=== PATIENT | female | born 1955 | race Two or more races ===

== ENCOUNTER 2019-05-19 18:21 | Emergency (ER) | payer MEDICAID, SELFPAY ==
[2019-05-19 18:22] VITALS: BP 134/92; PULSE 88; RESP 15; TEMP 36.8; O2SAT 97; BMI 39.6
--- NOTE | 2019-05-19 18:37 | ED.VIS.GEN ---
History of Present Illness Chief Complaint: Back Detail of Chief Complaint: Back pain Informant: Patient Onset: Weeks Current Severity: Mild Maximum Severity: Moderate Narrative: Left-sided back pain is been ongoing for the last week or more. She points to the left lumbar paraspinal region at the level of her waistband. She did fall, landing on her hands and knees, but states she believes this fall was after her back and already started hurting. She initially thought she had a UTI so she was trying to drink a lot of water. She does state that occasionally the pain will shoot down her leg. Pain does seem to be worse with movement. She denies difficulty with her back previously. Past Medical History - Allergies and Home Meds Allergies/Adverse Reactions: Allergies No Known Allergies Allergy (Verified 05/19/19 18:25) Primary Care Physician: Royce Islas DO [Primary Care Provider] - Prior records reviewed: Yes Past Medical History: - - Reviewed Surgical History: - - Surgery to her right arm for a compound wrist fracture and elbow fractures Lives: Spouse/ Significant Other Smoking Status: Never smoker - Family History Paternal Family History: Reports: Cancer Review of Systems General: Denies: Chills, Fever Eyes: Denies: Visual changes - bilaterally ENT: Denies: Bilateral ear pain Cardiovascular: Denies: Chest pain Respiratory: Denies: Dyspnea, Cough Gastrointestinal: Denies: Abdominal pain, Nausea, Vomiting, Diarrhea Genitourinary: Denies: Dysuria Musculoskeletal: Reports: Back pain, Extremity Pain Skin: Denies: Rash Neurological: Denies: Headache, Weakness, Parasthesia Hematologic: Denies: Easy bruising Allergy: Denies: Uticaria Physical Exam Vital Signs/Narrative: Vital Signs Temp Pulse Resp BP Pulse Ox 05/19/19 18:22 98.2 F 88 15 134/92 H 97 Inital Vital Signs reviewed: Yes General: Well nourished, Well developed Head: Normocephalic ENT: Moist mucous membranes Neck: Supple Cardiovascular: Regular rate, Regular rhythm Respiratory: No distress, CTA bilaterally Abdomen: Soft, Nontender Back: - - Mild tenderness in the low left lumbar paraspinal muscles. No midline tenderness. Extremities: Nontender, No edema, - - Strong distal pulses. Skin: Normal color Neurological: Alert, Oriented x3, Normal Strength, Normal Sensation Psychological: Normal affect Diagnostic/Tx/Re-eval Laboratory Results 05/19/19 19:00 Urine Color Yellow Urine Clarity Clear Urine pH 5.0 Ur Specific [place] 1.025 Urine Protein Negative Urine Glucose (UA) Normal Urine Ketones Negative Urine Occult Blood Negative Urine Nitrite Negative Urine Bilirubin Negative Urine Urobilinogen Normal Ur Leukocyte Esterase 25 H Urine RBC 0 SEEN Urine WBC 0 SEEN Ur Squamous Epith Cells 0 SEEN Urine Bacteria 0 SEEN Urine Mucus 1+ - Medical Decision Making Urinalysis is obtained and unremarkable. Test results are discussed with the patient. She was given naproxen here and will be given a dose of Flexeril. Pain does seem to be worsened with movement and does seem consistent with deep musculoskeletal pain. She be given naproxen and Flexeril at home. She plans to follow with her primary care physician early next week. ED Disposition - Plan for ED Patient: Disposition: Home or Assisted Living Diagnosis: Back pain Instructions: BACK AND NECK PAIN, General Prescriptions: cycloBENZAPRine HCl [Flexeril] 10 mg PO TID PRN #10 tablet PRN Reason: Muscle Spasm Naproxen [Naprosyn] 500 mg PO BID PRN PRN #20 tablet PRN Reason: Pain Score 1-10/10 Referrals: Royce Islas DO [Primary Care Provider] - 5-7 Days
[2019-05-19] MEDS: Naproxen 500 MG Tablet PO (18:49)
[2019-05-19 19:13] LABS: Bacteria 0 SEEN /hpf (None Seen); Red Blood Cells-Urine 0 SEEN /hpf (0-5); Squamous Epithelial Cells - UA 0 SEEN /hpf (5-10); White Blood Cells 0 SEEN /hpf (0-5)
[2019-05-19 19:17] LABS: Color, Urine Yellow (Yellow); Glucose, Dipstick Normal (Normal); Ketone-Dipstick Negative (Negative); Leukocyte Esterase-Dipstick 25 /ul (Negative); Nitrite-Dipstick Negative (Negative); Occult Blood-Urine Negative /ul (Negative); Protein-Dipstick Negative (Negative); Specific Gravity, Urine 1.025 (1.002-1.030); Urine Bilirubin Dipstick Negative (Negative); Urine Clarity Clear (Clear); Urine Urobilinogen Normal (Normal)
[2019-05-19 19:23] LABS: Mucous, Urine 1+ /hpf (<or=2+)
[2019-05-19] MEDS: cycloBENZAPRine HCl 10 MG Tablet PO (19:38)
== END 2019-05-19 19:39 | disposition home or self-care (01) ==
PROVIDERS: Emergency Provider Emergency Medicine; Family Provider Student in an Organized Health Care Education/Training Program; PCP Student in an Organized Health Care Education/Training Program
DX: M54.5 Low back pain (principal); Z79.899 Other long term (current) drug therapy
CPT/HCPCS: 81001; 99283

== ENCOUNTER → 2020-03-20 17:31 | Outpatient (CLI) | payer MEDICAID, SELFPAY | PROVIDERS: PCP Student in an Organized Health Care Education/Training Program; Referring Provider Nurse Practitioner Family; Visit Provider Nurse Practitioner Family | DX: Z11.59 Encounter for screening for other viral diseases (principal) | CPT/HCPCS: 87635; 94799; U0003 ==

== ENCOUNTER → 2020-08-20 17:39 | Outpatient (CLI) | payer MEDICAID, SELFPAY | PROVIDERS: PCP Student in an Organized Health Care Education/Training Program; Referring Provider Student in an Organized Health Care Education/Training Program; Visit Provider Student in an Organized Health Care Education/Training Program | DX: Z20.822 Contact with and (suspected) exposure to COVID-19 (principal); R53.83 Other fatigue | CPT/HCPCS: 87635; C9803; U0005; U0003 ==

== ENCOUNTER 2021-03-31 11:28 | Emergency (ER) | payer MEDICAID, SELFPAY ==
[2021-03-31 11:29] VITALS: BP 118/99; PULSE 87; RESP 16; TEMP 36.2; O2SAT 97; BMI 29.0
--- NOTE | 2021-03-31 11:57 | EX.ED.DYSGE1 ---
HPI History of Present Illness Chief Complaint: General Illness Detail of Chief Complaint: Vomiting and diarrhea Informant: patient Narrative Narrative: Presents to the emergency department complaint of diarrhea that started about 4 days ago. Patient states she is having about 10 watery stools a day. Patient started having episodes of vomiting today. Patient thinks she threw up 6 times today. She denies any abdominal pain. She denies fevers. Patient states that she was out of town at the [facility] in [place] 2 weeks ago and tested positive for COVID-19 although she was asymptomatic at that time. Patient states that her partner who is with her did get Covid. Before having the episodes of diarrhea 4 days ago she was feeling well. Prior similar symptoms: No PFSH PFSH Medical History (Updated 03/31/21 @ 13:[address] Brittny Us DO) Hypothyroid Home Medications cyclobenzaprine 10 mg PO TID PRN #10 tab 05/19/19 [Rx Last Taken Unknown] levothyroxine 75 mcg PO DAILY 05/19/19 [History Last Taken Unknown] naproxen 500 mg PO BID PRN PRN #20 tab 05/19/19 [Rx Last Taken Unknown] Allergy/AdvReac Type Severity Reaction Status Date / Time No Known Allergies Allergy Verified 03/31/21 11:32 Surgical History (Updated 03/31/21 @ 12:15 by Annita Simmons) Hx of elbow surgery Social History Smoking Status: Never smoker ROS ROS ED Constitutional Constitutional ED: Reports systems reviewed and no addt'l complaints, except as documented; Denies body ache(s), change in weight or chills Eyes Eyes: Denies acute decrease in peripheral vision, change in vision, double vision or loss of vision ENT ENT ED: Reports none; Denies ear pain, lip swelling, loss taste/smell, neck pain, otalgia or sore throat Cardiovascular Cardiovascular: Reports none; Denies abdominal pain, chest pain with activity, leg edema, lightheadedness, palpitations, rapid heart rate or syncope Respiratory/Chest Respiratory/Chest: Reports none; Denies change in mental status, dry cough, dyspnea, hemoptysis, shortness of breath at rest or shortness of breath with exertion Gastrointestinal Gastrointestinal: Reports none, diarrhea, nausea and vomiting; Denies abdominal pain, change in stool character, hematemesis, hematochezia, melena or rectal bleeding Genitourinary Genitourinary ED: Reports none; Denies abdominal discomfort, anuria, dysuria, genital pain or polyuria Musculoskeletal Musculoskeletal: Reports none; Denies arthralgias, back pain, difficulty walking, extremity pain, muscle weakness or myalgias Integumentary Reports none; Denies abscess or rash Neurologic Neurologic: Reports none; Denies abnormal gait, confusion, focal weakness, frequent falls, headache(s), loss of vision, numbness, paresthesias, radicular pain, vertigo or weakness Psychiatric Psychiatric: Reports systems reviewed and no addt'l complaints, except as documented and none; Denies behavioral changes, confusion, difficulty concentrating, hallucinations, suicidal ideation, tactile hallucinations or visual hallucinations Endocrine Endocrinology: Denies none, cold intolerance, excessive sweating, fatigue or heat intolerance Hematologic/Lymphatic Hematologic/Lymphatic: Reports none; Denies anemia, easy bleeding or easy bruising Allergic/Immunologic Allergic/Immunologic ED: Denies as per HPI, none, lip swelling, mouth swelling, throat swelling, tongue swelling or hives EXAM Physical Exam Const Vital Signs: 03/31/21 11:29 03/31/21 12:15 03/31/21 13:28 Temperature 97.2 F L Temperature Source Temporal Pulse Rate 87 Respiratory Rate 16 16 Respiratory Effort Normal Non-Labored Blood Pressure 118/99 H Blood Pressure Mean 105 Pulse Ox 97 Oxygen Delivery Method Room Air Positive well nourished and well developed General Appearance ED: well developed and NAD HEENT Reports TM's clear and moist mucous membranes normocephalic and atraumatic; Negative for trauma or tenderness Tympanic Membrane ED: Yes TM's clear Eyes PERRL and EOMs intact bilaterally General Eye ED: Negative for pale conjunctiva or scleral icterus Neck no lymphadenopathy, supple and no JVD General: Negative for tenderness Chest Wall inspection of chest normal and palpation of chest normal Chest: Negative for tenderness Resp normal respiratory effort and clear to auscultation bilaterally Effort and Inspection: Negative for respiratory distress or pain with movement Auscultation: Negative for rhonchi, wheezes or diminished lung sounds Cardio regular rate, regular rhythm, S1 normal heart sound, S2 normal heart sound and no murmurs Peripheral Pulses: pulses 2+ throughout GI normal to inspection, nondistended, normoactive bowel sounds, soft to palpation, non-tender, non-distended and no masses Back/Spine no CVA tenderness and no thoracic nor lumbar tenderness Extremity normal to inspection General Extremety ED: Negative for edema General Extremity: Negative for edema Neuro oriented x3, CN's II-XII intact bilaterally, no sensory deficits noted and gait normal Sensorium / Orientation: awake, alert, oriented to person, oriented to place and oriented to time Motor Exam: strength 5/5 throughout and strength abnormal Psych mental status grossly normal Skin no rashes or lesions noted and no wounds MDM MDM MDM Narrative Medical decision making narrative: Patient unable to give stool sample for enteric pathogens while in the department. Lab work-up otherwise unremarkable and clinically patient appears well. Patient will be discharged to home as a special likely has diarrhea related to her Covid diagnosis versus other viral etiology. Patient advised use Imodium as needed for the diarrhea. She will be given an order to bring in a stool sample for enteric pathogens. Lab Data Attestation: I reviewed the patient's lab results. Labs: Laboratory Results - last 24 hr 03/31/21 03/31/21 03/31/21 12:08 12:08 12:08 WBC 3.9 L RBC 5.32 Hgb 14.9 Hct 45.9 MCV 86.3 MCH 28.0 MCHC 32.5 RDW Std Deviation 39.5 RDW Coeff of Taye 12.6 Plt Count 168 MPV 9.7 Immature Gran % (Auto) 0.500 Neut % (Auto) 65.2 Lymph % (Auto) 20.7 [place] % (Auto) 13.0 H Eos % (Auto) 0.3 Baso % (Auto) 0.3 Absolute Neuts (auto) 2.6 Absolute Lymphs (auto) 0.81 L Nucleated RBC % 0 Sodium 140 Potassium 3.9 Chloride 105 Carbon Dioxide 32.0 Anion Gap 3 L BUN 11 Creatinine 0.56 Estim Creat Clear Calc 86.49 Est GFR (MDRD) Af Amer 139 Est GFR (MDRD) Non-Af 115 BUN/Creatinine Ratio 19.6 Glucose 108 H Lactic Acid 1.0 Calcium 8.4 L Total Bilirubin 0.80 AST 18 ALT 22 Alkaline Phosphatase 74 Total Protein 7.4 Albumin 3.6 Globulin 3.8 Albumin/Globulin Ratio 0.9 Discharge Plan Triage Chief Complaint: General Illness ED Provider: Brittny Us Dx/Rx/DC Orders Clinical Impression: Viral syndrome, Diarrhea, COVID-19 Instructions: ED Diarrhea, Unknown Cause, ED Viral Syndrome (Adult), Caring for Someone Who Has COVID-19 Prescriptions: No Action levothyroxine 75 MCG tablet 75 mcg PO DAILY RF: 0 naproxen 500 MG tablet 500 mg PO BID PRN PRN (Reason: Pain Score 1-10/10) Qty: 20 RF: 0 cyclobenzaprine 10 MG tablet 10 mg PO TID PRN (Reason: Muscle Spasm) Qty: 10 RF: 0 Primary Care Provider: Royce Islas Referrals: Royce Islas DO [Primary Care Provider] - 3-5 Days Disposition Disposition: Home, Self Care
[2021-03-31] MEDS: 0.9% Normal Saline 1,000 ML 1000 ML IV (12:09)
[2021-03-31] MEDS: Ondansetron 4 MG/2 ML Vial IV (12:09)
[2021-03-31 12:25] LABS: Absolute Lymphocyte Count 0.81 X10^3/uL (0.83-4.51); Absolute Neutrophil Count 2.6 X10^3/uL (2.0-7.7); Basophil# 0.01 X10^3/uL; Basophil% 0.3 % (0-1); Eosinophil# 0.01 X10^3/uL; Eosinophils% 0.3 % (0-5); Hematocrit 45.9 % (37-47); Hemoglobin 14.9 g/dL (12.0-15.0); Lymphocyte # 0.81 X10^3/ul (0.83-4.51); Lymphocyte % 20.7 % (19-41); Mean Corp Hgb Conc 32.5 g/dL (32-36); Mean Corpuscular Volume 86.3 fL (81-99); Mean Platelet Vol. 9.7 fl (6.2-12.0); Monocyte# 0.51 X10^3/uL; NRBC Flagged by Analyzer 0 % (0-5); Neutrophil # 2.56 X10^3/uL (2.7-7.7); Neutrophil % 65.2 % (47-70); Platelet Count 168 K/mm3 (150-450); RBC Distribution Width CV 12.6 % (11.6-14.6); RBC Distribution Width SD 39.5 fl (35.1-43.9); Red Blood Count 5.32 M/mm3 (4.2-5.4); White Blood Count 3.9 K/mm3 (4.4-11.0)
[2021-03-31 12:53] LABS: ALB/GLOB Ratio 0.9 RATIO (0.9-2.4); AST(SGOT) 18 U/L (15-37); Alanine Aminotransfer ALT/SGPT 22 U/L (13-56); Albumin, Serum 3.6 g/dL (3.2-5.0); Alkaline Phosphatase 74 U/L (45-117); Anion Gap 3 (5-15); BUN 11 mg/dL (7-18); BUN/Creat Ratio 19.6 RATIO (10-20); Calcium,Total 8.4 mg/dL (8.5-10.1); Chloride 105 mmol/L (98-107); Creatinine, Serum 0.56 mg/dL (0.55-1.02); EST Glomerular Filtration Rate 115 mL/min (>60); Est Glom Filt Rate - Afr Amer 139 mL/min (>60); Estimated Creatinine Clearance 86.49 ml/min; Globulin 3.8 g/dL (2.2-4.2); Glucose 108 mg/dL (74-106); Potassium 3.9 mmol/L (3.5-5.1); Protein, Total 7.4 g/dL (6.4-8.2); Sodium Level 140 mmol/L (136-145)
[2021-03-31 13:28] VITALS: RESP 16
== END 2021-03-31 14:03 | disposition home or self-care (01) ==
PROVIDERS: Emergency Provider Emergency Medicine; PCP Student in an Organized Health Care Education/Training Program
DX: U07.1 COVID-19 (principal); B34.9 Viral infection, unspecified; R19.7 Diarrhea, unspecified
CPT/HCPCS: 80053; 83605; 85025; 96374; 99282; J7030; A4216; J2405

== ENCOUNTER 2021-04-01 02:05 | Emergency (ER) | payer MEDICAID, SELFPAY ==
[2021-04-01 02:06] VITALS: BP 145/90; PULSE 72; RESP 14; TEMP 36.8; O2SAT 98; BMI 29.0
--- NOTE | 2021-04-01 02:17 | CT_ITS ---
STUDY: CT ABDOMEN AND PELVIS WITH CONTRAST REASON FOR EXAM: Female, 65 years old. LLQ pain RADIATION DOSAGE (If Supplied By Facility): CTDIvol = ( 13.73 ) mGy, DLP = ( 919.94 ) mGycm TECHNIQUE: Transaxial images were obtained from the dome of the diaphragm to the symphysis pubis without oral contrast. IV 100mL Isovue-370 was administered. Sagittal and coronal images were reconstructed. Individualized dose optimization techniques were used for this CT. COMPARISON: None. FINDINGS: Lung bases clear. Mild intra and extrahepatic biliary dilatation. Common bile duct measures 0.8 cm in diameter. Tiny layering stones in the gallbladder. Calcified granulomas in the spleen. Unremarkable pancreas, adrenals, and bilateral kidneys. Normal appendix. Circumferential wall thickening of the cecum and ascending colon, suggestive of acute colitis or typhlitis. Distal colonic diverticulosis. No acute diverticulitis. Bowel loops nonobstructed. No free air or free fluid. No adenopathy. Vascular calcification with no abdominal aortic aneurysm. Fat-containing periumbilical hernia. Sections through the pelvis demonstrate no adnexal mass. Urinary bladder incompletely distended. Multilevel thoracolumbar spondylosis. Mild osteoarthritis of the bilateral hip joints. CT/Abdomen/Pelvis W IV Cont ONLY IMPRESSION: Circumferential wall thickening of the cecum and ascending colon, suggestive of acute infectious/inflammatory colitis or typhlitis. Distal colonic diverticulosis. No acute diverticulitis. Cholelithiasis. Mild intra and extrahepatic biliary dilatation, amenable to further evaluation by MRI/MRCP. Electronically Signed: Kong Stratton MD at 3:34 EDT Tel , Service support ,
[2021-04-01] MEDS: 0.9% Normal Saline 1,000 ML 1000 ML IV (02:29)
[2021-04-01] MEDS: Ketorolac 15 MG/ML Vial IV (02:29)
[2021-04-01 02:35] LABS: Absolute Lymphocyte Count 1.22 X10^3/uL (0.83-4.51); Absolute Neutrophil Count 3.5 X10^3/uL (2.0-7.7); Basophil# 0.02 X10^3/uL; Basophil% 0.3 % (0-1); Eosinophil# 0.02 X10^3/uL; Eosinophils% 0.3 % (0-5); Hematocrit 43.3 % (37-47); Lymphocyte # 1.22 X10^3/ul (0.83-4.51); Lymphocyte % 21.2 % (19-41); Mean Corp Hgb Conc 34.6 g/dL (32-36); Mean Corpuscular Hgb 29.1 pg (27.0-32.0); Mean Corpuscular Volume 84.1 fL (81-99); Mean Platelet Vol. 9.8 fl (6.2-12.0); Monocyte# 0.94 X10^3/uL; Monocyte% 16.3 % (0-10); NRBC Flagged by Analyzer 0 % (0-5); Neutrophil # 3.52 X10^3/uL (2.7-7.7); Neutrophil % 61.4 % (47-70); Platelet Count 185 K/mm3 (150-450); RBC Distribution Width CV 12.4 % (11.6-14.6); RBC Distribution Width SD 37.6 fl (35.1-43.9); Red Blood Count 5.15 M/mm3 (4.2-5.4); White Blood Count 5.8 K/mm3 (4.4-11.0)
[2021-04-01 02:49] LABS: ALB/GLOB Ratio 0.9 RATIO (0.9-2.4); AST(SGOT) 17 U/L (15-37); Alanine Aminotransfer ALT/SGPT 21 U/L (13-56); Albumin, Serum 3.6 g/dL (3.2-5.0); Alkaline Phosphatase 72 U/L (45-117); Anion Gap 5 (5-15); BUN 12 mg/dL (7-18); BUN/Creat Ratio 19.7 RATIO (10-20); Calcium,Total 8.5 mg/dL (8.5-10.1); Chloride 107 mmol/L (98-107); Creatinine, Serum 0.61 mg/dL (0.55-1.02); EST Glomerular Filtration Rate 105 mL/min (>60); Est Glom Filt Rate - Afr Amer 127 mL/min (>60); Glucose 116 mg/dL (74-106); Potassium 3.6 mmol/L (3.5-5.1); Protein, Total 7.6 g/dL (6.4-8.2); Sodium Level 139 mmol/L (136-145)
--- NOTE | 2021-04-01 03:12 | ED.VIS.GI ---
HPI HPI - GI History of Present Illness Chief Complaint: Abd Pain Narrative Narrative: Patient presenting for evaluation due to abdominal pain diarrhea and generalized illness. Patient has a past history of testing positive for coronavirus 2 weeks ago. She reports that she was basically asymptomatic with her coronavirus infection. Patient states however that 4 days ago she developed a diarrheal illness. This been associated with multiple episodes of loose watery diarrhea per day. Patient states that not really been associated with fevers. She was seen about 24 hours ago had a laboratory work-up and was discharged. She reports that since then she has had resolution of her diarrhea, but has developed some generalized abdominal pain. This is an aching type pain that is not really localized. Its been associated with generalized myalgias and a feeling of generalized uneasiness. Patient's states that she has basically been rolling around moaning in bed all day. Review of systems otherwise negative. Patient has not been on antibiotics recently. Her only travel was out to [place] to go to [place]. No recent hospital admissions or shelter exposures. [facility] Medical History Hypothyroid Home Medications cyclobenzaprine 10 mg PO TID PRN #10 tab 05/19/19 [Rx Last Taken Unknown] levothyroxine 75 mcg PO DAILY 05/19/19 [History Last Taken Unknown] naproxen 500 mg PO BID PRN PRN #20 tab 05/19/19 [Rx Last Taken Unknown] dicyclomine 20 mg PO TIDAC #20 capsule 04/01/21 [Rx Last Taken Unknown] naproxen 500 mg PO BID PRN #20 tab 04/01/21 [Rx Last Taken Unknown] Allergy/AdvReac Type Severity Reaction Status Date / Time No Known Allergies Allergy Verified 04/01/21 02:09 Surgical History Hx of elbow surgery Social History Smoking Status: Former smoker ROS ROS ED Constitutional Constitutional ED: Reports chills and other Details: malaise ENT ENT ED: Denies sore throat Cardiovascular Cardiovascular: Denies chest pain Respiratory/Chest Respiratory/Chest: Denies cough or dyspnea Gastrointestinal Gastrointestinal: Reports abdominal pain and diarrhea Genitourinary Genitourinary ED: Denies dysuria, hematuria or urinary frequency Musculoskeletal Musculoskeletal: Reports myalgias Integumentary Denies rash Neurologic Neurologic: Denies paresthesias or weakness Psychiatric Psychiatric: Denies depression Endocrine Endocrinology: Denies polyuria Hematologic/Lymphatic Hematologic/Lymphatic: Denies easy bleeding or easy bruising Allergic/Immunologic Allergic/Immunologic ED: Denies urticaria EXAM Physical Exam Const Vital Signs: 04/01/21 02:06 Temperature 98.2 F Temperature Source Temporal Pulse Rate 72 Respiratory Rate 14 Blood Pressure 145/90 H Blood Pressure Mean 108 Pulse Ox 98 Oxygen Delivery Method Room Air Positive well nourished and well developed Constitutional Narrative: Well-appearing age-appropriate female no acute distress General Appearance ED: well developed and NAD HEENT normocephalic and atraumatic Eyes EOMs intact bilaterally General Eye ED: Negative for pale conjunctiva or scleral icterus Neck no lymphadenopathy and supple Resp normal respiratory effort and clear to auscultation bilaterally Cardio regular rate, regular rhythm, no murmurs and peripheral pulses 2+ throughout GI non-distended and no masses GI Narrative: Tenderness to palpation that is nonlocalizing Palpation: soft; Negative for guarding, rigid or rebound tenderness present Back/Spine no CVA tenderness Extremity full ROM General Extremety ED: Negative for edema General Extremity: Negative for edema Neuro moves all extremities and no sensory deficits noted Sensorium / Orientation: alert, oriented to person, oriented to place and oriented to time Motor Exam: strength 5/5 throughout Psych mental status grossly normal Skin Rashes: no rashes MDM MDM MDM Narrative Medical decision making narrative: Patient is presenting secondary to persistent symptoms from her GI illness and now a emergence of abdominal pain. IV was tablets patient was given fluids. Patient was dosed with 1 L normal saline and Toradol. Laboratory studies were repeated, patient CBC shows improvement of her white blood cell count out to 5.8 no evidence of neutrophilic shift, there continues to be somewhat elevation of the patient's monocytes. CMP was repeated and continues to show good renal function no electrolyte derangements and a normal hepatic panel. Due to the fact that the patient is a bounce back, the fact that she now is complaining of diffuse abdominal pain I did perform CT imaging with IV contrast. This demonstrates some circumferential wall thickening of the patient's cecum and ascending colon that is likely suggestive of the patient having infectious colitis. This would seem consistent with patient's history given the sudden onset over the last 4 days of her diarrhea and her generalized illness. I did consider the possibility of the patient having a bacterial colitis but she does not have a leukocytosis, does not have a neutrophilic shift, and is otherwise well-appearing. I also considered the possibility of C. difficile but the patient does not have leukocytosis and does not have any risk factors of such. Repeat evaluation of the patient at 0345 she states that she has significant improvement and she is actually resting comfortably for the first time all day. I do not feel that the patient requires admission or further observation. Patient will be discharged home with a course of Naprosyn as well as Bentyl for symptom control. She was recommended aggressive hydration. Patient was educated on signs and symptoms which to return. Patient was discharged in stable/improved condition Lab Data Labs: Laboratory Results - last 24 hr 04/01/21 04/01/21 02:13 02:13 WBC 5.8 RBC 5.15 Hgb 15.0 Hct 43.3 MCV 84.1 MCH 29.1 MCHC 34.6 D RDW Std Deviation 37.6 RDW Coeff of [place]aye 12.4 Plt Count 185 MPV 9.8 Immature Gran % (Auto) 0.500 Neut % (Auto) 61.4 Lymph % (Auto) 21.2 [place] % (Auto) 16.3 H Eos % (Auto) 0.3 Baso % (Auto) 0.3 Absolute Neuts (auto) 3.5 Absolute Lymphs (auto) 1.22 Nucleated RBC % 0 Sodium 139 Potassium 3.6 Chloride 107 Carbon Dioxide 27.0 Anion Gap 5 BUN 12 Creatinine 0.61 Estim Creat Clear Calc 79.40 Est GFR (MDRD) Af Amer 127 Est GFR (MDRD) Non-Af 105 BUN/Creatinine Ratio 19.7 Glucose 116 H Calcium 8.5 Total Bilirubin 0.70 AST 17 ALT 21 Alkaline Phosphatase 72 Total Protein 7.6 Albumin 3.6 Globulin 4.0 Albumin/Globulin Ratio 0.9 Radiography Diagnostic Testing: Radiology Impression Abdomen/Pelvis CT 04/01/21 02:17 IMPRESSION: Circumferential wall thickening of the cecum and ascending colon, suggestive of acute infectious/inflammatory colitis or typhlitis. Distal colonic diverticulosis. No acute diverticulitis. Cholelithiasis. Mild intra and extrahepatic biliary dilatation, amenable to further evaluation by MRI/MRCP. Electronically Signed: Kong Stratton MD at 3:34 EDT Tel , Service support , Discharge Plan Triage Chief Complaint: Abd Pain ED Provider: Abdullahi Mulligan Dx/Rx/DC Orders Clinical Impression: Colitis Instructions: ED Understanding Colitis Prescriptions: New dicyclomine 10 mg capsule 20 mg PO TIDAC Qty: 20 RF: 0 naproxen 500 mg tablet 500 mg PO BID PRN Qty: 20 RF: 0 No Action levothyroxine 75 MCG tablet 75 mcg PO DAILY RF: 0 naproxen 500 MG tablet 500 mg PO BID PRN PRN (Reason: Pain Score 1-10/10) Qty: 20 RF: 0 cyclobenzaprine 10 MG tablet 10 mg PO TID PRN (Reason: Muscle Spasm) Qty: 10 RF: 0 Primary Care Provider: Royce Islas Referrals: Royce Islas DO [Primary Care Provider] - 3-5 Days Disposition Disposition: Home, Self Care
[2021-04-01 04:41] VITALS: PULSE 62; O2SAT 95
== END 2021-04-01 04:45 | disposition home or self-care (01) ==
PROVIDERS: Emergency Provider Emergency Medicine; PCP Student in an Organized Health Care Education/Training Program
DX: K52.9 Noninfective gastroenteritis and colitis, unspecified (principal); Z87.891 Personal history of nicotine dependence
CPT/HCPCS: 74177; 80053; 85025; 96374; 99283; J7030; Q9967; A4216

== ENCOUNTER → 2021-04-02 | Outpatient (CLI) | payer MEDICAID, SELFPAY | END | disposition home or self-care (01) | PROVIDERS: PCP Student in an Organized Health Care Education/Training Program; Referring Provider Student in an Organized Health Care Education/Training Program; Visit Provider Emergency Medicine | DX: R10.9 Unspecified abdominal pain (principal) | CPT/HCPCS: 87506 ==

== ENCOUNTER 2025-04-11 21:58 | Observation (INO) | payer MEDICARE, SELFPAY ==
[2025-04-11 22:01] VITALS: BP 179/104; PULSE 102; RESP 28; TEMP 36.4; O2SAT 93; BMI 38.0
--- NOTE | 2025-04-11 22:20 | CT_ITS ---
PROCEDURE: ABDOMEN/PELVIS W IV CONT ONLY 04/11/2025 REASON FOR EXAM: EPIGASTRIC ABDOMINAL PAIN TECHNIQUE: Procedure Code: [id number] Modality: CT Procedure: ABDOMEN/PELVIS W IV CONT ONLY Coronal and Sagittal reconstruction series were provided. CONTRAST: Isovue-350 VOLUME: 100 mL One or more dose reduction techniques were used (e.g., Automated exposure control, adjustment of the mA and/or kV according to patient size, use of iterative reconstruction technique. RADIATION DOSE SUMMARY: CTDlvol: 22.89 mGy DLP: 1239 mGycm COMPARISON: 04/01/2021. FINDINGS: Unchanged mildly prominent biliary tree. Multiple gallstones are noted. Minimal diffuse thickening of the wall of the gallbladder. Unchanged scattered calcified splenic granulomas. Mild diffuse spondylosis. Diffuse thickening of the stomach suggestive of gastritis. Uncomplicated colonic diverticulosis. Fat containing umbilical hernia without incarceration. The visualized lung bases are unremarkable. Normal liver. Normal pancreas. Normal bilateral adrenal glands. Normal size of the right kidney. There is no right renal mass. There are no right renal calculi. There is no right hydronephrosis. Normal visualized right ureter. Normal size of the left kidney. There is no left renal mass. There are no left renal calculi. There is no left hydronephrosis. Normal visualized left ureter. Normal small intestine. The appendix is visualized and appears normal. There is no demonstrated peritoneal fluid. Mild calcified atheromatous plaques of the abdominal aorta. Normal inferior vena cava. Normal retroperitoneum. Normal urinary bladder. There is no pelvic mass lesion or lymphadenopathy. There is no pelvic fluid. CT/Abdomen/Pelvis W IV Cont ONLY IMPRESSION: Unchanged mildly prominent biliary tree. Multiple gallstones are noted. Minimal diffuse thickening of the wall of the gallbladder. Unchanged scattered calcified splenic granulomas. Mild diffuse spondylosis. Diffuse thickening of the stomach suggestive of gastritis. Uncomplicated colonic diverticulosis. Fat containing umbilical hernia without incarceration. Reading [facility] [id number]
--- NOTE | 2025-04-11 22:20 | EKG12_ITS ---
Test Reason : DYSRHYTHMIA Blood Pressure : */* mmHG Vent. Rate : 72 BPM Atrial Rate : 72 BPM P-R Int : 168 ms QRS Dur : 100 ms QT Int : 428 ms P-R-T Axes : 54 -47 5 degrees QTcB Int : 468 ms Normal sinus rhythm Left anterior fascicular block Abnormal ECG Confirmed by Abdullahi Mae ([id number]), communications editor ADONAY BORRERO ([id number]) on 04/15/2025 1:09:32 PM Referred By: Confirmed By: Abdullahi Mae
--- NOTE | 2025-04-11 22:26 | EX.ED.DYSGE1 ---
HPI History of Present Illness Chief Complaint: Abd Pain Narrative Narrative: Chief complaint and HPI: 69-year-old female with past medical history of hypothyroidism presents for evaluation of epigastric abdominal pain. Onset of symptoms today. Associated symptom is nausea and vomiting. She endorses periodic alcohol use. Had a beer yesterday. She denies any history of biliary disease or pancreatitis. Describes the pain as crampy. Denies any fever, chills, shortness of breath, chest pain, diarrhea, constipation, dysuria. No history of CAD or heart disease. No history abdominal surgeries. Review of systems: See HPI Medications: As listed on the chart Allergies: As listed on the chart PFSH: Per chart Vital signs: As listed on the chart. Reviewed. Physical exam: Gen: A&O x3, NAD but uncomfortable secondary to pain Head: Normocephalic, atraumatic Eyes: No sclera icterus, conjunctiva clear ENT: Moist mucous membranes Neck: Trachea midline, No JVD CV: Tachycardic, regular rhythm, no murmurs, no peripheral edema Resp: Lungs CTA BL, no w/r/c GI: Abd soft, non-distended, tender to palpation in the epigastrium, no rebound or rigidity : No CVA tenderness Musc: Full ROM, no deformity Skin: Warm, dry Neuro: Alert, oriented, grossly intact, sensation intact Psych: Cooperative, appropriate mood and affect [facility] Medical History Hypothyroid Home Medications ?Medication ?Instructions ?Recorded ?Last Taken ?Type levothyroxine 75 mcg tablet 75 mcg PO DAILY 05/19/19 Unknown History aspirin 81 mg tablet 81 mg PO DAILY 04/11/25 Unknown History cholecalciferol (vitamin D3) 25 25 mcg PO DAILY 04/11/25 Unknown History mcg (1,000 unit) capsule (Vitamin D3) Allergy/AdvReac Type Severity Reaction Status Date / Time No Known Allergies Allergy Verified 04/01/21 02:09 Surgical History Hx of elbow surgery Social History Smoking Status: Former smoker EXAM Physical Exam Const Vital Signs: 04/11/25 22:01 Temperature 97.5 F L Temperature Source Oral Pulse Rate 102 H Respiratory Rate 28 H Blood Pressure 179/104 H Blood Pressure Mean 129 Pulse Ox 93 Oxygen Delivery Method Room Air MDM MDM MDM Narrative Medical decision making narrative: 69-year-old female with past medical history of hypothyroidism presents for evaluation of epigastric abdominal pain. Onset of symptoms today. Associated symptom is nausea and vomiting. Differential diagnosis includes but is not limited to gastritis, GERD, pancreatitis, cholecystitis, choledocholithiasis, electrolyte abnormality, gastroenteritis, dehydration, UTI, suspect less likely ACS. NS bolus, morphine, Zofran, Pepcid ordered for symptoms. Laboratory workup ordered including CT abdomen pelvis and chest x-ray. EKG reviewed. CBC without leukocytosis or anemia. CMP unremarkable. Lipase unremarkable. Troponin unremarkable. Lactic acid, UA, CT abdomen pelvis, chest x-ray pending at this time. Patient signed out to night physician, Dr. Conn. He will await further results for final disposition. EKG: Interpreted by me/EM physician: EKG shows normal sinus rhythm without any acute ischemic changes. Heart rate 72. Lab Data Labs: Laboratory Results - last 24 hr 04/11/25 22:22 WBC 8.6 RBC 5.15 Hgb 14.8 Hct 43.4 MCV 84.3 MCH 28.7 MCHC 34.1 RDW Std Deviation 39.7 RDW Coeff of Taye 12.9 Plt Count 302 MPV 9.0 Immature Gran % (Auto) 0.200 Neut % (Auto) 80.8 H Lymph % (Auto) 13.0 L [place] % (Auto) 4.9 Eos % (Auto) 0.6 Baso % (Auto) 0.5 Absolute Neuts (auto) 7.0 Absolute Lymphs (auto) 1.12 Nucleated RBC % 0 Sodium 141 Potassium 3.6 Chloride 104 Carbon Dioxide 23.8 Anion Gap 14 BUN 16 Creatinine 0.79 Estim Creat Clear Calc 76.49 Est GFR (MDRD) Non-Af 81 BUN/Creatinine Ratio 19.7 Glucose 137 H Calcium 9.6 Total Bilirubin 0.47 Direct Bilirubin 0.16 AST 20 ALT 12 Alkaline Phosphatase 76 Troponin T High Sens 9 Total Protein 7.6 Albumin 4.4 Globulin 3.2 Lipase 40 Discharge Plan Triage Chief Complaint: Abd Pain ED Provider: Shlomo Brewer Dx/Rx/DC Orders Prescriptions: No Action levothyroxine 75 MCG tablet 75 mcg PO DAILY aspirin 81 mg tablet 81 mg PO DAILY cholecalciferol (vitamin D3) [Vitamin D3] 25 mcg (1,000 unit) capsule 25 mcg PO DAILY Primary Care Provider: Royce Islas Referrals: Royce Islas, DO [Primary Care Provider] - Print Language: Tajik
[2025-04-11 22:35] LABS: Hematocrit 43.4 % (37-47); Hemoglobin 14.8 g/dL (12.0-15.0); Immature Granulocytes Count 0.020 X10^3/uL (0.0-0.0); Mean Corp Hgb Conc 34.1 g/dL (32-36); Mean Corpuscular Volume 84.3 fL (81-99); Mean Platelet Vol. 9.0 fl (6.2-12.0); NRBC Flagged by Analyzer 0 % (0-5); Platelet Count 302 K/mm3 (150-450); RBC Distribution Width CV 12.9 % (11.6-14.6); RBC Distribution Width SD 39.7 fl (35.1-43.9); Red Blood Count 5.15 M/mm3 (4.2-5.4); White Blood Count 8.6 K/mm3 (4.4-11.0)
[2025-04-11] MEDS: 0.9% Normal Saline (1000mL) 1,000 ML 999 ML IV (22:35)
--- OUTSIDE RECORDS SUMMARY | 2025-04-11 22:43 | XMS RPT_ITS | CCD ---
Author Organization [facility] Care Team Providers Care Residence Leasing Agent Name Role Phone Royce Islas DO Primary Care Provider KAYLA PEREA Admitting Unavailab KAYLA Beyer Attending Unavailab ROYCE Hung Primary Care Unavailable Royce Islas DO Primary Care Provider GABE MCCARTHY Attending Unava ilable ROYCE ISLAS Primary Care Unavailable Royce Islas DO Primary Care Provider Yane TEMPLE MEAT CUTTER.Lurdes OCAMPO Unavailable Antonio TEMPLE MEAT CUTTER.Aileen OCAMPO Unavailable ROYCE ISLAS Primary Care Unavailable DEAN KIMBLE Referring Unavailable DEAN KIMBLE Attending Unavailable ROYCE ISLAS Primary Care Unavailable JAY JAY VYAS Referring Unavailable ROYCE ISLAS Primary Care Unavailable JAY JAY VYAS Referring Unavailable ROYCE ISLAS Primary Care Unavailable JAY JAY VYAS Attending Unavailable ROYCE ISLAS Primary Care Unavailable AILEEN AYALA Attending Unavailable ROYCE ISLAS Primary Care Unavailable DEAN KIMBLE Referring Unavailable ROYCE ISLAS Primary Care Unavailable DEAN KIMBLE Attending Unavailable ROYCE ISLAS Primary Care Unavailable DEAN KIMBLE Attending Unavailable Medications Current Medications Medication Drug Class(es) Dates Sig (Normalized) Sig (Original) aspirin 81 mg delayed release oral tablet (20 sources) Platelet Aggregation Inhibitor, Nonsteroidal Anti-inflammatory Drug take 1 tablet by mouth once daily aspirin, enteric coated (ASPIRIN, ENTERIC COATED) 81 mg EC tablet Take 81 mg by mouth once daily. Active Comment on above: Take 81 mg by mouth once daily. Calcium Chloride powd (20 sources) Calcium Chloride powd Daily in smoothie Active Calcium Chloride powd Daily in smoothie 0 Active Comment on above: Daily in smoothie cholecalciferol 0.125 mg oral tablet (20 sources) Vitamin D take 1 tablet by mouth once daily cholecalciferol (VITAMIN D3) 5,000 unit tab Take 5,000 Units by mouth once daily. Active Comment on above: Take 5,000 Units by mouth once daily. Cinnamon Bark (20 sources) cinnamon bark (C INNAMON ORAL) Take by mouth. Active cinnamon bark (C INNAMON ORAL) Take by mouth. 0 Active Comment on above: Take by mouth. ibuprofen 200 mg oral tablet (20 sources) Nonsteroidal Anti-inflammatory Drug take 1 tablet by mouth every six hours as needed ibuprofen (MOTRIN) 200 mg tablet Take 200 mg by mouth every 6 hours as needed. Active Comment on above: Take 200 mg by mouth every 6 hours as needed. iv contrast (will be provided with radiology test) (1 source) Start: End: iv contrast (will be provided with radiology test) Indications: Neck pain of over 3 months duration , Acute pain of right shoulder , Paresthesias in right hand , Disorder of right rotator cuff , Supraspinatus syndrome of right shoulder MRI shoulder RT Inject, intravenously, once for 1 dose. No IV access, insert saline lock prior to the beginning of sedation, infusion, injection of imaging exam. Discontinue saline lock post exam. If Pt. has a central line or IVAD, may access for administration according to line specific nursing protocol. Once exam is complete flush line and de-access according to line specific nursing protocol in the MR contrast administration guidelines link. 1 Each 0 04/30/2022 05/01/2022 Active Comment on above: MRI shoulder RT Inje ct, intravenously, once for 1 dose. No IV access, insert saline lock prior to the beginning of sedation, infusion, injection of imaging exam. Discontinue saline lock post exam. If Pt. has a central line or IVAD, may access for administration according to line specific nursing protocol. Once exam is complete flush line and de-access according to line specific nursing protocol in the MR contrast administration guidelines link. levothyroxine sodium 0.075 mg oral tablet (20 sources) l-Thyroxine Start: End: take 1 tablet by mouth every week before breakfast, then take 2 tablets by mouth once daily levothyroxine (SYNTHROID) 75 mcg tablet TAKE 1 TABLET BY MOUTH 6 DAYS PER WEEK BEFORE BREAKFAST. TAKE 2 TABS ONE DAY OF THE WEEK 102 tablet 2 02/27/2025 Active Start: 11-22-2023 End: 05-08-2024 take 1 tablet by mouth every week before breakfast, then take 2 tablets by mouth once daily levothyroxine (SYNTHROID) 75 mcg tablet TAKE 1 TABLET BY MOUTH 6 DAYS PER WEEK BEFORE BREAKFAST. TAKE 2 TABS ONE DAY OF THE WEEK 102 tablet 2 11/22/2023 05/08/2024 Discontinued Start: 09-20-2022 End: 11-22-2023 take 1 tablet by mouth once daily before breakfast, then take 2 tablets by mouth every week levothyroxine (SYNTHROID) 75 mcg tablet Take 1 tablet by mouth daily before breakfast, 6 days per week. Take 2 tablets one day per week. 102 tablet 2 12/13/2022 11/22/2023 Discontinued Start: 11-17-2020 End: 09-18-2022 take 1 tablet by mouth once daily before breakfast levothyroxine (SYNTHROID) 75 mcg tablet Take 1 tablet by mouth daily before breakfast. 90 tablet 3 10/29/2021 09/18/2022 Discontinued Comment on above: Take 1 tablet by ar th daily before breakfast. Take 1 tablet by ar th daily before breakfast, 6 days per week. Take 2 tablets one day per week. Cxgnz-0-ULC-EPA-F javan Oil 1,000 mg (120 mg-180 mg) cap (10 sources) End: 12-25-2024 take 1 capsule by mouth twice daily Vgkuk-3-AHT-EPA-Fish Oil 1,000 mg (120 mg-180 mg) cap Take 2 g by mouth twice daily. 12/25/2024 Discontinued (Course of therapy completed) take 1 capsule by mouth twice da johnny Gnerb-7-NWB-EPA-Fish Oil 1,000 mg (120 mg- 180 mg) cap Take 2 g by mouth twice daily. Active take 1 capsule by mouth twice da johnny Ykklt-4-KOO-EPA-Fish Oil 1,000 mg (120 mg- 180 mg) cap Take 2 g by mouth twice daily. 0 Active Comment on above: Take 2 g by mouth tw ice daily. polyethylene glycol 3350 174393 mg / potassium chloride 2970 mg / sodium bicarbonate 6740 mg / sodium chloride 5860 mg / sodium sulfate 29469 mg powder for oral solution (1 source) Osmotic Laxative Start: 03-14-2025 peg 3350-Electrolytes (GOLYTELY) 236-22.74-6.74 -5.86 gram suspension Refer to printed prep instructions from your provider. 4000 mL 03/14/2025 Active Turmeric extract (20 sources) TURMERIC ORAL Ta ke by mouth. Active TURMERIC ORAL Ta ke by mouth. 0 Active Comment on above: Take by mouth. Completed/Discontinued Medications Medication Drug Class(es) Dates Sig (Normalized) Sig (Original) acetaminophen 325 mg / oxyCODONE hydrochloride 5 mg oral tablet (11 sources) Opioid Agonist Start: 07-13-2022 End: 11-16-2023 take 1 tablet by mouth every six hours as needed for pain oxyCODONE-acetaminop hen (PERCOCET) 5-325 mg tablet Indications: Postoperative pain Take 1 tablet by mouth every 6 hours as needed for pain. 25 tablet 0 07/13/2022 11/16/2023 Discontinued Comment on above: Take 1 tablet by ar th every 6 hours as needed for pain. cyclobenzaprine hydrochloride 10 mg oral tablet (20 sources) Muscle Relaxant Start: 03-19-2020 End: 11-16-2023 take 1 tablet by mouth at bedtime as needed for muscle spasms cyclobenzaprine (FLEXERIL) 10 mg tablet Indications: Neck pain of over 3 months duration , Paresthesias in right hand , Muscle spasm Take 1 tablet by mouth at bedtime as needed for muscle spasm. 30 tablet 3 10/29/2021 11/16/2023 Discontinued Comment on above: Take 1 tablet by ar th at bedtime as needed for Muscle Spasm. Xvuym-9-OSC-EPA-Fish Oil (FISH OIL) 1,000 mg (120 mg-180 mg) cap (1 source) take 1 capsule by mouth twice daily Teesq-7-JWH-EPA-Fish Oil (FISH OIL) 1,000 mg (120 mg-180 mg) cap Take 2 g by mouth twice daily. 0 Active Comment on above: Take 2 g by mouth tw ice daily. predniSONE 10 mg oral tablet (2 sources) Start: 02-03-2022 End: 02-12-2022 predniSONE (DELTASONE) 10 mg tablet Indications: Acute pain of right shoulder Take 4 tabs daily for 3 days, then 2 tabs daily for 3 days, then 1 tab daily for 3 days with food. 21 tablet 02/03/2022 02/12/2022 Comment on above: Take 4 tabs daily fo r 3 days, then 2 tabs daily for 3 days, then 1 tab daily for 3 days with food. Problems Active Problems Problem Classification Problem Date Documented Date Episodic/Chronic Disorders of lipid metabolism (20 sources) Hypercholesterolemia; Translations: [Pure hypercholesterolemia, unspecified] Onset: 08-21-2012 08-21-2012 Chronic E Codes: Fall (1 source) Unspecified fall, initial encounter; Translations: [Fall, initial encounter] Onset: 11-30-2022 Episodic Fracture of lower limb (9 sources) Closed fracture of distal right fibula; Translations: [Other fracture of upper and lower end of right fibula, initial encounter for closed fracture] Onset: 01-08-2025 12-25-2024 Episodic Immunizations and screening for infectious disease (1 source) Encounter for immunization; Translations: [Encounter for immunization] Onset: 03-14-2025 Episodic Other connective tissue disease (3 sources) Spasm; Translations: [Other muscle spasm] Episodic Other connective tissue disease (7 sources) Disorder of rotator cuff; Translations: [Unspecified disorder of synovium and tendon, right shoulder] Episodic Other connective tissue disease (1 source) Biceps tendinitis; Translations: [Bicipital tendinitis, right shoulder] Episodic Other connective tissue disease (1 source) Falls; Translations: [Repeated falls] 03-14-2025 Episodic Other connective tissue disease (1 source) Repeated falls; Translations: [Falling episodes] Onset: 03-14-2025 Episodic Other injuries and conditions due to external causes (1 source) Unspecified injury of head, initial encounter; Translations: [Closed head injury, initial encounter] Onset: 11-30-2022 Episodic Other injuries and conditions due to external causes (1 source) Unspecified injury of right foot, initial encounter; Translations: [Injury of right foot, initial encounter] Onset: 12-18-2024 Episodic Other nervous system disorders (5 sources) Paresthesia of hand ; Translations: [Paresthesia of skin] Episodic Other nervous system disorders (1 source) Other acute postprocedural pain; Translations: [Postoperative pain] Onset: 07-13-2022 Episodic Other nervous system disorders (1 source) Abnormal gait; Translations: [Unspecified abnormalities of gait and mobility] 03-14-2025 Episodic Other nervous system disorders (1 source) Unspecified abnormalities of gait and mobility; Translations: [Abnormality of gait] Onset: 03-14-2025 Episodic Other non-traumatic joint disorders (4 sources) Shoulder pain; Translations: [Pain in right shoulder] Episodic Other non-traumatic joint disorders (1 source) Pain in right shoulder; Translations: [Pain in joint, shoulder region] 02-03-2022 Episodic Other non-traumatic joint disorders (1 source) Pain in right ankle and joints of right foot; Translations: [Acute right ankle pain] Onset: 12-18-2024 Episodic Other nutritional; endocrine; and metabolic disorders (20 sources) Body mass index 30+ - obesity; Translations: [Obesity, unspecified] Onset: 06-18-2022 06-18-2022 Chronic Other nutritional; endocrine; and metabolic disorders (2 sources) Body mass index 40+ - severely obese; Translations: [Morbid (severe) obesity due to excess calories] Onset: 03-14-2025 03-14-2025 Chronic Other nutritional; endocrine; and metabolic disorders (1 source) Morbid (severe) obesity due to excess calories; Translations: [Morbid obesity with BMI of 40.0-44.9, adult (HCC)] Onset: 03-14-2025 Chronic Other nutritional; endocrine; and metabolic disorders (1 source) Body mass index (BMI) 40.0-44.9, adult; Translations: [Morbid obesity with BMI of 40.0-44.9, adult (HCC)] Onset: 03-14-2025 Chronic Other screening for suspected conditions (not mental disorders or infectious disease) (9 sources) Patient encounter status; Translations: [Encounter for screening mammogram for malignant neoplasm of breast] Onset: 03-14-2025 Episodic Residual codes; unclassified (2 sources) History of operative procedure on shoulder; Translations: [Other specified postprocedural states] Episodic Residual codes; unclassified (2 sources) Family history of cancer of colon; Translations: [Family history of malignant neoplasm of digestive organs] 03-14-2025 Episodic Residual codes; unclassified (1 source) Family history of malignant neoplasm of digestive organs; Translations: [Family history of colon cancer] Onset: 03-14-2025 Episodic Screening and history of mental health and substance abuse codes (2 sources) Encounter for screening for depression; Translations: [Encounter for screening examination for other mental health and behavioral disorders] Onset: 03-14-2025 Episodic Spondylosis; intervertebral disc disorders; other back problems (4 sources) Chronic neck pain for greater than 3 months; Translations: [Cervicalgia] Episodic Substance-related disorders (20 sources) Smoker; Translations: [Nicotine dependence, unspecified, uncomplicated] Onset: 06-18-2022 06-18-2022 Chronic Superficial injury; contusion (1 source) Contusion of scalp, initial encounter; Translations: [Hematoma of scalp, initial encounter] Onset: 11-30-2022 Episodic Thyroid disorders (20 sources) Hypothyroidism; Translations: [Hypothyroidism, unspecified] Onset: 04-05-2012 04-05-2012 Chronic Past or Other Problems Problem Classification Problem Date Documented Date Episodic/Chronic Biliary tract disease (20 sources) Cholelithiasis without obstruction; Translations: [Calculus of gallbladder without cholecystitis without obstruction] Onset: 1 01-05-2021 Episodic Cancer of cervix (20 sources) Atypical squamous cells of undetermined significance on cervical Papanicolaou smear; Translations: [Atypical squamous cells of undetermined significance on cytologic smear of cervix (ASC-US)] Onset: 8 05-16-2018 Episodic Diabetes mellitus without complication (20 sources) Impaired fasting glycemia; Translations: [Impaired fasting glucose] Onset: 8 06-13-2019 Episodic Disorders of teeth and jaw (20 sources) Temporomandibular joint disorder; Translations: [Unspecified temporomandibular joint disorder, unspecified side] Onset: 2 04-05-2012 Episodic Neoplasms of unspecified nature or uncertain behavior (20 sources) Benign neoplasm of pancreas; Translations: [Neoplasm of unspecified behavior of digestive system] Onset: 1 01-05-2021 Episodic Other bone disease and musculoskeletal deformities (20 sources) Osteopenia; Translations: [Other specified disorders of bone density and structure, multiple sites] Onset: 1 12-01-2020 Episodic Other connective tissue disease (19 sources) Supraspinatus syndrome; Translations: [Unspecified rotator cuff tear or rupture of right shoulder, not specified as traumatic] Onset: 2 Resolved: 2 Episodic Other connective tissue disease (17 sources) Bursitis of right shoulder; Translations: [Bursitis of right shoulder] Onset: 2 Resolved: 2 Episodic Other connective tissue disease (16 sources) Tendonitis of right shoulder; Translations: [Other enthesopathies, not elsewhere classified] Onset: 2 Resolved: 2 Episodic Other ear and sense organ disorders (5 sources) Otalgia; Translations: [Otalgia, unspecified ear] Onset: 2 04-05-2012 Episodic Other ear and sense organ disorders (20 sources) Pain of ear structure; Translations: [Otalgia, unspecified ear] Onset: 2 04-05-2012 Episodic Unclassified (2 sources) Patient encounter status 11-29-2024 Unclassified (3 sources) Closed fracture of distal right fibula 01-02-2025 Results Test Name Value Interpretation Reference Range Facility [facility] 03-14-2025 CNOV Office Visit (FAMWS ) WILLIAMS ANDERSON ([id number]) 1955 F Date Time Provider Department 03/14/25 2:20 PM [facility] During your visit today, we recorded the following information about you: Pulse Respiration Blood pressure Weight 74/minute 16/minute 130/82 101.4 kg Height 1.58 m Aileen Ayala 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[employer] 03/14/2025 2:58 PM Signed Williams Guerrero [place] is a 69 year old female here for a Medicare wellness visit. Medicare Health Risk Assessment General Health Very good Exercise: Minutes/Day 60 min Exercise: Days/Week 3 days Alcohol: Daily Use 2-3 times a week Alcohol: Drinks/Day 1 or 2 Alcohol: 6 or more drinks Never Feel off balance No Concerns: Teeth/Dentures No Concerns: Sexual function No Troubled by feelings None of the above Frequency: Eating healthy diet Nearly every day ADLs requiring help None of the above Safety precautions in home/vehicle Yes Smoke, vape, chews tobacco No Difficulty hearing Yes Difficulty seeing No Current Providers Specialists: I have reviewed specialist-related care of the patient in the medical record. Current care team: Patient Care Team: Royce Islas DO as PCP - General (Family Medicine) Lurdes Che APRN.TERRENCE as Mold Cleaner (Family Medicine) Aileen Ayala APRN.CNP as Mold Cleaner (Family Medicine) Outside specialists seen: Dr. Marti-Eye Medical/Family history review Reviewed and updated problem list, medical/surgical/family /social history, medications, and allergies. Opioid use review Opioid Medications (last 90 days) No data to display Anxiety/Depression screening PHQ-2 Score: 0 (Lower risk for depression) Recommendation: no further intervention at this time Cognitive screening Cognitive screening reviewed and No further action needed (score 3-5). Functional Observation Was the patient's Timed Up AND Go test unsteady or >= 12 seconds? No Advance Care Planning Patient did not wish or was not able to name a surrogate decision maker or provide an advance care plan She believes she has this in place when they did her will but she is unsure and will let us know Measurements [facility] 05/15/2010 Vision Screening: Follows with optometry/ophthalmology Right: 20/40 Left: 20/ 40 Both: 20/40 Denies concerns of difficulty hearing or intervention at this time. Assessment/Plan Welcome to Medicare preventive visit (Z00.00) - Counseled on healthy diet and regular exercise - Fall avoidance information provided Routine yearly labs ordered including thyroid for management of levothyroxine. Fasting due to lipid panel Health maintenance reviewed, does want a tetanus update which is encouraged to obtain at pharmacy. Denies shingles, pneumonia, and RSV at this time. Family history of colon cancer, encouraged colonoscopy every 5 years which was due in 2022. Order placed and she will schedule at her convenience. Mammogram already ordered, encouraged scheduling, states its only been 4 years, encouraged yearly mammogram or at least every 2 years if no family history or abnormals previously Exited from cervical cancer screening, states she doesn't believe she's ever had abnormals and is older than 65. Aileen Ayala APRN.Aileen Conte APRN.TERRENCE 03/14/2025 2:47 PM Addendum Get your labs drawn fasting 10-12 hours Schedule your colonoscopy when you have time Schedule your mammogram as well You would benefit from general conditioning exercise programs such as those offered by recreation Join The Wellness Team or the [facility]. WHAT YOU CAN DO TO PREVENT FALLS Many falls can be prevented. By making some changes, you can lower your chances of falling. Four things YOU can do to prevent falls for you* and your caregiver 1. Begin a regular exercise program Exercise is one of the most important ways to lower your chances of falling. It makes you stronger and helps you feel better. Exercises that improve balance and coordination (like Sylvain Chi) are the most helpful. Lack of exercise leads to weakness and increases your chances of falling. Ask your doctor or health care provider about the best type of exercise program for you. 2. Have your health care provider review your medicines Have your doctor or pharmacist review all the medicines you take, even [id number] medicines. As you get older, the way medicines work in your body can change. Some medicines, or combinations of medicines, can make you sleepy or dizzy and can cause you to fall. 3. Have your vision checked Have your eyes checked by an eye doctor at least once a year. You may be wearing the wrong glasses or have a condition like glaucoma or cataracts that limits your vision. Poor vision can increase your chances of falling. 4. Make your home safer About half of all falls happen at home. To make your home safer: Remove things you can trip over (lik (more content not included)... Normal [facility] CNOVon 01-29-2025 CNOV Office Visit (FRFHWS ) WILLIAMS ANDERSON ([id number]) 1955 F Date Time Provider Department 01/29/25 8:00 AM DEAN KIMBLEWS During your visit today, we recorded the following information about you: PaulPerla flores MA 01/29/2025 8:21 AM Signed AMB ROOMING INTAKE FLOWSHEET DATA Patient here today 6 weeks post fracture right distal fibula fracture. She denies any pain. Arrives in boot today. New x-ray today. Dean Kimble V, DO 01/29/2025 8:21 AM Signed Subjective The patient is a 69-year-old female presenting for follow-up of a foot fracture. Foot Fracture: - Experiencing mild discomfort on the opposite side of the injury. - Uses a pad to prevent irritation. - Able to ambulate well with the boot. - Occasionally bears weight without the boot when showering, without pain. - Denies significant pain or discomfort with foot and ankle movements. - Adheres to prescribed exercises, including gas pedals and windshield wipers. - Patient's daughter is present and providing support. Musculoskeletal: (+) localized foot pain, (-) gait difficulty Objective Last menstrual period 05/15/2010. General: No acute distress. MSK/Ext: No pain on palpation, minimal sensation on palpation, full range of motion in foot without pain. Imaging: - X-ray of the ankle: Bridging callus formation at the fracture site indicating stable healing; fracture line remains visible with bridging callus support. Assessment AND Plan 1. Closed fracture of distal end of right fibula, unspecified fracture morphology, initial encounter (S82.393W) - Fracture healing well with visible bridging callus on x-ray, indicating stability. - No significant tenderness on examination; patient able to perform ankle dorsiflexion, plantarflexion, and inversion/eversion without pain. - Transition from CAM boot to regular shoe initiated. - Advised caution on uneven surfaces due to anticipated ankle weakness and tightness. - Educated on expected swelling with prolonged weight-bearing; recommended elevation and ice application to manage edema. - Demonstrated application of MIKI wrap to assist with swelling control. - Provided instructions for ankle strengthening exercises, including bilateral and unilateral heel raises. - Continue ankle mobility exercises (windshield wipers and gas pedals). - Scheduled follow-up in 4 weeks to monitor progress; patient may cancel if asymptomatic and fully functional. Recording using [employer] software for draft documentation of the visit was discussed with the patient/authorized fulfillment representative; all questions welcomed and answered. Patient/authorized fulfillment representative agreed to proceed Allergies As of Date: 01/29/2025 (No Known Allergies) Date Reviewed: 01/29/2025 Reviewed by: Perla Miller MA - Fully Assessed Reason for Visit: Right ankle fracture [Other] Primary Visit Diagnosis:Closed fracture of distal end of right fibula, unspecified fracture morphology [S82.831A] Prescriptions as of 01/29/2025 - levothyroxine (SYNTHROID) 75 mcg tablet TAKE 1 TABLET BY MOUTH 6 DAYS PER WEEK BEFORE BREAKFAST. TAKE 2 TABS ONE DAY OF THE WEEK - Calcium Chloride powd Daily in smoothie - ibuprofen (MOTRIN) 200 mg tablet Take 200 mg by mouth every 6 hours as needed. - aspirin, enteric coated (ASPIRIN, ENTERIC COATED) 81 mg EC tablet Take 81 mg by mouth once daily. - cinnamon bark (CINNAMON ORAL) Take by mouth. - TURMERIC ORAL Take by mouth. - cholecalciferol (VITAMIN D3) 5,000 unit tab Take 5,000 Units by mouth once daily. 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] 04/05/2012 Otalgia [H92.09] 04/05/2012 Hypothyroidism [E03.9] 04/05/2012 Subclinical hypothyroidism [E03.8] 08/21/2012 Hypercholesterolemia [E78.00] 08/21/2012 Well adult exam [Z00.00] 08/25/2016 ASCUS of cervix with negative high risk HPV [R8*05/16/2018 IFG (impaired fasting glucose) [R73.01] 2018 Hypercholesteremia [E78.00] Hypertriglyceridemia [E78.1] Osteopenia of multiple sites [M85.89] 11/2020 IPMN (intraductal papillary mucinous neoplasm) *01/05/2021 Calculus of gallbladder without cholecystitis w*01/05/2021 Smoker [F17.200] 06/18/2022 Obesity (BMI 30-39.9) [E66.9] 06/18/2022 Supraspinatus syndrome of right shoulder [M75.1*07/13/2022 07/13/2022 Bursitis of right shoulder [M75.51] 07/13/2022 07/13/2022 Tendinitis of right shoulder [M77.8] 07/13/2022 07/13/2022 Encounter Status:Closed by DEAN KIMBLE V on 01/29/25 Normal [facility] XR ANKLE 3V AP/LAT/OBL RTon 01-29-2025 XR ANKLE 3V AP/LAT/OBL RT * * *Final Report* * * DATE OF EXAM: Jan 29 2025 8:07AM WRX [id number] - XR ANKLE 3V AP/LAT/OBL RT / PROCEDURE REASON: Closed fracture of distal end of right fibula, unspecified fracture morphology, * * * * Physician Interpretation * * * * EXAMINATION / TECHNIQUE: XR ANKLE 3V AP/LAT/OBL RT HISTORY: PT STATES RIGHT ANKLE FX FOLLOW UP Closed fracture of distal end of right fibula, unspecified fracture morphology, initial encounter COMPARISON: 01/08/2025. FINDINGS: There is a healing distal fibula fracture with unchanged alignment. No new acute bony abnormality is identified. IMPRESSION: Healing distal fibula fracture with unchanged alignment. Call Center Support Consultant: PSCB Transcribe Date/Time: Feb 06 2025 7:35P Dictated by : ALISSA CORONEL MD This examination was interpreted and the report reviewed and electronically signed by: ALISSA CORONEL MD on Feb 06 2025 7:35PM EST [id number] Normal [facility] CNOVon 01-08-2025 CNOV Office Visit (FRFHWS ) WILLIAMS ANDERSON ([id number]) 1955 F Date Time Provider Department 01/08/25 8:30 AM DEAN KIMBLE V FRWS During your visit today, we recorded the following information about you: Perla Miller MA 01/08/2025 8:41 AM Signed AMB ROOMING INTAKE FLOWSHEET DATA Patient here 3 weeks 6 days post fracture right ankle distal fibula. Patient denies any pain. New x-ray today. Dean Kimble V, DO 01/08/2025 8:41 AM Signed Subjective Williams Anderson is a 69-year-old female presenting for follow-up of a right ankle fracture sustained on 12/18. Williams reports minimal pain and is tolerating her boot well. She recently used a scooter for mobility during a trip that required extensive walking. She denies numbness or tingling in her toes but notes a brief episode of tingling around her ankle a few days ago. She has not been sleeping without the boot. Ears/Nose/Mouth/Throat: (+) anosmia Musculoskeletal: (+) ankle pain Neurological: (-) toe numbness, (-) toe paresthesia Objective Last menstrual period 05/15/2010. General: No acute distress. No significant swelling around ankle. Stable range of motion. No pain with palpation at fracture site. No sensorineural deficits. Labs: Tests: Imaging: (December) X-ray of the ankle: Evidence of bridging callus formation around the fracture site, alignment maintained, and decreased visibility of the fracture line, indicating ongoing healing. (12/18) X-ray of the ankle: Spiral-type fracture through the distal fibula. Assessment AND Plan 1. Closed fracture of distal end of right fibula, unspecified fracture morphology, initial encounter (S82.943B) Fracture occurred on December 18. Current X-rays demonstrate good alignment and the presence of callus, indicating progressive healing. No significant pain reported, and no numbness or tingling in the toes, suggesting intact nerve function. - Continue using the boot for ambulation; however, patient may remove the boot at home to perform range of motion exercises. - Initiate gas pedal and windshield wiper exercises to improve ankle mobility and reduce stiffness. - Patient may begin weight-bearing as tolerated in the boot. - Advised that swimming is permissible; caution advised when entering and exiting the pool. - Discussed the risks of driving with the boot; patient may drive if the boot is removed and confident in emergency braking. - Follow-up appointment scheduled in 2-3 weeks to reassess healing progress and potentially transition to an ankle brace or wrap. Recording using [employer] software for draft documentation of the visit was discussed with the patient/authorized fulfillment representative; all questions welcomed and answered. Patient/authorized fulfillment representative agreed to proceed Allergies As of Date: 01/08/2025 (No Known Allergies) Date Reviewed: 01/08/2025 Reviewed by: Perla Miller MA - Fully Assessed Reason for Visit: right ankle [Other] Primary Visit Diagnosis:Closed fracture of distal end of right fibula, unspecified fracture morphology [S82.831A] Prescriptions as of 01/08/2025 - levothyroxine (SYNTHROID) 75 mcg tablet TAKE 1 TABLET BY MOUTH 6 DAYS PER WEEK BEFORE BREAKFAST. TAKE 2 TABS ONE DAY OF THE WEEK - Calcium Chloride powd Daily in smoothie - ibuprofen (MOTRIN) 200 mg tablet Take 200 mg by mouth every 6 hours as needed. - aspirin, enteric coated (ASPIRIN, ENTERIC COATED) 81 mg EC tablet Take 81 mg by mouth once daily. - cinnamon bark (CINNAMON ORAL) Take by mouth. - TURMERIC ORAL Take by mouth. - cholecalciferol (VITAMIN D3) 5,000 unit tab Take 5,000 Units by mouth once daily. 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] 04/05/2012 Otalgia [H92.09] 04/05/2012 Hypothyroidism [E03.9] 04/05/2012 Subclinical hypothyroidism [E03.8] 08/21/2012 Hypercholesterolemia [E78.00] 08/21/2012 Well adult exam [Z00.00] 08/25/2016 ASCUS of cervix with negative high risk HPV [R8*05/16/2018 IFG (impaired fasting glucose) [R73.01] 2018 Hypercholesteremia [E78.00] Hypertriglyceridemia [E78.1] Osteopenia of multiple sites [M85.89] 11/2020 IPMN (intraductal papillary mucinous neoplasm) *01/05/2021 Calculus of gallbladder without cholecystitis w*01/05/2021 Smoker [F17.200] 06/18/2022 Obesity (BMI 30-39.9) [E66.9] 06/18/2022 Supraspinatus syndrome of right shoulder [M75.1*07/13/2022 07/13/2022 Bursitis of right shoulder [M75.51] 07/13/2022 07/13/2022 Tendinitis of right shoulder [M77.8] 07/13/2022 07/13/2022 Encounter Status:Closed by DEAN KIMBLE V on 01/08/25 Normal [facility] XR ANKLE 3V AP/LAT/OBL RTon 01-08-2025 XR ANKLE 3V AP/LAT/OBL RT * * *Final Report* * * DATE OF EXAM: Jan 08 2025 8:20AM WRX [id number] - XR ANKLE 3V AP/LAT/OBL RT / PROCEDURE REASON: Closed fracture of distal end of right fibula, unspecified fracture morphology, * * * * Physician Interpretation * * * * EXAMINATION / TECHNIQUE: XR ANKLE 3V AP/LAT/OBL RT HISTORY: 3 week follow up right ankle fx Closed fracture of distal end of right fibula, unspecified fracture morphology, initial encounter COMPARISON: 12/18/2024. FINDINGS: There is a healing distal fibula fracture with unchanged alignment. No new acute bony abnormality is identified. IMPRESSION: Healing distal fibula fracture with unchanged alignment. Call Center Support Consultant: PSCB Transcribe Date/Time: Jan 13 2025 6:52P Dictated by : ALISSA CORONEL MD This examination was interpreted and the report reviewed and electronically signed by: ALISSA CORONEL MD on Jan 13 2025 6:52PM EST [id number] Normal [facility] CNOVon 12-25-2024 CNOV Office Visit (FRFHWS ) WILLIAMS ANDERSON ([id number]) 1955 F Date Time Provider Department 12/25/24 8:00 AM DEAN KIMBLE During your visit today, we recorded the following information about you: Renate Burnett ALBINO 12/25/2024 8:24 AM Signed Patient presents with: Right ankle fracture: Referred by Jay Jay Vyas AMB ROOMING INTAKE FLOWSHEET DATA Pain Pain Level: 4 Pain Location: Ankle-Right Description: Dull, Aching Duration Units: Days Frequency: Intermittent Intervention/Comfort measure: (fracture boot) Dean Kimble V, DO 12/25/2024 8:24 AM Signed Subjective Williams is a 69-year-old female presenting for follow-up of a right fibular fracture. Williams sustained a right fibular fracture on the while stepping out of a van. She did not fall but slipped while weight-bearing on her left foot, resulting in a twisting motion that led to the injury. She continued to ambulate on the injured foot, engaging in activities such as sewing and walking at a festival, believing it to be a sprain. She sought medical evaluation last Tuesday, at which point she was placed in a walking boot and has been ambulating with it since. She reports ecchymosis around the ankle and heel, with increased pain at the end of the day after ambulation. She has been applying ice at night to alleviate discomfort. She denies pain in the proximal fibula or the contralateral side of the ankle. She is able to wiggle her toes and move her foot up and down. She has not been driving since the injury. Musculoskeletal: (+) right ankle pain, (+) ankle bruising, (+) ankle swelling, (-) proximal fibular pain Objective Last menstrual period 05/15/2010. General: No acute distress. MSK/Ext: Bruising around ankle, heels, and toes; no pain with palpation of proximal fibula; pain localized to distal fibula; able to wiggle toes; able to move foot up and down. No focal sensorineural deficits. Labs: Tests: Imaging: - Ankle X-ray (date not provided): Spiral fracture of the distal fibula with no displacement and stable alignment. Assessment AND Plan 1. Closed fracture of distal end of right fibula, unspecified fracture morphology, initial encounter (S82.183O) Spiral fracture of the distal fibula with good alignment. No tenderness over the proximal fibula. Patient has been weight-bearing in a boot for one week without displacement, indicating stability. - Continue immobilization in the boot for 6 weeks. - Educated on the importance of maintaining immobilization to ensure proper healing. - Advised on using ice and elevating the foot above the knee to reduce swelling. - Instructed on adjusting the air pressure in the boot for comfort. - Scheduled a follow-up appointment in 2 weeks for a weight-bearing X-ray to assess stability. Recording using [employer] software for draft documentation of the visit was discussed with the patient/authorized fulfillment representative; all questions welcomed and answered. Patient/authorized fulfillment representative agreed to proceed Referring Provider: JAY JAY VYAS [[id number]] Allergies As of Date: 12/25/2024 (No Known Allergies) Date Reviewed: 12/25/2024 Reviewed by: Renate Burnett MA - Fully Assessed Reason for Visit: Right ankle fracture [Other] Cmt: Referred by Jay Jay Vyas Visit Diagnosis:Closed fracture of distal end of right fibula, unspecified fracture morphology, initial encounter [S82.831A] Order(s):CONSULT PANEL TO ORTHOPAEDICS [151585] Order #: [id number]: 1 Prescriptions as of 12/25/2024 - levothyroxine (SYNTHROID) 75 mcg tablet TAKE 1 TABLET BY MOUTH 6 DAYS PER WEEK BEFORE BREAKFAST. TAKE 2 TABS ONE DAY OF THE WEEK - Calcium Chloride powd Daily in smoothie - ibuprofen (MOTRIN) 200 mg tablet Take 200 mg by mouth every 6 hours as needed. - aspirin, enteric coated (ASPIRIN, ENTERIC COATED) 81 mg EC tablet Take 81 mg by mouth once daily. - cinnamon bark (CINNAMON ORAL) Take by mouth. - TURMERIC ORAL Take by mouth. - cholecalciferol (VITAMIN D3) 5,000 unit tab Take 5,000 Units by mouth once daily. 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] 04/05/2012 Otalgia [H92.09] 04/05/2012 Hypothyroidism [E03.9] 04/05/2012 Subclinical hypothyroidism [E03.8] 08/21/2012 Hypercholesterolemia [E78.00] 08/21/2012 Well adult exam [Z00.00] 08/25/2016 ASCUS of cervix with negative high risk HPV [R8*05/16/2018 IFG (impaired fasting glucose) [R73.01] 2018 Hypercholesteremia [E78.00] Hypertriglyceridemia [E78.1] Osteopenia of multiple sites [M85.89] 11/2020 IPMN (intraductal papillary mucinous neoplasm) *01/05/2021 Calculus of gallbladder without cholecystitis w*01/05/2021 Smoker [F17.200] 06/18/2022 Obesity (BMI 30-39.9) [E66.9] 06/18/2022 Supraspinatus syndrome of right shoulder [M75.1*07/13/2022 07/13/2022 Bursitis of right shoul (more content not included)... Normal [facility] CNOVon 12-18-2024 CNOV Office Visit (UCWSTR ) NAVEENOSCARWILLIAMS Yolanda ([id number]) 1955 F Date Time Provider Department 12/18/24 10:30 AM JAY JAY VYAS [facility] During your visit today, we recorded the following information about you: Temperature Pulse Respiration Blood pressure 98.1 degrees 90/minute 18/minute 144/80 Weight 104.3 kg Jay Jay Vyas PA 12/18/2024 11:42 AM Signed [facility] Subjective Williams Guerrero Haven is a 69 year old female. Patient presents with: Ankle Injury: right x 1 week, twisted HPI Right Ankle Pain and Swelling: - Twisted right ankle approximately one week ago while stepping out of the back of a van. - Reports significant swelling and pain around the ankle. - Able to ambulate despite discomfort. - Noted bruising on toes and around the lateral and medial foot and ankle. - Taking ibuprofen for pain management; uncertain of its effectiveness. PAST MEDICAL HISTORY Diagnosis Date ASCUS of cervix with negative high risk HPV 05/2018 repeat pap in 2-3 years Hypercholesteremia Hypertriglyceridemia IFG (impaired fasting glucose) 2017 IPMN (intraductal papillary mucinous neoplasm) repeat MRI 11/2021 needed Osteopenia of multiple sites 11/2020 Snoring Subclinical hypothyroidism PAST SURGICAL HISTORY Procedure Laterality Date ANESTH OPEN/SURG ARTHRS TOTAL ELBOW REPLACEMENT 03/08/2015 bilateral elbows replaced COLONOSCOPY FLX DX W/COLLJ SPEC WHEN PFRMD 10/12/12 Colonoscopy repeat 5 years COLONOSCOPY FLX DX W/COLLJ SPEC WHEN PFRMD 07/10/2018 repeat 5 years REPAIR WRIST FRACTURE 03/08/2015 S TUBAL LIGATION ALLERGIES Patient has no known allergies. MEDICATIONS levothyroxine (SYNTHROID) 75 mcg tablet TAKE 1 TABLET BY MOUTH 6 DAYS PER WEEK BEFORE BREAKFAST. TAKE 2 TABS ONE DAY OF THE WEEK Kgiwd-3-AYD-EPA-Fish Oil 1,000 mg (120 mg-180 mg) cap Take 2 g by mouth twice daily. Calcium Chloride powd Daily in smoothie ibuprofen (MOTRIN) 200 mg tablet Take 200 mg by mouth every 6 hours as needed. aspirin, enteric coated (ASPIRIN, ENTERIC COATED) 81 mg EC tablet Take 81 mg by mouth once daily. cinnamon bark (CINNAMON ORAL) Take by mouth. TURMERIC ORAL Take by mouth. cholecalciferol (VITAMIN D3) 5,000 unit tab Take 5,000 Units by mouth once daily. FAMILY HISTORY Problem Relation Age of Onset Osteoporosis Mother Seizures Mother Arthritis Father Colon Cancer Father Hypertension Father None Other Breast Cancer Maternal Aunt Social History Tobacco Use Smoking status: Some Days Current packs/day: 0.00 Average packs/day: 1 pack/day for 20.0 years (20.0 ttl pk-yrs) Types: Cigarettes Start date: 04/05/1982 Last attempt to quit: 04/05/2002 Years since quittin.7 Smokeless tobacco: Never Tobacco comments: 05/22 - 2-3 cigarettes per day Vaping Use Vaping status: Some Days Substances: THC Substance Use Topics Alcohol use: Yes Alcohol/week: 3.0 standard drinks of alcohol Types: 2 Standard drinks or equivalent, 1 Cans of Beer (12oz) per week Comment: 2-4/month Drug use: No Review of Systems Musculoskeletal: (+) ankle pain, (+) foot/ankle swelling, (+) foot/ankle bruising Neurological: (-) numbness Objective BP 144/80 Pulse 90 Temp 36.7 ?C (98.1 ?F) Resp 18 Wt 104.3 kg (229 lb 15 oz) LMP 05/15/2010 SpO2 96% BMI 41.52 kg/m? Nursing note reviewed. Vitals reviewed Physical Exam General: No acute distress. MSK/Ext: Bruising noted on toes, lateral foot, medial foot, and ankle; swelling noted on medial and lateral ankle and dorsal foot; tenderness over proximal fifth metatarsal and lateral malleolus; non-tender toes; able to plantar and dorsiflex with normal strength. intact sensation in toes; 2+ {1. Acute right ankle pain (M25.571) 2. Injury of right foot, initial encounter (S99.731A) 3. Closed fracture of distal end of right fibula, unspecified fracture morphology, initial encounter (S82.679P) - Patient sustained an injury to the right ankle and foot approximately one week ago while stepping out of a van, resulting in significant swelling and bruising. - X-ray confirmed a closed fracture of the distal end of the right fibula. - Applied a walking boot (lizandro Denise stock- ipad form completed) to be worn at all times except when driving or showering - Recommended rest, ice, elevation, and use of Tylenol or Motrin for pain management. - Scheduled follow-up appointment with orthopedics for further evaluation and management. and Recording using [employer] software for draft documentation of the visit was discussed with the patient/authorized fulfillment representative; all questions welcomed and answered. Patient/authorized fulfillment representative agreed to proceed History and Record Review External record(s) reviewed: prior outpatient record. Differential Diagnoses - Distal fibular fracture is more likely for the following reason(s): s (more content not included)... Normal [facility] XR ANKLE 3V AP/LAT/OBL RTon 12-18-2024 XR ANKLE 3V AP/LAT/OBL RT * * *Final Report* * * DATE OF EXAM: Dec 18 2024 11:13AM WOX 5297 - XR ANKLE 3V AP/LAT/OBL RT / PROCEDURE REASON: multiple diagnoses * * * * Physician Interpretation * * * * History: Pain following injury FINDINGS: AP, lateral, and oblique views of the right ankle and foot have been obtained. There is an oblique/spiral of the distal fibula without significant displacement. Soft tissue swelling over the fracture site noted. Osseous structures of the foot demonstrate no acute process. There is mild hallux valgus with narrowing of the first MTP joint with associated mild spurring consistent with degenerative change. Bunion noted. Small plantar and posterior calcaneal spurs. IMPRESSION: Distal right fibular fracture with overlying soft tissue swelling. Degenerative changes of the first MTP joint with small calcaneal spurs. Call Center Support Consultant: KAYA Transcribe Date/Time: Dec 18 2024 11:24A Dictated by : LUCILLE BRAVO MD This examination was interpreted and the report reviewed and electronically signed by: LUCILLE BRAVO MD on Dec 18 2024 11:27AM EST [id number] Normal [facility] XR FOOT 3V AP/LAT/OBL RTon 0 12-18-2024 XR FOOT 3V AP/LAT/OBL RT * * *Final Report* * * DATE OF EXAM: Dec 18 2024 11:13AM WOX 5337 - XR FOOT 3V AP/LAT/OBL RT / PROCEDURE REASON: multiple diagnoses * * * * Physician Interpretation * * * * History: Pain following injury FINDINGS: AP, lateral, and oblique views of the right ankle and foot have been obtained. There is an oblique/spiral of the distal fibula without significant displacement. Soft tissue swelling over the fracture site noted. Osseous structures of the foot demonstrate no acute process. There is mild hallux valgus with narrowing of the first MTP joint with associated mild spurring consistent with degenerative change. Bunion noted. Small plantar and posterior calcaneal spurs. IMPRESSION: Distal right fibular fracture with overlying soft tissue swelling. Degenerative changes of the first MTP joint with small calcaneal spurs. Call Center Support Consultant: KAYA Transcribe Date/Time: Dec 18 2024 11:24A Dictated by : LUCILLE BRAVO MD This examination was interpreted and the report reviewed and electronically signed by: LUCILLE BRAVO MD on Dec 18 2024 11:27AM EST [id number] Normal [facility] ALLIED HEALTHon 11-30-2022 ALLIED HEALTH HNO ID: [id number] Author: RT Melinda(R) Service: ? Author Type: Decorator Inspector Type: Allied Health Filed: 11/30/2022 12:11 PM Note Text: Radiology Service Progress Note PATIENT NAME: Williams Anderson DATE OF SERVICE: November 30, 2022 TIME: 12:11 PM PATIENT IDENTITY VERIFICATION COMPLETED USING TWO (2) IDENTIFIERS: Name and Date of confirmed by patient verbally. FALL SCREENING: Has the patient had 2 falls in the last year or 1 fall with injury or currently using an Ambulatory Assistive Device (Walker, Cane, Wheelchair, Crutches, etc.)? Emergency Room Patient: Screened in ED PATIENT GENDER DATA: Female. status: : No status: NO. PATIENT RELEVANT IMPLANT DATA REVIEWED: Not Applicable RADIOLOGY DEPARTMENT: CT; Exam(s) Completed: Brain PERIPHERAL IV DATA: Not applicable SIGNED BY: RT Melinda(R) November 30, 2022 12:11 PM Normal [facility] CT BRAIN WO IVCONon 12-01-[address] BRAIN WO IVCON * * *Final Report* * * DATE OF EXAM: Nov 30 2022 12:10PM [facility] [id number] - CT BRAIN WO IVCON / PROCEDURE REASON: Head trauma, moderate-severe * * * * Physician Interpretation * * * * EXAMINATION: CT BRAIN WO IVCON CLINICAL HISTORY: Head trauma moderate severe large frontal hematoma TECHNIQUE: Serial axial images without IV contrast were obtained from the vertex to the foramen magnum. MQ: [id number] CT Radiation dose: Integrated Dose-Length Product (DLP) for this visit = 882.80 mGy*cm CT Dose Reduction Employed: No dose reduction techniques were required COMPARISON: None. RESULT: Hand Packer/Packager (topogram) images: No additional findings. Post-operative change: None. Acute change: None. Hemorrhage: No evidence of acute intracranial hemorrhage. ECASS hemorrhagic transformation score: Not Applicable Mass Lesion / Mass Effect: No significant mass effect. Chronic change: None apparent. Parenchyma: There is no significant volume loss. The brain parenchyma is otherwise within normal limits for age. Ventricles: The ventricles are within normal limits of size and configuration for age. Paranasal sinuses and skull base: Right maxillary sinus disease. The skull base is unremarkable. Small left frontal forehead/scalp hematoma. IMPRESSION: No acute intracranial findings. Small left forehead/scalp hematoma. Call Center Support Consultant: KAYA Transcribe Date/Time: Nov 30 2022 12:33P Dictated by : JEO CACERES MD This examination was interpreted and the report reviewed and electronically signed by: JOE CACERES MD on Nov 30 2022 12:37PM EST [id number] [facility] ED NOTEon 11-30-2022 ED NOTE HNO ID: [id number] Author: Tootie Luna RN Service: Nursing Author Type: Registered Nurse Type: ED Notes Filed: 11/30/2022 1:08 PM Note Text: Pt verbalizes understanding of discharge instructions. Pt able to ambulate out of ED. Normal [facility] ED NOTE HNO ID: [id number] Author: Joe Ya RN Service: Emergency Medicine Author Type: Registered Nurse Type: ED Notes Filed: 11/30/2022 10:58 AM Note Text: Pt fell on a slippery floor and hit her head and l upper arm. Pt denies loc. Normal [facility] ED PROV NOTEon 11-30-2022 ED PROV NOTE HNO ID: [id number] Author: Gabe Mccarthy MD Service: Emergency Medicine Author Type: Physician Type: ED Provider Notes Filed: 12/01/2022 6:23 AM Note Text: ED Provider Note Patient Name: Williams Anderson : 1955 SERVICE DATE: 11/30/22 History Patient presents with: Head Injury Fall Patient presents the emergency department concerns over fall with a closed head injury. Patient does not take blood thinners. Patient tripped and slipped on the tile floor, landing left frontal portion of her forehead without loss of consciousness. Patient does take an aspirin a day however. Patient is also complaining of left shoulder pain, and she is right-hand dominant. Patient declines pain medications in the emergency room, she took none prior to presentation. Patient notes no light sensitivity, no nausea no vomiting, no mental status changes, no difficulty with her gait or balance Head Injury Location: Frontal Mechanism of injury: fall Fall: Fall occurred: Tripped and walking Height of fall: Standing position Impact surface: hard tile floor. Point of impact: Head Entrapped after fall: no Pain details: Progression: Partially resolved Chronicity: New Worsened by: Nothing Associated symptoms: headache Associated symptoms: no blurred vision, no disorientation, no double vision, no loss of consciousness, no memory loss, no nausea, no neck pain, no numbness, no seizures and no vomiting Risk factors: aspirin PAST MEDICAL HISTORY Diagnosis Date ASCUS of cervix with negative high risk HPV 05/2018 repeat pap in 2-3 years Hypercholesteremia Hypertriglyceridemia IFG (impaired fasting glucose) 2017 IPMN (intraductal papillary mucinous neoplasm) repeat MRI 11/2021 needed Osteopenia of multiple sites 11/2020 Snoring Subclinical hypothyroidism PAST SURGICAL HISTORY Procedure Laterality Date ANESTH OPEN/SURG ARTHRS TOTAL ELBOW REPLACEMENT 03/08/2015 bilateral elbows replaced COLONOSCOPY FLX DX W/COLLJ SPEC WHEN PFRMD 10/12/12 Colonoscopy repeat 5 years COLONOSCOPY FLX DX W/COLLJ SPEC WHEN PFRMD 07/10/2018 repeat 5 years REPAIR WRIST FRACTURE 03/08/2015 S TUBAL LIGATION FAMILY HISTORY Problem Relation Age of Onset Osteoporosis Mother Seizures Mother Arthritis Father Colon Cancer Father Hypertension Father None Other Breast Cancer Maternal Aunt Social History Tobacco Use Smoking status: Some Days Packs/day: 1.00 Years: 20.00 Pack years: 20.00 Types: Cigarettes Last attempt to quit: 04/05/2002 Years since quittin.6 Smokeless tobacco: Never Tobacco comments: 05/22 - 2-3 cigarettes per day Vaping Use Vaping Use: Some days Substances: THC Substance and Sexual Activity Alcohol use: Yes Alcohol/week: 2.5 standard drinks Types: 2 Standard drinks or equivalent, 1 Cans of Beer (12oz) per week Comment: 2-4/month Drug use: No Sexual activity: Not on file ALLERGIES No Known Allergies Review of Systems Constitutional: Negative for fever. Eyes: Negative for blurred vision and double vision. Gastrointestinal: Negative for nausea and vomiting. Musculoskeletal: Negative for gait problem and neck pain. Left upper arm pain Neurological: Positive for headaches. Negative for dizziness, seizures, loss of consciousness, syncope, weakness and numbness. Psychiatric/Behavioral: Negative for memory loss. Physical Exam Vitals [11/30/22 1055] BP Pulse Temp Temp src Resp SpO2 Weight Height 139/97 85 36.1 ?C (97 ?F) Temporal Art 18 96 % 83 kg (183 lb) 1.626 m (5' 4) Physical Exam Vitals and nursing note reviewed. Constitutional: General: She is not in acute distress. Appearance: Normal appearance. She is not ill-appearing or toxic-appearing. HENT: Head: Normocephalic and atraumatic. Comments: Patient has a 4 to 5 cm, soft tissue swelling, with ecchymosis, left forehead, frontal region, just inferior to her hairline, there is no breaks in the skin, there is no depressed skull fracture, there is no tenderness around the bony orbit, or the left-sided zygomatic bone Eyes: General: Right eye: No discharge. Left eye: No discharge. Extraocular Movements: Extraocular movements intact. Pupils: Pupils are equal, round, and reactive to light. Pulmonary: Effort: No respiratory distress. Musculoskeletal: General: Tenderness present. No swelling. Normal range of motion. Cervical back: Normal range of motion and neck supple. No rigidity or tenderness. Comments: Patient has mild bony tenderness, proximal third of the humerus, and lateral aspect of the shoulder, however despite the above, there is no obvious bony abnormalities, no outward signs of trauma, no ecchymosis or rash. Patient has good range of motion, she has no drift, no focal weakness, distally good handgrip strength, intact median, ulnar, radial nerve distribution left upper extremity Lymphadenopathy: Cervical: N (more content not included)... Normal [facility] ANES POSTPROC EVALon 022 ANES POSTPROC EVAL HNO ID: [id number] Author: Kori Marie MD Service: Anesthesiology Author Type: Anesthesiologist Type: Anesthesia Postprocedure Evaluation Filed: 07/13/2022 2:35 PM Note Text: POST ANESTHESIA EVALUATION NOTE : 1955 Procedure Summary Date: 07/13/22 Room / Location: [place] OR01 [place] Anesthesia Start: 1007 Anesthesia Stop: 1204 Procedures: ARTHROSCOPY SHOULDER ROTATOR CUFF (Right: Shoulder) ARTHROSCOPY SHOULDER WITH SUBACROMIAL DECOMPRESSION (Right: Shoulder) TENOTOMY OF SHOULDER AREA SINGLE TENDON (Right: Shoulder) Diagnosis: Disorder of right 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 Bursitis of right shoulder Tendinitis of right shoulder (Disorder of right rotator cuff [M67.911]) (Supraspinatus syndrome of right shoulder [M75.101]) (Bursitis of right shoulder [M75.51]) (Tendinitis of right shoulder [M77.8]) Surgeons: Kayla Perea DO Responsible Provider: Kori Marie MD Anesthesia Type: general, regional ASA Status: 3 Anesthesia Type: general, regional Airway Type: ETT Last Vitals Vitals Value Taken Time BP 118/66 07/13/22 1245 Temp 36.3 ?C (97.3 ?F) 07/13/22 1230 HR SpO2 79 07/13/22 1202 Resp 25 07/13/22 1256 SpO2 94 % 07/13/22 1256 Vitals shown include unvalidated device data. Post Anesthesia Patient Status Patient Evaluation: PACU. PACU/ICU Patient Condition: stable. Anticipated Disposition: phase 2 then home. Neurological Status: aware and responsive. Pulmonary Status: breathing comfortably on room air Airway Control: returned to baseline unsupported. Cardiovascular Status: stable. Pain Management: clinically adequate - multimodal analgesia pain management approach Postoperative Hydration: acceptable. Intraoperative Events: no significant anesthesia events Post Operative Nausea/Vomiting Status: no significant post operative nausea or vomiting Recommendation: continue current plan of care. Anesthesia Observations No Documentation SIGNATURE: Kori Marie MD PATIENT NAME: Williams Anderson DATE: July 13, 2022 TIME: 2:35 PM CSN: [id number] [facility] ANES PRE-OPon 07-13-2022 ANES PRE-OP HNO ID: [id number] Author: Kori Marie MD Service: Anesthesiology Author Type: Anesthesiologist Type: Anesthesia Preprocedure Evaluation Filed: 07/13/2022 9:25 AM Note Text: ANESTHESIOLOGY DAY OF SURGERY NOTE : 1955 Procedure Information Date/Time: 07/13/22 1041 Procedures: ARTHROSCOPY SHOULDER ROTATOR CUFF (Right: Shoulder) ARTHROSCOPY SHOULDER WITH SUBACROMIAL DECOMPRESSION (Right: Shoulder) TENOTOMY OF SHOULDER AREA SINGLE TENDON (Right: Shoulder) Location[place] OR01 [place] Surgeons: Kayla Perea DO Estimated body mass index is 33.47 kg/m? as calculated from the following: Height as of 06/18/22: 162.6 cm (5' 4). Weight as of 06/18/22: 88.5 kg (195 lb). Most recent hematocrit and potassium results: Hematocrit 45.5 11/17/2020 Potassium 4.7 09/28/2021 Relevant Problems ENDO (+) Hypothyroidism (+) Subclinical hypothyroidism I - PHYSICAL EVALUATION AIRWAY Patient intubated: No. Tracheostomy tube not present Mallampati: II. TM distance: >3 FB. Neck ROM: full ROM without neurological symptoms. Mouth opening: adequate. Short neck: no. Thick neck: no Flynn present: no DENTAL Dental findings: teeth intact. Additional exam findings: yes. CARDIOVASCULAR Rhythm: regular PULMONARY Breath sounds clear to auscultation. II - ANESTHESIA PLAN ASA Score: 3 Anesthetic Plan: general and regional Airway type: ETT NPO Status: adequate Beta Ion Monitoring Plan Monitoring plan: Standard ASA. Post Procedure Analgesic Plan Postoperative analgesic plan: parenteral or oral opioids, peripheral nerve block and multimodal analgesia. Patient / Surrogate agrees to blood products: yes DNR status not reviewed with patient and/or family prior to surgery. Significant changes in the patient condition since the History and Physical, not otherwise documented in primary service progress note: no. Potential Anesthesia issues that may suggest increased risk of complications or contraindication to planned procedure: none. No vitals data found for the desired time range. Facility-Administered Medications as of 07/13/2022 Medication Dose Route Frequency - promethazine 12.5 mg tab(s) (PHENERGAN) 12.5 mg ORAL Pre-Op Once - lactated ringers iv infusion 30 mL/hr INTRAVENOUS CONTINUOUS - acetaminophen 1,000 mg tab(s) (TYLENOL) 1,000 mg ORAL Pre-Op Once - midazolam (PF) 2 mg injection (VERSED) 2 mg INTRAVENOUS ONCE - lidocaine 10 mg/mL (1 %) 1-2 mg injection (XYLOCAINE) 0.1-0.2 mL INTRADERMAL PRN - lactated ringers iv infusion 5-30 mL/hr INTRAVENOUS CONTINUOUS - NaCl 0.9% iv flush bag 20 mL INTRAVENOUS PRN - ceFAZolin iv piggyback 2 g in D5W (iso-osmotic) 100 mL (ANCEF) 2 g INTRAVENOUS Pre-Op Once Outpatient Medications as of 07/13/2022 Medication Sig - levothyroxine (SYNTHROID) 75 mcg tablet Take 1 tablet by mouth daily before breakfast. - cyclobenzaprine (FLEXERIL) 10 mg tablet Take 1 tablet by mouth at bedtime as needed for muscle spasm. - cholecalciferol (VITAMIN D3) 5,000 unit tab Take 5,000 Units by mouth once daily. I have interviewed and examined the patient. I have reviewed the medical record and/or the pre-anesthesia evaluation, pertinent labs, and test results. This contains updated information obtained within 48 hours of Surgery/Procedure. SIGNATURE: Kori Marie MD PATIENT NAME: Williams Anderson DATE: July 13, 2022 TIME: 9:24 AM CSN: [id number] [facility] NURSING PROGon 07-13-2022 NURSING PROG HNO ID: [id number] Author: Susy Walsh RN Service: ? Author Type: Registered Nurse Type: Nursing Progress Note Filed: 07/13/2022 10:08 AM Note Text: Dr. marieat bedside for Right supraclavicular nerve block. RN at bedside, pt monitored throughout, BP 100/63 Pulse 74 Temp 36.2 ?C (97.2 ?F) (Temporal Artery) Resp 17 Ht 162.6 cm (5' 4) Wt 88.5 kg (195 lb) LMP 05/15/2010 SpO2 95% BMI 33.47 kg/m? .Pt tolerated procedure without difficulty. [facility] OPERATIVE NOon 07-13-2022 OPERATIVE NO HNO ID: [id number] Author: Kayla Perea DO Service: Orthopaedic Surgery Author Type: Physician Type: Operative Report Filed: 07/13/2022 11:57 AM Note Text: OPERATIVE/PROCEDURE REPORT LOG ID: [id number] SURGERY/PROCEDURE DATE: 07/13/2022 INCISION/PROCEDURE START TIME: 10:34 AM INCISION CLOSE/PROCEDURE END TIME: 11:43 AM SURGEON(S)/PROCEDURALIS T(S) AND MATTRESS FINISHER(S): Surgeon(s) and Role: * Kayla Perea DO - Primary Physician Viscera Washer: Sridevi Fernandes PA-C SURGERY/PROCEDURE(S): Right shoulder arthroscopy, rc repair , sad/acormioplasty, biceps tenotomy ANESTHESIA: General SURGERY/PROCEDURE DETAILS: Preop note Patient is 66-year-old female with continued right shoulder pain weakness and overhead failed conservative treatment MRI confirms full thickness rotator cuff tear patient elected proceed with right shoulder arthroscopy repair as indicated. Risk benefits and alternatives were discussed with patient. Risk including but not limited to blood loss, blood clot, infection, neurovascular G, failure procedure, loss of life and loss of limb. Patient is aware proceed as above. Operative note Patient seen and examined preoperative player. Right shoulder was marked. Patient received a preop regional block. Patient brought to the operating placed supine on the operating table. Signing, anesthesia, antibiotics were mister. Patient was placed in beachchair positioning all bony prominences well-padded SCDs placed on bilateral lower extremity. We then placed patient in beachchair position half-way through we did recheck her blood pressure which was stable throughout. We then marked the right arm was then prepped and draped we marked out our portal placements and our bony landmarks. We insufflated the glenohumeral joint for the posterior aspect had good return. Timeout was performed. We then created a posterior portal with an 11 blade able to begin a diagnostic arthroscopy. The lateral humeral joint was unremarkable there were no loose bodies in the inferior recess to an obvious subscap tear. We created anterior portal under direct visualization. We then pulled the biceps into the joint was unstable at the biceps labral junction as well as significant significant tearing distally. We then truncated the biceps of the biceps labral junction with a burner and then used a shaver to debride back any loose pieces. We then paid tension to the subscap. We used 2 fiber link and placed into a swivel lock after the lesser was prepared for standard technique for subscapularis repair. We then moved to this over we able to visualize a full-thickness rotator cuff tear from the articular side. The moved to the subacromial space. Created a lateral portal under direct visualization. There is hyperemic bursa which was resected with combination of a shaver and ablator. We debrided back to the rotator cuff footprint with a combination of an ablator wand a shaver and a bur to a good bed. Then placed two 5.5 bio composite suture anchors and placed a medial row. Little bit of step-off on the lateral emit a good tension was repaired but in order to facilitate full coverage we then placed 1 lateral row swivel lock using the more anterior anchors. At that point we had good footprint coverage. We irrigated the subacromial space with copious amounts of sterile saline we ensured that we had complained in the distal lateral anterolateral aspect of the distal acromion as well as protected all bursa with combination again of a shaver and ablator wand. The subacromial space was irrigated with copious nonsterile saline. The portals were closed interrupted nylon's and 4-0 Monocryl deep for the bigger incision sterile dressings and a sling were applied patient taught procedure well no complication transferred recovery in stable condition Postoperative note Nonweightbearing right upper extremity Follow-up in 2 weeks Call with increased pain Percocet prescription in chart Comment: Please note this report has been produced using speech recognition software and may contain errors related to that system including errors in grammar, punctuation, and spelling, as well as words and phrases that may be inappropriate. If there are any questions or concerns please feel free to contact the dictating provider for clarification. PRE-OP/PRE-PROCEDURE DIAGNOSIS: right rc tear, biceps tendinosis, impingment syndrome POST-OP/POST-PROCEDURE DIAGNOSIS: Same as Preop ESTIMATED BLOOD LOSS: 0 ml SPECIMENS: None IMPLANTABLE DEVICES: * No implants in log * DRAINS: None COMPLICATIONS: None PARTICIPATION IN SURGERY/PROCEDURE: I/primary surgeon/proceduralist performed the procedure with assistance. No qualified resident/fellow was available. SIGNATURE: Kayla Perea DO PATIENT NAME: Williams Anderson DATE: July 13, 2022 TIME: 11:46 AM [facility] MRI SHOULDER WO IVCON RTon 1 [facility] No Panel Informationon 02-03 Radiology Study observation (narrative) [facility] XR Cervical spine AP and Lat eral and obliqueon 02-03-2022 IMPRESSION: Cervical spine degenerative changes with multilevel disc space narrowing and bilateral neural foramina narrowing. Call Center Support Consultant: [facility] Transcribe Date/Time: Feb 03 2022 2:49P Dictated by : NURIA FLEMING MD This examination was interpreted and the report reviewed and electronically signed by: NURIA FLEMING MD on Feb 03 2022 2:52PM EST RachelZZ_DO_NOT_USE _DIVISION OF RADIOLOGY * * *Final Report* * * DATE OF EXAM: Feb 03 2022 8:28AM WOX 5311 - XR CERVICAL 4V AP/LAT/OBL / PROCEDURE REASON: Acute pain of right shoulder * * * * Physician Interpretation * * * * EXAM TITLE: XR CERVICAL 4V AP/LAT/OBL EXAM DATE/TIME: 02/03/2022 8:28 AM COMPARISON: None. CLINICAL INDICATION/HISTORY: Right shoulder pain. TECHNIQUE: AP, lateral, and oblique views of the cervical spine are presented. FINDINGS: No acute fractures or subluxations are noted. There is mild reversal of the cervical spine curvature. C4-5, C5-6 and C6-7 disc space narrowing is demonstrated. There is significant osteophyte formation in the lower cervical spine. Facet arthrosis is present. There is bilateral C5-6 and C6-7 neural foraminal narrowing. The prevertebral soft tissues are normal. RachelZZ_DO_NOT_USE _DIVISION OF RADIOLOGY Provider, [facility] - 02/03/2022 * * *Final Report* * * DATE OF EXAM: Feb 03 2022 8:28AM WOX 5311 - XR CERVICAL 4V AP/LAT/OBL / PROCEDURE REASON: Acute pain of right shoulder * * * * Physician Interpretation * * * * EXAM TITLE: XR CERVICAL 4V AP/LAT/OBL EXAM DATE/TIME: 02/03/2022 8:28 AM COMPARISON: None. CLINICAL INDICATION/HISTORY: Right shoulder pain. TECHNIQUE: AP, lateral, and oblique views of the cervical spine are presented. FINDINGS: No acute fractures or subluxations are noted. There is mild reversal of the cervical spine curvature. C4-5, C5-6 and C6-7 disc space narrowing is demonstrated. There is significant osteophyte formation in the lower cervical spine. Facet arthrosis is present. There is bilateral C5-6 and C6-7 neural foraminal narrowing. The prevertebral soft tissues are normal. IMPRESSION IMPRESSION: Cervical spine degenerative changes with multilevel disc space narrowing and bilateral neural foramina narrowing. Call Center Support Consultant: [facility] Transcribe Date/Time: Feb 03 2022 2:49P Dictated by : NURIA FLEMING MD This examination was interpreted and the report reviewed and electronically signed by: NURIA FLEMING MD on Feb 03 2022 2:52PM [facility] XR Shoulder - right 2 Viewso n 02-03-2022 IMPRESSION: Findings are suggestive of degenerative changes in the acromioclavicular joint. Call Center Support Consultant: KAYA Transcribe Date/Time: Feb 03 2022 2:48P Dictated by : NURIA FLEMING MD This examination was interpreted and the report reviewed and electronically signed by: NURIA FLEMING MD on Feb 03 2022 2:49PM EST ZZZ_DO_NOT_USE _DIVISION OF RADIOLOGY * * *Final Report* * * DATE OF EXAM: Feb 03 2022 8:28AM WOX 5255 - XR SHOULDER 2V AP/TRUE AP RT / PROCEDURE REASON: Acute pain of right shoulder * * * * Physician Interpretation * * * * EXAM TITLE: XR SHOULDER 2V AP/TRUE AP RT EXAM DATE/TIME: 02/03/2022 8:28 AM COMPARISON: None. CLINICAL INDICATION/HISTORY: Acute shoulder pain. TECHNIQUE: AP and true AP views of the right shoulder are presented FINDINGS: No acute fractures or subluxations are noted. There is acromioclavicular joint space narrowing, with associated osteophyte formation. The glenohumeral joint appears unremarkable. The acromiohumeral interval is normal. The mineralization of the bones is normal. There is no significant soft tissue swelling. ZZZ_DO_NOT_USE _DIVISION OF RADIOLOGY Provider, [facility] - 02/03/2022 * * *Final Report* * * DATE OF EXAM: Feb 03 2022 8:28AM WOX 5255 - XR SHOULDER 2V AP/TRUE AP RT / PROCEDURE REASON: Acute pain of right shoulder * * * * Physician Interpretation * * * * EXAM TITLE: XR SHOULDER 2V AP/TRUE AP RT EXAM DATE/TIME: 02/03/2022 8:28 AM COMPARISON: None. CLINICAL INDICATION/HISTORY: Acute shoulder pain. TECHNIQUE: AP and true AP views of the right shoulder are presented FINDINGS: No acute fractures or subluxations are noted. There is acromioclavicular joint space narrowing, with associated osteophyte formation. The glenohumeral joint appears unremarkable. The acromiohumeral interval is normal. The mineralization of the bones is normal. There is no significant soft tissue swelling. IMPRESSION IMPRESSION: Findings are suggestive of degenerative changes in the acromioclavicular joint. Call Center Support Consultant: [facility] Transcribe Date/Time: Feb 03 2022 2:48P Dictated by : NURIA FLEMING MD This examination was interpreted and the report reviewed and electronically signed by: NURIA FLEMING MD on Feb 03 2022 2:49PM EST [facility] XR Shoulder - right 2 ViewsO rdered By: [facility] Provider on 02-03-2022 [facility] ENTERIC PATHOGEN PANEL STOOL on 04-02-2021 EP PANEL Normal Reference Ran ge = Not Detected Not detected for Campylobacter group, Salmonella species, Shigella species, Vibrio Group, Yersinia enterocolitica, EHEC (Shiga Toxin 1, Shiga Toxin 2), Norovirus Gl/Gll, and Rotavirus A. Other common stool pathogens are not detected on this panel include: Aeromonas/Plesiomonas or parasites. Order testing for these organisms separately if suspected. This is an amplified DNA test which makes it both specific and sensitive. CAMPYLOBACTER Not Detected Norovirus Not Detected Rotavirus Not Detected Salmonella Not Detected Shiga Toxin Not Detected Shigella sp. Not Detected VIBRIO Not Detected Yersinia Not Detected Normal [facility] Comment on above: Performed By: #### M 100.637 #### [facility] [address] [place], [address] Abdomen/Pelvis W IV Cont ONL Yon 04-01-2021 Abdomen/Pelvis W IV Cont ONLY [facility] Imaging Services [address] [place] [address] Abdomen/Pelvis W IV Cont ONLY MR#: [id number] Acct: [id number] Name: WILLIAMS ANDERSON Rep #: [id number] : 1955 F 65 From: Kong Stratton MD PCP: Dr. Royce Islas, DO Status: REG ER Study: Abdomen/Pelvis W IV Cont ONLY Date of Exam: Exam# [id number] Ordering Dr: Abdullahi Mulligan MD STUDY: CT ABDOMEN AND PELVIS WITH CONTRAST REASON FOR EXAM: Female, 65 years old. LLQ pain RADIATION DOSAGE (If Supplied By Facility): CTDIvol = ( 13.73 ) mGy, DLP = ( 919.94 ) mGycm TECHNIQUE: Transaxial images were obtained from the dome of the diaphragm to the symphysis pubis without oral contrast. IV 100mL Isovue-370 was administered. Sagittal and coronal images were reconstructed. Individualized dose optimization techniques were used for this CT. COMPARISON: None. FINDINGS: Lung bases clear. Mild intra and extrahepatic biliary dilatation. Common bile duct measures 0.8 cm in diameter. Tiny layering stones in the gallbladder. Calcified granulomas in the spleen. Unremarkable pancreas, adrenals, and bilateral kidneys. Normal appendix. Circumferential wall thickening of the cecum and ascending colon, suggestive of acute colitis or typhlitis. Distal colonic diverticulosis. No acute diverticulitis. Bowel loops nonobstructed. No free air or free fluid. No adenopathy. Vascular calcification with no abdominal aortic aneurysm. Fat-containing periumbilical hernia. Sections through the pelvis demonstrate no adnexal mass. Urinary bladder incompletely distended. Multilevel thoracolumbar spondylosis. Mild osteoarthritis of the bilateral hip joints. CT/Abdomen/Pelvis W IV Cont ONLY IMPRESSION: Circumferential wall thickening of the cecum and ascending colon, suggestive of acute infectious/inflammatory colitis or typhlitis. Distal colonic diverticulosis. No acute diverticulitis. Cholelithiasis. Mild intra and extrahepatic biliary dilatation, amenable to further evaluation by MRI/MRCP. Electronically Signed: Kong Stratton MD at 3:34 EDT Tel , Service support , CC: Dr. Royce Islas DO; Dr. Abdullahi Mulligan MD Call Center Support Consultant: Signed Normal [facility] CBC W/Diff, Automatedon 09-0 Absolute Lymph 1.22 X10 3/uL Normal 0.83-4.51 [facility] Comment on above: Performed By: #### L 100.0100, L500.4050 #### [facility] [address] [place], [place], [id number] Absolute Neut 3.5 X10 3/uL Normal 2.0-7.7 [facility] Comment on above: Performed By: #### L 100.0100, L500.4050 #### [facility] [address] [place], [address] Basophils/100 WBC (Bld) 0.3 % Normal 0-1 [facility] Comment on above: Performed By: #### L 100.0100, L500.4050 #### [facility] [address] [place], [address] Eosinophils/100 WBC (Bld) 0.3 % Normal 0-5 [facility] Comment on above: Performed By: #### L 100.0100, L500.4050 #### [facility] [address] [place], [address] Erythrocyte distribution width (RBC) [Ratio] 12.4 % Normal 11.6-14.6 [facility] Comment on above: Performed By: #### L 100.0100, L500.4050 #### [facility] [address] [place], [address] Hematocrit (Bld) [Volume fraction] 43.3 % Normal 37-47 [facility] Comment on above: Performed By: #### L 100.0100, L500.4050 #### [facility] [address] [place], [address] Hemoglobin (Bld) [Mass/Vol] 15.0 g/dL Normal 12.0-15.0 [facility] Comment on above: Performed By: #### L 100.0100, L500.4050 #### [facility] [address] [place], [address] IG% 0.500 Normal 0.0-0.9 [facility] Comment on above: Result Comment: IG% - Immature Granulocytes (promyelocytes, myelocytes and metamyelocytes) > 1% indicates that a LEFT SHIFT is Present. Performed By: #### L 100.0100, L500.4050 #### [facility] [address] [place], [address] Lymphocytes/100 WBC (Bld) 21.2 % Normal 19-41 [facility] Comment on above: Performed By: #### L 100.0100, L500.4050 #### [facility] [address] [place], [address] MCH (RBC) [Entitic mass] 29.1 pg Normal 27.0-32.0 [facility] Comment on above: Performed By: #### L 100.0100, L500.4050 #### The [facility] [address] [place], [address] MCHC (RBC) [Mass/Vol] 34.6 g/dL Normal 32-36 [facility] Comment on above: Performed By: #### L 100.0100, L500.4050 #### [facility] [address] [place], [address] MCV (RBC) [Entitic vol] 84.1 fL Normal 81-99 [facility] Comment on above: Performed By: #### L 100.0100, L500.4050 #### [facility] [address] [place], [address] Monocytes/100 WBC (Bld) 16.3 % High 0-10 [facility] Comment on above: Performed By: #### L 100.0100, L500.4050 #### [facility] [address] [place], [address] Neutrophils/100 WBC (Bld) 61.4 % Normal 47-70 [facility] Comment on above: Performed By: #### L 100.0100, L500.4050 #### [facility] [address] [place], [address] Nucleated RBC (Bld) [#/Vol] 0 10*3/uL Normal 0-5 [facility] Comment on above: Performed By: #### L 100.0100, L500.4050 #### [facility] [address] [place], [address] Platelet mean volume (Bld) [Entitic vol] 9.8 fL Normal 6.2-12.0 [facility] Comment on above: Performed By: #### L 100.0100, L500.4050 #### [facility] [address] [place], [address] Platelets (Bld) [#/Vol] 185 10*3/uL Normal 150-450 [facility] Comment on above: Performed By: #### L 100.0100, L500.4050 #### [facility] [address] [place], [address] RBC (Bld) [#/Vol] 5.15 10*6/uL Normal 4.2-5.4 [facility] Comment on above: Performed By: #### L 100.0100, L500.4050 #### [facility] [address] [place], [address] RDW SD 37.6 fl Normal 35.1-43.9 [facility] Comment on above: Performed By: #### L 100.0100, L500.4050 #### [facility] [address] [place], [address] WBC (Bld) [#/Vol] 5.8 10*3/uL Normal 4.4-11.[address] [facility] Comment on above: Performed By: #### L 100.0100, L500.4050 #### [facility] [address] [place], [address] Comprehensive Metabolic Prof [facility] 04-01-2021 Albumin [Mass/Vol] 3.6 g/dL Normal 3.2-5.[address] [facility] Comment on above: Performed By: #### L 100.0100, L500.4050 #### [facility] [address] [place], [address] Albumin/Globulin [Mass ratio] 0.9 {ratio} Normal 0.9-2.4 [facility] Comment on above: Performed By: #### L 100.0100, L500.4050 #### [facility] [address] [place], [address] ALK P 72 U/L Normal 45-117 [facility] Comment on above: Performed By: #### L 100.0100, L500.4050 #### [facility] [address] [place], [address] ALT [Catalytic activity/Vol] 21 U/L Normal 13-56 [facility] Comment on above: Performed By: #### L 100.0100, L500.4050 #### [facility] [address] [place], [address] AST [Catalytic activity/Vol] 17 U/L Normal 15-37 [facility] Comment on above: Performed By: #### L 100.0100, L500.4050 #### [facility] [address] [place], [address] Bilirubin [Mass/Vol] 0.70 mg/dL Normal 0.20-1.00 [facility] Comment on above: Result Comment: For patients on eltrombopag therapy, use of Dimension [place] TBIL is not recommended. Performed By: #### L 100.0100, L500.4050 #### [facility] [address] [place], [address] BUN/CRE 19.7 RATIO Normal 10-20 [facility] Comment on above: Performed By: #### L 100.0100, L500.4050 #### [facility] [address] [place], [address] CA,Total 8.5 mg/dL Normal 8.5-10.1 [facility] Comment on above: Performed By: #### L 100.0100, L500.4050 #### [facility] [address] [place], [address] Chloride [Moles/Vol] 107 mmol/L Normal 98-107 [facility] Comment on above: Performed By: #### L 100.0100, L500.4050 #### [facility] [address] [place], [address] CO2 [Moles/Vol] 27.0 mmol/L Normal 21.0-32.0 [facility] Comment on above: Performed By: #### L 100.0100, L500.4050 #### [facility] [address] [place], [address] Creatinine [Mass/Vol] 0.61 mg/dL Normal 0.55-1.02 [facility] Comment on above: Result Comment: The validity of the calculated GFR GFRAA in patients over 70 years has not been determined. Clinical correlation is essential. Performed By: #### L 100.0100, L500.4050 #### [facility] [address] [place], [address] ECRCL 79.40 ml/min Normal [facility] Comment on above: Performed By: #### L 100.0100, L500.4050 #### [facility] [address] [place], [address] EST GFR - AA 127 mL/min Normal >60 [facility] Comment on above: Result Comment: Afri can [place]ian GFR Calc Performed By: #### L 100.0100, L500.4050 #### [facility] [address] [place], [address] GAP 5 Normal 5-15 [facility] Comment on above: Performed By: #### L 100.0100, L500.4050 #### [facility] [address] [place], [address] GFR/1.73 sq M.predicted among non-blacks MDRD (S/P/Bld) [Vol rate/Area] 105 mL/min/{1.73_m2} Normal >60 [facility] Comment on above: Result Comment: Non- GFR Calc Performed By: #### L 100.0100, L500.4050 #### [facility] [address] [place], [address] Globulin (S) [Mass/Vol] 4.0 g/dL Normal 2.2-4.2 [facility] Comment on above: Performed By: #### L 100.0100, L500.4050 #### [facility] [address] [place], [address] Glucose [Mass/Vol] 116 mg/dL High 74-[address] [facility] Comment on above: Result Comment: Fast ing Glucose result from 100 to 125 mg/dL suggests IMPAIRED HOMEOSTASIS per A.D.A. criteria. Please note revised GLUCOSE reference range effective 2017. Performed By: #### L 100.0100, L500.4050 #### [facility] [address] [place], [address] Potassium [Moles/Vol] 3.6 mmol/L Normal 3.5-5.1 [facility] Comment on above: Performed By: #### L 100.0100, L500.4050 #### [facility] [address] [place], [address] Sodium [Moles/Vol] 139 mmol/L Normal 136-[address] [facility] Comment on above: Performed By: #### L 100.0100, L500.4050 #### [facility] [address] [place], [address] T PROT 7.6 g/dL Normal 6.4-8.2 [facility] Comment on above: Performed By: #### L 100.0100, L500.4050 #### [facility] [address] [place], [address] Urea nitrogen [Mass/Vol] 12 mg/dL Normal 7-18 [facility] Comment on above: Performed By: #### L 100.0100, L500.4050 #### [facility] [address] [place], [address] Emergency Department Summary on 04-01-2021 Emergency Department Summary [facility] Medical Records Department [address] [place] [address] Emergency Department Summary 04/01/21 MR#: [id number] Acct: [id number] Name: WILLIAMS ANDERSON Rep #: [id number] : 1955 65 From: Abdullahi Mulligan MD PCP: Dr. Royce Islas, Status:REG ER Location: ED HPI HPI - GI History of Present Illness Chief Complaint: Abd Pain Narrative Narrative: Patient presenting for evaluation due to abdominal pain diarrhea and generalized illness. Patient has a past history of testing positive for coronavirus 2 weeks ago. She reports that she was basically asymptomatic with her coronavirus infection. Patient states however that 4 days ago she developed a diarrheal illness. This been associated with multiple episodes of loose watery diarrhea per day. Patient states that not really been associated with fevers. She was seen about 24 hours ago had a laboratory work-up and was discharged. She reports that since then she has had resolution of her diarrhea, but has developed some generalized abdominal pain. This is an aching type pain that is not really localized. Its been associated with generalized myalgias and a feeling of generalized uneasiness. Patient's states that she has basically been rolling around moaning in bed all day. Review of systems otherwise negative. Patient has not been on antibiotics recently. Her only travel was out to [place] to go to [place]. No recent hospital admissions or half-way exposures. [facility] Medical History Hypothyroid Home Medications cyclobenzaprine 10 mg PO TID PRN #10 tab 10/19/19 [Rx Last Taken Unknown] levothyroxine 75 mcg PO DAILY 05/19/19 [History Last Taken Unknown] naproxen 500 mg PO BID PRN PRN #20 tab 05/19/19 [Rx Last Taken Unknown] dicyclomine 20 mg PO TIDAC #20 capsule 04/01/21 [Rx Last Taken Unknown] naproxen 500 mg PO BID PRN #20 tab 04/01/21 [Rx Last Taken Unknown] Allergy/AdvReac Type Severity Reaction Status Date / Time No Known Allergies Allergy Verified 04/01/21 02:09 Surgical History Hx of elbow surgery Social History Smoking Status: Former smoker ROS ROS ED Constitutional Constitutional ED: Reports chills and other Details: malaise ENT ENT ED: Denies sore throat Cardiovascular Cardiovascular: Denies chest pain Respiratory/Chest Respiratory/Chest: Denies cough or dyspnea Gastrointestinal Gastrointestinal: Reports abdominal pain and diarrhea Genitourinary Genitourinary ED: Denies dysuria, hematuria or urinary frequency Musculoskeletal Musculoskeletal: Reports myalgias Integumentary Denies rash Neurologic Neurologic: Denies paresthesias or weakness Psychiatric Psychiatric: Denies depression Endocrine Endocrinology: Denies polyuria Hematologic/Lymphatic Hematologic/Lymphatic: Denies easy bleeding or easy bruising Allergic/Immunologic Allergic/Immunologic ED: Denies urticaria EXAM Physical Exam Const Vital Signs: 04/01/21 02:06 Temperature 98.2 F Temperature Source Temporal Pulse Rate 72 Respiratory Rate 14 Blood Pressure 145/90 H Blood Pressure Mean 108 Pulse Ox 98 Oxygen Delivery Method Room Air Positive well nourished and well developed Constitutional Narrative: Well-appearing age-appropriate female no acute distress General Appearance ED: well developed and NAD HEENT normocephalic and atraumatic Eyes EOMs intact bilaterally General Eye ED: Negative for pale conjunctiva or scleral icterus Neck no lymphadenopathy and supple Resp normal respiratory effort and clear to auscultation bilaterally Cardio regular rate, regular rhythm, no murmurs and peripheral pulses 2+ throughout GI non-distended and no masses GI Narrative: Tenderness to palpation that is nonlocalizing Palpation: soft; Negative for guarding, rigid or rebound tenderness present Back/Spine no CVA tenderness Extremity full ROM General Extremety ED: Negative for edema General Extremity: Negative for edema Neuro moves all extremities and no sensory deficits noted Sensorium / Orientation: alert, oriented to person, oriented to place and oriented to time Motor Exam: strength 5/5 throughout Psych mental status grossly normal Skin Rashes: no rashes MDM MDM MDM Narrative Medical decision making narrative: Patient is presenting secondary to persistent symptoms from her GI illness and now a emergence of abdominal pain. IV was tablets patient was given fluids. Patient was dosed with 1 L normal saline and Toradol. Laboratory studies were repeated, patient CBC shows improvement of her white blood cell count out to 5.8 no evidence of neutrophilic shift, there continues (more content not included)... Normal [facility] CBC W/Diff, Automatedon 03-03-2020 Absolute Lymph 0.81 X10 3/uL Low 0.83-4.51 [facility] Comment on above: Performed By: #### L 100.0100, L503.6005, L500.4050 #### [facility] [address] [place], [address] Absolute Neut 2.6 X10 3/uL Normal 2.0-7.7 [facility] Comment on above: Performed By: #### L 100.0100, L503.6005, L500.4050 #### [facility] [address] [place], [address] Basophils/100 WBC (Bld) 0.3 % Normal 0-1 [facility] Comment on above: Performed By: #### L 100.0100, L503.6005, L500.4050 #### [facility] [address] [place], [address] Eosinophils/100 WBC (Bld) 0.3 % Normal 0-5 [facility] Comment on above: Performed By: #### L 100.0100, L503.6005, L500.4050 #### [facility] [address] [place], [address] Erythrocyte distribution width (RBC) [Ratio] 12.6 % Normal 11.6-14.6 [facility] Comment on above: Performed By: #### L 100.0100, L503.6005, L500.4050 #### [facility] [address] [place] [place], [address] Hematocrit (Bld) [Volume fraction] 45.9 % Normal 37-47 [facility] Comment on above: Performed By: #### L 100.0100, L503.6005, L500.4050 #### [facility] [address] [place], [address] Hemoglobin (Bld) [Mass/Vol] 14.9 g/dL Normal 12.0-15.0 [facility] Comment on above: Performed By: #### L 100.0100, L503.6005, L500.4050 #### [facility] [address] [place] [place], [address] IG% 0.500 Normal 0.0-0.9 [facility] Comment on above: Result Comment: IG% - Immature Granulocytes (promyelocytes, myelocytes and metamyelocytes) > 1% indicates that a LEFT SHIFT is Present. Performed By: #### L 100.0100, L503.6005, L500.4050 #### [facility] [address] [place], [address] Lymphocytes/100 WBC (Bld) 20.7 % Normal 19-41 [facility] Comment on above: Performed By: #### L 100.0100, L503.6005, L500.4050 #### [facility] [address] [place], [address] MCH (RBC) [Entitic mass] 28.0 pg Normal 27.0-32.0 [facility] Comment on above: Performed By: #### L 100.0100, L503.6005, L500.4050 #### [facility] [address] [facility] [place], [address] MCHC (RBC) [Mass/Vol] 32.5 g/dL Normal 32-36 [facility] Comment on above: Performed By: #### L 100.0100, L503.6005, L500.4050 #### [facility] [address] [place], [address] MCV (RBC) [Entitic vol] 86.3 fL Normal 81-99 [facility] Comment on above: Performed By: #### L 100.0100, L503.6005, L500.4050 #### [facility] [address] [place], [address] Monocytes/100 WBC (Bld) 13.0 % High 0-10 [facility] Comment on above: Performed By: #### L 100.0100, L503.6005, L500.4050 #### [facility] [address] [place], [address] Neutrophils/100 WBC (Bld) 65.2 % Normal 47-70 [facility] Comment on above: Performed By: #### L 100.0100, L503.6005, L500.4050 #### [facility] [address] [place], [address] Nucleated RBC (Bld) [#/Vol] 0 10*3/uL Normal 0-5 [facility] Comment on above: Performed By: #### L 100.0100, L503.6005, L500.4050 #### [facility] [address] [place], [address] Platelet mean volume (Bld) [Entitic vol] 9.7 fL Normal 6.2-12.0 [facility] Comment on above: Performed By: #### L 100.0100, L503.6005, L500.4050 #### [facility] [address] [place], [address] Platelets (Bld) [#/Vol] 168 10*3/uL Normal 150-450 [facility] Comment on above: Performed By: #### L 100.0100, L503.6005, L500.4050 #### [facility] [address] [place], [address] RBC (Bld) [#/Vol] 5.32 10*6/uL Normal 4.2-5.4 [facility] Comment on above: Performed By: #### L 100.0100, L503.6005, L500.4050 #### [facility] [address] [place], [address] RDW SD 39.5 fl Normal 35.1-43.9 [facility] Comment on above: Performed By: #### L 100.0100, L503.6005, L500.4050 #### [facility] [address] [place], [address] WBC (Bld) [#/Vol] 3.9 10*3/uL Low 4.4-11.[address] [facility] Comment on above: Performed By: #### L 100.0100, L503.6005, L500.4050 #### [facility] [address] [place], [address] Comprehensive Metabolic Prof [facility] 03-31-2021 Albumin [Mass/Vol] 3.6 g/dL Normal 3.2-5.[address] [facility] Comment on above: Performed By: #### L 100.0100, L503.6005, L500.4050 #### [facility] [address] [place], [address] Albumin/Globulin [Mass ratio] 0.9 {ratio} Normal 0.9-2.4 [facility] Comment on above: Performed By: #### L 100.0100, L503.6005, L500.4050 #### [facility] [address] [place], [address] ALK P 74 U/L Normal 45-117 [facility] Comment on above: Performed By: #### L 100.0100, L503.6005, L500.4050 #### [facility] [address] [place], [address] ALT [Catalytic activity/Vol] 22 U/L Normal 13-56 [facility] Comment on above: Performed By: #### L 100.0100, L503.6005, L500.4050 #### [facility] [address] [place], [address] AST [Catalytic activity/Vol] 18 U/L Normal 15-37 [facility] Comment on above: Performed By: #### L 100.0100, L503.6005, L500.4050 #### [facility] [address] [place], [address] Bilirubin [Mass/Vol] 0.80 mg/dL Normal 0.20-1.00 [facility] Comment on above: Result Comment: For patients on eltrombopag therapy, use of Dimension [place] TBIL is not recommended. Performed By: #### L 100.0100, L503.6005, L500.4050 #### [facility] [address] [place], [address] BUN/CRE 19.6 RATIO Normal 10-20 [facility] Comment on above: Performed By: #### L 100.0100, L503.6005, L500.4050 #### [facility] [address] [place], [address] CA,Total 8.4 mg/dL Low 8.5-10.1 [facility] Comment on above: Performed By: #### L 100.0100, L503.6005, L500.4050 #### [facility] [address] [place], [address] Chloride [Moles/Vol] 105 mmol/L Normal 98-107 [facility] Comment on above: Performed By: #### L 100.0100, L503.6005, L500.4050 #### [facility] [address] [place], [address] CO2 [Moles/Vol] 32.0 mmol/L Normal 21.0-32.0 [facility] Comment on above: Performed By: #### L 100.0100, L503.6005, L500.4050 #### [facility] [address] [place], [address] Creatinine [Mass/Vol] 0.56 mg/dL Normal 0.55-1.02 [facility] Comment on above: Result Comment: The validity of the calculated GFR GFRAA in patients over 70 years has not been determined. Clinical correlation is essential. Performed By: #### L 100.0100, L503.6005, L500.4050 #### [facility] [address] [place], [address] ECRCL 86.49 ml/min Normal [facility] Comment on above: Performed By: #### L 100.0100, L503.6005, L500.4050 #### [facility] [address] [place], [address] EST GFR - AA 139 mL/min Normal >60 [facility] Comment on above: Result Comment: Afri can [place]ian GFR Calc Performed By: #### L 100.0100, L503.6005, L500.4050 #### [facility] [address] [place], [address] GAP 3 Low 5-15 [facility] Comment on above: Performed By: #### L 100.0100, L503.6005, L500.4050 #### [facility] [address] [place], [address] GFR/1.73 sq M.predicted among non-blacks MDRD (S/P/Bld) [Vol rate/Area] 115 mL/min/{1.73_m2} Normal >60 [facility] Comment on above: Result Comment: Non- GFR Calc Performed By: #### L 100.0100, L503.6005, L500.4050 #### [facility] [address] [place], [address] Globulin (S) [Mass/Vol] 3.8 g/dL Normal 2.2-4.2 [facility] Comment on above: Performed By: #### L 100.0100, L503.6005, L500.4050 #### [facility] [address] [place], [address] Glucose [Mass/Vol] 108 mg/dL High 74-[address] [facility] Comment on above: Result Comment: Fast ing Glucose result from 100 to 125 mg/dL suggests IMPAIRED HOMEOSTASIS per A.D.A. criteria. Please note revised GLUCOSE reference range effective 2017. Performed By: #### L 100.0100, L503.6005, L500.4050 #### [facility] [address] [place], [address] Potassium [Moles/Vol] 3.9 mmol/L Normal 3.5-5.1 [facility] Comment on above: Performed By: #### L 100.0100, L503.6005, L500.4050 #### [facility] [address] [place], [address] Sodium [Moles/Vol] 140 mmol/L Normal 136-[address] [facility] Comment on above: Performed By: #### L 100.0100, L503.6005, L500.4050 #### [facility] [address] [place], [address] T PROT 7.4 g/dL Normal 6.4-8.2 [facility] Comment on above: Performed By: #### L 100.0100, L503.6005, L500.4050 #### [facility] [address] [place], [address] Urea nitrogen [Mass/Vol] 11 mg/dL Normal 7-18 [facility] Comment on above: Performed By: #### L 100.0100, L503.6005, L500.4050 #### [facility] [address] [place], [address] Emergency Department Summary on 03-31-2021 Emergency Department Summary [facility] Medical Records Department [address] [place] [address] Emergency Department Summary 03/31/21 MR#: [id number] Acct: [id number] Name: WILLIAMS ANDERSON Rep #: [id number] : 1955 65 From: Brittny Us DO PCP: Dr. Royce Islas DO Status:DEP ER Location: ED HPI History of Present Illness Chief Complaint: General Illness Detail of Chief Complaint: Vomiting and diarrhea Informant: patient Narrative Narrative: Presents to the emergency department complaint of diarrhea that started about 4 days ago. Patient states she is having about 10 watery stools a day. Patient started having episodes of vo miting today. Patient thinks she threw up 6 times today. She denies any abdominal pain. She denies fevers. Patient states that she was out of town at the [facility] 2 weeks ago and tested positive for COVID-19 although she was asymptomatic at that time. Patient states that her partner who is with her did get Covid. Before having the episodes of diarrhea 4 days ago she was feeling well. Prior similar symptoms: No PFSH PFSH Medical History (Updated 03/31/21 @ 13:[address] Brittny Us DO) Hypothyroid Home Medications cyclobenzaprine 10 mg PO TID PRN #10 tab 05/19/19 [Rx Last Taken Unknown] levothyroxine 75 mcg PO DAILY 05/19/19 [History Last Taken Unknown] naproxen 500 mg PO BID PRN PRN #20 tab 05/19/19 [Rx Last Taken Unknown] Allergy/AdvReac Type Severity Reaction Status Date / Time No Known Allergies Allergy Verified 03/31/21 11:32 Surgical History (Updated 03/31/21 @ 12:15 by Annita Simmons) Hx of elbow surgery Social History Smoking Status: Never smoker ROS ROS ED Constitutional Constitutional ED: Reports systems reviewed and no addt'l complaints, except as documented; Denies body ache(s), change in weight or chills Eyes Eyes: Denies acute decrease in peripheral vision, change in vision, double vision or loss of vision ENT ENT ED: Reports none; Denies ear pain, lip swelling, loss taste/smell, neck pain, otalgia or sore throat Cardiovascular Cardiovascular: Reports none; Denies abdominal pain, chest pain with activity, leg edema, lightheadedness, palpitations, rapid heart rate or syncope Respiratory/Chest Respiratory/Chest: Reports none; Denies change in mental status, dry cough, dyspnea, hemoptysis, shortness of breath at rest or shortness of breath with exertion Gastrointestinal Gastrointestinal: Reports none, diarrhea, nausea and vomiting; Denies abdominal pain, change in stool character, hematemesis, hematochezia, melena or rectal bleeding Genitourinary Genitourinary ED: Reports none; Denies abdominal discomfort, anuria, dysuria, genital pain or polyuria Musculoskeletal Musculoskeletal: Reports none; Denies arthralgias, back pain, difficulty walking, extremity pain, muscle weakness or myalgias Integumentary Reports none; Denies abscess or rash Neurologic Neurologic: Reports none; Denies abnormal gait, confusion, focal weakness, frequent falls, headache(s), loss of vision, numbness, paresthesias, radicular pain, vertigo or weakness Psychiatric Psychiatric: Reports systems reviewed and no addt'l complaints, except as documented and none; Denies behavioral changes, confusion, difficulty concentrating, hallucinations, suicidal ideation, tactile hallucinations or visual hallucinations Endocrine Endocrinology: Denies none, cold intolerance, excessive sweating, fatigue or heat intolerance Hematologic/Lymphatic Hematologic/Lymphatic: Reports none; Denies anemia, easy bleeding or easy bruising Allergic/Immunologic Allergic/Immunologic ED: Denies as per HPI, none, lip swelling, mouth swelling, throat swelling, tongue swelling or hives EXAM Physical Exam Const Vital Signs: 03/31/21 11:29 03/31/21 12:15 03/31/21 13:28 Temperature 97.2 F L Temperature Source Temporal Pulse Rate 87 Respiratory Rate 16 16 Respiratory Effort Normal Non-Labored Blood Pressure 118/99 H Blood Pressure Mean 105 Pulse Ox 97 Oxygen Delivery Method Room Air Positive well nourished and well developed General Appearance ED: well developed and NAD HEENT Reports TM's clear and moist mucous membranes normocephalic and atraumatic; Negative for trauma or tenderness Tympanic Membrane ED: Yes TM's clear Eyes PERRL and EOMs intact bilaterally General Eye ED: Negative for pale conjunctiva or scleral icterus Neck no lymphadenopathy, supple and no JVD General: Negative for tenderness Chest Wall inspection of chest normal and palpation of chest normal Chest: Negative for tenderness Resp normal respiratory effort and clear to auscultation bilaterally Effort and Inspection: Negative for respiratory distress or pain with movement Auscultation: Negative for rhonchi, wheezes or diminished tootie (more content not included)... Normal [facility] Lactic Acidon 03-31-2021 Lactate [Moles/Vol] 1.0 mmol/L Normal 0.4-1.9 [facility] Comment on above: Order Comment: Y Performed By: #### L 100.0100, L503.6005, L500.4050 #### [facility] [address] [place], [address] Vital Signs Date Time Vital Sign Value Performing Clinician Jennifer atkins 03-14-2025 14:22-0400 Body height 158 cm Aileen Ayala APRN.CNP Work Phone: [facility] 03-14-2025 14:22-0400 Body mass index (BMI) [Ratio] 40.63 kg/m2 Aileen Ayala APRN.CNP Work Phone: [facility] 03-14-2025 14:22-0400 Body weight 101.42 kg Aileen Ayala APRN.CNP Work Phone: [facility] 03-14-2025 14:22-0400 Diastolic blood pressure 82 mm[Hg] Aileen Ayala APRN.CNP Work Phone: [facility] 03-14-2025 14:22-0400 Heart rate 74 /min Aileen Antonio TEMPLE MEAT CUTTER.WELDING 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 [employer] Work Phone: [facility] 03-14-2025 14:22-0400 Respiratory rate 16 /min Aileen Antonio TEMPLE MEAT CUTTER.WELDING 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 [employer] Work Phone: [facility] 03-14-2025 14:22-0400 Systolic blood pressure 130 mm[Hg] Aileen Antonio TEMPLE MEAT CUTTER.WELDING 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 [employer] Work Phone: [facility] 11-16-2023 09:02-0400 Body height 158.5 cm Lurdes Yane TEMPLE MEAT CUTTER.WELDING 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 [employer] Work Phone: [facility] 11-16-2023 09:02-0400 Body weight 87.09 kg Lurdes Yane TEMPLE MEAT CUTTER.WELDING 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 [employer] Work Phone: [facility] 11-16-2023 09:02-0400 Diastolic blood pressure 86 mm[Hg] Lurdes Yane TEMPLE MEAT CUTTER.WELDING 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 [employer] Work Phone: [facility] 11-16-2023 09:02-0400 Heart rate 86 /min Lurdes Yane TEMPLE MEAT CUTTER.WELDING 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 [employer] Work Phone: [facility] 11-16-2023 09:02-0400 Respiratory rate 16 /min Lurdes Yane TEMPLE MEAT CUTTER.WELDING 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 [employer] Work Phone: [facility] 11-16-2023 09:02-0400 SaO2% (BldA) [Mass fraction] 97 % Lurdes Yane TEMPLE MEAT CUTTER.WELDING 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 [employer] Work Phone: [facility] 11-16-2023 09:02-0400 Systolic blood pressure 118 mm[Hg] Lurdes Yane TEMPLE MEAT CUTTER.WELDING 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 [employer] Work Phone: [facility] 02-03-2022 07:42-0400 Body weight 86.18 kg Lurdes Yane TEMPLE MEAT CUTTER.WELDING 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 [employer] Work Phone: [facility] 02-03-2022 07:42-0400 Diastolic blood pressure 80 mm[Hg] Lurdes Yane TEMPLE MEAT CUTTER.WELDING 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 [employer] Work Phone: [facility] 02-03-2022 07:42-0400 Heart rate 85 /min Lurdes Che 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[employer] Work Phone: [facility] 02-03-2022 07:42-0400 Respiratory rate 16 /min Lurdessheldon Che 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[employer] Work Phone: [facility] 02-03-2022 07:42-0400 SaO2% (BldA) [Mass fraction] 96 % Lurdes Yane MATHEWSN.WELDING 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 [employer] Work Phone: [facility] 02-03-2022 07:42-0400 Systolic blood pressure 118 mm[Hg] Lurdes Yane MATHEWSN.WELDING 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 [employer] Work Phone: [facility] Encounters Encounter Date Encounter Type Care Provider Facility Start: 03-14-2025 End: 03-14-2025 Patient encounter procedure Aileen Ayala 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[employer] Work Phone: [facility] [place] Comment on above: Morbid obesity with BMI of 40.0-44.9, adult (HCC) (Primary Dx); Screening for depression; Encounter for screening examination for other mental health and behavioral disorders; Abnormality of gait; Falling episodes; Hypothyroidism, unspecified type; Well adult exam; Hypercholesterolemia; IFG (impaired fasting glucose); Encounter for immunization; Screening for colon cancer; Family history of colon cancer Start: 03-14-2025 End: 03-14-2025 Patient encounter status Aileen Ayala 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[employer] Work Phone: [facility] Start: 03-14-2025 End: 03-14-2025 ambulatory ROYCE ISLAS Facility:[facility] Start: 02-23-2025 End: 02-27-2025 Refill Camelia Medley 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[employer] Work Phone: [facility] [place] Comment on above: Refill Request Start: 02-20-2025 End: 02-20-2025 Orders Only Dean Kimble DO Work Phone: Orthopaedics Comment on above: Closed fracture of d istal end of right fibula, unspecified fracture morphology, initial encounter (Primary Dx) Start: 01-29-2025 End: 01-29-2025 Patient encounter procedure Dean Kimble DO Work Phone: [facility] [place] Comment on above: Closed fracture of d istal end of right fibula, unspecified fracture morphology (Primary Dx) Start: 01-29-2025 End: 01-29-2025 ambulatory [facility] Facility:[facility] Start: 01-29-2025 End: 01-29-2025 Subsequent hospital visit by physician Xr [facility] [place] [facility] Work Phone: Radiology Comment on above: Closed fracture of d istal end of right fibula, unspecified fracture morphology, initial encounter [S82.831A] Start: 01-28-2025 End: 01-28-2025 Orders Only Dean Kimble DO Work Phone: Orthopaedics Comment on above: Closed fracture of d istal end of right fibula, unspecified fracture morphology, initial encounter (Primary Dx) Start: 01-08-2025 End: 01-08-2025 Patient encounter procedure Dean Kimble DO Work Phone: [facility] [place] Comment on above: Closed fracture of d istal end of right fibula, unspecified fracture morphology (Primary Dx) Start: 01-08-2025 End: 01-08-2025 [facility] Facility:[facility] Start: 01-08-2025 End: 01-08-2025 Subsequent hospital visit by physician Nereyda [facility] [place] [facility] Work Phone: Radiology Comment on above: Closed fracture of d istal end of right fibula, unspecified fracture morphology, initial encounter [S82.831A] Start: 01-02-2025 End: 01-02-2025 Orders Only Dean Kimble DO Work Phone: Orthopaedics Comment on above: Closed fracture of d istal end of right fibula, unspecified fracture morphology, initial encounter (Primary Dx) Start: 12-25-2024 End: 12-25-2024 Patient encounter procedure Dean Kimble DO Work Phone: [facility] [place] Comment on above: Closed fracture of d istal end of right fibula, unspecified fracture morphology, initial encounter Start: 12-25-2024 End: 12-25-2024 ambulatory DEAN KIMBLE Facility:[facility] Start: 12-18-2024 End: 12-18-2024 ambulatory ROYCE ISLAS Facility:[facility] Start: 10-30-2024 End: 11-30-2024 ambulatory Royce Islas DO Work Phone: [facility] [place] Start: 05-08-2024 End: 05-10-2024 ambulatory Lurdes Che [employer] MEAT CUTTER.WELDING 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 [employer] Work Phone: [facility] [place] Comment on above: Levothyroxine Start: 11-30-2023 ambulatory Royce dubon DO Work Phone: Internal Medicine [facility] Start: 11-21-2023 Refill Lurdes De Paz an TEMPLE MEAT CUTTER.WELDING 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 [employer] Work Phone: [facility] [place] Comment on above: Refill Request Start: 11-16-2023 End: 11-16-2023 Patient encounter procedure Lurdes Che TEMPLE MEAT CUTTER.WELDING 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 [employer] Work Phone: [facility] [place] Comment on above: Well adult exam (Shayy kevin Dx); Hypothyroidism, unspecified type; Hypercholesterolemia; IFG (impaired fasting glucose) Start: 11-16-2023 End: 11-16-2023 Patient encounter status Lurdes Che TEMPLE MEAT CUTTER.WELDING 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 [employer] Work Phone: [facility] Work Phone: Start: 11-12-2023 Refill Lurdes De Paz an TEMPLE MEAT CUTTER.WELDING 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 [employer] Work Phone: [facility] [place] Comment on above: Refill Request Start: 11-11-2023 Refill Lurdes Uriosteguim an TEMPLE MEAT CUTTER.WELDING 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 [employer] Work Phone: [facility] [place] Comment on above: Refill Request Start: 12-11-2022 ambulatory Lurdes luke [employer]PLE MEAT CUTTER.WELDING 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 [employer] Work Phone: [facility] [place] Comment on above: Thyroid Pills Start: 12-08-2022 ambulatory Royce dubon DO Work Phone: [facility] [place] Start: 11-30-2022 End: 11-30-2022 Emergency department patient visit GABE MCCARTHY Facility:[facility] Start: 11-04-2022 End: 11-04-2022 Patient encounter procedure Kayla Perea DO Work Phone: Orthopaedics Comment on above: S/P rotator cuff yessica christopher (Primary Dx); S/P shoulder surgery; Disorder of right rotator cuff; Bursitis of right shoulder Start: 09-18-2022 Refill Claribel Guzman 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[employer] Work Phone: [facility] Comment on above: Refill Request Start: 08-17-2022 Admission to [facility] Kayla Perea DO Work Phone: Orthopaedics Comment on above: 6 weeks post Surgery Start: 08-17-2022 ambulatory Kayla cruz DO Work Phone: [facility] Start: 08-03-2022 Telephone encounter Kayla Perea DO Work Phone: [facility] [place] Comment on above: Orders Start: 07-31-2022 ambulatory Kayla cruz DO Work Phone: Orthopaedics Comment on above: Physical Therapy Start: 07-28-2022 End: 07-28-2022 Patient encounter procedure Kayla Perea DO Work Phone: Orthopaedics Comment on above: Disorder of right ro tator cuff (Primary Dx); S/P shoulder surgery Start: 07-13-2022 End: 07-13-2022 ambulatory KAYLA PEREA Facility:[facility] Start: 06-01-2022 Orders Only Kayla cruz DO Work Phone: Orthopaedics Comment on above: Disorder of right ro tator cuff (Primary Dx); Supraspinatus syndrome of right shoulder; Bursitis of right shoulder; Tendinitis of right shoulder Start: 05-27-2022 End: 05-27-2022 Patient encounter procedure Kayla Perea DO Work Phone: Orthopaedics Comment on above: Bursitis of right sh oulder (Primary Dx); Disorder of right rotator cuff; Supraspinatus syndrome of right shoulder; Tendinitis of right shoulder; Biceps tendinitis of right upper extremity; Paresthesias in right hand Start: 05-07-2022 End: 05-07-2022 Subsequent hospital visit by physician Mri Radio [facility] (I-Stat/1.5t) Radiology Comment on above: Neck pain of over 3 months duration [M54.2] Start: 05-06-2022 Telephone encounter Royce walton DO Work Phone: Family [facility] [place] Comment on above: MRI order correction Start: 04-28-2022 Telephone encounter Royce walton DO Work Phone: [facility] [place] Comment on above: Orders Start: 02-03-2022 End: 02-03-2022 Subsequent hospital visit by physician Xr [facility] [place] Work Phone: Radiology Comment on above: Acute pain of right shoulder [M25.511] Start: 02-03-2022 End: 02-03-2022 Patient encounter procedure Lurdes Che 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[employer] Work Phone: [facility] [place] Comment on above: Acute pain of right shoulder (Primary Dx) Start: 01-27-2022 Telephone encounter Royce chaudhariison DO Work Phone: Family [facility] [place] Comment on above: Appointment Start: 01-06-2022 ambulatory Royce Mckinney son DO Work Phone: [facility] [place] Start: 10-29-2021 Refill Royce Mckinney son DO Work Phone: Family [facility] [place] Comment on above: Refill Request Start: 08-25-2016 Patient encounter status Virginia Islas DO Work Phone: [facility] Work Phone: Start: 08-25-2016 Encounter for tiffanie l adult medical examination without abnormal findings [facility] Procedures Date Procedure Procedure Detail Performing Clinician Start: 08-14-2025 Adult depression screening assessment Aileen Antonio [employer]PLE MEAT CUTTER.WELDING 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 [employer] Work Phone: Start: 11-17-2023 Lipid 1996 panel - Serum or Plasma Lurdes Che TEMPLE MEAT CUTTER.WELDING 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 [employer] Work Phone: Start: 05-07-2022 Mri any jt upper extremity w/o contrast matrl Royce Islas DO Work Phone: Start: 02-03-2022 Radex spine cervical 4 or 5 views Lurdes Che TEMPLE MEAT CUTTER.WELDING 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 [employer] Work Phone: Start: 09-28-2021 Lipid 1996 panel - Serum or Plasma Lurdes Che TEMPLE MEAT CUTTER.WELDING 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 [employer] Work Phone: Start: 12-30-2020 Adult depression screening assessment Royce Islas DO Work Phone: Start: 12-01-2020 Mammography Royce Islas DO Work Phone: Start: 07-10-2018 Colonoscopy Royce Islas DO Work Phone: History of repair of musculotendinous cuff of shoulder S/P rotator cuff surgery Kayla Perea DO Work Phone: History of repair of musculotendinous cuff of shoulder S/P rotator cuff surgery Kayla Perea DO Work Phone: Plan of Treatment Date Care Activity Detail Author Start: 2030 RSV Vaccine (1 - 1-dose 75+ series) RSV Vaccine (1 - 1-dose 75+ series) [facility] Start: 11-16-2028 Lipid panel Lipid Screening [facility] Start: 11-16-2026 Diabetes Screening Diabetes Screening [facility] Start: 09-28-2026 Lipid panel Lipid Screening [facility] Start: 09-28-2026 LIPID SCREEN LIPID SCREEN [facility] Start: 03-18-2026 End: 03-18-2026 Patient encounter procedure 03/18/2026 7:40 AM EDT Office Visit [facility] [place] [address] [place] [address] Royce Islas DO [address] [place] [address] medicare wellness [facility] [place] Comment on above: medicare wellness Start: 03-14-2026 Annual PCP Team Chronic Disease Visit Annual PCP Team Chronic Disease Visit [facility] Start: 03-14-2026 Anxiety Screening Anxiety Screening [facility] Start: 03-14-2026 Depression Screening Depression Screening [facility] Start: 03-14-2026 Medicare Annual Wellness Visit Medicare Annual Wellness Visit [facility] Start: 03-14-2026 Pneumococcal Vaccine: 50+ (1 of 1 - PCV) Pneumococcal Vaccine: 50+ (1 of 1 - PCV) [facility] Comment on above: Postponed from 2005 (Declined at t his time) Start: 03-14-2026 RSV Vaccine (1 - Risk 60-74 years 1-dose series) RSV Vaccine (1 - Risk 60-74 years 1-dose series) [facility] Comment on above: Postponed from 2015 (Declined at t his time) Start: 03-14-2026 Shingrix Vaccine (1 of 2) Shingrix Vaccine (1 of 2) [facility] Comment on above: Postponed from 2005 (Declined at t his time) Start: 07-31-2025 Advance Directive Discussion Advance Directive Discussion [facility] Comment on above: Postponed from 08/01/2024 (Postponed To Appropriate Date) Start: 04-01-2025 [facility] Start: 03-14-2025 End: 03-14-2025 Patient encounter procedure 03/14/2025 2:20 PM EDT Office Visit Family [facility] [address] [place] [phone] Aileen Ayala, TEMPLE MEAT CUTTER.WELDING 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 [employer] [address] [place], [place] [id number] MEDICARE WELLNESS [facility] [place] Comment on above: MEDICARE WELLNESS Start: 03-14-2025 End: 06-13-2025 CBC panel - Blood by Automated count COMPLETE BLOOD COUNT Lab Routine Well adult exam IFG (impaired fasting glucose) Expected: 03/14/2025, Expires: 06/13/2025 [facility] Comment on above: Expected: 03/14/2025, Expires: Start: 03-14-2025 End: 06-13-2025 Comprehensive metabolic 2000 panel - Serum or Plasma COMPREHENSIVE METABOLIC PANEL Lab Routine Well adult exam IFG (impaired fasting glucose) Expected: 03/14/2025, Expires: 06/13/2025 [facility] Comment on above: Expected: 03/14/2025, Expires: Start: 03-14-2025 End: 06-13-2025 Hemoglobin A1c in Blood HEMOGLOBIN A1C Lab Routine Well adult exam IFG (impaired fasting glucose) Expected: 03/14/2025, Expires: 06/13/2025 [facility] Comment on above: Expected: 03/14/2025, Expires: Start: 03-14-2025 End: 06-13-2025 Lipid 1996 panel - Serum or Plasma LIPID PANEL, FASTING Lab Routine Well adult exam Hypercholesterolemia Expected: 03/14/2025, Expires: 06/13/2025 [facility] Comment on above: Expected: 03/14/2025, Expires: Start: 03-14-2025 End: 03-14-2026 Screening colonoscopy COLONOSCOPY SCREENING Endoscopy Routine Screening for colon cancer Family history of colon cancer Expected: 03/14/2025, Expires: 03/14/2026 [facility] Comment on above: Expected: 03/14/2025, Expires: Start: 03-14-2025 End: 06-13-2025 Thyrotropin [Units/volume] in Serum or Plasma THYROID STIMULATING HORMONE Lab Routine Hypothyroidism, unspecified type Well adult exam Expected: 03/14/2025, Expires: 06/13/2025 [facility] Work Phone: Comment on above: Expected: 03/14/2025, Expires: Start: 03-14-2025 End: 06-13-2025 Thyroxine (T4) free [Mass/volume] in Serum or Plasma T4 FREE/FREE THYROXINE Lab Routine Hypothyroidism, unspecified type Well adult exam Expected: 03/14/2025, Expires: 06/13/2025 [facility] Comment on above: Expected: 03/14/2025, Expires: Start: 02-26-2025 End: 02-26-2025 Patient encounter procedure 02/26/2025 8:00 AM EDT Office Visit [facility] [address] [place] [address] Dean Kimble V, DO [address] [facility] [address] FOLLOW UP 4 WEEK [facility] Comment on above: FOLLOW UP 4 WEEK Start: 02-12-2025 End: 02-12-2025 Patient encounter procedure 02/12/2025 7:50 AM EDT Appointment Mammogram [address] [place] [address] Mammogram Start: 01-29-2025 End: 01-29-2025 Patient encounter procedure [facility] Comment on above: follow up 2 - 3 weeks R ankle fracture Xray Start: 01-08-2025 End: 01-08-2025 Patient encounter procedure 01/08/2025 8:30 AM EDT Office Visit [facility] [address] [place] [address] Dean Kimble V, DO [address] [facility] [address] 2 week follow up R ankle fracture [facility] Comment on above: 2 week follow up R ankle fracture Start: 11-15-2024 Annual PCP Team Chronic Disease Visit Annual PCP Team Chronic Disease Visit [facility] Start: 11-15-2024 Covid-19 Vaccine ( season) Covid-19 Vaccine ( season) [facility] Comment on above: Postponed from 04/01/2023 (Declined at t his time) Start: 11-15-2024 Pneumococcal Vaccine: 65+ (1 of 2 - PCV) Pneumococcal Vaccine: 65+ (1 of 2 - PCV) [facility] Comment on above: Postponed from 1961 (Declined at t his time) Start: 11-15-2024 RSV Vaccine (1 - 1-dose 60+ series) RSV Vaccine (1 - 1-dose 60+ series) [facility] Comment on above: Postponed from 2015 (Declined at t his time) Start: 11-15-2024 Screening for malignant neoplasm of colon Colorectal Cancer Screening [facility] Comment on above: Postponed from 2000 (Declined at t his time) Start: 11-15-2024 Shingrix Vaccine (1 of 2) Shingrix Vaccine (1 of 2) [facility] Comment on above: Postponed from 2005 (Declined at t his time) Start: 11-15-2024 Urine microalbumin profile DTaP,Tdap,Td Vaccine (2 - Td or Tdap) [facility] Comment on above: Postponed from 08/15/2022 (Declined at t his time) Start: 09-28-2024 DIABETES SCREEN DIABETES SCREEN [facility] Start: 09-28-2024 Diabetes Screening Diabetes Screening [facility] Start: 08-01-2024 Advance Directive Discussion Advance Directive Discussion [facility] Start: 04-01-2024 Covid-19 Vaccine () Covid-19 Vaccine () [facility] Start: 04-01-2024 Influenza vaccination [facility] Start: 03-01-2024 Medicare Annual Wellness Visit Medicare Annual Wellness Visit [facility] Start: 11-16-2023 End: 02-15-2024 CBC panel - Blood by Automated count COMPLETE BLOOD COUNT Lab Routine IFG (impaired fasting glucose) Well adult exam Expected: 11/16/2023, Expires: 02/15/2024 [facility] Work Phone: Comment on above: Expected: 11/16/2023, Expires: 4 Start: 11-16-2023 End: 02-15-2024 Comprehensive metabolic 2000 panel - Serum or Plasma COMPREHENSIVE METABOLIC PANEL Lab Routine IFG (impaired fasting glucose) Well adult exam Expected: 11/16/2023, Expires: 02/15/2024 [facility] Work Phone: Comment on above: Expected: 11/16/2023, Expires: 4 Start: 11-16-2023 End: 02-15-2024 Hemoglobin A1c in Blood HEMOGLOBIN A1C Lab Routine IFG (impaired fasting glucose) Well adult exam Expected: 11/16/2023, Expires: 02/15/2024 [facility] Work Phone: Comment on above: Expected: 11/16/2023, Expires: Start: 11-16-2023 End: 02-15-2024 Lipid 1996 panel - Serum or Plasma LIPID PANEL BASIC Lab Routine Hypercholesterolemia Well adult exam Expected: 11/16/2023, Expires: 02/15/2024 [facility] Work Phone: Comment on above: Expected: 11/16/2023, Expires: Start: 11-16-2023 End: 02-15-2024 Thyrotropin [Units/volume] in Serum or Plasma THYROID STIMULATING HORMONE Lab Routine Hypothyroidism, unspecified type Well adult exam Expected: 11/16/2023, Expires: 02/15/2024 [facility] Work Phone: Comment on above: Expected: 11/16/2023, Expires: Start: 11-16-2023 End: 02-15-2024 Thyroxine (T4) free [Mass/volume] in Serum or Plasma T4 FREE/FREE THYROXINE Lab Routine Hypothyroidism, unspecified type Well adult exam Expected: 11/16/2023, Expires: 02/15/2024 [facility] Work Phone: Comment on above: Expected: 11/16/2023, Expires: Start: 08-01-2023 Advance Directive Discussion Advance Directive Discussion [facility] Start: 08-01-2023 Behavioral Health Screening Behavioral Health Screening [facility] Start: 07-10-2023 Colonoscopy COLONOSCOPY [facility] Start: 07-10-2023 COLORECTAL CANCER SCREENING COLORECTAL CANCER SCREENING [facility] Start: 07-10-2023 Screening for malignant neoplasm of colon [facility] Start: 04-01-2023 Covid-19 Vaccine () Covid-19 Vaccine () [facility] Start: 02-03-2023 ANNUAL PCP TEAM CHRONIC DISEASE VISIT ANNUAL PCP TEAM CHRONIC DISEASE VISIT [facility] Start: 08-15-2022 Urine microalbumin profile [facility] Start: 08-01-2022 ADVANCE DIRECTIVE DISCUSSION ADVANCE DIRECTIVE DISCUSSION [facility] Start: 08-01-2022 DEPRESSION ASSESSMENT DEPRESSION ASSESSMENT [facility] Start: 04-01-2022 Influenza vaccination INFLUENZA (#1) [facility] Start: 01-05-2022 ANNUAL PCP TEAM CHRONIC DISEASE VISIT ANNUAL PCP TEAM CHRONIC DISEASE VISIT [facility] Start: 12-30-2021 Adult depression screening assessment DEPRESSION SCREENING [facility] Start: 12-01-2021 Mammography MAMMOGRAM [facility] Start: 12-01-2021 Screening for malignant neoplasm of breast Mammogram Screening [facility] Start: 08-01-2021 ADVANCE DIRECTIVE DISCUSSION ADVANCE DIRECTIVE DISCUSSION [facility] Start: 08-01-2021 DEPRESSION ASSESSMENT DEPRESSION ASSESSMENT [facility] Start: 2020 PNEUMOCOCCAL: 65+ (1 - PCV) PNEUMOCOCCAL: 65+ (1 - PCV) [facility] Start: 2020 PNEUMOVAX AGE 65 AND OVER WITH 5YR LOOKBACK (#1) PNEUMOVAX AGE 65 AND OVER WITH 5YR LOOKBACK (#1) [facility] Start: 2015 RSV Vaccine (1 - 1-dose 60+ series) RSV Vaccine (1 - 1-dose 60+ series) [facility] Start: 2015 RSV Vaccine (1 - Risk 60-74 years 1-dose series) RSV Vaccine (1 - Risk 60-74 years 1-dose series) [facility] Start: 2005 Influenza vaccination LUNG CANCER SCREENING [facility] Start: 2005 Pneumococcal Vaccine: 50+ (1 of 1 - PCV) Pneumococcal Vaccine: 50+ (1 of 1 - PCV) [facility] Start: 2005 Screening for malignant neoplasm of lung Lung Cancer Screening [facility] Start: 2005 SHINGRIX VACCINE (1 of 2) SHINGRIX VACCINE (1 of 2) [facility] Start: 2000 COLOGUARD (FIT-DNA) COLOGUARD (FIT-DNA) [facility] Start: [address] COLONOGRAPHY [facility] Start: 2000 FECAL OCCULT BLOOD FECAL OCCULT BLOOD [facility] Start: 2000 Screening for malignant neoplasm of colon [facility] Start: 2000 SIGMOIDOSCOPY SIGMOIDOSCOPY [facility] Start: 1974 Pneumococcal Vaccine: 50+ (1 of 2 - PCV) Pneumococcal Vaccine: 50+ (1 of 2 - PCV) [facility] Start: 1973 Anxiety Screening Anxiety Screening [facility] Start: 1973 Depression Screening Depression Screening [facility] Start: 1961 Pneumococcal Vaccine: 65+ (1 of 2 - PCV) Pneumococcal Vaccine: 65+ (1 of 2 - PCV) [facility] Start: 1961 PNEUMOCOCCAL: 65+ (1 - PCV) PNEUMOCOCCAL: 65+ (1 - PCV) [facility] Start: 1960 COVID-19 VACCINE (#1) COVID-19 VACCINE (#1) [facility] Start: 1960 COVID-19 VACCINE (1) COVID-19 VACCINE (1) [facility] Start: 02[birth year]-1956 COVID-19 VACCINE (#1) COVID-19 VACCINE (#1) [facility] End: 11-29-2025 DBT Breast - bilateral screening AMANDA SCREENING W JJ Radiology Routine Encounter for screening mammogram for breast cancer 1 Occurrences starting 10/30/2024 until 11/29/2025 [facility] Work Phone: Comment on above: 1 Occurrences starting 10/30/2024 until 11/29/2025 End: 01-07-2024 AMANDA SCREENING AMANDA SCREENING Radiology Routine Encounter for screening mammogram for breast cancer 1 Occurrences starting 12/08/2022 until 01/07/2024 [facility] Work Phone: Comment on above: 1 Occurrences starting 12/08/2022 until 01/07/2024 End: 12-29-2024 MG Breast Screening AMANDA SCREENING Radiology Routine Encounter for screening mammogram for breast cancer 1 Occurrences starting 11/30/2023 until 12/29/2024 [facility] Work Phone: Comment on above: 1 Occurrences starting 11/30/2023 until 12/29/2024 End: 05-30-2023 Mri any jt upper extremity w/o & w/contr matrl MRI SHOULDER WO/W IVCON RT Radiology Routine Neck pain of over 3 months duration Acute pain of right shoulder Paresthesias in right hand Disorder of right 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 1 Occurrences starting 04/30/2022 until 05/30/2023 [facility] Work Phone: Comment on above: 1 Occurrences starting 04/30/2022 until 05/30/2023 End: 06-05-2023 Mri any jt upper extremity w/o contrast matrl MRI SHOULDER WO IVCON RT Radiology Routine Neck pain of over 3 months duration Acute pain of right shoulder Paresthesias in right hand Disorder of right 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 Muscle spasm 1 Occurrences starting 05/06/2022 until 06/05/2023 [facility] Work Phone: Comment on above: 1 Occurrences starting 05/06/2022 until 06/05/2023 Radex spine cervical 4 or 5 views XR CERV OTHER 4V AP/LAT/OBL Radiology Routine Acute pain of right shoulder 02/03/2022 8:28 AM EDT [facility] Work Phone: End: 02-05-2023 Screening mammography bi 2-view breast inc cad AMANDA SCREENING Radiology Routine Encounter for screening mammogram for breast cancer 1 Occurrences starting 01/06/2022 until 02/05/2023 [facility] Work Phone: Comment on above: 1 Occurrences starting 01/06/2022 until 02/05/2023 End: 02-01-2026 XR Ankle - right AP and Lateral and oblique XR ANKLE GENERAL 3V AP/LAT/OBL RIGHT Radiology Routine Closed fracture of distal end of right fibula, unspecified fracture morphology, initial encounter 1 Occurrences starting 01/02/2025 until 02/01/2026 [facility] Work Phone: Comment on above: 1 Occurrences starting 01/02/2025 until 02/01/2026 XR Ankle - right AP and Lateral and oblique XR ANKLE GENERAL 3V AP/LAT/OBL RIGHT Radiology Routine Closed fracture of distal end of right fibula, unspecified fracture morphology, initial encounter 01/08/2025 8:20 AM EDT [facility] Work Phone: End: 02-27-2026 XR Ankle - right AP and Lateral and oblique XR ANKLE GENERAL 3V AP/LAT/OBL RIGHT Radiology Routine Closed fracture of distal end of right fibula, unspecified fracture morphology, initial encounter 1 Occurrences starting 01/28/2025 until 02/27/2026 [facility] Work Phone: Comment on above: 1 Occurrences starting 01/28/2025 until 02/27/2026 XR Ankle - right AP and Lateral and oblique XR ANKLE GENERAL 3V AP/LAT/OBL RIGHT Radiology Routine Closed fracture of distal end of right fibula, unspecified fracture morphology, initial encounter 01/29/2025 8:07 AM EDT [facility] Work Phone: End: 03-22-2026 XR Ankle - right AP and Lateral and oblique XR ANKLE GENERAL 3V AP/LAT/OBL RIGHT Radiology Routine Closed fracture of distal end of right fibula, unspecified fracture morphology, initial encounter 1 Occurrences starting 02/20/2025 until 03/22/2026 [facility] Work Phone: Comment on above: 1 Occurrences starting 02/20/2025 until 03/22/2026 XR SHOULDER LIMITED2 V AP/TRUE AP RIGHT XR SHOULDER [id number] AP/TRUE AP RIGHT Radiology Routine Acute pain of right shoulder 02/03/2022 8:28 AM EDT [facility] Work Phone: [facility] Immunizations Immunization Date Immunization Notes Care Provider Maria C worthy 05-22-2024 influenza virus vaccine, unspecified formulation Dean Kimble V DO Work Phone: [facility] 05-02-2023 influenza virus vaccine, unspecified formulation Xr Clarkrange Work Phone: [facility] 05-10-2022 influenza virus vaccine, unspecified formulation Lurdes Che 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[employer] Work Phone: [facility] 04-27-2021 influenza, high-dose , quadrivalent vaccine (FLUZONE HIGH DOSE QUADRIVALENT) Royce Islas DO Work Phone: [facility] Work Phone: 05-12-2020 influenza, injectabl e, quadrivalent, contains preservative Royce Islas DO Work Phone: [facility] Work Phone: 04-29-2017 influenza, injectabl e, quadrivalent, contains preservative Royce Islas DO Work Phone: [facility] Work Phone: 05-12-2016 influenza, seasonal, injectable Royce Islas DO Work Phone: [facility] Work Phone: 08-15-2012 tetanus toxoid, redu silvana diphtheria toxoid, and acellular pertussis vaccine, adsorbed Royce Islas DO Work Phone: [facility] Payers Date Payer Category Payer Medicare MEDICARE [id number] 2024 Medicare [id number] 2022 Unknown [id number] 2021 Medicaid [id number] 2021 Medicaid [id number] 2021 Medicaid [id number] Social History Date Type Detail Facility Start: 04-05-2012 End: 01-08-2025 Tobacco smoking status NHIS Ex-smoker [facility] Start: 04-05-1982 End: 04-05-2002 History of tobacco use Current smoker [facility] Start: 04-05-1982 End: 04-05-2002 History of tobacco use Cigarette Smoker [facility] Start: 04-05-2012 End: 07-06-2020 Cigarettes smoked current (pack per day) - Reported 1 [facility] Start: 04-05-2012 End: 01-08-2025 Tobacco use and exposure Smokeless tobacco non-user [facility] Start: 01-05-2021 End: 03-14-2025 Alcohol intake Current drinker of alcohol (finding) [facility] Start: 12-30-2020 History SDOH Alcohol Frequency 2 [facility] Start: 12-30-2020 History SDOH Alcohol Std Drinks 1 [facility] Start: 12-30-2020 History SDOH Social Connections Phone 5 [facility] Start: 12-30-2020 History SDOH Social Connections Hindu 3 [facility] Start: 12-30-2020 History SDOH Social Connections Meetings 98 [facility] Start: 12-30-2020 History SDOH Financial 4 [facility] Start: 12-30-2020 Education 12 [facility] Start: 1955 Sex Assigned At Female [facility] Start: 01-19-2022 End: 06-28-2022 Exposure to SARS-CoV-2 (event) Not sure [facility] Start: 05-27-2022 Tobacco smoking status PAIS Smokes tobacco daily [facility] Start: 05-27-2022 Tobacco Comment 05/22 - 2-3 cigarettes per day [facility] Start: 04-05-1982 End: 12-25-2024 Tobacco smoking status NHIS Occasional tobacco smoker [facility] Work Phone: Start: 06-18-2022 Alcohol Comment 2-4/month [facility] Start: 07-06-2020 End: 12-30-2020 Social connection and isolation panel [facility] Do you belong to any clubs or organizations such as advent groups, unions, fraternal or athletic groups, or school groups? No [facility] Start: 07-02-2012 How often do you attend meetings of the clubs or organizations you belong to? Patient declined [facility] Are you now , , , , never or living with a partner? [facility] How often to you hav e a drink containing alcohol? Monthly or less [facility] How many standard dr inks containing alcohol do you have on a typical day? 1 or 2 [facility] How often do you hav e 6 or more drinks on 1 occasion? Never [facility] How hard is it for y ou to pay for the very basics like food, housing, medical care, and heating Not very hard [facility] Do you feel stress - tense, restless, nervous, or anxious, or unable to sleep at night because your mind is troubled all the time - these days [OSQ] Very much [facility] (I/We) worried elaine er (my/our) food would run out before (I/we) got money to buy more. Never true [facility] Start: 12-30-2020 Gender identity Identifies as female gender (finding) [facility] Start: 12-30-2020 Sexual orientation Heterosexual (finding) [facility] How often to you hav e a drink containing alcohol? 2-3 time sa week [facility] Medical Equipment Procedure Code Equipment Code Equipment Origin al Text Equipment Identifier Dates Goode Corkscrew Suturetape 5.5mm Full Thread 1.3mm Black Blue White - [id number]_[facility] Start: 07-13-2022 Anchr Sut 4.75mm 2 Fibertak - [id number][facility] Start: 07-13-2022 Anchr Sut 4.75mm 2 Fibertak - [id number][facility] Start: 07-13-2022 Goode Corkscrew Suturetape 5.5mm Full Thread 1.3mm Black Blue White - [id number][facility] Start: 07-13-2022 Functional Status Date Assessment Result Facility 03-14-2025 Total score [AUDIT-C] 3 03/14/20 25 2:18 PM Anneliese Coats MA [facility] 07-23-2014 Are you deaf, or do you have serious difficulty hearing No 07/23/2014 7:28 AM Evens Mariscal No [facility] 07-23-2014 Are you blind, or do you have serious difficulty seeing, even when wearing glasses No 07/23/2014 7:28 AM Evens Mariscal No [facility] 07-23-2014 Do you have serious difficulty walking or climbing stairs No 07/23/2014 7:28 AM Evens Mariscal No [facility] 07-23-2014 Do you have difficul ty dressing or bathing No 07/23/2014 7:28 AM Evens Mariscal No [facility] 07-23-2014 Because of a physica l, mental, or emotional condition, do you have difficulty doing errands alone such as visiting a physician's office or shopping No 07/23/2014 7:28 AM Evens Mariscal [facility] Mental Status Date Assessment Result Facility 07-23-2014 Because of a physica l, mental, or emotional condition, do you have serious difficulty concentrating, remembering, or making decisions No 07/23/2014 7:28 AM Evens Mariscal [facility] Clinical Notes 10-29-2021 to 03-14-2025 Aileen Ayala APRN.CNP - 03/14/2025 2:34 PM EDTCastAileen henderson APRN.CNP - 03/14/2025 2:17 PM EDTPatient InstructionsTelephone Encounter - [place] Alina Oquendo - 02/27/2025 4:48 PM EDT Note Date & Type Note Facility 03-14-2025 Note HNO ID: [id number] Author: AILEEN AYALA APRN.CNP Service: ? Author Type: Nurse Practitioner Type: Progress Notes Filed: 03/14/2025 14:58 Note Text: FALLS RISK PLAN: Overall, she is doing very well. Appropriate for community-based exercise programs. List of local resources and falls prevention materials provided. [facility] 03-14-2025 History of Present illness Narrative FALLS RISK PLAN: Overall, she is doing very well. Appropriate for community-based exercise programs. List of local resources and falls prevention materials provided. Images from the original note were not included. Williams Anderson is a 69 year old female here for a Medicare wellness visit. Medicare Health Risk Assessment General Health Very good Exercise: Minutes/Day 60 min Exercise: Days/Week 3 days Alcohol: Daily Use 2-3 times a week Alcohol: Drinks/Day 1 or 2 Alcohol: 6 or more drinks Never Feel off balance No Concerns: Teeth/Dentures No Concerns: Sexual function No Troubled by feelings None of the above Frequency: Eating healthy diet Nearly every day ADLs requiring help None of the above Safety precautions in home/vehicle Yes Smoke, vape, chews tobacco No Difficulty hearing Yes Difficulty seeing No Current Providers Specialists: I have reviewed specialist-related care of the patient in the medical record. Current care team: Patient Care Team: Royce Islas DO as PCP - General (Family Medicine) Lurdes Che APRN.TERRENCE as Mold Cleaner (Family Medicine) Aileen Ayala APRN.TERRENCE as Mold Cleaner (Family Medicine) Outside specialists seen: Dr. Marti-Eye Medical/Family history review Reviewed and updated problem list, medical/surgical/family/social history, medications, and allergies. Opioid use review Opioid Medications (last 90 days) No data to display Anxiety/Depression screening PHQ-2 Score: 0 (Lower risk for depression) Recommendation: no further intervention at this time Cognitive screening Cognitive screening reviewed and No further action needed (score 3-5). Functional Observation Was the patient's Timed Up & Go test unsteady or >= 12 seconds? No Advance Care Planning Patient did not wish or was not able to name a surrogate decision maker or provide an advance care plan She believes she has this in place when they did her will but she is unsure and will let us know Measurements LMP 05/15/2010 Vision Screening: Follows with optometry/ophthalmology Right: 20/40 Left: 20/ 40 Both: 20/40 Denies concerns of difficulty hearing or intervention at this time. Assessment/Plan Welcome to Medicare preventive visit (Z00.00) - Counseled on healthy diet and regular exercise - Fall avoidance information provided Routine yearly labs ordered including thyroid for management of levothyroxine. Fasting due to lipid panel Health maintenance reviewed, does want a tetanus update which is encouraged to obtain at pharmacy. Denies shingles, pneumonia, and RSV at this time. Family history of colon cancer, encouraged colonoscopy every 5 years which was due in 2022. Order placed and she will schedule at her convenience. Mammogram already ordered, encouraged scheduling, states its only been 4 years, encouraged yearly mammogram or at least every 2 years if no family history or abnormals previously Exited from cervical cancer screening, states she doesn't believe she's ever had abnormals and is older than 65. Aileen Ayala 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[employer] documented in this encounter [facility] 03-14-2025 Instructions Aileen Ayala 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[employer] - 03/14/2025 2:34 PM EDT Get your labs drawn fasting 10-12 hours Schedule your colonoscopy when you have time Schedule your mammogram as well You would benefit from general conditioning exercise programs such as those offered by recreation centers or the [facility]. WHAT YOU CAN DO TO PREVENT FALLS Many falls can be prevented. By making some changes, you can lower your chances of falling. Four things YOU can do to prevent falls for you* and your caregiver 1. Begin a regular exercise program Exercise is one of the most important ways to lower your chances of falling. It makes you stronger and helps you feel better. Exercises that improve balance and coordination (like Sylvain Chi) are the most helpful. Lack of exercise leads to weakness and increases your chances of falling. Ask your doctor or health care provider about the best type of exercise program for you. 2. Have your health care provider review your medicines Have your doctor or pharmacist review all the medicines you take, even [id number] medicines. As you get older, the way medicines work in your body can change. Some medicines, or combinations of medicines, can make you sleepy or dizzy and can cause you to fall. 3. Have your vision checked Have your eyes checked by an eye doctor at least once a year. You may be wearing the wrong glasses or have a condition like glaucoma or cataracts that limits your vision. Poor vision can increase your chances of falling. 4. Make your home safer About half of all falls happen at home. To make your home safer: Remove things you can trip over (like papers, books, clothes, and shoes) from stairs and places where you walk. Remove small throw rugs or use double-sided tape to keep the rugs from slipping. Keep items you use often in cabinets you can reach easily without using a step stool. Have grab bars put in next to your toilet and in the tub or shower. Use non-slip mats in the bathtub and on shower floors. Improve the lighting in your home. As you get older, you need brighter lights to see well. Hang light-weight curtains or shades to reduce glare. Have handrails and lights put in on all staircases. Wear shoes both inside and outside the house. Avoid going barefoot or wearing slippers. For more information, contact: Centers for Disease Control and Prevention www.cdc.gov/injury * This information may not apply if you have certain medical conditions. Screening schedule The following prevention plan is recommended: Depression Screening Never done Anxiety Screening Never done Mammogram Screening due on 12/01/2021 DTaP,Tdap,Td Vaccine(2 - Td or Tdap) due on 08/15/2022 Colorectal Cancer Screening due on 07/10/2023 Medicare Annual Wellness Visit Never done WHAT YOU CAN DO TO PREVENT FALLS Many falls can be prevented. By making some changes, you can lower your chances of falling. Four things YOU can do to prevent falls for you* and your caregiver 1. Begin a regular exercise program Exercise is one of the most important ways to lower your chances of falling. It makes you stronger and helps you feel better. Exercises that improve balance and coordination (like Sylvain Chi) are the most helpful. Lack of exercise leads to weakness and increases your chances of falling. Ask your doctor or health care provider about the best type of exercise program for you. 2. Have your health care provider review your medicines Have your doctor or pharmacist review all the medicines you take, even pily-ozm-bbroybl medicines. As you get older, the way medicines work in your body can change. Some medicines, or combinations of medicines, can make you sleepy or dizzy and can cause you to fall. 3. Have your vision checked Have your eyes checked by an eye doctor at least once a year. You may be wearing the wrong glasses or have a condition like glaucoma or cataracts that limits your vision. Poor vision can increase your chances of falling. 4. Make your home safer About half of all falls happen at home. To make your home safer: Remove things you can trip over (like papers, books, clothes, and shoes) from stairs and places where you walk. Remove small throw rugs or use double-sided tape to keep the rugs from slipping. Keep items you use often in cabinets you can reach easily without using a step stool. Have grab bars put in next to your toilet and in the tub or shower. Use non-slip mats in the bathtub and on shower floors. Improve the lighting in your home. As you get older, you need brighter lights to see well. Hang light-weight curtains or shades to reduce glare. Have handrails and lights put in on all staircases. Wear shoes both inside and outside the house. Avoid going barefoot or wearing slippers. For more information, contact: Centers for Disease Control and Prevention www.cdc.gov/injury * This information may not apply if you have certain medical conditions. documented in this encounter [facility] 03-14-2025 Note HNO ID: [id number] Author: AILEEN AYALA APRN.CNP Service: ? Author Type: Nurse Practitioner Type: Progress Notes Filed: 03/14/2025 14:58 Note Text: Williams Anderson is a 69 year old female here for a Medicare wellness visit. Medicare Health Risk Assessment General Health Very good Exercise: Minutes/Day 60 min Exercise: Days/Week 3 days Alcohol: Daily Use 2-3 times a week Alcohol: Drinks/Day 1 or 2 Alcohol: 6 or more drinks Never Feel off balance No Concerns: Teeth/Dentures No Concerns: Sexual function No Troubled by feelings None of the above Frequency: Eating healthy diet Nearly every day ADLs requiring help None of the above Safety precautions in home/vehicle Yes Smoke, vape, chews tobacco No Difficulty hearing Yes Difficulty seeing No Current Providers Specialists: I have reviewed specialist-related care of the patient in the medical record. Current care team: Patient Care Team: Royce Islas DO as PCP - General (Family Medicine) Lurdes Che APRN.CNP as Mold Cleaner (Family Medicine) Aileen Ayala APRN.CNP as Mold Cleaner (Family Medicine) Outside specialists seen: Dr. Marti-Eye Medical/Family history review Reviewed and updated problem list, medical/surgical/family/social history, medications, and allergies. Opioid use review Opioid Medications (last 90 days) No data to display Anxiety/Depression screening PHQ-2 Score: 0 (Lower risk for depression) Recommendation: no further intervention at this time Cognitive screening Cognitive screening reviewed and No further action needed (score 3-5). Functional Observation Was the patient's Timed Up AND Go test unsteady or >= 12 seconds? No Advance Care Planning Patient did not wish or was not able to name a surrogate decision maker or provide an advance care plan She believes she has this in place when they did her will but she is unsure and will let us know Measurements LMP 05/15/2010 Vision Screening: Follows with optometry/ophthalmology Right: 20/40 Left: 20/ 40 Both: 20/40 Denies concerns of difficulty hearing or intervention at this time. Assessment/Plan Welcome to Medicare preventive visit (Z00.00) - Counseled on healthy diet and regular exercise - Fall avoidance information provided Routine yearly labs ordered including thyroid for management of levothyroxine. Fasting due to lipid panel Health maintenance reviewed, does want a tetanus update which is encouraged to obtain at pharmacy. Denies shingles, pneumonia, and RSV at this time. Family history of colon cancer, encouraged colonoscopy every 5 years which was due in 2022. Order placed and she will schedule at her convenience. Mammogram already ordered, encouraged scheduling, states its only been 4 years, encouraged yearly mammogram or at least every 2 years if no family history or abnormals previously Exited from cervical cancer screening, states she doesn't believe she's ever had abnormals and is older than 65. 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 She is using [facility]; attached to request. Scheduled Medicare Wellness 03/14/25. [facility] 02-27-2025 Miscellaneous Notes Patient is out of medication and requesting this is sent today. She is using [facility]; attached to request. Scheduled Medicare Wellness 03/14/25. 1st lvm Patient needs a physical/medication appt Royce Islas DO Patient has been identified by name and date of : YES Patient phones for refill(s): Requested Prescriptions Pending Prescriptions Disp Refills levothyroxine (SYNTHROID) 75 mcg tablet 102 tablet 2 Sig: TAKE 1 TABLET BY MOUTH 6 DAYS PER WEEK BEFORE BREAKFAST. TAKE 2 TABS ONE DAY OF THE WEEK Date of last office visit in primary care: 11/16/2023 Date of next office visit in primary care: Visit date not found Please advise. Thank you. Amina Li LPN. documented in this encounter [facility] 02-27-2025 Telephone encounter Note 1st lvm [facility] 02-26-2025 Telephone encounter Note Patient needs a physical/medication appt Royce Islas DO [facility] 02-26-2025 Telephone encounter Note Patient has been identified by name and date of : YES Patient phones for refill(s): Requested Prescriptions Pending Prescriptions Disp Refills levothyroxine (SYNTHROID) 75 mcg tablet 102 tablet 2 Sig: TAKE 1 TABLET BY MOUTH 6 DAYS PER WEEK BEFORE BREAKFAST. TAKE 2 TABS ONE DAY OF THE WEEK Date of last office visit in primary care: 11/16/2023 Date of next office visit in primary care: Visit date not found Please advise. Thank you. Amina Li LPN. [facility] 01-29-2025 Note HNO ID: [id number] Author: DEAN KIMBLE, DO Service: ? Author Type: Physician Type: Progress Notes Filed: 01/29/2025 08:21 Note Text: Subjective The patient is a 69-year-old female presenting for follow-up of a foot fracture. Foot Fracture: - Experiencing mild discomfort on the opposite side of the injury. - Uses a pad to prevent irritation. - Able to ambulate well with the boot. - Occasionally bears weight without the boot when showering, without pain. - Denies significant pain or discomfort with foot and ankle movements. - Adheres to prescribed exercises, including gas pedals and windshield wipers. - Patient's daughter is present and providing support. Musculoskeletal: (+) localized foot pain, (-) gait difficulty Objective Last menstrual period 05/15/2010. General: No acute distress. MSK/Ext: No pain on palpation, minimal sensation on palpation, full range of motion in foot without pain. Imaging: - X-ray of the ankle: Bridging callus formation at the fracture site indicating stable healing; fracture line remains visible with bridging callus support. Assessment AND Plan 1. Closed fracture of distal end of right fibula, unspecified fracture morphology, initial encounter (S82.909O) - Fracture healing well with visible bridging callus on x-ray, indicating stability. - No significant tenderness on examination; patient able to perform ankle dorsiflexion, plantarflexion, and inversion/eversion without pain. - Transition from CAM boot to regular shoe initiated. - Advised caution on uneven surfaces due to anticipated ankle weakness and tightness. - Educated on expected swelling with prolonged weight-bearing; recommended elevation and ice application to manage edema. - Demonstrated application of MIKI wrap to assist with swelling control. - Provided instructions for ankle strengthening exercises, including bilateral and unilateral heel raises. - Continue ankle mobility exercises (windshield wipers and gas pedals). - Scheduled follow-up in 4 weeks to monitor progress; patient may cancel if asymptomatic and fully functional. Recording using ambient [employer] software for draft documentation of the visit was discussed with the patient/authorized fulfillment representative; all questions welcomed and answered. Patient/authorized fulfillment representative agreed to proceed [facility] 01-29-2025 History of Present illness Narrative Subjective The patient is a 69-year-old female presenting for follow-up of a foot fracture. Foot Fracture: - Experiencing mild discomfort on the opposite side of the injury. - Uses a pad to prevent irritation. - Able to ambulate well with the boot. - Occasionally bears weight without the boot when showering, without pain. - Denies significant pain or discomfort with foot and ankle movements. - Adheres to prescribed exercises, including gas pedals and windshield wipers. - Patient's daughter is present and providing support. Musculoskeletal: (+) localized foot pain, (-) gait difficulty Objective Last menstrual period 05/15/2010. General: No acute distress. MSK/Ext: No pain on palpation, minimal sensation on palpation, full range of motion in foot without pain. Imaging: - X-ray of the ankle: Bridging callus formation at the fracture site indicating stable healing; fracture line remains visible with bridging callus support. Assessment & Plan 1. Closed fracture of distal end of right fibula, unspecified fracture morphology, initial encounter (S82.516Y) - Fracture healing well with visible bridging callus on x-ray, indicating stability. - No significant tenderness on examination; patient able to perform ankle dorsiflexion, plantarflexion, and inversion/eversion without pain. - Transition from CAM boot to regular shoe initiated. - Advised caution on uneven surfaces due to anticipated ankle weakness and tightness. - Educated on expected swelling with prolonged weight-bearing; recommended elevation and ice application to manage edema. - Demonstrated application of MIKI wrap to assist with swelling control. - Provided instructions for ankle strengthening exercises, including bilateral and unilateral heel raises. - Continue ankle mobility exercises (windshield wipers and gas pedals). - Scheduled follow-up in 4 weeks to monitor progress; patient may cancel if asymptomatic and fully functional. Recording using ambient [employer] software for draft documentation of the visit was discussed with the patient/authorized fulfillment representative; all questions welcomed and answered. Patient/authorized fulfillment representative agreed to proceed AMB ROOMING INTAKE FLOWSHEET DATA Patient here today 6 weeks post fracture right distal fibula fracture. She denies any pain. Arrives in boot today. New x-ray today. documented in this encounter [facility] 01-29-2025 Note HNO ID: [id number] Author: PERLA MILLER MA Service: ? Author Type: Tack Maker Type: Progress Notes Filed: 01/29/2025 08:21 Note Text: AMB ROOMING INTAKE FLOWSHEET DATA Patient here today 6 weeks post fracture right distal fibula fracture. She denies any pain. Arrives in boot today. New x-ray today. [facility] 01-29-2025 History of Present illness Narrative Radiology Service Progress Note PATIENT NAME: Williams Anderson DATE OF SERVICE: January 29, 2025 TIME: 8:05 PM PATIENT IDENTITY VERIFICATION COMPLETED USING TWO (2) IDENTIFIERS: Name and Date of confirmed by patient verbally. FALL SCREENING: Has the patient had 2 falls in the last year or 1 fall with injury or currently using an Ambulatory Assistive Device (Walker, Cane, Wheelchair, Crutches, etc.)? Yes, Patient High Risk for Falls What interventions were put in place to prevent falls during this visit? Increased Observations by Caregivers PATIENT GENDER DATA: Assigned female at . status: : No status: NO. PATIENT RELEVANT IMPLANT DATA REVIEWED: Not Applicable PATIENT PRESENTS WITH AN IMPLANTABLE OR ATTACHED DRAW FURNACE TENDER: No RADIOLOGY DEPARTMENT: General X-ray: Exam(s) Completed: Lower Extremity X-Ray(s): Ankle, Right PERIPHERAL IV DATA: Not applicable SIGNED BY: RT Jaylin(R) January 29, 2025 8:05 PM documented in this encounter [facility] 01-29-2025 Note HNO ID: [id number] Author: RADHA GALLAGHER RT(R) Service: ? Author Type: Technologist Type: Progress Notes Filed: 01/29/2025 20:06 Note Text: Radiology Service Progress Note PATIENT NAME: Williams Anderson DATE OF SERVICE: January 29, 2025 TIME: 8:05 PM PATIENT IDENTITY VERIFICATION COMPLETED USING TWO (2) IDENTIFIERS: Name and Date of confirmed by patient verbally. FALL SCREENING: Has the patient had 2 falls in the last year or 1 fall with injury or currently using an Ambulatory Assistive Device (Walker, Cane, Wheelchair, Crutches, etc.)? Yes, Patient High Risk for Falls What interventions were put in place to prevent falls during this visit? Increased Observations by Caregivers PATIENT GENDER DATA: Assigned female at . status: : No status: NO. PATIENT RELEVANT IMPLANT DATA REVIEWED: Not Applicable PATIENT PRESENTS WITH AN IMPLANTABLE OR ATTACHED DRAW FURNACE TENDER: No RADIOLOGY DEPARTMENT: General X-ray: Exam(s) Completed: Lower Extremity X-Ray(s): Ankle, Right PERIPHERAL IV DATA: Not applicable SIGNED BY: RT Jaylin(R) January 29, 2025 8:05 PM [facility] 01-08-2025 Note HNO ID: [id number] Author: DEAN KIMBLE DO Service: ? Author Type: Physician Type: Progress Notes Filed: 01/08/2025 08:41 Note Text: Subjective Williams Anderson is a 69-year-old female presenting for follow-up of a right ankle fracture sustained on 12/18. Williams reports minimal pain and is tolerating her boot well. She recently used a scooter for mobility during a trip that required extensive walking. She denies numbness or tingling in her toes but notes a brief episode of tingling around her ankle a few days ago. She has not been sleeping without the boot. Ears/Nose/Mouth/Throat: (+) anosmia Musculoskeletal: (+) ankle pain Neurological: (-) toe numbness, (-) toe paresthesia Objective Last menstrual period 05/15/2010. General: No acute distress. No significant swelling around ankle. Stable range of motion. No pain with palpation at fracture site. No sensorineural deficits. Labs: Tests: Imaging: (December) X-ray of the ankle: Evidence of bridging callus formation around the fracture site, alignment maintained, and decreased visibility of the fracture line, indicating ongoing healing. (12/18) X-ray of the ankle: Spiral-type fracture through the distal fibula. Assessment AND Plan 1. Closed fracture of distal end of right fibula, unspecified fracture morphology, initial encounter (S82.573X) Fracture occurred on December 18. Current X-rays demonstrate good alignment and the presence of callus, indicating progressive healing. No significant pain reported, and no numbness or tingling in the toes, suggesting intact nerve function. - Continue using the boot for ambulation; however, patient may remove the boot at home to perform range of motion exercises. - Initiate gas pedal and windshield wiper exercises to improve ankle mobility and reduce stiffness. - Patient may begin weight-bearing as tolerated in the boot. - Advised that swimming is permissible; caution advised when entering and exiting the pool. - Discussed the risks of driving with the boot; patient may drive if the boot is removed and confident in emergency braking. - Follow-up appointment scheduled in 2-3 weeks to reassess healing progress and potentially transition to an ankle brace or wrap. Recording using [employer] software for draft documentation of the visit was discussed with the patient/authorized fulfillment representative; all questions welcomed and answered. Patient/authorized fulfillment representative agreed to proceed [facility] 01-08-2025 History of Present illness Narrative Subjective Williams Anderson is a 69-year-old female presenting for follow-up of a right ankle fracture sustained on 12/18. Williams reports minimal pain and is tolerating her boot well. She recently used a scooter for mobility during a trip that required extensive walking. She denies numbness or tingling in her toes but notes a brief episode of tingling around her ankle a few days ago. She has not been sleeping without the boot. Ears/Nose/Mouth/Throat: (+) anosmia Musculoskeletal: (+) ankle pain Neurological: (-) toe numbness, (-) toe paresthesia Objective Last menstrual period 05/15/2010. General: No acute distress. No significant swelling around ankle. Stable range of motion. No pain with palpation at fracture site. No sensorineural deficits. Labs: Tests: Imaging: (December) X-ray of the ankle: Evidence of bridging callus formation around the fracture site, alignment maintained, and decreased visibility of the fracture line, indicating ongoing healing. (12/18) X-ray of the ankle: Spiral-type fracture through the distal fibula. Assessment & Plan 1. Closed fracture of distal end of right fibula, unspecified fracture morphology, initial encounter (S82.222J) Fracture occurred on December 18. Current X-rays demonstrate good alignment and the presence of callus, indicating progressive healing. No significant pain reported, and no numbness or tingling in the toes, suggesting intact nerve function. - Continue using the boot for ambulation; however, patient may remove the boot at home to perform range of motion exercises. - Initiate gas pedal and windshield wiper exercises to improve ankle mobility and reduce stiffness. - Patient may begin weight-bearing as tolerated in the boot. - Advised that swimming is permissible; caution advised when entering and exiting the pool. - Discussed the risks of driving with the boot; patient may drive if the boot is removed and confident in emergency braking. - Follow-up appointment scheduled in 2-3 weeks to reassess healing progress and potentially transition to an ankle brace or wrap. Recording using [employer] software for draft documentation of the visit was discussed with the patient/authorized fulfillment representative; all questions welcomed and answered. Patient/authorized fulfillment representative agreed to proceed AMB ROOMING INTAKE FLOWSHEET DATA Patient here 3 weeks 6 days post fracture right ankle distal fibula. Patient denies any pain. New x-ray today. documented in this encounter [facility] 01-08-2025 Note HNO ID: [id number] Author: PERLA IMLLER MA Service: ? Author Type: Tack Maker Type: Progress Notes Filed: 01/08/2025 08:41 Note Text: AMB ROOMING INTAKE FLOWSHEET DATA Patient here 3 weeks 6 days post fracture right ankle distal fibula. Patient denies any pain. New x-ray today. [facility] 01-08-2025 History of Present illness Narrative Radiology Service Progress Note PATIENT NAME: Williams Anderson DATE OF SERVICE: January 08, 2025 TIME: 8:12 AM PATIENT IDENTITY VERIFICATION COMPLETED USING TWO (2) IDENTIFIERS: Name and Date of confirmed by patient verbally. FALL SCREENING: Has the patient had 2 falls in the last year or 1 fall with injury or currently using an Ambulatory Assistive Device (Walker, Cane, Wheelchair, Crutches, etc.)? No PATIENT GENDER DATA: Assigned female at . status: : No status: NO. PATIENT RELEVANT IMPLANT DATA REVIEWED: Not Applicable PATIENT PRESENTS WITH AN IMPLANTABLE OR ATTACHED DRAW FURNACE TENDER: No RADIOLOGY DEPARTMENT: General X-ray: Exam(s) Completed: Lower Extremity X-Ray(s): Ankle, Right PERIPHERAL IV DATA: Not applicable SIGNED BY: BRIAN Webb) January 08, 2025 8:12 AM documented in this encounter [facility] 01-08-2025 Note HNO ID: [id number] Author: ELEAZAR KATZ RT(R) Service: Radiology Author Type: Technologist Type: Progress Notes Filed: 01/08/2025 08:20 Note Text: Radiology Service Progress Note PATIENT NAME: Williams Anderson DATE OF SERVICE: January 08, 2025 TIME: 8:12 AM PATIENT IDENTITY VERIFICATION COMPLETED USING TWO (2) IDENTIFIERS: Name and Date of confirmed by patient verbally. FALL SCREENING: Has the patient had 2 falls in the last year or 1 fall with injury or currently using an Ambulatory Assistive Device (Walker, Cane, Wheelchair, Crutches, etc.)? No PATIENT GENDER DATA: Assigned female at . status: : No status: NO. PATIENT RELEVANT IMPLANT DATA REVIEWED: Not Applicable PATIENT PRESENTS WITH AN IMPLANTABLE OR ATTACHED DRAW FURNACE TENDER: No RADIOLOGY DEPARTMENT: General X-ray: Exam(s) Completed: Lower Extremity X-Ray(s): Ankle, Right PERIPHERAL IV DATA: Not applicable SIGNED BY: RT Jon(R) January 08, 2025 8:12 AM [facility] 12-25-2024 Note HNO ID: [id number] Author: DEAN KIMBLE, DO Service: ? Author Type: Physician Type: Progress Notes Filed: 12/25/2024 08:24 Note Text: Subjective Williams is a 69-year-old female presenting for follow-up of a right fibular fracture. Williams sustained a right fibular fracture on the while stepping out of a van. She did not fall but slipped while weight-bearing on her left foot, resulting in a twisting motion that led to the injury. She continued to ambulate on the injured foot, engaging in activities such as sewing and walking at a festival, believing it to be a sprain. She sought medical evaluation last Tuesday, at which point she was placed in a walking boot and has been ambulating with it since. She reports ecchymosis around the ankle and heel, with increased pain at the end of the day after ambulation. She has been applying ice at night to alleviate discomfort. She denies pain in the proximal fibula or the contralateral side of the ankle. She is able to wiggle her toes and move her foot up and down. She has not been driving since the injury. Musculoskeletal: (+) right ankle pain, (+) ankle bruising, (+) ankle swelling, (-) proximal fibular pain Objective Last menstrual period 05/15/2010. General: No acute distress. MSK/Ext: Bruising around ankle, heels, and toes; no pain with palpation of proximal fibula; pain localized to distal fibula; able to wiggle toes; able to move foot up and down. No focal sensorineural deficits. Labs: Tests: Imaging: - Ankle X-ray (date not provided): Spiral fracture of the distal fibula with no displacement and stable alignment. Assessment AND Plan 1. Closed fracture of distal end of right fibula, unspecified fracture morphology, initial encounter (P32.569Y) Spiral fracture of the distal fibula with good alignment. No tenderness over the proximal fibula. Patient has been weight-bearing in a boot for one week without displacement, indicating stability. - Continue immobilization in the boot for 6 weeks. - Educated on the importance of maintaining immobilization to ensure proper healing. - Advised on using ice and elevating the foot above the knee to reduce swelling. - Instructed on adjusting the air pressure in the boot for comfort. - Scheduled a follow-up appointment in 2 weeks for a weight-bearing X-ray to assess stability. Recording using [employer] software for draft documentation of the visit was discussed with the patient/authorized fulfillment representative; all questions welcomed and answered. Patient/authorized fulfillment representative agreed to proceed [facility] 12-25-2024 History of Present illness Narrative Mireya Fair is a 69-year-old female presenting for follow-up of a right fibular fracture. Williams sustained a right fibular fracture on the while stepping out of a van. She did not fall but slipped while weight-bearing on her left foot, resulting in a twisting motion that led to the injury. She continued to ambulate on the injured foot, engaging in activities such as sewing and walking at a festival, believing it to be a sprain. She sought medical evaluation last Tuesday, at which point she was placed in a walking boot and has been ambulating with it since. She reports ecchymosis around the ankle and heel, with increased pain at the end of the day after ambulation. She has been applying ice at night to alleviate discomfort. She denies pain in the proximal fibula or the contralateral side of the ankle. She is able to wiggle her toes and move her foot up and down. She has not been driving since the injury. Musculoskeletal: (+) right ankle pain, (+) ankle bruising, (+) ankle swelling, (-) proximal fibular pain Objective Last menstrual period 05/15/2010. General: No acute distress. MSK/Ext: Bruising around ankle, heels, and toes; no pain with palpation of proximal fibula; pain localized to distal fibula; able to wiggle toes; able to move foot up and down. No focal sensorineural deficits. Labs: Tests: Imaging: - Ankle X-ray (date not provided): Spiral fracture of the distal fibula with no displacement and stable alignment. Assessment & Plan 1. Closed fracture of distal end of right fibula, unspecified fracture morphology, initial encounter (S82.269Y) Spiral fracture of the distal fibula with good alignment. No tenderness over the proximal fibula. Patient has been weight-bearing in a boot for one week without displacement, indicating stability. - Continue immobilization in the boot for 6 weeks. - Educated on the importance of maintaining immobilization to ensure proper healing. - Advised on using ice and elevating the foot above the knee to reduce swelling. - Instructed on adjusting the air pressure in the boot for comfort. - Scheduled a follow-up appointment in 2 weeks for a weight-bearing X-ray to assess stability. Recording using [employer] software for draft documentation of the visit was discussed with the patient/authorized fulfillment representative; all questions welcomed and answered. Patient/authorized fulfillment representative agreed to proceed Patient presents with: Right ankle fracture: Referred by Jay Jay [facility] ROOMING INTAKE FLOWSHEET DATA Pain Pain Level: 4 Pain Location: Ankle-Right Description: Dull, Aching Duration Units: Days Frequency: Intermittent Intervention/Comfort measure: (fracture boot) documented in this encounter [facility] 12-25-2024 Note HNO ID: [id number] Author: RENATE BURNETT MA Service: ? Author Type: Tack Maker Type: Progress Notes Filed: 12/25/2024 08:24 Note Text: Patient presents with: Right ankle fracture: Referred by Jay Jay Vyas [facility] ROOMING INTAKE FLOWSHEET DATA Pain Pain Level: 4 Pain Location: Ankle-Right Description: Dull, Aching Duration Units: Days Frequency: Intermittent Intervention/Comfort measure: (fracture boot) [facility] 12-18-2024 Note HNO ID: [id number] Author: JAY JAY VYAS PA Service: ? Author Type: Physician Viscera Washer Type: Progress Notes Filed: 12/18/2024 11:42 Note Text: [facility] Subjective Williams Anderson is a 69 year old female. Patient presents with: Ankle Injury: right x 1 week, twisted HPI Right Ankle Pain and Swelling: - Twisted right ankle approximately one week ago while stepping out of the back of a van. - Reports significant swelling and pain around the ankle. - Able to ambulate despite discomfort. - Noted bruising on toes and around the lateral and medial foot and ankle. - Taking ibuprofen for pain management; uncertain of its effectiveness. PAST MEDICAL HISTORY Diagnosis Date ASCUS of cervix with negative high risk HPV 05/2018 repeat pap in 2-3 years Hypercholesteremia Hypertriglyceridemia IFG (impaired fasting glucose) 2017 IPMN (intraductal papillary mucinous neoplasm) repeat MRI 11/2021 needed Osteopenia of multiple sites 11/2020 Snoring Subclinical hypothyroidism PAST SURGICAL HISTORY Procedure Laterality Date ANESTH OPEN/SURG ARTHRS TOTAL ELBOW REPLACEMENT 03/08/2015 bilateral elbows replaced COLONOSCOPY FLX DX W/COLLJ SPEC WHEN PFRMD 10/12/12 Colonoscopy repeat 5 years COLONOSCOPY FLX DX W/COLLJ SPEC WHEN PFRMD 07/10/2018 repeat 5 years REPAIR WRIST FRACTURE 03/08/2015 S TUBAL LIGATION ALLERGIES Patient has no known allergies. MEDICATIONS levothyroxine (SYNTHROID) 75 mcg tablet TAKE 1 TABLET BY MOUTH 6 DAYS PER WEEK BEFORE BREAKFAST. TAKE 2 TABS ONE DAY OF THE WEEK [id number]-Fish Oil 1,000 mg (120 mg-180 mg) cap Take 2 g by mouth twice daily. Calcium Chloride powd Daily in smoothie ibuprofen (MOTRIN) 200 mg tablet Take 200 mg by mouth every 6 hours as needed. aspirin, enteric coated (ASPIRIN, ENTERIC COATED) 81 mg EC tablet Take 81 mg by mouth once daily. cinnamon bark (CINNAMON ORAL) Take by mouth. TURMERIC ORAL Take by mouth. cholecalciferol (VITAMIN D3) 5,000 unit tab Take 5,000 Units by mouth once daily. FAMILY HISTORY Problem Relation Age of Onset Osteoporosis Mother Seizures Mother Arthritis Father Colon Cancer Father Hypertension Father None Other Breast Cancer Maternal Aunt Social History Tobacco Use Smoking status: Some Days Current packs/day: 0.00 Average packs/day: 1 pack/day for 20.0 years (20.0 ttl pk-yrs) Types: Cigarettes Start date: 04/05/1982 Last attempt to quit: 04/05/2002 Years since quittin.7 Smokeless tobacco: Never Tobacco comments: 05/22 - 2-3 cigarettes per day Vaping Use Vaping status: Some Days Substances: THC Substance Use Topics Alcohol use: Yes Alcohol/week: 3.0 standard drinks of alcohol Types: 2 Standard drinks or equivalent, 1 Cans of Beer (12oz) per week Comment: 2-4/month Drug use: No Review of Systems Musculoskeletal: (+) ankle pain, (+) foot/ankle swelling, (+) foot/ankle bruising Neurological: (-) numbness Objective BP 144/80 Pulse 90 Temp 36.7 ?C (98.1 ?F) Resp 18 Wt 104.3 kg (229 lb 15 oz) LMP 05/15/2010 SpO2 96% BMI 41.52 kg/m? Nursing note reviewed. Vitals reviewed Physical Exam General: No acute distress. MSK/Ext: Bruising noted on toes, lateral foot, medial foot, and ankle; swelling noted on medial and lateral ankle and dorsal foot; tenderness over proximal fifth metatarsal and lateral malleolus; non-tender toes; able to plantar and dorsiflex with normal strength. intact sensation in toes; 2+ {1. Acute right ankle pain (M25.571) 2. Injury of right foot, initial encounter (S99.611A) 3. Closed fracture of distal end of right fibula, unspecified fracture morphology, initial encounter (S82.303U) - Patient sustained an injury to the right ankle and foot approximately one week ago while stepping out of a van, resulting in significant swelling and bruising. - X-ray confirmed a closed fracture of the distal end of the right fibula. - Applied a walking boot (lizandro Denise stock- ipad form completed) to be worn at all times except when driving or showering - Recommended rest, ice, elevation, and use of Tylenol or Motrin for pain management. - Scheduled follow-up appointment with orthopedics for further evaluation and management. and Recording using [employer] software for draft documentation of the visit was discussed with the patient/authorized fulfillment representative; all questions welcomed and answered. Patient/authorized fulfillment representative agreed to proceed History and Record Review External record(s) reviewed: prior outpatient record. Differential Diagnoses - Distal fibular fracture is more likely for the following reason(s): suggested by HANDP - Neurovascular compromise is less likely for the following reason(s): HANDP not suggestive - Dislocation is less likely for the following reason(s): no evidence on imaging Disposition The patient was discharged. OTC Medications were advised: Tylenol/Motrin Procedur (more content not included)... [facility] 12-18-2024 Note HNO ID: [id number] Author: TOOTIE GEORGE RT(R) Service: ? Author Type: Decorator Inspector Type: Progress Notes Filed: 12/18/2024 11:12 Note Text: Radiology Service Progress Note PATIENT NAME: Williams Anderson DATE OF SERVICE: December 18, 2024 TIME: 11:11 AM PATIENT IDENTITY VERIFICATION COMPLETED USING TWO (2) IDENTIFIERS: Name and Date of confirmed by patient verbally. FALL SCREENING: Has the patient had 2 falls in the last year or 1 fall with injury or currently using an Ambulatory Assistive Device (Walker, Cane, Wheelchair, Crutches, etc.)? No PATIENT GENDER DATA: Assigned female at . status: : No status: NO. PATIENT RELEVANT IMPLANT DATA REVIEWED: Yes PATIENT PRESENTS WITH AN IMPLANTABLE OR ATTACHED DRAW FURNACE TENDER: No RADIOLOGY DEPARTMENT: General X-ray: Exam(s) Completed: Lower Extremity X-Ray(s): Ankle, Right and Foot, Right PERIPHERAL IV DATA: Not applicable SIGNED BY: RT Jimmy(R) December 18, 2024 11:11 AM [facility] 10-30-2024 Note Patient Outreach (FA MPWS) MARYWILLIAMS FLYNN ([id number]) 1955 F Date Time Provider Department 10/30/24 ROYCE ISLASPWS During your visit today, we recorded the following information about you: Allergies As of Date: 10/30/2024 (No Known Allergies) Date Reviewed: 11/16/2023 Reviewed by: Pratibha Doyle MA - Fully Assessed Visit Diagnosis:Encounter for screening mammogram for breast cancer [Z12.31] Order(s):AMANDA SCREENING W JJ [[id number]] Order #: [id number] FUTURE Prescriptions as of 11/30/2024 - levothyroxine (SYNTHROID) 75 mcg tablet TAKE 1 TABLET BY MOUTH 6 DAYS PER WEEK BEFORE BREAKFAST. TAKE 2 TABS ONE DAY OF THE WEEK - Ikchs-3-VPU-EPA-Fish Oil 1,000 mg (120 mg-180 mg) cap Take 2 g by mouth twice daily. - Calcium Chloride powd Daily in smoothie - ibuprofen (MOTRIN) 200 mg tablet Take 200 mg by mouth every 6 hours as needed. - aspirin, enteric coated (ASPIRIN, ENTERIC COATED) 81 mg EC tablet Take 81 mg by mouth once daily. - cinnamon bark (CINNAMON ORAL) Take by mouth. - TURMERIC ORAL Take by mouth. - cholecalciferol (VITAMIN D3) 5,000 unit tab Take 5,000 Units by mouth once daily. 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] 04/05/2012 Otalgia [H92.09] 04/05/2012 Hypothyroidism [E03.9] 04/05/2012 Subclinical hypothyroidism [E03.8] 08/21/2012 Hypercholesterolemia [E78.00] 08/21/2012 Well adult exam [Z00.00] 08/25/2016 ASCUS of cervix with negative high risk HPV [R8*05/16/2018 IFG (impaired fasting glucose) [R73.01] 2018 Hypercholesteremia [E78.00] Hypertriglyceridemia [E78.1] Osteopenia of multiple sites [M85.89] 11/2020 IPMN (intraductal papillary mucinous neoplasm) *01/05/2021 Calculus of gallbladder without cholecystitis w*01/05/2021 Smoker [F17.200] 06/18/2022 Obesity (BMI 30-39.9) [E66.9] 06/18/2022 Supraspinatus syndrome of right shoulder [M75.1*07/13/2022 07/13/2022 Bursitis of right shoulder [M75.51] 07/13/2022 07/13/2022 Tendinitis of right shoulder [M77.8] 07/13/2022 07/13/2022 Encounter Status:Closed by MAURA, PRODUSER on 11/30/24 [facility] 05-08-2024 Telephone encounter Note Please see pt message. Script pended. Pratibha Doyle MA [facility] 05-08-2024 Miscellaneous Notes Please see pt message. Script pended. Pratibha Doyle MA documented in this encounter [facility] 11-22-2023 Telephone encounter Note Patient has been identified by name and date of : Yes Patient phones for refill(s): Requested Prescriptions Pending Prescriptions Disp Refills levothyroxine (SYNTHROID) 75 mcg tablet [Pharmacy Med Name: LEVOTHYROXINE 75 MCG TABLET] 102 tablet 2 Sig: TAKE 1 TABLET BY MOUTH 6 DAYS PER WEEK BEFORE BREAKFAST. TAKE 2 TABS ONE DAY OF THE WEEK Date of last office visit in primary care: 11/16/2023 Date of next office visit in primary care: Visit date not found Please advise. Thank you. Ruddy Reyes LPN. [facility] 11-22-2023 Miscellaneous Notes Patient has been identified by name and date of : Yes Patient phones for refill(s): Requested Prescriptions Pending Prescriptions Disp Refills levothyroxine (SYNTHROID) 75 mcg tablet [Pharmacy Med Name: LEVOTHYROXINE 75 MCG TABLET] 102 tablet 2 Sig: TAKE 1 TABLET BY MOUTH 6 DAYS PER WEEK BEFORE BREAKFAST. TAKE 2 TABS ONE DAY OF THE WEEK Date of last office visit in primary care: 11/16/2023 Date of next office visit in primary care: Visit date not found Please advise. Thank you. Ruddy Reyes LPN. documented in this encounter [facility] 11-16-2023 Nurse Note Ambulatory Ear Lavage Pre-treatment: Warm water Treatment: Right ear Equipment and Irrigation solution and Volume used: Single use syringe with single use irrigation tip Water Return flow appearance: Brown Yellow Patient tolerated procedure: yes Tympanic membrane assessment: Tympanic membrane assessed by LIP pre and post procedure documented in this encounter [facility] 11-16-2023 History of Present illness Narrative Chief Complaint Patient presents with: Physical HPI Williams Anderson is a 68 year old female who presents here today for Above Complaints. Here for her yearly physical. Denies complaints or concerns today, needs her thyroid medication filled. Denies CP, SOB, h/a, n/v, increased thirst or urination Past medical history, appointments, medications, allergies reviewed. Previous Medical History PAST MEDICAL HISTORY Diagnosis Date ASCUS of cervix with negative high risk HPV 05/2018 repeat pap in 2-3 years Hypercholesteremia Hypertriglyceridemia IFG (impaired fasting glucose) 2017 IPMN (intraductal papillary mucinous neoplasm) repeat MRI 11/2021 needed Osteopenia of multiple sites 11/2020 Snoring Subclinical hypothyroidism Previous Surgical History PAST SURGICAL HISTORY Procedure Laterality Date ANESTH OPEN/SURG ARTHRS TOTAL ELBOW REPLACEMENT 03/08/2015 bilateral elbows replaced COLONOSCOPY FLX DX W/COLLJ SPEC WHEN PFRMD 10/12/12 Colonoscopy repeat 5 years COLONOSCOPY FLX DX W/COLLJ SPEC WHEN PFRMD 07/10/2018 repeat 5 years REPAIR WRIST FRACTURE 03/08/2015 S TUBAL LIGATION Family History FAMILY HISTORY Problem Relation Age of Onset Osteoporosis Mother Seizures Mother Arthritis Father Colon Cancer Father Hypertension Father None Other Breast Cancer Maternal Aunt Patient Allergies ALLERGIES No Known Allergies Current Medications Current Outpatient Medications on File Prior to Visit Medication Sig levothyroxine (SYNTHROID) 75 mcg tablet Take 1 tablet by mouth daily before breakfast, 6 days per week. Take 2 tablets one day per week. Dknaw-3-FUA-EPA-Fish Oil 1,000 mg (120 mg-180 mg) cap Take 2 g by mouth twice daily. Calcium Chloride powd Daily in smoothie ibuprofen (MOTRIN) 200 mg tablet Take 200 mg by mouth every 6 hours as needed. aspirin, enteric coated (ASPIRIN, ENTERIC COATED) 81 mg EC tablet Take 81 mg by mouth once daily. cinnamon bark (CINNAMON ORAL) Take by mouth. TURMERIC ORAL Take by mouth. cholecalciferol (VITAMIN D3) 5,000 unit tab Take 5,000 Units by mouth once daily. oxyCODONE-acetaminophen (PERCOCET) 5-325 mg tablet Take 1 tablet by mouth every 6 hours as needed for pain. (Patient not taking: Reported on 09/02/2022) cyclobenzaprine (FLEXERIL) 10 mg tablet Take 1 tablet by mouth at bedtime as needed for muscle spasm. (Patient not taking: Reported on 11/16/2023) No current facility-administered medications on file prior to visit. Social History Social History Tobacco Use Smoking status: Some Days Packs/day: 1.00 Years: 20.00 Additional pack years: 0.00 Total pack years: 20.00 Types: Cigarettes Last attempt to quit: 04/05/2002 Years since quittin.6 Smokeless tobacco: Never Tobacco comments: 05/22 - 2-3 cigarettes per day Vaping Use Vaping Use: Some days Substances: THC Substance Use Topics Alcohol use: Yes Alcohol/week: 3.0 standard drinks of alcohol Types: 2 Standard drinks or equivalent, 1 Cans of Beer (12oz) per week Comment: 2-4/month Drug use: No Review of Symptoms REVIEW OF SYSTEMS See HPI, otherwise negative EXAM: BP 118/86 (BP Site: Left Arm, BP Position: Sitting, BP Cuff Size: Regular Adult) Pulse 86 Resp 16 Ht 158.5 cm (5' 2.4) Wt 87.1 kg (192 lb) LMP 05/15/2010 SpO2 97% BMI 34.67 kg/m General Appearance: Well appearing, alert, in no acute distress, well-hydrated, well nourished. and Obese. Skin: Skin color, texture, turgor normal, no suspicious rashes or lesions. Head: Normocephalic, no masses, lesions, tenderness or abnormalities. Eyes: Anicteric sclera. Pupils are equally round and reactive to light. Extraocular movements are intact. . Ears: left external ear canal and TM WNL, right external ear canal occluded with cerumen. Nose/Sinuses: Nares normal, septum midline, mucosa normal, no drainage or sinus tenderness. Oropharynx: Lips, mucosa, and tongue normal, teeth and gums normal, oropharynx normal. Neck: Supple, no adenopathy; thyroid symmetric, normal size, no bruits. Back:no pain to palpation of vertebrae, good flexion and extension, good range of motion, no muscle tenderness, motor and sensory appear to be normal Lungs: Lungs clear to auscultation. No wheezing, rhonchi, rales.. Heart: RRR without murmur, gallop, or rubs. No ectopy. Abdomen: Normal abdominal exam, Abdomen soft, non-tender. Bowel sounds normal. No masses, organomegaly. Extremities: No deformities, edema, skin discoloration, clubbing or cyanosis. Good capillary refill. . Musculoskeletal: No joint swelling, deformity, or tenderness. Peripheral Pulses: Normal. Neurologic: Gait normal. Reflexes normal and symmetric. Sensation grossly intact.. Lymph Nodes: No cervical lymphadenopathy and No supraclavicular lymphadenopathy. Psychiatric: pleasant, cooperative. Health Maintenance List Lung Cancer Screening Never done Mammogram Screening due on 12/01/2021 Annual PCP Team Chronic Disease Visit due on 02/03/2023 Advance Directive Discussion Never done Behavioral Health Screening Never done DTaP,Tdap,Td Vaccine(2 - Td or Tdap) due on 11/15/2024 Colorectal Cancer Screening due on 11/15/2024 RSV Vaccine(1 - 1-dose 60+ series) due on 11/15/2024 Shingrix Vaccine(1 of 2) due on 11/15/2024 Covid-19 Vaccine(1 - 2022-24 season) due on 11/15/2024 Pneumococcal Vaccine: 65+(1 of 2 - PCV) due on 11/15/2024 Diabetes Screening due on 09/28/2024 Lipid Screening due on 09/28/2026 Bone Density Screening Completed Influenza Vaccine Completed Hepatitis C Screening Completed Pap Testing Discontinued Data reviewed Previous records, office notes ASSESSMENT/PLAN: 1. Well adult exam - ICD9: V70.0, ICD10: Z00.00 (primary diagnosis) - Counseled on healthy diet and regular exercise - Calcium intake with supplements or by diet of 1000 mg/day for under 50, 3229-6429 mg/day for 50+ - Lung cancer screening recommended, declines at this time d/t insurance concerns - THYROID STIMULATING HORMONE - T4 FREE/FREE THYROXINE - LIPID PANEL BASIC - COMPREHENSIVE METABOLIC PANEL - HEMOGLOBIN A1C - COMPLETE BLOOD COUNT 2. Hypothyroidism, unspecified type - ICD9: 244.9, ICD10: E03.9 - Instructed patient on importance of taking on an empty stomach either first thing in the morning or at bedtime. - THYROID STIMULATING HORMONE - T4 FREE/FREE THYROXINE 3. Hypercholesterolemia - ICD9: 272.0, ICD10: E78.00 - LIPID PANEL BASIC 4. IFG (impaired fasting glucose) - ICD9: 790.21, ICD10: R73.01 - COMPREHENSIVE METABOLIC PANEL - HEMOGLOBIN A1C - COMPLETE BLOOD COUNT Lurdes Che APRN.CNP documented in this encounter [facility] 11-14-2023 Miscellaneous Notes Pt has not seen since 2021 needs appointment.t/c to pt to let her know of this was ok with booking appt. Booked with Lurdes on Tuesday. documented in this encounter [facility] 12-13-2022 Miscellaneous Notes Pt informed via [employer] message [facility] changed to reflect the extra pill weekly/12 additional tablets per 90-day rx. The following approved medication requests have been transmitted electronically. Requested Prescriptions Signed Prescriptions Disp Refills levothyroxine (SYNTHROID) 75 mcg tablet 102 tablet 2 Sig: Take 1 tablet by mouth daily before breakfast, 6 days per week. Take 2 tablets one day per week. Lurdes Che APRN.CNP documented in this encounter [facility] 11-04-2022 History of Present illness Narrative Follow Up Visit Chief Complaint Williams Anderson is a 67 year old female who presents today for follow up office visit. Patient presents with: Right Shoulder - Established Patient, Post Op History of Present Illness PAIN EVALUATION No data found in the last 1 encounters. HPI: Williams Anderson is a 67 year old female for a follow up visit 16 weeks 2 days post op right shoulder arthroscopy RCR, SAD, acromioplasty and biceps tenotomy. She denies any pain. Is there any overall improvement in your condition? Yes, Any new injury, since being seen last: No REVIEW OF SYMPTOMS: Patient did not have, and does not currently have, any weight loss, malaise, fever, chills, headache, chest pain, chest pressure, palpitations, cough, shortness of breath, orthopnea, paroxsymal nocturnal dyspnea, nausea, vomiting, diarrhea, constipation, melena, hematochezia, urinary difficulties, prolonged bleeding, easily bruising, heat or cold intolerance, new onset joint pain or swelling, new onset extremity weakness or numbness, new onset auditory or visual disturbances, lightheadedness, dizziness, partial loss of consciousness or full loss of consciousness. Current Outpatient Medications Medication Sig Dduno-6-RKL-EPA-Fish Oil (FISH OIL) 1,000 mg (120 mg-180 mg) cap Take 2 g by mouth twice daily. Calcium Chloride powd Daily in smoothie levothyroxine (SYNTHROID) 75 mcg tablet Take 1 tablet by mouth daily before breakfast. aspirin, enteric coated (ASPIRIN, ENTERIC COATED) 81 mg EC tablet Take 81 mg by mouth once daily. cinnamon bark (CINNAMON ORAL) Take by mouth. TURMERIC ORAL Take by mouth. cholecalciferol (VITAMIN D3) 5,000 unit tab Take 5,000 Units by mouth once daily. ibuprofen (MOTRIN) 200 mg tablet Take 200 mg by mouth every 6 hours as needed. oxyCODONE-acetaminophen (PERCOCET) 5-325 mg tablet Take 1 tablet by mouth every 6 hours as needed for pain. (Patient not taking: Reported on 09/02/2022) cyclobenzaprine (FLEXERIL) 10 mg tablet Take 1 tablet by mouth at bedtime as needed for muscle spasm. No current facility-administered medications for this visit. Physical Exam Vitals: [facility] 05/15/2010 Psych: Pleasant, good affect and mood General Appearance: Well appearing, alert, in no acute distress, well-hydrated, well nourished.. Skin: Skin color, texture, turgor normal, no suspicious rashes or lesions. Peripheral Pulses: Normal. Neurologic: Gait normal. Reflexes normal and symmetric. Sensation grossly intact.. Lymph Nodes: No cervical lymphadenopathy, No supraclavicular lymphadenopathy, No axillary lymphadenopathy., and No inguinal lymphadenopathy.. Respiratory: No recent pulmonary infection, hemoptysis, chronic cough, or shortness of breath at rest Rheumatologic: Joint deformities: right shoulder Right Hand Exam Right hand exam is normal. Tenderness The patient is experiencing no tenderness. Range of Motion The patient has normal right wrist ROM. Wrist Extension: normal Flexion: normal Pronation: normal Supination: normal Muscle Strength The patient has normal right wrist strength. Tests Phalen s Sign: negative Tinel's sign (median nerve): negative Ni's test: negative Other Erythema: absent Sensation: normal Pulse: present Comments: B/l med/uln/rad/ax nerves intact Left Hand Exam Left hand exam is normal. Tenderness The patient is experiencing no tenderness. Range of Motion The patient has normal left wrist ROM. Wrist Extension: normal Flexion: normal Pronation: normal Supination: normal Muscle Strength The patient has normal left wrist strength. Tests Phalen s Sign: negative Tinel's sign (median nerve): negative Ni's test: negative Other Erythema: absent Sensation: normal Pulse: present Assessment and Plan Radiographs: No imaging to review. Impression: Encounter Diagnosis ICD-10-CM 1. S/P rotator cuff surgery Z98.890 2. S/P shoulder surgery Z98.890 3. Disorder of right rotator cuff M67.911 4. Bursitis of right shoulder M75.51 Today, in detail, through a thorough evaluation, we discussed possible etiologies of pain and our plans for further diagnostic and therapeutic interventions. We discussed strategies for decreasing pain and improving strength, stability and motion. Patient's questions were answered in detailed. Patient verbalizes understanding and agrees with the treatment plan as discussed. Cont current HEP Follow up prn Cont exercises, gradual return to overhead at 6 months Patient aware and in agreement of plan. All questions answered. documented in this encounter [facility] 09-18-2022 Miscellaneous Notes Patient phones requesting refills as follows: Requested Prescriptions Pending Prescriptions Disp Refills levothyroxine (SYNTHROID) 75 mcg tablet 90 tablet 3 Sig: Take 1 tablet by mouth daily before breakfast. CONTRERAS 02/03/22 NOV no upcoming appt noted Please review and advise. Angelita Willis LPN documented in this encounter [facility] 08-03-2022 Miscellaneous Notes Order was placed and faxed to number provided Addended by: ARIANNE YODER on: 08/03/2022 12:22 PM Modules accepted: Orders Fax to [phone], to: Gael documented in this encounter [facility] 08-03-2022 Miscellaneous Notes Message has been sent in another encounter Location where patient is getting PT done does not have an order. Provider please place order PSS please fax order to # [phone], to: Gael documented in this encounter [facility] 07-28-2022 History of Present illness Narrative Images from the original note were not included. Follow Up Visit Chief Complaint Williams Anderson is a 66 year old female who presents today for follow up office visit. Patient presents with: Right Shoulder - Established Patient, Follow Up, Post Op History of Present Illness PAIN EVALUATION 07/28/2022 1127 Pain Level: -- rest:0, movement: 4-5, ROM:wearing sling Pain Location: Shoulder-Right Description: Burning;Numbness Frequency: Intermittent Intervention/Comfort measure: Medication;Cold percocet, IBU Comments: wearing sling, PT scheduled 07/29/22 HPI: Williams Anderson is a 66 year old female for a post-op follow up visit Right shoulder arthroscopy, rc repair , sad/acormioplasty, biceps tenotomy. Patient states she has been wearing sling as directed since surgery, has appointment for PT 07/29/22. Pain history is noted as above. Is there any overall improvement in your condition? Yes, pain Any new injury, since being seen last: No REVIEW OF SYMPTOMS: Patient did not have, and does not currently have, any weight loss, malaise, fever, chills, headache, chest pain, chest pressure, palpitations, cough, shortness of breath, orthopnea, paroxsymal nocturnal dyspnea, nausea, vomiting, diarrhea, constipation, melena, hematochezia, urinary difficulties, prolonged bleeding, easily bruising, heat or cold intolerance, new onset joint pain or swelling, new onset extremity weakness or numbness, new onset auditory or visual disturbances, lightheadedness, dizziness, partial loss of consciousness or full loss of consciousness. Current Outpatient Medications Medication Sig ibuprofen (MOTRIN IB) 200 mg tablet Take 200 mg by mouth every 6 hours as needed. oxyCODONE-acetaminophen (PERCOCET) 5-325 mg tablet Take 1 tablet by mouth every 6 hours as needed for pain. aspirin, enteric coated (ASPIRIN, ENTERIC COATED) 81 mg EC tablet Take 81 mg by mouth once daily. cinnamon bark (CINNAMON ORAL) Take by mouth. TURMERIC ORAL Take by mouth. levothyroxine (SYNTHROID) 75 mcg tablet Take 1 tablet by mouth daily before breakfast. cyclobenzaprine (FLEXERIL) 10 mg tablet Take 1 tablet by mouth at bedtime as needed for muscle spasm. cholecalciferol (VITAMIN D3) 5,000 unit tab Take 5,000 Units by mouth once daily. No current facility-administered medications for this visit. Physical Exam Vitals: [facility] 05/15/2010 Psych: Pleasant, good affect and mood General Appearance: Well appearing, alert, in no acute distress, well-hydrated, well nourished.. Skin: Skin color, texture, turgor normal, no suspicious rashes or lesions. Peripheral Pulses: Normal. Neurologic: Gait normal. Reflexes normal and symmetric. Sensation grossly intact.. Lymph Nodes: No cervical lymphadenopathy, No supraclavicular lymphadenopathy, No axillary lymphadenopathy., and No inguinal lymphadenopathy.. Respiratory: No recent pulmonary infection, hemoptysis, chronic cough, or shortness of breath at rest Rheumatologic: Joint deformities: Right shoulder pain Right Hand Exam Right hand exam is normal. Tenderness The patient is experiencing no tenderness. Range of Motion The patient has normal right wrist ROM. Wrist Extension: normal Flexion: normal Pronation: normal Supination: normal Muscle Strength The patient has normal right wrist strength. Tests Phalen s Sign: negative Tinel's sign (median nerve): negative Ni's test: negative Other Erythema: absent Sensation: normal Pulse: present Comments: B/l med/uln/rad/ax nerves intact Left Hand Exam Left hand exam is normal. Tenderness The patient is experiencing no tenderness. Range of Motion The patient has normal left wrist ROM. Wrist Extension: normal Flexion: normal Pronation: normal Supination: normal Muscle Strength The patient has normal left wrist strength. Tests Phalen s Sign: negative Tinel's sign (median nerve): negative Ni's test: negative Other Erythema: absent Sensation: normal Pulse: present Right Shoulder Exam Other Erythema: absent Sensation: normal Pulse: present Assessment and Plan Radiographs: I have reviewed the images with the patient and family. Impression: Encounter Diagnosis ICD-10-CM 1. Disorder of right rotator cuff M67.911 2. S/P shoulder surgery Z98.890 Today, in detail, through a thorough evaluation, we discussed possible etiologies of pain and our plans for further diagnostic and therapeutic interventions. We discussed strategies for decreasing pain and improving strength, stability and motion. Patient's questions were answered in detailed. Patient verbalizes understanding and agrees with the treatment plan as discussed. Start PT janet Ok for active rom at elbow, encouraged pendulums Follow up in 4 weeks Sling at all times unless seated in chair crocheting Patient aware and in agreement of plan. All questions answered. documented in this encounter [facility] 07-13-2022 History of Past i llness Narrative Problem Noted Date Resolved Date Supraspinatus syndrome of right shoulder 022 07/13/2022 Bursitis of right shoulder 07/13/202207/13 Tendinitis of right shoulder 07/13/2022 documented as of this encounter (statuses as of 08/05/2022) [facility] History of Past illness Narrative* Problem Noted Date Resolved Date Supraspinatus syndrome of right shoulder 022 07/13/2022 Bursitis of right shoulder 07/13/202207/13 Tendinitis of right shoulder 07/13/2022 documented as of this encounter (statuses as of 08/05/2022) [facility] of Past illness Narrative* Problem Noted Date Resolved Date Supraspinatus syndrome of right shoulder 022 07/13/2022 Bursitis of right shoulder 07/13/202207/13 Tendinitis of right shoulder 07/13/2022 documented as of this encounter (statuses as of 08/18/2022) [facility] of [facility] Narrative* Problem Noted Date Resolved Date Supraspinatus syndrome of right shoulder 022 07/13/2022 Bursitis of right shoulder 07/13/202207/13 Tendinitis of right shoulder 07/13/2022 documented as of this encounter (statuses as of 09/20/2022) [facility] Narrative* Problem Noted Date Resolved Date Supraspinatus syndrome of right shoulder 022 07/13/2022 Bursitis of right shoulder 07/13/202207/13 Tendinitis of right shoulder 07/13/2022 documented as of this encounter (statuses as of 11/04/2022) [facility] Narrative* Problem Noted Date Resolved Date Supraspinatus syndrome of right shoulder 022 07/13/2022 Bursitis of right shoulder 07/13/202207/13 Tendinitis of right shoulder 07/13/2022 documented as of this encounter (statuses as of 12/13/2022) [facility] Narrative* Problem Noted Date Resolved Date Supraspinatus syndrome of right shoulder 022 07/13/2022 Bursitis of right shoulder 07/13/202207/13 Tendinitis of right shoulder 07/13/2022 documented as of this encounter (statuses as of 12/14/2022) [facility] Narrative* Problem Noted Date Diagnosed Date Resolved Date Supraspinatus syndrome of right shoulder 07/13/2022 07/13/2022 Bursitis of right shoulder 07/13/2022 1 09/13/2021 Tendinitis of right shoulder 07/13/2022 07/13/2022 documented as of this encounter (statuses as of 11/11/2023) [facility] Narrative* Problem Noted Date Diagnosed Date Resolved Date Supraspinatus syndrome of right shoulder 07/13/2022 07/13/2022 Bursitis of right shoulder 07/13/2022 1 09/13/2021 Tendinitis of right shoulder 07/13/2022 07/13/2022 documented as of this encounter (statuses as of 11/14/2023) [facility] Narrative* Problem Noted Date Diagnosed Date Resolved Date Supraspinatus syndrome of right shoulder 07/13/2022 07/13/2022 Bursitis of right shoulder 07/13/2022 1 09/13/2021 Tendinitis of right shoulder 07/13/2022 07/13/2022 documented as of this encounter (statuses as of 11/16/2023) [facility] NoteHNO ID: [id number] Author: Sapna Fernandez APRN.ENVIRONMENTAL REMEDIATION ENGINEER Service: Anesthesiology Author Type: Nurse Business Practices Officer Type: Anesthesia Procedure Notes Filed: 07/13/2022 10:35 AM Note Text: ANESTHESIOLOGY PROCEDURE NOTE Airway General Information Procedure Start Time/Medication Administration: 07/13/2022 10:13 AM Patient location during procedure: OR Timeout Performed Pre-procedure: timeout performed Consent Obtained: Yes 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 Staffing ENVIRONMENTAL REMEDIATION ENGINEER: Sapna Fernandez APRN.ENVIRONMENTAL REMEDIATION ENGINEER Performed by: ANA Indications and Patient Condition Indications for airway management: anesthesia Preoxygenated: yes anesthesia circuit Patient position: sniffing Method: asleep Cricoid Pressure: No Final Airway Details Final airway type: endotracheal airway Final Endotracheal Airway: ETT Cuffed: yes Successful intubation technique: direct laryngoscopy Devices used: intubating stylet Endotracheal tube insertion site: oral Blade: Paolo Blade size: #3 ETT size (mm): 7.0 Measured from: lips Measurement (cm): 21 Placement verified by: chest auscultation and capnometry Cormack-Lehane Classification: grade I - full view of glottis Number of attempts at approach: 1 SIGNATURE: Sapna Fernandez APRN.CRNA PATIENT NAME: Williams Anderson DATE: July 13, 2022 TIME: 10:34 AM CSN: [id number] NoteHNO ID: [id number] Author: Kori Marie MD Service: Anesthesiology Author Type: Anesthesiologist Type: Anesthesia Procedure Notes Filed: 07/13/2022 9:59 AM Note Text: ANESTHESIOLOGY PROCEDURE NOTE Peripheral Nerve Block General Information Procedure Start Time/Medication Administration: 07/13/2022 9:51 AM Procedure End time: 07/13/2022 9:59 AM Patient location during procedure: induction room Timeout Performed Pre-procedure: timeout performed Consent Obtained: Yes Patient identity confirmed: arm band and patient Reason for block: post-op pain management/at surgeon's request Staffing Anesthesiologist: Kori Marie MD Preparation Sterility Preparation: hand hygiene performed prior to procedure, surgical cap used, mask used, sterile drape used during line insertion, skin prep agent completely dried prior to procedure Site Prep: Chloraprep Pre-Procedure Neuro Exam Location: RUE Sensory: intact Motor: intact Procedure Details Patient Position: sitting Monitoring: Pulse OX, EKG and NIBP Block Type Approach: supraclavicular Laterality: right Injection Technique: single-shot Ultrasound Guided: Yes Image in Chart: yes Local Infiltration: Yes Needle Needle Type: echogenic Needle Gauge: 22 G Needle Localization: ultrasound Assessment Injection assessment: negative aspiration and local visualized surrounding nerve on ultrasound Post-Procedure Neuro Exam Expected Regional Anesthesia: Yes Medications Administered dexamethasone sodium phosphate injection (DECADRON) - peripheral nerve block 4 mg - 07/13/2022 9:51:00 AM ropivacaine (PF) 5 mg/mL (0.5 %) injection (NAROPIN) - peripheral nerve block 20 mL - 07/13/2022 9:51:00 AM SIGNATURE: Kori Marie MD PATIENT NAME: Williams Anderson DATE: July 13, 2022 TIME: 9:51 AM CSN: [id number] History of Present illness Narrative* Kayla Perea, DO - 05/27/2022 1:55 PM EDT Images from the original note were not included. 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 See chart. Pain history is noted as above. Pain and decreased ability to move arm over head, increased pain in bicpes, Denies calf pain, numbness, tingling, fever, chills or other constitutional symptoms. Previous Treatments: Ice: Yes Heat: No Brace: No NSAIDs: Yes, otc Injections: No Surgeries: No Physical Therapy: Yes Review of Systems: Patient did not have, and does not currently have, any weight loss, malaise, fever, chills, headache, chest pain, chest pressure, palpitations, cough, shortness of breath, orthopnea, paroxsymal nocturnal dyspnea, nausea, vomiting, diarrhea, constipation, melena, hematochezia, urinary difficulties, prolonged bleeding, easily bruising, heat or cold intolerance, new onset joint pain or swelling, newonset extremity weakness or numbness, new onset auditory or visual disturbances, lightheadedness, dizziness, partial loss of consciousness or full loss of consciousness. Current Outpatient Medications on File Prior to Visit Medication Sig levothyroxine (SYNTHROID) 75 mcg tablet Take 1 tablet by mouth daily before breakfast. cholecalciferol (VITAMIN D3) 5,000 unit tab Take 5,000 Units by mouth once daily. cyclobenzaprine (FLEXERIL) 10 mg tablet Take 1 tablet by mouth at bedtime as needed for muscle spasm. No current facility-administered medications on file prior to visit. ALLERGIES No Known Allergies Physical Exam: Vitals: [facility] 05/15/2010 Psych: Pleasant, good affect and mood General Appearance: Well appearing, alert, in no acute distress, well-hydrated, well nourished.. Skin: Skin color, texture, turgor normal, no suspicious rashes or lesions. Peripheral Pulses: Normal. Neurologic: Gait normal. Reflexes normal and symmetric. Sensation grossly intact.. Lymph Nodes: No cervical lymphadenopathy, No supraclavicular lymphadenopathy, No axillary lymphadenopathy., and No inguinal lymphadenopathy.. Respiratory: No recent pulmonary infection, hemoptysis, chronic cough, or shortness of breath at rest Rheumatologic: Joint deformities: right shoulder pain Right Shoulder Exam Range of Motion Active abduction: 80 abnormal Passive abduction: 150 Extension: 40 External rotation: 10 abnormal Forward flexion: 110 abnormal Muscle Strength Abduction: 5/5 Internal rotation: 3/5 External rotation: 3/5 Supraspinatus: 3/5 Subscapularis: 4/5 Biceps: 4/5 Tests Ferguson test: positive Impingement: positive Drop arm: positive Other Erythema: absent Sensation: normal Pulse: present Left Shoulder Exam Left shoulder exam is normal. Range of Motion The patient has normal left shoulder ROM. Active abduction: normal Passive abduction: normal Extension: normal External rotation: normal Forward flexion: normal Internal rotation 0 degrees: normal Internal rotation 90 degrees: normal Muscle Strength Abduction: 5/5 Internal rotation: 5/5 External rotation: 5/5 Supraspinatus: 5/5 Subscapularis: 5/5 Biceps: 5/5 Tests Ferguson test: negative Cross arm: negative Impingement: negative Other Erythema: absent Sensation: normal Pulse: present Imaging: Impression IMPRESSION: 1. High likelihood of minimally retracted full-thickness tear fullwidth supraspinatus with the gap occupied by regulation tissue. At least low-grade partial tear subscapularis. 2. Limited anatomic resolution but likely split partial tear biceps tendon bicipital groove and proximal 3. Moderate to marked acromioclavicular degenerative arthrosis. 4. Subdeltoid/subacromial bursal distention/bursitis. 5. Biceps tenosynovitis extending inferiorly beyond the field of imaging. Call Center Support Consultant: KAYA Transcribe Date/Time: May 07 2022 3:41P Dictated by : HELEN SAN MD Assessment and Plan: Impression: Encounter Diagnosis ICD-10-CM 1. Bursitis of right shoulder M75.51 2. Disorder of right rotator cuff M67.911 3. Supraspinatus syndrome of right shoulder M75.101 4. Tendinitis of right shoulder M77.8 5. Biceps tendinitis of right upper extremity M75.21 Plan: Today, in detail, through a thorough evaluation, we discussed possible etiologies of pain and our plans for further diagnostic and therapeutic interventions. We discussed strategies for decreasing pain and improving strength, stability and motion. Patient's questions were answered in detailed. Patient verbalizes understanding and agrees with the treatment plan as discussed. Discussed smoking cessation Risks and benefits vs alternatives to treatment were discussed with patient. Risks including but not limited to blood loss, blood clot, infection, neurovascular injury, failure of procedure, need forrevision operation, loss of life and loss of limb. Patient aware of risks and benefits and agrees to proceed with written consent for surgical intervention. Biceps tenotomy Rc repair Sad/acromioplasty, no pain at ac joint Kayla Perea DO * Perla Miller Ma - 05/27/2022 1:47 PM EDT AMB ROOMING INTAKE FLOWSHEET DATA Risk Screening Do you have concerns about personal safety or safety in the home?: No Pain Pain Level: 10 Pain Location: Shoulder-Right Description: Sharp Duration Amount of Time: 6 Duration Units: Months Frequency: Intermittent Intervention/Comfort measure: Other: See comment (muscle rub) Patient here today for right shoulder pain that started back in the spring. 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 [facility] History of Present illness Narrative* RT Irais(R) - 05/07/2022 3:00 PM EDT Radiology Service Progress Note PATIENT NAME: Williams Anderson DATE OF SERVICE: May 07, 2022 TIME: 3:00 PM PATIENT IDENTITY VERIFICATION COMPLETED USING TWO (2) IDENTIFIERS: Name and Date of confirmedby patient verbally and Name and Date of confirmed by identification band. FALL SCREENING: Has the patient had 2 falls in the last year or 1 fall with injury or currently using an Ambulatory Assistive Device (Walker, Cane, Wheelchair, Crutches, etc.)? No PATIENT GENDER DATA: Female. status: : No status: NO. PATIENT RELEVANT IMPLANT DATA REVIEWED: Not Applicable RADIOLOGY DEPARTMENT: MR; Exam(s) Completed: Upper MSK: Shoulder, right PERIPHERAL IV DATA: Not applicable SIGNED BY: RT Irais(Justen) May 07, 2022 3:00 PM [facility] Miscellaneous Notes* Telephone Encounter - Lurdes Che APRN.CNP - 05/06/2022 1:10 PM EDT New order placed. Lurdes Che APRN.CNP * Telephone Encounter - Waytt Valiente RN - 05/06/2022 12:31 PM EDT [facility], reports they received the message from pcp stating okay for order to beMRI without contrast (see previous encounter), but they need the actual order to be entered into epic. Asking provider to please enter the order for MRI without contrast. MRI is scheduled for tomorrow. [facility] Miscellaneous Notes* Telephone Encounter - Kyleigh Che - 04/30/2022 11:07 AM EDT Patient is scheduled at [facility] on 05/07/2022. * Telephone Encounter - Lurdes Che APRN.CNP - 04/30/2022 9:53 AM EDT MRI order placed, please assist her to schedule appointment. Lurdes Che APRN.CNP * Telephone Encounter - Aleja Duenas MA - 04/29/2022 2:06 PM EDT Received [facility] therapist recommendations via fax. Will place on provider's desk for review. Aleja Duenas MA * Telephone Encounter - Aljea Duenas MA - 04/28/2022 10:07 AM EDT Per message 04/26 Spoke to patient. OT at [facility] Therapy recommended an MRI to be completed on patient's RIGHT shoulderd/t possible torn rotator cuff. Patient states she completed therapy this AM & therapist would fax recommendation to PCP office. Will wait for fax. Aleja Duenas MA [facility] History of Present illness Narrative* Rosy Bryant, RT(R) - 02/03/2022 8:10 AM EDT Radiology Service Progress Note PATIENT NAME: Williams Anderson DATE OF SERVICE: February 03, 2022 TIME: 8:11 AM PATIENT IDENTITY VERIFICATION COMPLETED USING TWO (2) IDENTIFIERS: Name and Date of confirmedby patient verbally. FALL SCREENING: Has the patient had 2 falls in the last year or 1 fall with injury or currently using an Ambulatory Assistive Device (Walker, Cane, Wheelchair, Crutches, etc.)? No PATIENT GENDER DATA: Female. status: : No status: NO. PATIENT RELEVANT IMPLANT DATA REVIEWED: Yes RADIOLOGY DEPARTMENT: General X-ray: Exam(s) Completed: Spine X-Ray(s): Cervical AP / LAT / OBL Upper Extremity X-Ray(s): Shoulder, AP / TRUE AP right PERIPHERAL IV DATA: Not applicable SIGNED BY: RT Erma(R) February 03, 2022 8:11 AM documented [facility] Instructions* Patient Instructions* Lurdes Che APRN.CNP - 02/03/2022 8:02 AM EDT Schedule with PT. Have your xrays completed today. Start your steroid either today or tomorrow. Make sure you have a little bit of something in your stomach when you take it. Ice. Rest. [facility] History of Present illness Narrative* Lurdes Che APRN.CNP - 02/03/2022 7:48 AM EDT Chief Complaint Patient presents with: Pain (Shoulder Pain): right shoulder x 1 month HPI Williams Anderson is a 66 year old female who presents here today for Above Complaints. Today: Pain to right upper shoulder for a month. 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 Radiates down to wrist, radiates up through neck. Intermittently. Supports with left arm. Uses left arm to lift right. Can lift right but very painful. Accident about 7 years ago onto all 4's-significant injuries to right wrist and right upper arm. Did do physical therapy at that point. Large bruise to right upper inner arm. Unaware of cause. Has been going to [facility]. Recently did lymph node compression, which lasts about a half hour. Has taken a couple ibuprofen-doesn't take too often. Indirect ice therapy. Past medical history, appointments, medications, allergies reviewed. Previous Medical History PAST MEDICAL HISTORY Diagnosis Date ASCUS of cervix with negative high risk HPV 05/2018 repeat pap in 2-3 years Hypercholesteremia Hypertriglyceridemia IFG (impaired fasting glucose) 2017 IPMN (intraductal papillary mucinous neoplasm) repeat MRI 11/2021 needed Osteopenia of multiple sites 11/2020 Snoring Subclinical hypothyroidism Previous Surgical History PAST SURGICAL HISTORY Procedure Laterality Date ANESTH OPEN/SURG ARTHRS TOTAL ELBOW REPLACEMENT 03/08/2015 bilateral elbows replaced COLONOSCOPY FLX DX W/COLLJ SPEC WHEN PFRMD 10/12/12 Colonoscopy repeat 5 years COLONOSCOPY FLX DX W/COLLJ SPEC WHEN PFRMD 07/10/2018 repeat 5 years REPAIR WRIST FRACTURE 03/08/2015 S TUBAL LIGATION Family History FAMILY HISTORY Problem Relation Age of Onset Osteoporosis Mother Seizures Mother Arthritis Father Colon Cancer Father Hypertension Father None Other Breast Cancer Maternal Aunt Patient Allergies ALLERGIES No Known Allergies Current Medications Current Outpatient Medications on File Prior to Visit Medication Sig levothyroxine (SYNTHROID) 75 mcg tablet Take 1 tablet by mouth daily before breakfast. cyclobenzaprine (FLEXERIL) 10 mg tablet Take 1 tablet by mouth at bedtime as needed for muscle spasm. cholecalciferol (VITAMIN D-3) 5,000 unit tab Take 5,000 Units by mouth once daily. No current facility-administered medications on file prior to visit. Social History Social History Tobacco Use Smoking status: Former Smoker Packs/day: 1.00 Years: 20.00 Pack years: 20.00 Types: Cigarettes Quit date: 04/05/2002 Years since quittin.8 Smokeless tobacco: Never Used Substance Use Topics Alcohol use: Yes Alcohol/week: 2.5 standard drinks Types: 1 Cans of Beer (12oz) per week Drug use: No Review of Symptoms REVIEW OF SYSTEMS See HPI EXAM: BP 118/80 (BP Site: Left Arm, BP Position: Sitting, BP Cuff Size: Regular Adult) Pulse 85 Resp 16 Wt 86.2 kg (190 lb) LMP 05/15/2010 SpO2 96% BMI 33.66 kg/m General Appearance: Well appearing, alert, in no acute distress, well-hydrated, well nourished.. Extremities: No deformities, edema, skin discoloration, clubbing or cyanosis. Good capillary refill. . Musculoskeletal: positive for right shoulder pain, requires assistance to lift above head, negativeempty can test, moderately positive lift off test. Health Maintenance List COVID-19 VACCINE(1) Never done SHINGRIX VACCINE(1 of 2) Never done PNEUMOCOCCAL: 65+(1 - PCV) Never done ADVANCE DIRECTIVE DISCUSSION Never done MAMMOGRAM due on 12/01/2021 DEPRESSION SCREENING due on 12/30/2021 ANNUAL PCP TEAM CHRONIC DISEASE VISIT due on 01/05/2022 INFLUENZA(1) due on 04/01/2022 DTAP,TDAP,TD(2 - Td or Tdap) due on 08/15/2022 COLORECTAL CANCER SCREENING due on 07/10/2023 DIABETES SCREEN due on 09/28/2024 LIPID SCREEN due on 09/28/2026 BONE DENSITY Completed HEPATITIS C SCREENING Completed Data reviewed Previous records, office notes ASSESSMENT/PLAN: 1. Acute pain of right shoulder - ICD9: 719.41, ICD10: M25.511 Suspect tendinitis. Shoulder and cervical xrays. Prednisone taper. Consider MRI and/or orthopedic consult in the future if necessary. - XR SHOULDER [id number] AP/TRUE AP RIGHT - XR CERV OTHER 4V AP/LAT/OBL - PREDNISONE 10 MG TABLET - CONSULT TO PHYSICAL THERAPY Lurdes Che APRN.TERRENCE documented [facility] encounter[facility] Miscellaneous Notes* Telephone Encounter - Ruddy Reyes LPN - 02/02/2022 9:21 AM EDT Pt r/s. Ruddy Reyes LPN * Telephone Encounter - Ruddy Reyes LPN - 01/27/2022 9:00 AM EDT Pt scheduled on 02/03 for shoulder pain. TC to pt to offer appt with a member of PCP team (Dr. Islas, Lurdes Che, Claribel Wilcox) to be seen this week for her shoulder pain. Left message for her to return call to office. Ruddy Reyes LPN documented in this encounter[facility]03-[facility]22 Miscellaneous Notes* Telephone Encounter - Kristen Del Rio LPN - 10/29/2021 8:14 AM EDT Patient phones requesting refills as follows: Pending Prescriptions Disp Refills CYCLOBENZAPRINE 10 MG TABLET 30 tablet 3 Sig: Take 1 tablet by mouth at bedtime as needed for muscle spasm. CURLY: No CONTRERAS-01/27/21 Labs-09/28/21 NOV-none med filled 03/19/20 Please review and advise. Kristen Del Rio LPN documented in this encounter[facility]22 Miscellaneous Notes* Telephone Encounter - Kristen Del Rio LPN - 10/29/2021 8:14 AM EDT Patient phones requesting refills as follows: Pending Prescriptions Disp Refills LEVOTHYROXINE 75 MCG TABLET 90 tablet 3 Sig: Take 1 tablet by mouth daily before breakfast. CURLY: No CONTRERAS-01/27/21 Labs-09/28/21 NOV-none med filled 11/17/20 Please review and advise. Kristen Del Rio LPN [facility] Diagnosis Neck pain of over 3 months duration Paresthesias in right hand Disturbance of skin sensation Muscle spasm Spasm of muscle [facility]* Diagnosis Encounter for screening mammogram for breast cancer [facility] Diagnosis Acute pain of right shoulder- Primary [facility]* Diagnosis Neck pain of over 3 months duration- Primary Acute pain of right shoulder Paresthesias in right hand Disturbance of skin sensation Disorder of right rotator cuff Disorders of bursae and tendons in shoulder region, unspecified Supraspinatus syndrome of right shoulder [facility] Neck pain of over 3 months duration- Primary Acute pain of right shoulder Paresthesias in right hand Disturbance of skin sensation Disorder of right rotator cuff Disorders of bursae and tendons in shoulder region, unspecified Supraspinatus syndrome of right shoulder Muscle spasm Spasm of muscle [facility] Neck pain of over 3 months duration Acute pain of right shoulder Paresthesias in right hand Disturbance of skin sensation Disorder of right rotator cuff Disorders of bursae and tendons in shoulder region, unspecified Supraspinatus syndrome of right shoulder Muscle spasm Spasm of muscle [facility] Diagnosis Bursitis of right shoulder- Primary Disorders of bursae and tendons in shoulder region, unspecified Disorder of right rotator cuff Disorders of bursae and tendons in shoulder region, unspecified Supraspinatus syndrome of right shoulder Tendinitis of right shoulder Disorders of bursae and tendons in shoulder region, unspecified Biceps tendinitis of right upper extremity Paresthesias in right hand Disturbance of skin sensation [facility] Diagnosis Disorder of right rotator cuff- Primary Disorders of bursae and tendons in shoulder region, unspecified Supraspinatus syndrome of right shoulder Bursitis of right shoulder Disorders of bursae and tendons in shoulder region, unspecified Tendinitis of right shoulder Disorders of bursae and tendons in shoulder region, unspecified Disorder of right rotator cuff Disorders of bursae and tendons in shoulder region, unspecified Supraspinatus syndrome of right shoulder Bursitis of right shoulder Disorders of bursae and tendons in shoulder region, unspecified Tendinitis of right shoulder Disorders of bursae and tendons in shoulder region, unspecified [facility] Diagnosis S/P rotator cuff surgery- Primary Other postprocedural status [facility] Diagnosis Disorder of right rotator cuff- Primary Disorders of bursae and tendons in shoulder region, unspecified S/P shoulder surgery Other postprocedural status [facility] Diagnosis S/P rotator cuff surgery- Primary Other postprocedural status S/P shoulder surgery Other postprocedural status Disorder of right rotator cuff Disorders of bursae and tendons in shoulder region, unspecified Bursitis of right shoulder Disorders of bursae and tendons in shoulder region, unspecified [facility] Diagnosis Encounter for screening mammogram for breast cancer documented in this encounter [facility] note* Diagnosis Well adult exam- Primary Routine general medical examination at a health care facility Hypothyroidism, unspecified type Hypercholesterolemia Pure hypercholesterolemia IFG (impaired fasting glucose) Impaired fasting glucose documented in this encounter [facility] note* Diagnosis Encounter for screening mammogram for breast cancer documented in this encounter [facility] note* Diagnosis Acute pain of right shoulder Pre-op evaluation- Primary Preoperative examination, unspecified Hypercholesteremia Pure hypercholesterolemia Hypothyroidism, unspecified type Smoker Tobacco use disorder Obesity (BMI 30-39.9) Obesity, unspecified documented in this encounter [facility] note* Diagnosis Pre-op evaluation- Primary Preoperative examination, unspecified Hypercholesteremia Pure hypercholesterolemia Hypothyroidism, unspecified type Smoker Tobacco use disorder Obesity (BMI 30-39.9) Obesity, unspecified Encounter for screening mammogram for breast cancer documented in this encounter [facility] note* Diagnosis Pre-op evaluation- Primary Preoperative examination, unspecified Hypercholesteremia Pure hypercholesterolemia Hypothyroidism, unspecified type Smoker Tobacco use disorder Obesity (BMI 30-39.9) Obesity, unspecified Closed fracture of distal end of right fibula, unspecified fracture morphology, initial encounter documented in this encounter [facility] note* Diagnosis Pre-op evaluation- Primary Preoperative examination, unspecified Hypercholesteremia Pure hypercholesterolemia Hypothyroidism, unspecified type Smoker Tobacco use disorder Obesity (BMI 30-39.9) Obesity, unspecified Closed fracture of distal end of right fibula, unspecified fracture morphology, initial encounter- Primary documented in this encounter [facility] note* Diagnosis Pre-op evaluation- Primary Preoperative examination, unspecified Hypercholesteremia Pure hypercholesterolemia Hypothyroidism, unspecified type Smoker Tobacco use disorder Obesity (BMI 30-39.9) Obesity, unspecified Closed fracture of distal end of right fibula, unspecified fracture morphology- Primary documented in this encounter [facility] note* Diagnosis Pre-op evaluation- Primary Preoperative examination, unspecified Hypercholesteremia Pure hypercholesterolemia Hypothyroidism, unspecified type Smoker Tobacco use disorder Obesity (BMI 30-39.9) Obesity, unspecified Closed fracture of distal end of right fibula, unspecified fracture morphology, initial encounter documented in this encounter [facility] note* Diagnosis Pre-op evaluation- Primary Preoperative examination, unspecified Hypercholesteremia Pure hypercholesterolemia Hypothyroidism, unspecified type Smoker Tobacco use disorder Obesity (BMI 30-39.9) Obesity, unspecified Closed fracture of distal end of right fibula, unspecified fracture morphology- Primary documented in this encounter [facility] note* Diagnosis Pre-op evaluation- Primary Preoperative examination, unspecified Hypercholesteremia Pure hypercholesterolemia Hypothyroidism, unspecified type Smoker Tobacco use disorder Obesity (BMI 30-39.9) Obesity, unspecified Closed fracture of distal end of right fibula, unspecified fracture morphology, initial encounter documented in this encounter [facility] note* Diagnosis Pre-op evaluation- Primary Preoperative examination, unspecified Hypercholesteremia Pure hypercholesterolemia Hypothyroidism, unspecified type Smoker Tobacco use disorder Obesity (BMI 30-39.9) Obesity, unspecified Closed fracture of distal end of right fibula, unspecified fracture morphology, initial encounter- Primary documented in this encounter [facility] note* Diagnosis Pre-op evaluation- Primary Preoperative examination, unspecified Hypercholesteremia Pure hypercholesterolemia Hypothyroidism, unspecified type Smoker Tobacco use disorder Obesity (BMI 30-39.9) Obesity, unspecified Morbid obesity with BMI of 40.0-44.9, adult (HCC)- Primary Morbid obesity Screening for depression Encounter for screening examination for other mental health and behavioral disorders Abnormality of gait Falling episodes Lack of coordination Hypothyroidism, unspecified type Well adult exam Routine general medical examination at a health care facility Hypercholesterolemia Pure hypercholesterolemia IFG (impaired fasting glucose) Impaired fasting glucose Encounter for immunization Need for other specified prophylactic vaccination against single bacterial disease Screening for colon cancer Special screening for malignant neoplasms, colon Family history of colon cancer Family history of malignant neoplasm of gastrointestinal tract documented in this encounter [facility] for referral (narrative)* Diagnostic Procedure Only (Routine) - Pending Review Specialty Diagnoses / Procedures Referred By Ximena t Referred To Contact [facility] Diagnoses Encounter for screening mammogram for breast cancer Procedures AMANDA SCREENING SCREENING MAMMOGRAPHY BI 2-VIEW BREAST INC CAD Royce Islas L, DO [address] [place] [address] [facility] [address] [place] [address] Referral ID Status Reason Start Date Expiration Date Visits Requested Visits Authorized [id number] Pending Review Auto-Generat ed Referral 01/06/2022 02/05/2023 1 1 [facility] for referral (narrative)* Diagnostic Procedure Only (Routine) - Pending Review Specialty Diagnoses / Procedures Referred By Liliac t Referred To Contact [facility] Diagnoses Encounter for screening mammogram for breast cancer Procedures AMANDA SCREENING SCREENING MAMMOGRAPHY BI 2-VIEW BREAST INC CAD Royce Islas, DO [address] [place] [address] [facility] [address] [place] [address] Referral ID Status Reason Start Date Expiration Date Visits Requested Visits Authorized [id number] Pending Review Auto-Generat ed Referral 12/08/2022 01/07/2024 1 1 [facility] for referral (narrative)* Diagnostic Procedure Only (Routine) - Pending Review Specialty Diagnoses / Procedures Referred By Ximena t Referred To Contact [facility] Diagnoses Encounter for screening mammogram for breast cancer Procedures AMANDA SCREENING SCREENING MAMMOGRAPHY BI 2-VIEW BREAST INC CAD Royce Islas, DO [address] [place] [address] [facility] [address] [place] [id number] Referral ID Status Reason Start Date Expiration Date Visits Requested Visits Authorized [id number] Pending Review Auto-Generat ed Referral 11/30/2023 12/29/2024 1 1 [facility] for referral (narrative)* Diagnostic Procedure Only (Routine) - Closed Specialty Diagnoses / Procedures Referred By Liliac t Referred To Contact XR IMAGING Diagnoses Acute pain of right shoulder Procedures XR CERV OTHER 4V AP/LAT/OBL RADEX SPINE CERVICAL 4 OR 5 VIEWS Lurdes Che 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[employer] [address] [place] [address] [place] [id number] Referral ID Status Reason Start Date Expiration Date V isits Requested Visits Authorized [id number] Closed Auto-Generate d Referral 02/03/2022 03/05/2023 1 1 * Diagnostic Procedure Only (Routine) - Closed Specialty Diagnoses / Procedures Referred By Contac t Referred To Contact [facility] IMAG[facility] Diagnoses Acute pain of right shoulder Procedures XR SHOULDER [id number] AP/TRUE AP RIGHT RADEX SHOULDER COMPLETE MINIMUM 2 VIEWS Lurdes Che 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[employer] [address] [place] [address] [place] [address] Referral ID Status Reason Start Date Expiration Date V isits Requested Visits Authorized [id number] Closed Auto-Generate d Referral 02/03/2022 03/05/2023 1 1 [facility] for visit Narrative* Diagnostic Procedure Only (Routine) - Closed Specialty Diagnoses / Procedures Referred By Contac t Referred To Contact XR IMAGING Diagnoses Acute pain of right shoulder Procedures XR SHOULDER [id number] AP/TRUE AP RIGHT RADEX SHOULDER COMPLETE MINIMUM 2 VIEWS Lurdes Che 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[employer] [address] [place] [address] [place] [address] Referral ID Status Reason Start Date Expiration Date V isits Requested Visits Authorized [id number] Closed Auto-Generate d Referral 02/03/2022 03/05/2023 1 1 [facility] for visit Narrative* Diagnostic Procedure Only (Routine) - Closed Specialty Diagnoses / Procedures Referred By Contac t Referred To Contact XR IMAGING Diagnoses Closed fracture of distal end of right fibula, unspecified fracture morphology, initial encounter Procedures XR ANKLE GENERAL 3V AP/LAT/OBL RIGHT RADEX ANKLE COMPLETE MINIMUM 3 VIEWS Dean Kimble V, DO [address] [place] [address] Phone: tel: fax: [place] [address] Referral ID Status Reason Start Date Expiration Date V isits Requested Visits Authorized [id number] Closed Auto-Generate d Referral 01/02/2025 02/01/2026 1 1 [facility] Diagnostic Procedure Only (Routine) - Closed Specialty Diagnoses / Procedures Referred By Ximena t Referred To Contact XR IMAGING Diagnoses Closed fracture of distal end of right fibula, unspecified fracture morphology, initial encounter Procedures XR ANKLE GENERAL 3V AP/LAT/OBL RIGHT RADEX ANKLE COMPLETE MINIMUM 3 VIEWS Dean Kimble V, DO [address] [place] [address] Phone: tel: fax: [place] [id number] Referral ID Status Reason Start Date Expiration Date V isits Requested Visits Authorized [id number] Closed Auto-Generate d Referral 01/28/2025 02/27/2026 1 1 [facility] Summary Purpose Family History No Family History Records FoundNo Family History Records FoundNo Family History Records FoundNo Family History Records Found Advance Directives No Advanced Directives Records FoundDocuments on File Type Date Recorded 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 Advance Directive(s) 07/10/2018 2:43 PM Advance Directive(s) 12/20/2016 6:54 PM Documents on File Type Date Recorded 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 Advance Directive(s) 07/10/2018 2:43 PM Advance Directive(s) 12/20/2016 6:54 PM Reason for Referral Specialty Diagnoses / Procedures Referred By Ximena romero Referred To Contact [facility] Diagnoses Acute pain of right shoulder Procedures CONSULT TO PHYSICAL THERAPY PHYSICAL THERAPY EVALUATION HIGH COMPLEX 45 MINS Lurdes Che, MIRYAM.WELDING 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 [employer] [address] [place] [address] [facility] [place] [address] [place] [address] Referral ID Status Reason Start Date Expiration Date Visits Requested Visits Authorized [id number] Pending Review Auto-Generat ed Referral 02/03/2022 02/03/2023 1 1 Specialty Diagnoses / Procedures Referred By Ximena t Referred To Contact XR IMAGING Diagnoses Acute pain of right shoulder Procedures XR CERV OTHER 4V AP/LAT/OBL RADEX SPINE CERVICAL 4 OR 5 VIEWS Lurdes Che, MIRYAM.WELDING 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 [employer] [address] [place] [address] [facility] Referral ID Status Reason Start Date Expiration Date V isits Requested Visits Authorized [id number] Closed Auto-Generate d Referral 02/03/2022 03/05/2023 1 1 Specialty Diagnoses / Procedures Referred By Contac t Referred To Contact XR IMAGING Diagnoses Acute pain of right shoulder Procedures XR SHOULDER [id number] AP/TRUE AP RIGHT RADEX SHOULDER COMPLETE MINIMUM 2 VIEWS YaneLurdes duarte, MIRYAM.WELDING 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 [employer] [address] [place] [address] [facility] Referral ID Status Reason Start Date Expiration Date V isits Requested Visits Authorized [id number] Closed Auto-Generate d Referral 02/03/2022 03/05/2023 1 1 Specialty Diagnoses / Procedures Referred By Contac t Referred To Contact [facility] Diagnoses Neck pain of over 3 months duration Acute pain of right shoulder Paresthesias in right hand Disorder of right 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 Procedures MRI SHOULDER WO/W IVCON RT MRI ANY JT UPPER EXTREMITY W/O & W/CONTR Royce Mckeon, DO [address] [place] [address] [facility] Referral ID Status Reason Start Date Expiration Date Visits Requested Visits Authorized [id number] Authorized Auto-Generat ed Referral 04/30/2022 05/30/2023 1 1 Specialty Diagnoses / Procedures Referred By Contac t Referred To Contact [facility] Diagnoses Neck pain of over 3 months duration Acute pain of right shoulder Paresthesias in right hand Disorder of right 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 Muscle spasm Procedures MRI SHOULDER WO IVCON RT MRI ANY JT UPPER EXTREMITY W/O CONTRAST Royce Mckeon L, DO [address] [place] [address] [facility] Referral ID Status Reason Start Date Expiration Date Visits Requested Visits Authorized [id number] Pending Review Auto-Generat ed Referral 05/06/2022 06/05/2023 1 1 Referral ID Status Reason Start Date Expiration Date V isits Requested Visits Authorized [id number] Closed Auto-Generate d Referral 05/06/2022 06/05/2023 1 1 Specialty Diagnoses / Procedures Referred By Contac t Referred To Contact [facility] Diagnoses S/P rotator cuff surgery Procedures CONSULT TO PHYSICAL THERAPY PHYSICAL THERAPY EVALUATION HIGH COMPLEX 45 MINS Arianne Yoder PA-C [address] [place] [address] [facility] [place] [address] [place] [address] Referral ID Status Reason Start Date Expiration Date Visits Requested Visits Authorized [id number] Pending Review Auto-Generat ed Referral 08/03/2022 08/03/2023 1 1 Additional Source Comments INFORMATION SOURCE (unrecogn ized section and content) DATE CREATED AUTHOR 09/19/2021 [facility] DATE CREATED AUTHOR AUTHOR'S ORGANIZ ATION 07/14/2022 [facility] DATE CREATED AUTHOR AUTHOR'S ORGANIZ ATION 12/02/2022 [facility] DATE CREATED AUTHOR AUTHOR'S ORGANIZ ATION 03/16/2025 [facility] Source Comments (unrecognize d section and content) In the event this informatio n is protected by the Federal Confidentiality of Alcohol and Drug Abuse Patient Records regulations: The Federal rules restrict any use of the information to criminally investigate or prosecute any alcohol or drug abuse patient.[facility] event this information is protected by the Federal Confidentiality of Alcohol and Drug Abuse Patient Records regulations: The Federal rules restrict any use of the information to criminally investigate or prosecute any alcohol or drug abuse patient.[facility] the event this information is protected by the Federal Confidentiality of Alcohol and Drug Abuse Patient Records regulations: The Federal rules restrict any use of the information to criminally investigate or prosecute any alcohol or drug abuse patient.[facility] the event this information is protected by the Federal Confidentiality of Alcohol and Drug Abuse Patient Records regulations: The Federal rules restrict any use of the information to criminally investigate or prosecute any alcohol or drug abuse patient.[facility] the event this information is protected by the Federal Confidentiality of Alcohol and Drug Abuse Patient Records regulations: The Federal rules restrict any use of the information to criminally investigate or prosecute any alcohol or drug abuse patient.[facility] the event this information is protected by the Federal Confidentiality of Alcohol and Drug Abuse Patient Records regulations: The Federal rules restrict any use of the information to criminally investigate or prosecute any alcohol or drug abuse patient.[facility] the event this information is protected by the Federal Confidentiality of Alcohol and Drug Abuse Patient Records regulations: The Federal rules restrict any use of the information to criminally investigate or prosecute any alcohol or drug abuse patient.[facility] the event this information is protected by the Federal Confidentiality of Alcohol and Drug Abuse Patient Records regulations: The Federal rules restrict any use of the information to criminally investigate or prosecute any alcohol or drug abuse patient.[facility] the event this information is protected by the Federal Confidentiality of Alcohol and Drug Abuse Patient Records regulations: The Federal rules restrict any use of the information to criminally investigate or prosecute any alcohol or drug abuse patient.[facility] the event this information is protected by the Federal Confidentiality of Alcohol and Drug Abuse Patient Records regulations: The Federal rules restrict any use of the information to criminally investigate or prosecute any alcohol or drug abuse patient.[facility] the event this information is protected by the Federal Confidentiality of Alcohol and Drug Abuse Patient Records regulations: The Federal rules restrict any use of the information to criminally investigate or prosecute any alcohol or drug abuse patient.[facility] the event this information is protected by the Federal Confidentiality of Alcohol and Drug Abuse Patient Records regulations: The Federal rules restrict any use of the information to criminally investigate or prosecute any alcohol or drug abuse patient.[facility] the event this information is protected by the Federal Confidentiality of Alcohol and Drug Abuse Patient Records regulations: The Federal rules restrict any use of the information to criminally investigate or prosecute any alcohol or drug abuse patient.[facility] the event this information is protected by the Federal Confidentiality of Alcohol and Drug Abuse Patient Records regulations: The Federal rules restrict any use of the information to criminally investigate or prosecute any alcohol or drug abuse patient.[facility] the event this information is protected by the Federal Confidentiality of Alcohol and Drug Abuse Patient Records regulations: The Federal rules restrict any use of the information to criminally investigate or prosecute any alcohol or drug abuse patient.[facility] the event this information is protected by the Federal Confidentiality of Alcohol and Drug Abuse Patient Records regulations: The Federal rules restrict any use of the information to criminally investigate or prosecute any alcohol or drug abuse patient.[facility] the event this information is protected by the Federal Confidentiality of Alcohol and Drug Abuse Patient Records regulations: The Federal rules restrict any use of the information to criminally investigate or prosecute any alcohol or drug abuse patient.[facility] the event this information is protected by the Federal Confidentiality of Alcohol and Drug Abuse Patient Records regulations: The Federal rules restrict any use of the information to criminally investigate or prosecute any alcohol or drug abuse patient.[facility] the event this information is protected by the Federal Confidentiality of Alcohol and Drug Abuse Patient Records regulations: The Federal rules restrict any use of the information to criminally investigate or prosecute any alcohol or drug abuse patient.[facility] the event this information is protected by the Federal Confidentiality of Alcohol and Drug Abuse Patient Records regulations: The Federal rules restrict any use of the information to criminally investigate or prosecute any alcohol or drug abuse patient.[facility] the event this information is protected by the Federal Confidentiality of Alcohol and Drug Abuse Patient Records regulations: The Federal rules restrict any use of the information to criminally investigate or prosecute any alcohol or drug abuse patient.[facility] Center[facility] the event this information is protected by the Federal Confidentiality of Alcohol and Drug Abuse Patient Records regulations: The Federal rules restrict any use of the information to criminally investigate or prosecute any alcohol or drug abuse patient.[facility] Center[facility] the event this information is protected by the Federal Confidentiality of Alcohol and Drug Abuse Patient Records regulations: The Federal rules restrict any use of the information to criminally investigate or prosecute any alcohol or drug abuse patient.[facility] CenterIn the event this information is protected by the Federal Confidentiality of Alcohol and Drug Abuse Patient Records regulations: The Federal rules restrict any use of the information to criminally investigate or prosecute any alcohol or drug abuse patient.[facility] the event this information is protected by the Federal Confidentiality of Alcohol and Drug Abuse Patient Records regulations: The Federal rules restrict any use of the information to criminally investigate or prosecute any alcohol or drug abuse patient.[facility] CenterIn the event this information is protected by the Federal Confidentiality of Alcohol and Drug Abuse Patient Records regulations: The Federal rules restrict any use of the information to criminally investigate or prosecute any alcohol or drug abuse patient.[facility] the event this information is protected by the Federal Confidentiality of Alcohol and Drug Abuse Patient Records regulations: The Federal rules restrict any use of the information to criminally investigate or prosecute any alcohol or drug abuse patient.[facility] the event this information is protected by the Federal Confidentiality of Alcohol and Drug Abuse Patient Records regulations: The Federal rules restrict any use of the information to criminally investigate or prosecute any alcohol or drug abuse patient.[facility] the event this information is protected by the Federal Confidentiality of Alcohol and Drug Abuse Patient Records regulations: The Federal rules restrict any use of the information to criminally investigate or prosecute any alcohol or drug abuse patient.[facility] CenterIn the event this information is protected by the Federal Confidentiality of Alcohol and Drug Abuse Patient Records regulations: The Federal rules restrict any use of the information to criminally investigate or prosecute any alcohol or drug abuse patient.[facility] CenterIn the event this information is protected by the Federal Confidentiality of Alcohol and Drug Abuse Patient Records regulations: The Federal rules restrict any use of the information to criminally investigate or prosecute any alcohol or drug abuse patient.[facility] CenterIn the event this information is protected by the Federal Confidentiality of Alcohol and Drug Abuse Patient Records regulations: The Federal rules restrict any use of the information to criminally investigate or prosecute any alcohol or drug abuse patient.[facility] CenterIn the event this information is protected by the Federal Confidentiality of Alcohol and Drug Abuse Patient Records regulations: The Federal rules restrict any use of the information to criminally investigate or prosecute any alcohol or drug abuse patient.[facility] CenterIn the event this information is protected by the Federal Confidentiality of Alcohol and Drug Abuse Patient Records regulations: The Federal rules restrict any use of the information to criminally investigate or prosecute any alcohol or drug abuse patient.[facility] CenterIn the event this information is protected by the Federal Confidentiality of Alcohol and Drug Abuse Patient Records regulations: The Federal rules restrict any use of the information to criminally investigate or prosecute any alcohol or drug abuse patient.[facility] CenterIn the event this information is protected by the Federal Confidentiality of Alcohol and Drug Abuse Patient Records regulations: The Federal rules restrict any use of the information to criminally investigate or prosecute any alcohol or drug abuse patient.[facility] Reason for Visit (unrecogniz ed section and content) Reason Onset Date Comments Refill Request 10/29/2021 Reason Comments Appointment Reason Comments Pain (Shoulder Pain) right shoulder x 1 month Reason Comments Orders Reason Comments MRI order correction Specialty Diagnoses / Procedures Referred By Ximena romero Referred To Contact MR IMAGING Diagnoses Neck pain of over 3 months duration Acute pain of right shoulder Paresthesias in right hand Disorder of right 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 Muscle spasm Procedures MRI SHOULDER WO IVCON RT MRI ANY JT UPPER EXTREMITY W/O CONTRAST MATRL Royce Islas, DO [address] [place] [address] Mr Imaging Referral ID Status Reason Start Date Expiration Date V isits Requested Visits Authorized [id number] Closed Auto-Generate d Referral 05/06/2022 06/05/2023 1 1 Reason Comments New Pain Specialty Diagnoses / Procedures Referred By Contac t Referred To Contact Orthopedics Diagnoses Paresthesias in right hand Disorder of right 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 Procedures CONSULT TO ORTHOPAEDICS OFFICE/OUTPATIENT [facility] 60-74 MINUTES Lurdes Che 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[employer] [address] [place] [address] Referral ID Status Reason Start Date Expiration Date V isits Requested Visits Authorized [id number] Closed PCP Requested Referral 05/10/2022 05/10/2023 1 1 Reason Comments Orders Reason Comments Established Patient Follow Up Post Op Reason Onset Date Comments Refill Request 09/18/2022 Reason Comments Established Patient Post Op Reason Comments Refill Request Reason Onset Date Comments Refill Request 11/12/2023 Reason Comments Physical Reason Comments Right ankle fracture Referred by Jay Jay Vyas Specialty Diagnoses / Procedures Referred By Ximena romero Referred To Contact Orthopedics Diagnoses Closed fracture of distal end of right fibula, unspecified fracture morphology, initial encounter Procedures CONSULT PANEL TO ORTHOPAEDICS OFFICE/OUTPATIENT [facility] 60 MINUTES Jay Jay Vyas, PA [address] [place] [address] Phone: tel: fax: Referral ID Status Reason Start Date Expiration Date V isits Requested Visits Authorized [id number] Closed PCP Requested Referral 12/18/2024 12/18/2025 1 1 Reason Comments right ankle Reason Comments Right ankle fracture Reason Onset Date Comments Refill Request 02/23/2025 Reason Comments Medicare Wellness Exam Care Teams (unrecognized sec tion and content) Residence Leasing Agent Relationship Specialty Start Date End Date Royce Islas, DO [address] [place], [place] [id number] PCP - General Family Practice 08/15/12 Residence Leasing Agent Relationship Specialty Start Date End Date Royce Islas, DO [address] [place] [address] PCP - General Family Practice 08/15/12 Residence Leasing Agent Relationship Specialty Start Date End Date Royce Islas, DO [address] [place] [address] PCP - General Family Practice 08/15/12 Residence Leasing Agent Relationship Specialty Start Date End Date Royce Islas, DO [address] [place] [address] PCP - General Family Practice 08/15/12 Residence Leasing Agent Relationship Specialty Start Date End Date Royce Islas, DO [address] [place] [address] PCP - General Family Practice 08/15/12 Residence Leasing Agent Relationship Specialty Start Date End Date Royce Islas, DO [address] [place] [address] PCP - General Family Medicine 08/15/12 Residence Leasing Agent Relationship Specialty Start Date End Date Royce Islas, DO [address] [place] [address] PCP - General Family Medicine 08/15/12 Residence Leasing Agent Relationship Specialty Start Date End Date Royce Islas, DO [address] [place] [address] PCP - General Family Medicine 08/15/12 Residence Leasing Agent Relationship Specialty Start Date End Date Royce Islas, DO [address] [place] [address] PCP - General Family Medicine 08/15/12 Residence Leasing Agent Relationship Specialty Start Date End Date Royce Islas, DO [address] [place] [address] PCP - General Family Medicine 08/15/12 Residence Leasing Agent Relationship Specialty Start Date End Date Royce Islas DO [address] [place] [address] PCP - General Family Medicine 08/15/12 Residence Leasing Agent Relationship Specialty Start Date End Date Royce Islas DO [address] [place] [address] PCP - General Family Medicine 08/15/12 Residence Leasing Agent Relationship Specialty Start Date End Date Royce Islas DO [address] [place] [address] PCP - General Family Medicine 08/15/12 Residence Leasing Agent Relationship Specialty Start Date End Date Royce Islas DO [address] [place] [address] PCP - General Family Medicine 08/15/12 Residence Leasing Agent Relationship Specialty Start Date End Date Royce Islas DO [address] [place] [address] PCP - General Family Medicine 08/15/12 Residence Leasing Agent Relationship Specialty Start Date End Date Royce Islas DO [address] [place] [address] PCP - General Family Medicine 08/15/12 Residence Leasing Agent Relationship Specialty Start Date End Date Royce Islas DO [address] [place] [address] PCP - General Family Medicine 08/15/12 Residence Leasing Agent Relationship Specialty Start Date End Date Royce Islas DO [address] [place] [address] PCP - General Family Medicine 08/15/12 Residence Leasing Agent Relationship Specialty Start Date End Date Royce Islas DO [address] [place] [address] PCP - General Family Medicine 08/15/12 Residence Leasing Agent Relationship Specialty Start Date End Date Royce Islas DO [address] [place] [address] PCP - General Family Medicine 08/15/12 Residence Leasing Agent Relationship Specialty Start Date End Date Royce Islas DO [address] [place] [address] PCP - General Family Medicine 08/15/12 Residence Leasing Agent Relationship Specialty Start Date End Date Royce Islas DO [address] [place] [address] PCP - General Family Medicine 08/15/12 Lurdes Che, TEMPLE MEAT CUTTER.WELDING 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 [employer] [address] [place] [address] Mold Cleaner [facility] 07/08/24 Residence Leasing Agent Relationship Specialty Start Date End Date Royce Islas DO [address] [place] [address] PCP - General Family Medicine 08/15/12 YaneLurdes, TEMPLE MEAT CUTTER.WELDING 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 [employer] [address] [place] [address] Mold Clean[facility] 07/08/24 Residence Leasing Agent Relationship Specialty Start Date End Date Royce Islas DO [address] [place] [address] PCP - General Family Medicine 08/15/12 [facility], TEMPLE MEAT CUTTER.WELDING 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 [employer] [address] [place] [address] [facility] Clean[facility] 07/08/24 Residence Leasing Agent Relationship Specialty Start Date End Date Royce Islas, [address] [place] [address] PCP - General Family Medicine 08/15/12 [facility] Center[facility]ena[facility], TEMPLE MEAT CUTTER.WELDING 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 [employer] [address] [place] [address] Mold Cleaner Family [facility] 07/08/24 Residence Leasing Agent Relationship Specialty Start Date End Date Royce Islas, [address] [place] [address] PCP - General Family Medicine 08/15/12 [facility] CenterKelyLurdes, TEMPLE MEAT CUTTER.WELDING 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 [employer] [address] [place] [address] [facility] 07/08/24 Residence Leasing Agent Relationship Specialty Start Date End Date Royce Islas, [address] [place] [address] PCP - General Family Medicine 08/15/12 [facility] Lurdes, TEMPLE MEAT CUTTER.WELDING 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 [employer] [address] [place] [address] Mold Cleaner Family [facility] 07/08/24 Aileen Ayala, TEMPLE MEAT CUTTER.WELDING 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 [employer] [address] [place] [address] Mold Cleaner Family [facility] 01/14/25 Residence Leasing Agent Relationship Specialty Start Date End Date Royce Islas DO [address] [place] [address] PCP - General Family Medicine 08/15/12 Lurdes Che, TEMPLE MEAT CUTTER.WELDING 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 [employer] [address] [place] [address] Mold Cleaner Family [facility] 07/08/24 Aileen Ayala, TEMPLE MEAT CUTTER.WELDING 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 [employer] [address] [place] [address] Mold Clean[facility] 01/14/25 Residence Leasing Agent Relationship Specialty Start Date End Date Royce Islas DO [address] [place] [address] PCP - General Family Medicine 08/15/12 YaneLurdes, TEMPLE MEAT CUTTER.WELDING 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 [employer] [address] [place] [address] [facility] 07/08/24 Aileen Ayala, TEMPLE MEAT CUTTER.WELDING 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 [employer] [address] [place] [address] Mold Clean[facility] 01/14/25 Residence Leasing Agent Relationship Specialty Start Date End Date Royce Islas DO [address] [place] [address] PCP - General Family Medicine 08/15/12 Lurdes Che, TEMPLE MEAT CUTTER.WELDING 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 [employer] [address] [place] [address] Mold Cleaner Family [facility] 07/08/24 Aileen Ayala, TEMPLE MEAT CUTTER.WELDING 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 [employer] [address] [place] [address] [facility] 01/14/25 Residence Leasing Agent Relationship Specialty Start Date End Date Royce Islas DO [address] [place] [address] PCP - General Family Medicine 08/15/12 YaneLurdes, TEMPLE MEAT CUTTER.WELDING 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 [employer] [address] [place] [address] [facility] 07/08/24 Aileen Ayala 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[employer] [address] [place] [address] [address] [facility] 01/14/25 Residence Leasing Agent Relationship Specialty Start Date End Date Royce Islas DO [address] [place] [address] PCP - General [facility] Medicine 08/15/12 Lurdes Che, TEMPLE MEAT CUTTER.WELDING 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 [employer] [address] [place] [address] [facility] 07/08/24 Aileen Ayala 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[employer] [address] [place] [address] [facility] 01/14/25 FOR RECORDS PERTAINING TO PATIENTS WHO ARE OR HAVE BEEN ENROLLED IN A CHEMICAL DEPENDENCY/SUBSTANCEABUSE PROGRAM, SOME INFORMATION MAY BE OMITTED. This clinical summary was aggregated from multiple sources. Caution should be exercised in using it in the provision of clinical care. This summary normalizes information from multiple sources, and as a consequence, information in this document may materially change the coding, format and clinical context of patient data. In addition, data may be omitted in some cases. CLINICAL DECISIONS SHOULD BE BASED ON THE PRIMARY CLINICAL RECORDS. [facility] [employer] [facility]. provides no warranty or guarantee of the accuracy or completeness of information in this document.
--- NOTE | 2025-04-11 22:46 | RAD_ITS ---
PROCEDURE: CHEST 1 VIEW (PORTABLE) 04/11/2025 REASON FOR EXAM: EPIGASTRIC ABDOMINAL PAIN TECHNIQUE: Frontal view of the chest. COMPARISON: None. FINDINGS: Lungs/Pleura: Elevated right hemidiaphragm, with associated mild right basilar streaky atelectasis. No focal airspace consolidation, pneumothorax, or sizable pleural effusion. Heart/Mediastinum: Within normal limits. Bones/Soft tissues: Mild degenerative changes of the spine and bilateral AC joints. RAD/Chest 1 View (Portable) IMPRESSION: Elevated right hemidiaphragm with mild right basilar atelectasis. No focal airspace consolidation or sizable pleural effusion. Reading Location: [facility]
[2025-04-11 22:55] LABS: AST(SGOT) 20 U/L (<=31); Alanine Aminotransfer ALT/SGPT 12 U/L (<=34); Albumin, Serum 4.4 g/dL (3.4-4.8); Alkaline Phosphatase 76 U/L (35-104); Anion Gap 14 (5-15); BUN 16 mg/dL (4-19); BUN/Creat Ratio 19.7 RATIO (10-20); Bilirubin, Direct 0.16 mg/dL (0.00-0.30); Calcium,Total 9.6 mg/dL (7.6-11.0); Carbon Dioxide 23.8 mmol/L (21.0-32.0); Chloride 104 mmol/L (98-108); Estimated Creatinine Clearance 76.49 ml/min (50-250); Globulin 3.2 g/dL (2.2-4.2); Glucose 137 mg/dL (70-99); Lipase 40 U/L (13-75); Potassium 3.6 mmol/L (3.3-5.1); Troponin T High Sensitivity 9 ng/L (<=14)
[2025-04-11 23:27] LABS: Mucous, Urine 0 SEEN /hpf (<or=2+)
[2025-04-11] MEDS: Famotidine 200 MG/20 ML MDV 20 MG in 0.9% Normal Saline (Pres. free 8 ML 300 MG IV (23:31)
[2025-04-11] MEDS: HYDROmorphone 0.5 MG/0.5 ML SYRINGE IV (23:41)
[2025-04-12] VITALS (19 sets, daily range): BP systolic 123–184; BP diastolic 74–113; PULSE 72–96; RESP 14–18; TEMP 36.1–37.3; O2SAT 92–99; BMI 40.2; BMI 40.3
[2025-04-12 00:21] LABS: Color, Urine Straw (Yellow); Glucose, Dipstick 100 mg/dl (Normal); Ketone-Dipstick 5 mg/dl (Negative); Leukocyte Esterase-Dipstick Negative /ul (Negative); Nitrite-Dipstick Negative (Negative); Occult Blood-Urine Negative /ul (Negative); Protein-Dipstick 15 mg/dl (Negative); Specific Gravity, Urine 1.010 (1.002-1.030); Urine Bilirubin Dipstick Negative (Negative)
--- NOTE | 2025-04-12 00:56 | US_ITS ---
PROCEDURE: ABDOMEN LIMITED 04/12/2025 REASON FOR EXAM: ? ACUTE CHOLECYSTITIS TECHNIQUE: Procedure Code: USABDL Modality: US Procedure: ABDOMEN LIMITED COMPARISON: CT examination 04/11/2025 FINDINGS: Liver: Slightly diffusely echogenic, most likely due to diffuse fatty infiltration of the liver. No evidence of hepatomegaly, with the liver measured at 15.2 cm in length. Gallbladder: A trace of pericholecystic fluid is seen, and a positive sonographic Salguero's sign was elicited. The gallbladder is measured at 7.2 cm in length, with a thickened wall of 5.2 mm. Multiple stones are seen within the gallbladder lumen. Common bile duct: Borderline enlarged, at 8.3 mm diameter. . Pancreas: No acute process seen. Kidneys: The right kidney measures 9.8 x 4.7 x 4.7 cm. Cortical thickness of 11 mm. No evidence of hydronephrosis. US/Abdomen Limited IMPRESSION: 1. Positive sonographic Salguero's sign in the presence of cholelithiasis, thicke kofi gallbladder wall, and trace pericholecystic fluid, concerning for the presence of cholecystitis. 2. Borderline enlarged common duct diameter. Reading Location: [place] [address]
[2025-04-12] MEDS: HYDROmorphone 0.5 MG/0.5 ML SYRINGE IV ×2 (01:10→05:11)
[2025-04-12 01:11] LABS: Red Blood Cells-Urine 0-5 SEEN /hpf (0-5); Squamous Epithelial Cells - UA 0-5 SEEN /hpf (5-10)
[2025-04-12] MEDS: 0.9% Normal Saline (1000mL) 1,000 ML 150 ML IV (01:12)
[2025-04-12] MEDS: Piperacil/Tazobactam 3.375 GM in 0.9% Normal Saline (50mL MB+) 50 ML IV ×2 (08:38→14:14)
--- NOTE | 2025-04-12 08:42 | HP.PCM_ITS ---
HPI - General General Date of Admission: 04/12/25 Date of Service: 04/12/25 Chief Complaint: Acute onset abdominal pain HPI Narrative WILLIAMS ANDERSON, is a 69 F who presents to [facility] ER after developing acute onset abdominal pain approximately 5:00 last evening. Patient states she was driving when the pain initially occurred. She describes generalized epigastric pain migrating to her right upper quadrant. There was some associated nausea and chills but no objective fever. She notes she had not yet had opportunity to have dinner but had earlier eaten a lunch of chicken salad. She denies any previous experience of such symptoms. ED workup notable for laboratories that showed normal CBC without leukocytosis. CMP also did not show any abnormalities. Initial CT imaging of the abdomen pelvis showed mildly thickened gallbladder alongside of evidence of gastritis and a fat-containing umbilical hernia. I was contacted following these results for opinion as to whether patient warranted ultrasound imaging. I favored proceeding with the ultrasound and this was ultimately completed by radiology with a final impression confirming gallbladder wall thickening, mild Myron cholecystic fluid, and a positive sonographic Salguero sign as well as a mildly dilated common bile duct. Patient's past medical history inclusive only hypothyroidism. Past surgical history inclusive of tubal ligation but no other abdominal surgeries. [facility] Medical History Hypothyroid Home Medications ?Medication ?Instructions ?Recorded ?Last Taken ?Type levothyroxine 75 mcg tablet 75 mcg PO DAILY 05/19/19 U nknown History aspirin 81 mg tablet 81 mg PO DAILY 04/11/25 Unkn own History cholecalciferol (vitamin D3) 25 25 mcg PO DAILY Unknown History mcg (1,000 unit) capsule (Vitamin D3) Allergy/AdvReac Type Severity Reaction Status Date / Time No Known Allergies Allergy Verified 04/01/21 02:09 Surgical History Hx of elbow surgery Social History Smoking Status: Former smoker Vital Signs Vital Signs Vital Signs: 04/11/25 22:01 04/12/25 00:00 04/12/25 02:00 Temperature 97.5 F L Temperature Source Oral Pulse Rate 102 H 81 72 Respiratory Rate 28 H 16 16 Blood Pressure 179/104 H 175/91 H 171/98 H Blood Pressure Mean 129 119 122 Pulse Ox 93 92 92 Oxygen Delivery Method Room Air Room Air Room Air 04/12/25 04:00 04/12/25 06:00 04/12/25 08:00 Temperature Temperature Source Pulse Rate 73 81 85 Respiratory Rate 16 18 16 Blood Pressure 168/106 H 165/101 H 160/88 H Blood Pressure Mean 126 122 112 Pulse Ox 97 92 92 Oxygen Delivery Method Room Air Room Air Room Air Weight Weight: 221 lb 8 oz Body Mass Index (BMI) 38.0 Physical Exam Const alert, oriented x3 and no apparent distress General Appearance: cooperative Resp normal respiratory effort GI GI Narrative: Obese, nondistended, soft, no periumbilical tenderness, mild right upper quadrant tenderness. Negative clinical Salguero sign. Results Lab / Micro Data 04/12/25 08:43 04/11/25 22:22 Labs: Laboratory Results - last 24 hr 04/11/25 22:22: WBC 8.6, RBC 5.15, Hgb 14.8, Hct 43.4, MCV 84.3, MCH 28.7, MCHC 34.1, RDW Std Deviation 39.7, RDW Coeff of Taye 12.9, Plt Count 302, MPV 9.0, Immature Gran % (Auto) 0.200, Neut % (Auto) 80.8 H, Lymph % (Auto) 13.0 L, Griggs % (Auto) 4.9, Eos % (Auto) 0.6, Baso % (Auto) 0.5, Absolute Neuts (auto) 7.0, Absolute Lymphs (auto) 1.12, Nucleated RBC % 0, Sodium 141, Potassium 3.6, Chloride 104, Carbon Dioxide 23.8, Anion Gap 14, BUN 16, Creatinine 0.79, Estim Creat Clear Calc 76.49, Est GFR (MDRD) Non-Af 81, BUN/Creatinine Ratio 19.7, G lucose 137 H, Calcium 9.6, Total Bilirubin 0.47, Direct Bilirubin 0.16, AST 20, ALT 12, Alkaline Phosphatase 76, Troponin T High Sens 9, Total Protein 7.6, Albumin 4.4, Globulin 3.2, Lipase 40 04/11/25 22:32: Lactic Acid 1.7 04/11/25 23:17: Urine Color Straw, Urine Clarity Clear, Urine pH 7.0, Ur Specific [place] 1.010, Urine Protein 15 H, Urine Glucose (UA) 100 H, Urine Ketones 5 H, Urine Occult Blood Negative, Urine Nitrite Negative, Urine Bilirubin Negative, Urine Urobilinogen Normal, Ur Leukocyte Esterase Negative, Urine RBC 0-5 SEEN, Urine WBC 0-5 SEEN, Ur Squamous Epith Cells 0-5 SEEN, Urine Bacteria 0 SEEN, Urine Mucus 0 SEEN Imaging Radiology Impression Abdomen/Pelvis CT 04/11/25 22:20 IMPRESSION: Unchanged mildly prominent biliary tree. Multiple gallstones are noted. Minimal diffuse thickening of the wall of the gallbladder. Unchanged scattered calcified splenic granulomas. Mild diffuse spondylosis. Diffuse thickening of the stomach suggestive of gastritis. Uncomplicated colonic diverticulosis. Fat containing umbilical hernia without incarceration. Reading Location: [place] [address] Chest X-Ray 04/11/25 22:46 IMPRESSION: Elevated right hemidiaphragm with mild right basilar atelectasis. No focal airspace consolidation or sizable pleural effusion. Reading Location: [facility] Abdomen Ultrasound 04/12/25 00:56 IMPRESSION: 1. Positive sonographic Salguero's sign in the presence of cholelithiasis, thickened gallbladder wall, and trace pericholecystic fluid, concerning for the presence of cholecystitis. 2. Borderline enlarged common duct diameter. [facility] Assessment & Plan Assessment/Plan (1) Acute calculous cholecystitis: PLAN: Patient is 69-year-old female with acute onset of symptoms of right upper quadrant discomfort and associated nausea/chills yesterday. Original CT somewhat equivocal for cholecystitis, but I recommended follow-up ultrasound given the description of patient's presentation. This imaging, obtain somewhat later in patient's ER course, did confirm suspicion for cholecystitis. Upon evaluation patient does have right upper quadrant tenderness but technically negative Slaguero sign. White blood cell count that was originally normal is now mildly elevated on repeat labs. With this information I recommend proceeding for operative cholecystectomy via laparoscopic approach. Description of the procedure was provided as well as postprocedural expectations. Patient and her daughter receptive and deny further questions. I did also address my reservations about proceeding with an umbilical hernia repair given the likely concurrent infection and risk for recurrence of the hernia. Recommended asynchronous management of this condition. Lastly, patient with significant hypertension on intake vitals despite no complaints of pain. Will on board hospitalist service as I anticipate patient may require antihypertensive both to proceed with surgery and until she is able to make outpatient follow-up with her primary care provider. Until surgery patient to be admitted to the [facility] floor. Maintain n.p.o. status. Empiric antibiotic therapy already ordered by emergency medicine. Abdullahi Sanchez MD General Surgery Endocrine Surgery Pager: [facility] [address] [place] [address], [address] [place] [address] Office: [phone] (2) Hypertension: PLAN: Significantly elevated systolic and diastolic pressures. Patient appears entirely asymptomatic. This does not appear clearly related to patient's pain complaints. Appreciate hospitalist consultation (3) Umbilical hernia without obstruction and without gangrene: PLAN: Patient with approximately 3 cm fascial defect at the umbilicus and umbilical hernia containing fat. Patient does not have a significant tenderness over this area. Further, given the size of the fascial defect do not recommend proceeding with hernia repair at this operative timing but would ultimately recommend repair at a later date. Charges/Coding Visit Charges Inpatient E&M: 88016 Init Hosp L2
[2025-04-12 08:55] LABS: Hematocrit 42.0 % (37-47); Hemoglobin 14.0 g/dL (12.0-15.0); Immature Granulocytes Count 0.040 X10^3/uL (0.0-0.0); Mean Corp Hgb Conc 33.3 g/dL (32-36); Mean Corpuscular Volume 85.4 fL (81-99); Mean Platelet Vol. 8.8 fl (6.2-12.0); NRBC Flagged by Analyzer 0 % (0-5); Platelet Count 288 K/mm3 (150-450); RBC Distribution Width CV 13.0 % (11.6-14.6); RBC Distribution Width SD 40.4 fl (35.1-43.9); Red Blood Count 4.92 M/mm3 (4.2-5.4); White Blood Count 11.5 K/mm3 (4.4-11.0)
--- OUTSIDE RECORDS SUMMARY | 2025-04-12 09:03 | XMS RPT_ITS | CCD ---
Author Organization [facility] Care Team Providers Care Machinist Bench Name Role Phone Royce Islas DO Primary Care Provider KAYLA PEREA Admitting Unavailab KAYLA Beyer Attending Unavailab ROYCE Hung Primary Care Unavailable Royce Islas DO Primary Care Provider GABE MCCARTHY Attending Unava ilable ROYCE ISLAS Primary Care Unavailable Royce Islas DO Primary Care Provider Yane CHIMNEY BUILDER BRICK.Lurdes OCAMPO Unavailable Antonio CHIMNEY BUILDER BRICK.Aileen OCAMPO Unavailable ROYCE ISLAS Primary Care Unavailable [...] Take 2 tablets one day per week. Tulcp-3-QUH-EPA-F javan Oil 1,000 mg (120 mg-180 mg) cap (10 sources) End: 12-25-2024 take 1 capsule by mouth twice daily Qyncp-7-QFA-EPA-Fish Oil 1,000 mg (120 mg-180 mg) cap Take 2 g by mouth twice daily. 12/25/2024 Discontinued (Course of therapy completed) take 1 capsule by mouth twice da johnny Xiuxx-6-RSM-EPA-Fish Oil 1,000 mg (120 mg- 180 mg) cap Take 2 g by mouth twice daily. Active take 1 capsule by mouth twice da johnny Athhi-0-FMT-EPA-Fish Oil 1,000 mg (120 mg- 180 mg) cap Take 2 g by mouth twice daily. 0 Active Comment on above: Take 2 g by mouth tw ice daily. polyethylene glycol [id number] [id number] mg / potassium chloride 2970 mg / sodium bicarbonate 6740 mg / sodium chloride 5860 mg / sodium sulfate 98578 mg powder for oral solution (1 source) [...] at bedtime as needed for Muscle Spasm. Ebvvi-8-PWW-EPA-Fish Oil (FISH OIL) 1,000 mg (120 mg-180 mg) cap (1 source) take 1 capsule by mouth twice daily Epgzh-1-ZPE-EPA-Fish Oil (FISH OIL) 1,000 mg (120 mg-180 [...] Test Name Value Interpretation Reference Range Facility [facility] 03-14-2025 CNOV Office Visit (FAMWS ) WILLIAMS ANDERSON ([id number]) 1955 F Date Time Provider Department 03/14/25 2:20 PM AI[facility] During your visit today, we recorded the following information about you: Pulse Respiration Blood pressure Weight 74/minute 16/minute 130/82 101.4 kg Height 1.58 m Aileen Ayala APRN.DOWEL 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 03/14/2025 2:58 PM Signed Williams [facility] [place] [...] General (Family Medicine) Lurdes Che APRN.TERRENCE as Technical Architect (Family Medicine) Aileen Ayala APRN.CNP as Technical Architect (Family Medicine) Outside specialists seen: Dr. Marti-Eye [...] unsure and will let us know Measurements [facility] 05/15/2010 Vision Screening: Follows with optometry/ophthalmology Right: [...] programs such as those offered by recreation [employer] or the [facility]. WHAT YOU CAN DO TO [...] review all the medicines you take, even ttwy-zpe-ggznqjy medicines. As you get older, the way [...] over (lik (more content not included)... Normal [facility] CNOVon 01-29-2025 CNOV Office Visit (FRFHWS ) WILLIAMS ANDERSON ([id number]) 1955 F Date Time Provider Department 01/29/25 [...] right fibula, unspecified fracture morphology, initial encounter (S82.063O) - Fracture healing well with visible bridging [...] if asymptomatic and fully functional. Recording using [employer] software for draft documentation of the visit was discussed with the patient/authorized warehouse representative; all questions welcomed and answered. Patient/authorized warehouse representative agreed to proceed Allergies As of [...] by DEAN KIMBLE V on 01/29/25 Normal [facility] XR ANKLE 3V AP/LAT/OBL RTon [...] Healing distal fibula fracture with unchanged alignment. Ruling Machine Feeder: PSCB Transcribe Date/Time: Feb 06 2025 7:35P Dictated by : ALISSA CORONEL MD This examination was interpreted and the report reviewed and electronically signed by: ALISSA CORONEL MD on Feb 06 2025 7:35PM EST [id number] Normal [facility] CNOVon 01-08-2025 CNOV Office Visit (FRFHWS ) WILLIAMS ANDERSON ([id number]) 1955 F Date Time Provider Department 01/08/25 [...] right fibula, unspecified fracture morphology, initial encounter (S82.348Q) Fracture occurred on December 18. Current X-rays [...] an ankle brace or wrap. Recording using [employer] software for draft documentation of the visit was discussed with the patient/authorized warehouse representative; all questions welcomed and answered. Patient/authorized warehouse representative agreed to proceed Allergies As of [...] by DEAN KIMBLE V on 01/08/25 Normal [facility] XR ANKLE 3V AP/LAT/OBL RTon [...] Healing distal fibula fracture with unchanged alignment. Ruling Machine Feeder: PSCB Transcribe Date/Time: Jan 13 2025 6:52P Dictated by : ALISSA CORONEL MD This examination was interpreted and the report reviewed and electronically signed by: ALISSA CORONEL MD on Jan 13 2025 6:52PM EST [id number] Normal [facility] CNOVon 12-25-2024 CNOV Office Visit (FRFHWS ) WILLIAMS ANDERSON ([id number]) 1955 F Date Time Provider Department 12/25/24 [...] right fibula, unspecified fracture morphology, initial encounter (S82.234P) Spiral fracture of the distal fibula with [...] weight-bearing X-ray to assess stability. Recording using [employer] software for draft documentation of the visit was discussed with the patient/authorized warehouse representative; all questions welcomed and answered. Patient/authorized warehouse representative agreed to proceed Referring Provider: JAY JAY VYAS [[id number]] Allergies As of Date: 12/25/2024 (No Known Allergies) Date Reviewed: 12/25/2024 Reviewed by: Renate Burnett MA - Fully Assessed Reason for Visit: Right ankle fracture [Other] Cmt: Referred by Jay Jay Vyas Visit Diagnosis:Closed fracture of distal end of right fibula, unspecified fracture morphology, initial encounter [S82.831A] Order(s):CONSULT PANEL TO ORTHOPAEDICS [206360] Order #: [id number]: 1 Prescriptions as of 12/25/2024 - levothyroxine [...] right shoul (more content not included)... Normal [facility] CNOVon 12-18-2024 CNOV Office Visit (UCWSTR ) NAVEENOSCARWILLIAMS Yolanda ([id number]) 1955 F Date Time Provider Department 12/18/24 10:30 AM JAY JAY VYAS [facility] During your visit today, we recorded the [...] 2 TABS ONE DAY OF THE WEEK Iwcqz-1-PGE-EPA-Fish Oil 1,000 mg (120 mg-180 mg) cap [...] 2. Injury of right foot, initial encounter (S99.231A) 3. Closed fracture of distal end of right fibula, unspecified fracture morphology, initial encounter (S82.155W) - Patient sustained an injury to the [...] further evaluation and management. and Recording using [employer] software for draft documentation of the visit was discussed with the patient/authorized warehouse representative; all questions welcomed and answered. Patient/authorized warehouse representative agreed to proceed History and Record Review External record(s) reviewed: prior outpatient record. Differential Diagnoses - Distal fibular fracture is more likely for the following reason(s): s (more content not included)... Normal [facility] XR ANKLE 3V AP/LAT/OBL RTon [...] first MTP joint with small calcaneal spurs. Ruling Machine Feeder: KAYA Transcribe Date/Time: Dec 18 2024 11:24A Dictated by : LUCILLE BRAVO MD This examination was interpreted and the report reviewed and electronically signed by: LUCILLE BRAVO MD on Dec 18 2024 11:27AM EST [id number] Normal [facility] XR FOOT 3V AP/LAT/OBL RTon [...] first MTP joint with small calcaneal spurs. Ruling Machine Feeder: KAYA Transcribe Date/Time: Dec 18 2024 11:24A Dictated by : LUCILLE BRAVO MD This examination was interpreted and the report reviewed and electronically signed by: LUCILLE BRAVO MD on Dec 18 2024 11:27AM EST [id number] Normal [facility] ALLIED HEALTHon 11-30-2022 ALLIED HEALTH HNO ID: [id number] Author: RT Melinda(R) Service: ? Author Type: It Operations Manager Type: Allied Health Filed: 11/30/2022 12:11 PM [...] Melinda(R) November 30, 2022 12:11 PM Normal [facility] CT BRAIN WO IVCONon 12-01-[address] BRAIN WO IVCON * * *Final Report* * * DATE OF EXAM: Nov 30 2022 12:10PM [facility] 0504 - CT BRAIN WO IVCON / [...] reduction techniques were required COMPARISON: None. RESULT: Tool Engine Lathe Set Up Operator (topogram) images: No additional findings. Post-operative change: [...] acute intracranial findings. Small left forehead/scalp hematoma. Ruling Machine Feeder: KAYA Transcribe Date/Time: Nov 30 2022 12:33P Dictated by : JOE CACERES MD This examination was interpreted and the report reviewed and electronically signed by: JOE CACERES MD on Nov 30 2022 12:37PM EST [id number] [facility] ED NOTEon 11-30-2022 ED NOTE HNO ID: [id number] Author: Tootie Luna RN Service: Nursing Author Type: Registered Nurse Type: ED Notes Filed: 11/30/2022 1:08 PM Note Text: Pt verbalizes understanding of discharge instructions. Pt able to ambulate out of ED. Normal [facility] ED NOTE HNO ID: [id number] Author: Joe Ya RN Service: Emergency Medicine Author Type: Registered Nurse Type: ED Notes Filed: 11/30/2022 10:58 AM Note Text: Pt fell on a slippery floor and hit her head and l upper arm. Pt denies loc. Normal [facility] ED PROV NOTEon 11-30-2022 ED PROV NOTE HNO ID: [id number] Author: Gabe Mccarthy MD Service: Emergency Medicine [...] Cervical: N (more content not included)... Normal [facility] ANES POSTPROC EVALon 022 ANES POSTPROC EVAL HNO ID: [id number] Author: Kori Marie MD Service: Anesthesiology Author Type: Anesthesiologist Type: Anesthesia Postprocedure Evaluation Filed: 07/13/2022 2:35 PM Note Text: POST ANESTHESIA EVALUATION NOTE : 1955 Procedure Summary Date: 07/13/22 Room / Location: CT OR01 / CT OR Anesthesia Start: 1007 Anesthesia Stop: 1204 [...] Documentation SIGNATURE: Kori Marie MD PATIENT NAME: Willimas Anderson DATE: July 13, 2022 TIME: 2:35 PM CSN: [id number] [facility] ANES PRE-OPon 07-13-2022 ANES PRE-OP HNO ID: [id number] Author: Kori Marie MD Service: Anesthesiology Author Type: Anesthesiologist Type: Anesthesia Preprocedure Evaluation Filed: 07/13/2022 9:25 AM Note Text: ANESTHESIOLOGY DAY OF SURGERY NOTE : 1955 Procedure Information Date/Time: 07/13/22 1041 Procedures: ARTHROSCOPY SHOULDER ROTATOR CUFF (Right: Shoulder) ARTHROSCOPY SHOULDER WITH SUBACROMIAL DECOMPRESSION (Right: Shoulder) TENOTOMY OF SHOULDER AREA SINGLE TENDON (Right: Shoulder) Location: CT OR01 / CT OR Surgeons: Kayla Perea DO Estimated body [...] July 13, 2022 TIME: 9:24 AM CSN: [id number] [facility] NURSING PROGon 07-13-2022 NURSING PROG HNO ID: [id number] Author: Susy Walsh RN Service: ? Author [...] 33.47 kg/m? .Pt tolerated procedure without difficulty. [facility] OPERATIVE NOon 07-13-2022 OPERATIVE NO HNO ID: [id number] Author: Kayla Perea DO Service: Orthopaedic Surgery Author Type: Physician Type: Operative Report Filed: 07/13/2022 11:57 AM Note Text: OPERATIVE/PROCEDURE REPORT LOG ID: [id number] SURGERY/PROCEDURE DATE: 07/13/2022 INCISION/PROCEDURE START TIME: 10:34 AM INCISION CLOSE/PROCEDURE END TIME: 11:43 AM SURGEON(S)/PROCEDURALIS T(S) AND INTERACTIVE DEVELOPER(S): Surgeon(s) and Role: * Kayla Perea DO - Primary Physician Applied Biology Professor: Sridevi Fernandes PA-C SURGERY/PROCEDURE(S): Right shoulder arthroscopy, [...] We then placed patient in beachchair position senior living through we did recheck her blood pressure [...] DATE: July 13, 2022 TIME: 11:46 AM [facility] MRI SHOULDER WO IVCON RTon 1 [facility] No Panel Informationon 02-03 Radiology Study observation (narrative) [facility] XR Cervical spine AP and Lat eral and obliqueon 02-03-2022 IMPRESSION: Cervical spine degenerative changes with multilevel disc space narrowing and bilateral neural foramina narrowing. Ruling Machine Feeder: PSCB Transcribe Date/Time: Feb 03 2022 2:49P [...] are normal. RachelZZ_DO_NOT_USE _DIVISION OF RADIOLOGY Provider, [facility] - 02/03/2022 * * *Final Report* * [...] space narrowing and bilateral neural foramina narrowing. Ruling Machine Feeder: [facility] Transcribe Date/Time: Feb 03 2022 2:49P Dictated by : NURIA FLEMING MD This examination was interpreted and the report reviewed and electronically signed by: NURIA FLEMING MD on Feb 03 2022 2:52PM [facility] XR Shoulder - right 2 Viewso n 02-03-2022 IMPRESSION: Findings are suggestive of degenerative changes in the acromioclavicular joint. Ruling Machine Feeder: KAYA Transcribe Date/Time: Feb 03 2022 2:48P [...] tissue swelling. ZZZ_DO_NOT_USE _DIVISION OF RADIOLOGY Provider, [facility] - 02/03/2022 * * *Final Report* * [...] of degenerative changes in the acromioclavicular joint. Ruling Machine Feeder: PSCB Transcribe Date/Time: Feb 03 2022 2:48P Dictated by : NURIA FLEMING MD This examination was interpreted and the report reviewed and electronically signed by: NURIA FLEMING MD on Feb 03 2022 2:49PM EST [facility] XR Shoulder - right 2 ViewsO rdered By: [facility] Provider on 02-03-2022 [facility] ENTERIC PATHOGEN PANEL STOOL on 04-02-2021 EP [...] VIBRIO Not Detected Yersinia Not Detected Normal [facility] Comment on above: Performed By: #### M 100.637 #### [facility] Laboratory [address], [address] Abdomen/Pelvis W IV Cont ONL Yon 04-01-2021 Abdomen/Pelvis W IV Cont ONLY [facility] Imaging Services [address] [place] [address] Abdomen/Pelvis W IV Cont ONLY MR#: [id number] Acct: [id number] Name: WILLIAMS ANDERSON Rep #: [id number] : 1955 F 65 From: Kong Stratton MD PCP: Dr. Royce Islas, DO Status: REG ER Study: Abdomen/Pelvis W IV Cont ONLY Date of Exam: Exam# [id number] Ordering Dr: Abdullahi Mulligan MD STUDY: CT [...] Royce Islas DO; Dr. Abdullahi Mulligan MD Ruling Machine Feeder: Signed Normal [facility] CBC W/Diff, Automatedon 09-0 Absolute Lymph 1.22 X10 3/uL Normal 0.83-4.[address] [facility] Comment on above: Performed By: #### L 100.0100, L500.4050 #### [facility] [address] [place], [place], [id number] Absolute Neut 3.5 X10 3/uL Normal 2.0-7.[address] [facility] Comment on above: Performed By: #### L 100.0100, L500.4050 #### [facility] [address] [place], [address] Basophils/100 WBC (Bld) 0.3 % Normal 0-[address] [facility] Comment on above: Performed By: #### L 100.0100, L500.4050 #### [facility] [address] [place], [address] Eosinophils/100 WBC (Bld) 0.3 % Normal 0-[address] [facility] Comment on above: Performed By: #### L 100.0100, L500.4050 #### [facility] [address] [place], [address] Erythrocyte distribution width (RBC) [Ratio] 12.4 % Normal 11.6-14.[address] [facility] Comment on above: Performed By: #### L 100.0100, L500.4050 #### [facility] [address] [place], [address] Hematocrit (Bld) [Volume fraction] 43.3 % Normal 37-[address] [facility] Comment on above: Performed By: #### L 100.0100, L500.4050 #### [facility] [address] [place], [address] Hemoglobin (Bld) [Mass/Vol] 15.0 g/dL Normal 12.0-15.[address] [facility] Comment on above: Performed By: #### L 100.0100, L500.4050 #### [facility] [address] [place], [address] IG% 0.500 Normal 0.0-0.[address] [facility] Comment on above: Result Comment: IG% - Immature Granulocytes (promyelocytes, myelocytes and metamyelocytes) > 1% indicates that a LEFT SHIFT is Present. Performed By: #### L 100.0100, L500.4050 #### [facility] [address] [place], [address] Lymphocytes/100 WBC (Bld) 21.2 % Normal 19-[address] [facility] Comment on above: Performed By: #### L 100.0100, L500.4050 #### [facility] [address] [place], [address] MCH (RBC) [Entitic mass] 29.1 pg Normal 27.0-32.[address] [facility] Comment on above: Performed By: #### L 100.0100, L500.4050 #### [facility] [address] [place], [address] MCHC (RBC) [Mass/Vol] 34.6 g/dL Normal 32-[address] [facility] Comment on above: Performed By: #### L 100.0100, L500.4050 #### [facility] [address] [place], [address] MCV (RBC) [Entitic vol] 84.1 fL Normal 81-[address] [facility] Comment on above: Performed By: #### L 100.0100, L500.4050 #### [facility] [address] [place], [address] Monocytes/100 WBC (Bld) 16.3 % High 0-[address] [facility] Comment on above: Performed By: #### L 100.0100, L500.4050 #### [facility] [address] [place], [address] Neutrophils/100 WBC (Bld) 61.4 % Normal 47-[address] [facility] Comment on above: Performed By: #### L 100.0100, L500.4050 #### [facility] [address] [place], [address] Nucleated RBC (Bld) [#/Vol] 0 10*3/uL Normal 0-[address] [facility] Comment on above: Performed By: #### L 100.0100, L500.4050 #### [facility] [address] [place], [address] Platelet mean volume (Bld) [Entitic vol] 9.8 fL Normal 6.2-12.[address] [facility] Comment on above: Performed By: #### L 100.0100, L500.4050 #### [facility] [address] [place], [address] Platelets (Bld) [#/Vol] 185 10*3/uL Normal 150-[address] [facility] Comment on above: Performed By: #### L 100.0100, L500.4050 #### [facility] [address] [place], [address] RBC (Bld) [#/Vol] 5.15 10*6/uL Normal 4.2-5.4 [facility] Comment on above: Performed By: #### L 100.0100, L500.4050 #### [facility] [address] [place], [address] RDW SD 37.6 fl Normal 35.1-43.[address] [facility] Comment on above: Performed By: #### L 100.0100, L500.4050 #### [facility] [address] [place], [address] WBC (Bld) [#/Vol] 5.8 10*3/uL Normal 4.4-11.0 [facility] Comment on above: Performed By: #### L 100.0100, L500.4050 #### [facility] [address] [place], [address] Comprehensive Met[facility] 04-01-2021 Albumin [Mass/Vol] 3.6 g/dL Normal 3.2-5.0 [facility] Comment on above: Performed By: #### L 100.0100, L500.4050 #### [facility] [address] [place], [address] Albumin/Globulin [Mass ratio] 0.9 {ratio} Normal 0.9-2.[address] [facility] Comment on above: Performed By: #### L 100.0100, L500.4050 #### [facility] [address] [place], [address] ALK P 72 U/L Normal 45-[address] [facility] Comment on above: Performed By: #### L 100.0100, L500.4050 #### [facility] [address] [place], [address] ALT [Catalytic activity/Vol] 21 U/L Normal 13-[address] [facility] Comment on above: Performed By: #### L 100.0100, L500.4050 #### [facility] [address] [place], [address] AST [Catalytic activity/Vol] 17 U/L Normal 15-[address] [facility] Comment on above: Performed By: #### L 100.0100, L500.4050 #### [facility] [address] [place], [address] Bilirubin [Mass/Vol] 0.70 mg/dL Normal 0.20-1.[address] [facility] Comment on above: Result Comment: For patients on eltrombopag therapy, use of Dimension [place] TBIL is not recommended. Performed By: #### L 100.0100, L500.4050 #### [facility] [address] [place], [address] BUN/CRE 19.7 RATIO Normal 10-[address] [facility] Comment on above: Performed By: #### L 100.0100, L500.4050 #### [facility] [address] [place], [address] CA,Total 8.5 mg/dL Normal 8.5-10.[address] [facility] Comment on above: Performed By: #### L 100.0100, L500.4050 #### [facility] [address] [place], [address] Chloride [Moles/Vol] 107 mmol/L Normal 98-[address] [facility] Comment on above: Performed By: #### L 100.0100, L500.4050 #### [facility] [address] [place], [address] CO2 [Moles/Vol] 27.0 mmol/L Normal 21.0-32.[address] [facility] Comment on above: Performed By: #### L 100.0100, L500.4050 #### [facility] [address] [place], [address] Creatinine [Mass/Vol] 0.61 mg/dL Normal 0.55-1.[address] [facility] Comment on above: Result Comment: The validity of the calculated GFR GFRAA in patients over 70 years has not been determined. Clinical correlation is essential. Performed By: #### L 100.0100, L500.4050 #### [facility] [address] [place], [address] ECRCL 79.40 ml/min Normal [facility] Comment on above: Performed By: #### L 100.0100, L500.4050 #### [facility] [address] [place], [address] EST GFR - AA 127 mL/min Normal >[address] [facility] Comment on above: Result Comment: Afri can Russian GFR Calc Performed By: #### L 100.0100, L500.4050 #### [facility] [address] [place], [address] GAP 5 Normal 5-[address] [facility] Comment on above: Performed By: #### L 100.0100, L500.4050 #### [facility] [address] [place], [address] GFR/1.73 sq M.predicted among non-blacks MDRD (S/P/Bld) [Vol rate/Area] 105 mL/min/{1.73_m2} Normal >[address] [facility] Comment on above: Result Comment: Non- GFR Calc Performed By: #### L 100.0100, L500.4050 #### [facility] [address] [place], [address] Globulin (S) [Mass/Vol] 4.0 g/dL Normal 2.2-4.[address] [facility] Comment on above: Performed By: #### L 100.0100, L500.4050 #### [facility] [address] [place], [address] Glucose [Mass/Vol] 116 mg/dL High 74-106 [facility] Comment on above: Result Comment: Fast ing Glucose result from 100 to 125 mg/dL suggests IMPAIRED HOMEOSTASIS per A.D.A. criteria. Please note revised GLUCOSE reference range effective 2017. Performed By: #### L 100.0100, L500.4050 #### [facility] [address] [place], [address] Potassium [Moles/Vol] 3.6 mmol/L Normal 3.5-5.[address] [facility] Comment on above: Performed By: #### L 100.0100, L500.4050 #### [facility] [address] [place], [address] Sodium [Moles/Vol] 139 mmol/L Normal 136-145 [facility] Comment on above: Performed By: #### L 100.0100, L500.4050 #### [facility] [address] [place], [address] T PROT 7.6 g/dL Normal 6.4-8.[address] [facility] Comment on above: Performed By: #### L 100.0100, L500.4050 #### [facility] [address] [place], [address] Urea nitrogen [Mass/Vol] 12 mg/dL Normal 7-[address] [facility] Comment on above: Performed By: #### L 100.0100, L500.4050 #### [facility] [address] [place], [address] Emergency Department Summary on 04-01-2021 Emergency Department Summary [facility] Medical Records Department [address] [place] [address] Emergency Department Summary 04/01/21 MR#: [id number] Acct: [id number] Name: WILLIAMS ANDERSON Rep #: [id number] : 1955 65 From: Abdullahi Mulligan MD [...] recently. Her only travel was out to [place] to go to [place]. No recent hospital admissions or [facility]p exposures. [facility] Medical History Hypothyroid Home Medications cyclobenzaprine 10 [...] there continues (more content not included)... Normal [facility] CBC W/Diff, Automatedon 03-03-2020 Absolute Lymph 0.81 X10 3/uL Low 0.83-4.[address] [facility] Comment on above: Performed By: #### L 100.0100, L503.6005, L500.4050 #### [facility] [address] [place], [address] Absolute Neut 2.6 X10 3/uL Normal 2.0-7.[address] [facility] Comment on above: Performed By: #### L 100.0100, L503.6005, L500.4050 #### [facility] [address] [place], [address] Basophils/100 WBC (Bld) 0.3 % Normal 0-[address] [facility] Comment on above: Performed By: #### L 100.0100, L503.6005, L500.4050 #### [facility] [address] [place], [address] Eosinophils/100 WBC (Bld) 0.3 % Normal 0-[address] [facility] Comment on above: Performed By: #### L 100.0100, L503.6005, L500.4050 #### [facility] [address] [place], [address] Erythrocyte distribution width (RBC) [Ratio] 12.6 % Normal 11.6-14.[address] [facility] Comment on above: Performed By: #### L 100.0100, L503.6005, L500.4050 #### [facility] [address] [place], [address] Hematocrit (Bld) [Volume fraction] 45.9 % Normal 37-[address] [facility] Comment on above: Performed By: #### L 100.0100, L503.6005, L500.4050 #### [facility] [address] [place], [address] Hemoglobin (Bld) [Mass/Vol] 14.9 g/dL Normal 12.0-15.[address] [facility] Comment on above: Performed By: #### L 100.0100, L503.6005, L500.4050 #### [facility] [address] [place], [address] IG% 0.500 Normal 0.0-0.[address] [facility] Comment on above: Result Comment: IG% - Immature Granulocytes (promyelocytes, myelocytes and metamyelocytes) > 1% indicates that a LEFT SHIFT is Present. Performed By: #### L 100.0100, L503.6005, L500.4050 #### [facility] [address] [place], [address] Lymphocytes/100 WBC (Bld) 20.7 % Normal 19-[address] [facility] Comment on above: Performed By: #### L 100.0100, L503.6005, L500.4050 #### [facility] [address] [place], [address] MCH (RBC) [Entitic mass] 28.0 pg Normal 27.0-32.[address] [facility] Comment on above: Performed By: #### L 100.0100, L503.6005, L500.4050 #### [facility] [address] [place] [facility] [place], [address] MCHC (RBC) [Mass/Vol] 32.5 g/dL Normal 32-[address] [facility] Comment on above: Performed By: #### L 100.0100, L503.6005, L500.4050 #### [facility] [address] [place], [address] MCV (RBC) [Entitic vol] 86.3 fL Normal 81-[address] [facility] Comment on above: Performed By: #### L 100.0100, L503.6005, L500.4050 #### [facility] [address] [place], [address] Monocytes/100 WBC (Bld) 13.0 % High 0-[address] [facility] Comment on above: Performed By: #### L 100.0100, L503.6005, L500.4050 #### [facility] [address] [place], [address] Neutrophils/100 WBC (Bld) 65.2 % Normal 47-[address] [facility] Comment on above: Performed By: #### L 100.0100, L503.6005, L500.4050 #### [facility] [address] [place], [address] Nucleated RBC (Bld) [#/Vol] 0 10*3/uL Normal 0-[address] [facility] Comment on above: Performed By: #### L 100.0100, L503.6005, L500.4050 #### [facility] [address] [place], [address] Platelet mean volume (Bld) [Entitic vol] 9.7 fL Normal 6.2-12.[address] [facility] Comment on above: Performed By: #### L 100.0100, L503.6005, L500.4050 #### [facility] [address] [place], [address] Platelets (Bld) [#/Vol] 168 10*3/uL Normal 150-[address] [facility] Comment on above: Performed By: #### L 100.0100, L503.6005, L500.4050 #### [facility] [address] [place], [address] RBC (Bld) [#/Vol] 5.32 10*6/uL Normal 4.2-5.4 [facility] Comment on above: Performed By: #### L 100.0100, L503.6005, L500.4050 #### [facility] [address] [place], [address] RDW SD 39.5 fl Normal 35.1-43.[address] [facility] Comment on above: Performed By: #### L 100.0100, L503.6005, L500.4050 #### [facility] [address] [place], [address] WBC (Bld) [#/Vol] 3.9 10*3/uL Low 4.4-11.0 [facility] Comment on above: Performed By: #### L 100.0100, L503.6005, L500.4050 #### [facility] [address] [place], [address] Comprehensive [facility] 03-31-2021 Albumin [Mass/Vol] 3.6 g/dL Normal 3.2-5.0 [facility] Comment on above: Performed By: #### L 100.0100, L503.6005, L500.4050 #### [facility] [address] [place], [address] Albumin/Globulin [Mass ratio] 0.9 {ratio} Normal 0.9-2.[address] [facility] Comment on above: Performed By: #### L 100.0100, L503.6005, L500.4050 #### [facility] [address] [place], [address] ALK P 74 U/L Normal 45-[address] [facility] Comment on above: Performed By: #### L 100.0100, L503.6005, L500.4050 #### [facility] [address] [place], [address] ALT [Catalytic activity/Vol] 22 U/L Normal 13-[address] [facility] Comment on above: Performed By: #### L 100.0100, L503.6005, L500.4050 #### [facility] [address] [place], [address] AST [Catalytic activity/Vol] 18 U/L Normal 15-[address] [facility] Comment on above: Performed By: #### L 100.0100, L503.6005, L500.4050 #### [facility] [address] [place], [address] Bilirubin [Mass/Vol] 0.80 mg/dL Normal 0.20-1.[address] [facility] Comment on above: Result Comment: For patients on eltrombopag therapy, use of Dimension [place] TBIL is not recommended. Performed By: #### L 100.0100, L503.6005, L500.4050 #### [facility] [address] [place], [address] BUN/CRE 19.6 RATIO Normal 10-[address] [facility] Comment on above: Performed By: #### L 100.0100, L503.6005, L500.4050 #### [facility] [address] [place], [address] CA,Total 8.4 mg/dL Low 8.5-10.[address] [facility] Comment on above: Performed By: #### L 100.0100, L503.6005, L500.4050 #### [facility] [address] [place], [address] Chloride [Moles/Vol] 105 mmol/L Normal 98-[address] [facility] Comment on above: Performed By: #### L 100.0100, L503.6005, L500.4050 #### [facility] [address] [place], [address] CO2 [Moles/Vol] 32.0 mmol/L Normal 21.0-32.[address] [facility] Comment on above: Performed By: #### L 100.0100, L503.6005, L500.4050 #### [facility] [address] [place], [address] Creatinine [Mass/Vol] 0.56 mg/dL Normal 0.55-1.[address] [facility] Comment on above: Result Comment: The validity of the calculated GFR GFRAA in patients over 70 years has not been determined. Clinical correlation is essential. Performed By: #### L 100.0100, L503.6005, L500.4050 #### [facility] [address] [place], [address] ECRCL 86.49 ml/min Normal [facility] Comment on above: Performed By: #### L 100.0100, L503.6005, L500.4050 #### [facility] [address] [place], [address] EST GFR - AA 139 mL/min Normal >[address] [facility] Comment on above: Result Comment: Afri can Russian GFR Calc Performed By: #### L 100.0100, L503.6005, L500.4050 #### [facility] [address] [place], [address] GAP 3 Low 5-[address] [facility] Comment on above: Performed By: #### L 100.0100, L503.6005, L500.4050 #### [facility] [address] [place], [address] GFR/1.73 sq M.predicted among non-blacks MDRD (S/P/Bld) [Vol rate/Area] 115 mL/min/{1.73_m2} Normal >[address] [facility] Comment on above: Result Comment: Non- GFR Calc Performed By: #### L 100.0100, L503.6005, L500.4050 #### [facility] [address] [place], [address] Globulin (S) [Mass/Vol] 3.8 g/dL Normal 2.2-4.[address] [facility] Comment on above: Performed By: #### L 100.0100, L503.6005, L500.4050 #### [facility] [address] [place], [address] Glucose [Mass/Vol] 108 mg/dL High 74-106 [facility] Comment on above: Result Comment: Fast ing Glucose result from 100 to 125 mg/dL suggests IMPAIRED HOMEOSTASIS per A.D.A. criteria. Please note revised GLUCOSE reference range effective 2017. Performed By: #### L 100.0100, L503.6005, L500.4050 #### [facility] [address] [place], [address] Potassium [Moles/Vol] 3.9 mmol/L Normal 3.5-5.[address] [facility] Comment on above: Performed By: #### L 100.0100, L503.6005, L500.4050 #### [facility] [address] [place], [address] Sodium [Moles/Vol] 140 mmol/L Normal 136-145 [facility] Comment on above: Performed By: #### L 100.0100, L503.6005, L500.4050 #### [facility] [address] [place], [address] T PROT 7.4 g/dL Normal 6.4-8.[address] [facility] Comment on above: Performed By: #### L 100.0100, L503.6005, L500.4050 #### [facility] [address] [place], [address] Urea nitrogen [Mass/Vol] 11 mg/dL Normal 7-[address] [facility] Comment on above: Performed By: #### L 100.0100, L503.6005, L500.4050 #### [facility] [address] [place], [address] Emergency Department Summary on 03-31-2021 Emergency Department Summary [facility] Records Department [address] [place] [address] Emergency Department Summary 03/31/21 MR#: [id number] Acct: [id number] Name: WILLIAMS ANDERSON Rep #: [id number] : 1955 65 From: Brittny Us DO [...] she was out of town at the [facility] 2 weeks ago and tested positive [...] diminished tootie (more content not included)... Normal [facility] Lactic Acidon 03-31-2021 Lactate [Moles/Vol] 1.0 mmol/L Normal 0.4-1.9 [facility] Comment on above: Order Comment: Y Performed By: #### L 100.0100, L503.6005, L500.4050 #### [facility] [address] [place], [address] Vital Signs Date Time Vital Sign Value Performing Clinician Jennifer atkins 03-14-2025 14:22-0400 Body height 158 cm Aileen Ayala APRN.CNP Work Phone: [facility] 03-14-2025 14:22-0400 Body mass index (BMI) [Ratio] 40.63 kg/m2 Aileen Ayala APRN.CNP Work Phone: [facility] 03-14-2025 14:22-0400 Body weight 101.42 kg Aileen Ayala APRN.CNP Work Phone: [facility] 03-14-2025 14:22-0400 Diastolic blood pressure 82 mm[Hg] Aileen Ayala APRN.CNP Work Phone: [facility] 03-14-2025 14:22-0400 Heart rate 74 /min Aileen Antonio CHIMNEY [employer]ILDER [employer]ICK.DOWEL 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 Work Phone: [facility] 03-14-2025 14:22-0400 Respiratory rate 16 /min Aileen Antonio CHIMNEY BUILDER BRICK.DOWEL 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 Work Phone: [facility] 03-14-2025 14:22-0400 Systolic blood pressure 130 mm[Hg] Aileen Antonio CHIMNEY BUILDER BRICK.DOWEL 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 Work Phone: [facility] 11-16-2023 09:02-0400 Body height 158.5 cm Lurdes Yane CHIMNEY BUILDER BRICK.DOWEL 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 Work Phone: [facility] 11-16-2023 09:02-0400 Body weight 87.09 kg Lurdes Yane CHIMNEY BUILDER BRICK.DOWEL 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 Work Phone: [facility] 11-16-2023 09:02-0400 Diastolic blood pressure 86 mm[Hg] Lurdes Yane CHIMNEY BUILDER BRICK.DOWEL 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 Work Phone: [facility] 11-16-2023 09:02-0400 Heart rate 86 /min Lurdes Yane CHIMNEY BUILDER BRICK.DOWEL 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 Work Phone: [facility] 11-16-2023 09:02-0400 Respiratory rate 16 /min Lurdes Yane CHIMNEY BUILDER BRICK.DOWEL 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 Work Phone: [facility] 11-16-2023 09:02-0400 SaO2% (BldA) [Mass fraction] 97 % Lurdes Yane CHIMNEY BUILDER BRICK.DOWEL 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 Work Phone: [facility] 11-16-2023 09:02-0400 Systolic blood pressure 118 mm[Hg] Lurdes Yane CHIMNEY BUILDER BRICK.DOWEL 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 Work Phone: [facility] 02-03-2022 07:42-0400 Body weight 86.18 kg Lurdes Yane CHIMNEY BUILDER BRICK.DOWEL 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 Work Phone: [facility] 02-03-2022 07:42-0400 Diastolic blood pressure 80 mm[Hg] Lurdes Yane CHIMNEY BUILDER BRICK.DOWEL 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 Work Phone: [facility] 02-03-2022 07:42-0400 Heart rate 85 /min Lurdes Che APRN.DOWEL 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 Work Phone: [facility] 02-03-2022 07:42-0400 Respiratory rate 16 /min Lurdessheldon Che APRN.DOWEL 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 Work Phone: [facility] 02-03-2022 07:42-0400 SaO2% (BldA) [Mass fraction] 96 % Lurdes Yane MATHEWSN.DOWEL 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 Work Phone: [facility] 02-03-2022 07:42-0400 Systolic blood pressure 118 mm[Hg] Lurdes Yane MATHEWSN.DOWEL 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 Work Phone: [facility] Encounters Encounter Date Encounter Type Care Provider Facility Start: 03-14-2025 End: 03-14-2025 Patient encounter procedure Aileen Ayala APRN.DOWEL 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 Work Phone: [facility] [place] Comment on above: Morbid obesity with [...] End: 03-14-2025 Patient encounter status Aileen Ayala APRN.DOWEL 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 Work Phone: [facility] Start: 03-14-2025 End: 03-14-2025 ambulatory ROYCE ISLAS Facility:[facility] Start: 02-23-2025 End: 02-27-2025 Refill Camelia Medley APRN.DOWEL 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 Work Phone: [facility] [place] Comment on above: Refill Request Start: 02-20-2025 End: 02-20-2025 Orders Only Dean Kimble DO Work Phone: Orthopaedics Comment on above: Closed fracture of d istal end of right fibula, unspecified fracture morphology, initial encounter (Primary Dx) Start: 01-29-2025 End: 01-29-2025 Patient encounter procedure Dean Kimble DO Work Phone: [facility] [place] Comment on above: Closed fracture of d istal end of right fibula, unspecified fracture morphology (Primary Dx) Start: 01-29-2025 End: 01-29-2025 ambulatory [facility] Facility:[facility] Start: 01-29-2025 End: 01-29-2025 Subsequent hospital visit by physician Xr [facility] [place] [facility] Work Phone: Radiology Comment on [...] encounter procedure Dean Kimble DO Work Phone: [facility] [place] Comment on above: Closed fracture of d istal end of right fibula, unspecified fracture morphology (Primary Dx) Start: 01-08-2025 End: 01-08-2025 [facility] Facility:[facility] Start: 01-08-2025 End: 01-08-2025 Subsequent hospital visit by physician Nereyda [facility] [place] [facility] Work Phone: Radiology Comment on [...] encounter procedure Dean Kimble DO Work Phone: [facility] [place] Comment on above: Closed fracture of d istal end of right fibula, unspecified fracture morphology, initial encounter Start: 12-25-2024 End: 12-25-2024 ambulatory DEAN KIMBLE Facility:[facility] Start: 12-18-2024 End: 12-18-2024 ambulatory ROYCE ISLAS Facility:[facility] Start: 10-30-2024 End: 11-30-2024 ambulatory Royce Islas DO Work Phone: [facility] [place] Start: 05-08-2024 End: 05-10-2024 ambulatory Lurdes Che [employer]IMNEY BUILDER [employer].DOWEL 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 Work Phone: [facility] [place] Comment on above: Levothyroxine Start: 11-30-2023 ambulatory Royce dubon DO Work Phone: Internal Medicine [facility] Start: 11-21-2023 Refill Lurdes De Paz an CHIMNEY BUILDER BRICK.DOWEL 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 Work Phone: [facility] [place] Comment on above: Refill Request Start: 11-16-2023 End: 11-16-2023 Patient encounter procedure Lurdes Che CHIMNEY BUILDER BRICK.DOWEL 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 Work Phone: [facility] [place] Comment on above: Well adult exam (Shayy kevin Dx); Hypothyroidism, unspecified type; Hypercholesterolemia; IFG (impaired fasting glucose) Start: 11-16-2023 End: 11-16-2023 Patient encounter status Lurdes Che CHIMNEY BUILDER BRICK.DOWEL 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 Work Phone: [facility] Work Phone: Start: 11-12-2023 Refill Lurdes De Paz an CHIMNEY BUILDER BRICK.DOWEL 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 Work Phone: [facility] [place] Comment on above: Refill Request Start: 11-11-2023 Refill Lurdes Uriosteguim an CHIMNEY BUILDER BRICK.DOWEL 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 Work Phone: [facility] [place] Comment on above: Refill Request Start: 12-11-2022 ambulatory Lurdes luke CHIMNEY BUILDER BRICK.DOWEL 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 Work Phone: [facility] [place] Comment on above: Thyroid Pills Start: 12-08-2022 ambulatory Royce dubon DO Work Phone: [facility] [place] Start: 11-30-2022 End: 11-30-2022 Emergency department patient visit GABE MCCARTHY Facility:[facility] Start: 11-04-2022 End: 11-04-2022 Patient encounter procedure Kayla Perea DO Work Phone: Orthopaedics Comment on above: S/P rotator cuff yessica christopher (Primary Dx); S/P shoulder surgery; Disorder of right rotator cuff; Bursitis of right shoulder Start: 09-18-2022 Refill Claribel Guzman APRN.DOWEL 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 Work Phone: [facility] Comment on above: Refill Request Start: 08-17-2022 Admission to [facility] Kayla Perea DO Work Phone: Orthopaedics Comment on above: 6 weeks post Surgery Start: 08-17-2022 ambulatory Kayla cruz DO [facility] Phone: [facility] Start: 08-03-2022 Telephone encounter Kayla Perea DO Work Phone: [facility] [place] Comment on above: Orders Start: 07-31-2022 ambulatory Kayla cruz DO Work Phone: Orthopaedics Comment on above: Physical Therapy Start: 07-28-2022 End: 07-28-2022 Patient encounter procedure Kayla Perea DO Work Phone: Orthopaedics Comment on above: Disorder of right ro tator cuff (Primary Dx); S/P shoulder surgery Start: 07-13-2022 End: 07-13-2022 ambulatory KAYLA PEREA Facility:[facility] Start: 06-01-2022 Orders Only Kayla cruz DO [...] Subsequent hospital visit by physician [facility] (I-Stat/1.5t) Radiology Comment on above: Neck pain of over 3 months duration [M54.2] Start: 05-06-2022 Telephone encounter Royce walton DO Work Phone: Family [facility] [place] Comment on above: MRI order correction Start: 04-28-2022 Telephone encounter Royce walton DO Work Phone: [facility] [place] Comment on above: Orders Start: 02-03-2022 End: 02-03-2022 Subsequent hospital visit by physician Xr [facility] [place] Work Phone: Radiology Comment on above: Acute pain of right shoulder [M25.511] Start: 02-03-2022 End: 02-03-2022 Patient encounter procedure Lurdes Che APRN.DOWEL 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 Work Phone: [facility] [place] Comment on above: Acute pain of right shoulder (Primary Dx) Start: 01-27-2022 Telephone encounter Royce chaudhariison DO Work Phone: Family [facility] [place] Comment on above: Appointment Start: 01-06-2022 ambulatory Royce Mckinney son DO Work Phone: [facility] [place] Start: 10-29-2021 Refill Royce Mckinney son DO Work Phone: Family [facility] [place] Comment on above: Refill Request Start: 08-25-2016 Patient encounter status Virginia Islas DO Work Phone: [facility] Work Phone: Start: 08-25-2016 Encounter for tiffanie l adult medical examination without abnormal findings [facility] Procedures Date Procedure Procedure Detail Performing Clinician Start: 08-14-2025 Adult depression screening assessment Aileen Antonio CHIMNEY BUILDER BRICK.DOWEL 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 Work Phone: Start: 11-17-2023 Lipid 1996 panel - Serum or Plasma Lurdes Che CHIMNEY BUILDER BRICK.DOWEL 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 Work Phone: Start: 05-07-2022 Mri any jt upper extremity w/o contrast matrl Royce Islas DO Work Phone: Start: 02-03-2022 Radex spine cervical 4 or 5 views Lurdes Che CHIMNEY BUILDER BRICK.DOWEL 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 Work Phone: Start: 09-28-2021 Lipid 1996 panel - Serum or Plasma Lurdes Che CHIMNEY BUILDER BRICK.DOWEL 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 Work Phone: Start: 12-30-2020 Adult depression screening assessment Royce Islas DO Work Phone: Start: 12-01-2020 Mammography Royce Islas DO Work Phone: Start: 07-10-2018 Colonoscopy oRyce Islas DO Work Phone: History of repair of musculotendinous cuff of shoulder S/P rotator cuff surgery Kayla Perea DO Work Phone: History of repair of musculotendinous cuff of shoulder S/P rotator cuff surgery Kayla Perea DO Work Phone: Plan of Treatment Date Care Activity Detail Author Start: 2030 RSV Vaccine (1 - 1-dose 75+ series) RSV Vaccine (1 - 1-dose 75+ series) [facility] Start: 11-16-2028 Lipid panel Lipid Screening [facility] Start: 11-16-2026 Diabetes Screening Diabetes Screening [facility] Start: 09-28-2026 Lipid panel Lipid Screening [facility] Start: 09-28-2026 LIPID SCREEN LIPID SCREEN [facility] Start: 03-18-2026 End: 03-18-2026 Patient encounter procedure 03/18/2026 7:40 AM EDT Office Visit [facility] [place] [address] [place] [address] Royce Islas DO [address] [place] [address] medicare wellness [facility] [place] Comment on above: medicare wellness Start: 03-14-2026 Annual PCP Team Chronic Disease Visit Annual PCP Team Chronic Disease Visit [facility] Start: 03-14-2026 Anxiety Screening Anxiety Screening [facility] Start: 03-14-2026 Depression Screening Depression Screening [facility] Start: 03-14-2026 Medicare Annual Wellness Visit Medicare Annual Wellness Visit [facility] Start: 03-14-2026 Pneumococcal Vaccine: 50+ (1 of 1 - PCV) Pneumococcal Vaccine: 50+ (1 of 1 - PCV) [facility] Comment on above: Postponed from 2005 (Declined at t his time) Start: 03-14-2026 RSV Vaccine (1 - Risk 60-74 years 1-dose series) RSV Vaccine (1 - Risk 60-74 years 1-dose series) [facility] Comment on above: Postponed from 2015 (Declined at t his time) Start: 03-14-2026 Shingrix Vaccine (1 of 2) Shingrix Vaccine (1 of 2) [facility] Comment on above: Postponed from 2005 (Declined at t his time) Start: 07-31-2025 Advance Directive Discussion Advance Directive Discussion [facility] Comment on above: Postponed from 08/01/2024 (Postponed To Appropriate Date) Start: 04-01-2025 Influenza vaccination Influenza Vaccine (#1) [facility] Start: 03-14-2025 End: 03-14-2025 Patient encounter procedure 03/14/2025 2:20 PM EDT Office Visit Family [facility] [address] [place] [address] [phone] Aileen Ayala, CHIMNEY BUILDER BRICK.DOWEL 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 [address] [place], [place] [id number] MEDICARE WELLNESS [facility] [place] Comment on above: MEDICARE WELLNESS Start: 03-14-2025 End: 06-13-2025 CBC panel - Blood by Automated count COMPLETE BLOOD COUNT Lab Routine Well adult exam IFG (impaired fasting glucose) Expected: 03/14/2025, Expires: 06/13/2025 [facility] Comment on above: Expected: 03/14/2025, Expires: Start: 03-14-2025 End: 06-13-2025 Comprehensive metabolic 2000 panel - Serum or Plasma COMPREHENSIVE METABOLIC PANEL Lab Routine Well adult exam IFG (impaired fasting glucose) Expected: 03/14/2025, Expires: 06/13/2025 [facility] Comment on above: Expected: 03/14/2025, Expires: Start: 03-14-2025 End: 06-13-2025 Hemoglobin A1c in Blood HEMOGLOBIN A1C Lab Routine Well adult exam IFG (impaired fasting glucose) Expected: 03/14/2025, Expires: 06/13/2025 [facility] Comment on above: Expected: 03/14/2025, Expires: Start: 03-14-2025 End: 06-13-2025 Lipid 1996 panel - Serum or Plasma LIPID PANEL, FASTING Lab Routine Well adult exam Hypercholesterolemia Expected: 03/14/2025, Expires: 06/13/2025 [facility] Comment on above: Expected: 03/14/2025, Expires: Start: 03-14-2025 End: 03-14-2026 Screening colonoscopy COLONOSCOPY SCREENING Endoscopy Routine Screening for colon cancer Family history of colon cancer Expected: 03/14/2025, Expires: 03/14/2026 [facility] Comment on above: Expected: 03/14/2025, Expires: Start: 03-14-2025 End: 06-13-2025 Thyrotropin [Units/volume] in Serum or Plasma THYROID STIMULATING HORMONE Lab Routine Hypothyroidism, unspecified type Well adult exam Expected: 03/14/2025, Expires: 06/13/2025 [facility] Work Phone: Comment on above: Expected: 03/14/2025, Expires: Start: 03-14-2025 End: 06-13-2025 Thyroxine (T4) free [Mass/volume] in Serum or Plasma T4 FREE/FREE THYROXINE Lab Routine Hypothyroidism, unspecified type Well adult exam Expected: 03/14/2025, Expires: 06/13/2025 [facility] Comment on above: Expected: 03/14/2025, Expires: Start: 02-26-2025 End: 02-26-2025 Patient encounter procedure 02/26/2025 8:00 AM EDT Office Visit [facility] [address] [place] [address] Dean Kimble V, DO [address] [place] [address] FOLLOW UP 4 WEEK [facility] Comment on above: FOLLOW UP 4 WEEK Start: 02-12-2025 End: 02-12-2025 Patient encounter procedure 02/12/2025 7:50 AM EDT Appointment Mammogram [address] [place] [address] Mammogram Start: 01-29-2025 End: 01-29-2025 Patient encounter procedure [facility] Comment on above: follow up 2 - 3 weeks R ankle fracture Xray Start: 01-08-2025 End: 01-08-2025 Patient encounter procedure 01/08/2025 8:30 AM EDT Office Visit [facility] [address] [place] [address] Dean Kimble V, DO [address] [place] [address] 2 week follow up R ankle fracture [facility] Comment on above: 2 week follow up R ankle fracture Start: 11-15-2024 Annual PCP Team Chronic Disease Visit Annual PCP Team Chronic Disease Visit [facility] Start: 11-15-2024 Covid-19 Vaccine ( season) Covid-19 Vaccine ( season) [facility] Comment on above: Postponed from 04/01/2023 (Declined at t his time) Start: 11-15-2024 Pneumococcal Vaccine: 65+ (1 of 2 - PCV) Pneumococcal Vaccine: 65+ (1 of 2 - PCV) [facility] Comment on above: Postponed from 1961 (Declined at t his time) Start: 11-15-2024 RSV Vaccine (1 - 1-dose 60+ series) RSV Vaccine (1 - 1-dose 60+ series) [facility] Comment on above: Postponed from 2015 (Declined at t his time) Start: 11-15-2024 Screening for malignant neoplasm of colon Colorectal Cancer Screening [facility] Comment on above: Postponed from 2000 (Declined at t his time) Start: 11-15-2024 Shingrix Vaccine (1 of 2) Shingrix Vaccine (1 of 2) [facility] Comment on above: Postponed from 2005 (Declined at t his time) Start: 11-15-2024 Urine microalbumin profile DTaP,Tdap,Td Vaccine (2 - Td or Tdap) [facility] Comment on above: Postponed from 08/15/2022 (Declined at t his time) Start: 09-28-2024 DIABETES SCREEN DIABETES SCREEN [facility] Start: 09-28-2024 Diabetes Screening Diabetes Screening [facility] Start: 08-01-2024 Advance Directive Discussion Advance Directive Discussion [facility] Start: 04-01-2024 Covid-19 Vaccine () Covid-19 Vaccine () [facility] Start: 04-01-2024 Influenza vaccination [facility] Start: 03-01-2024 Medicare Annual Wellness Visit Medicare Annual Wellness Visit [facility] Start: 11-16-2023 End: 02-15-2024 CBC panel - Blood by Automated count COMPLETE BLOOD COUNT Lab Routine IFG (impaired fasting glucose) Well adult exam Expected: 11/16/2023, Expires: 02/15/2024 [facility] Work Phone: Comment on above: Expected: 11/16/2023, Expires: 4 Start: 11-16-2023 End: 02-15-2024 Comprehensive metabolic 2000 panel - Serum or Plasma COMPREHENSIVE METABOLIC PANEL Lab Routine IFG (impaired fasting glucose) Well adult exam Expected: 11/16/2023, Expires: 02/15/2024 [facility] Work Phone: Comment on above: Expected: 11/16/2023, Expires: 4 Start: 11-16-2023 End: 02-15-2024 Hemoglobin A1c in Blood HEMOGLOBIN A1C Lab Routine IFG (impaired fasting glucose) Well adult exam Expected: 11/16/2023, Expires: 02/15/2024 [facility] Work Phone: Comment on above: Expected: 11/16/2023, Expires: Start: 11-16-2023 End: 02-15-2024 Lipid 1996 panel - Serum or Plasma LIPID PANEL BASIC Lab Routine Hypercholesterolemia Well adult exam Expected: 11/16/2023, Expires: 02/15/2024 [facility] Work Phone: Comment on above: Expected: 11/16/2023, Expires: Start: 11-16-2023 End: 02-15-2024 Thyrotropin [Units/volume] in Serum or Plasma THYROID STIMULATING HORMONE Lab Routine Hypothyroidism, unspecified type Well adult exam Expected: 11/16/2023, Expires: 02/15/2024 [facility] Work Phone: Comment on above: Expected: 11/16/2023, Expires: Start: 11-16-2023 End: 02-15-2024 Thyroxine (T4) free [Mass/volume] in Serum or Plasma T4 FREE/FREE THYROXINE Lab Routine Hypothyroidism, unspecified type Well adult exam Expected: 11/16/2023, Expires: 02/15/2024 [facility] Work Phone: Comment on above: Expected: 11/16/2023, Expires: Start: 08-01-2023 Advance Directive Discussion Advance Directive Discussion [facility] Start: 08-01-2023 Behavioral Health Screening Behavioral Health Screening [facility] Start: 07-10-2023 Colonoscopy COLONOSCOPY [facility] Start: 07-10-2023 COLORECTAL CANCER SCREENING COLORECTAL CANCER SCREENING [facility] Start: 07-10-2023 Screening for malignant neoplasm of colon [facility] Start: 04-01-2023 Covid-19 Vaccine () Covid-19 Vaccine () [facility] Start: 02-03-2023 ANNUAL PCP TEAM CHRONIC DISEASE VISIT ANNUAL PCP TEAM CHRONIC DISEASE VISIT [facility] Start: 08-15-2022 Urine microalbumin profile [facility] Start: 08-01-2022 ADVANCE DIRECTIVE DISCUSSION ADVANCE DIRECTIVE DISCUSSION [facility] Start: 08-01-2022 DEPRESSION ASSESSMENT DEPRESSION ASSESSMENT [facility] Start: 04-01-2022 Influenza vaccination INFLUENZA (#1) [facility] Start: 01-05-2022 ANNUAL PCP TEAM CHRONIC DISEASE VISIT ANNUAL PCP TEAM CHRONIC DISEASE VISIT [facility] Start: 12-30-2021 Adult depression screening assessment DEPRESSION SCREENING [facility] Start: 12-01-2021 Mammography MAMMOGRAM [facility] Start: 12-01-2021 Screening for malignant neoplasm of breast Mammogram Screening [facility] Start: 08-01-2021 ADVANCE DIRECTIVE DISCUSSION ADVANCE DIRECTIVE DISCUSSION [facility] Start: 08-01-2021 DEPRESSION ASSESSMENT DEPRESSION ASSESSMENT [facility] Start: 2020 PNEUMOCOCCAL: 65+ (1 - PCV) PNEUMOCOCCAL: 65+ (1 - PCV) [facility] Start: 2020 PNEUMOVAX AGE 65 AND OVER WITH 5YR LOOKBACK (#1) PNEUMOVAX AGE 65 AND OVER WITH 5YR LOOKBACK (#1) [facility] Start: 2015 RSV Vaccine (1 - 1-dose 60+ series) RSV Vaccine (1 - 1-dose 60+ series) [facility] Start: 2015 RSV Vaccine (1 - Risk 60-74 years 1-dose series) RSV Vaccine (1 - Risk 60-74 years 1-dose series) [facility] Start: 2005 Influenza vaccination LUNG CANCER SCREENING [facility] Start: 2005 Pneumococcal Vaccine: 50+ (1 of 1 - PCV) Pneumococcal Vaccine: 50+ (1 of 1 - PCV) [facility] Start: 2005 Screening for malignant neoplasm of lung Lung Cancer Screening [facility] Start: 2005 SHINGRIX VACCINE (1 of 2) SHINGRIX VACCINE (1 of 2) [facility] Start: 2000 COLOGUARD (FIT-DNA) COLOGUARD (FIT-DNA) [facility] Start: [address] COLONOGRAPHY [facility] Start: 2000 FECAL OCCULT BLOOD FECAL OCCULT BLOOD [facility] Start: 2000 Screening for malignant neoplasm of colon [facility] Start: 2000 SIGMOIDOSCOPY SIGMOIDOSCOPY [facility] Start: 1974 Pneumococcal Vaccine: 50+ (1 of 2 - PCV) Pneumococcal Vaccine: 50+ (1 of 2 - PCV) [facility] Start: 1973 Anxiety Screening Anxiety Screening [facility] Start: 1973 Depression Screening Depression Screening [facility] Start: 1961 Pneumococcal Vaccine: 65+ (1 of 2 - PCV) Pneumococcal Vaccine: 65+ (1 of 2 - PCV) [facility] Start: 1961 PNEUMOCOCCAL: 65+ (1 - PCV) PNEUMOCOCCAL: 65+ (1 - PCV) [facility] Start: 1960 COVID-19 VACCINE (#1) COVID-19 VACCINE (#1) [facility] Start: 1960 COVID-19 VACCINE (1) COVID-19 VACCINE (1) [facility] Start: [birth year]-1956 COVID-19 VACCINE (#1) COVID-19 VACCINE (#1) [facility] End: 11-29-2025 DBT Breast - bilateral screening AMANDA SCREENING W JJ Radiology Routine Encounter for screening mammogram for breast cancer 1 Occurrences starting 10/30/2024 until 11/29/2025 [facility] Work Phone: Comment on above: 1 Occurrences starting 10/30/2024 until 11/29/2025 End: 01-07-2024 AMANDA SCREENING AMANDA SCREENING Radiology Routine Encounter for screening mammogram for breast cancer 1 Occurrences starting 12/08/2022 until 01/07/2024 [facility] Work Phone: Comment on above: 1 Occurrences starting 12/08/2022 until 01/07/2024 End: 12-29-2024 MG Breast Screening AMANDA SCREENING Radiology Routine Encounter for screening mammogram for breast cancer 1 Occurrences starting 11/30/2023 until 12/29/2024 [facility] Work Phone: Comment on above: 1 Occurrences starting 11/30/2023 until 12/29/2024 End: 05-30-2023 Mri any jt upper extremity w/o & w/contr matrl MRI SHOULDER WO/W IVCON RT Radiology Routine Neck pain of over 3 months duration Acute pain of right shoulder Paresthesias in right hand Disorder of right 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 1 Occurrences starting 04/30/2022 until 05/30/2023 [facility] Work Phone: Comment on above: 1 Occurrences starting 04/30/2022 until 05/30/2023 End: 06-05-2023 Mri any jt upper extremity w/o contrast matrl MRI SHOULDER WO IVCON RT Radiology Routine Neck pain of over 3 months duration Acute pain of right shoulder Paresthesias in right hand Disorder of right 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 Muscle spasm 1 Occurrences starting 05/06/2022 until 06/05/2023 [facility] Work Phone: Comment on above: 1 Occurrences starting 05/06/2022 until 06/05/2023 Radex spine cervical 4 or 5 views XR CERV OTHER 4V AP/LAT/OBL Radiology Routine Acute pain of right shoulder 02/03/2022 8:[address] [facility] Work Phone: End: 02-05-2023 Screening mammography bi 2-view breast inc cad AMANDA SCREENING Radiology Routine Encounter for screening mammogram for breast cancer 1 Occurrences starting 01/06/2022 until 02/05/2023 [facility] Work Phone: Comment on above: 1 Occurrences starting 01/06/2022 until 02/05/2023 End: 02-01-2026 XR Ankle - right AP and Lateral and oblique XR ANKLE GENERAL 3V AP/LAT/OBL RIGHT Radiology Routine Closed fracture of distal end of right fibula, unspecified fracture morphology, initial encounter 1 Occurrences starting 01/02/2025 until 02/01/2026 [facility] Work Phone: Comment on above: 1 Occurrences starting 01/02/2025 until 02/01/2026 XR Ankle - right AP and Lateral and oblique XR ANKLE GENERAL 3V AP/LAT/OBL RIGHT Radiology Routine Closed fracture of distal end of right fibula, unspecified fracture morphology, initial encounter 01/08/2025 8:[address] [facility] Work Phone: End: 02-27-2026 XR Ankle - right AP and Lateral and oblique XR ANKLE GENERAL 3V AP/LAT/OBL RIGHT Radiology Routine Closed fracture of distal end of right fibula, unspecified fracture morphology, initial encounter 1 Occurrences starting 01/28/2025 until 02/27/2026 [facility] Work Phone: Comment on above: 1 Occurrences starting 01/28/2025 until 02/27/2026 XR Ankle - right AP and Lateral and oblique XR ANKLE GENERAL 3V AP/LAT/OBL RIGHT Radiology Routine Closed fracture of distal end of right fibula, unspecified fracture morphology, initial encounter 01/29/2025 8:[address] [facility] Work Phone: End: 03-22-2026 XR Ankle - right AP and Lateral and oblique XR ANKLE GENERAL 3V AP/LAT/OBL RIGHT Radiology Routine Closed fracture of distal end of right fibula, unspecified fracture morphology, initial encounter 1 Occurrences starting 02/20/2025 until 03/22/2026 [facility] Work Phone: Comment on above: 1 Occurrences starting 02/20/2025 until 03/22/2026 XR SHOULDER LIMITED2 V AP/TRUE AP RIGHT XR SHOULDER [id number] AP/TRUE AP RIGHT Radiology Routine Acute pain of right shoulder 02/03/2022 8:[address] [facility] Work Phone: [facility] Immunizations Immunization Date Immunization Notes Care Provider Maria C worthy 05-22-2024 influenza virus vaccine, unspecified formulation Dean Kimble V DO Work Phone: [facility] 05-02-2023 influenza virus vaccine, unspecified formulation Xr [place] Work Phone: [facility] 05-10-2022 influenza virus vaccine, unspecified formulation uLrdes Che APRN.DOWEL 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 Work Phone: [facility] 04-27-2021 influenza, high-dose , quadrivalent vaccine (FLUZONE HIGH DOSE QUADRIVALENT) Royce Islas DO Work Phone: [facility] Work Phone: 05-12-2020 influenza, injectabl e, quadrivalent, contains preservative Royce Islas DO Work Phone: [facility] Work Phone: 04-29-2017 influenza, injectabl e, quadrivalent, contains preservative Royce Islas DO Work Phone: [facility] Work Phone: 05-12-2016 influenza, seasonal, injectable Royce Islas DO Work Phone: [facility] Work Phone: 08-15-2012 tetanus toxoid, redu silvana diphtheria toxoid, and acellular pertussis vaccine, adsorbed Royce Islas DO Work Phone: [facility] Payers Date Payer Category Payer Medicare MEDICARE [id number] 2024 Medicare [id number] 2022 Unknown [id number] 2021 Medicaid [id number] 2021 Medicaid [id number] 2021 Medicaid [id number] Social History Date Type Detail Facility Start: 04-05-2012 End: 01-08-2025 Tobacco smoking status NHIS Ex-smoker [facility] Start: 04-05-1982 End: 04-05-2002 History of tobacco use Current smoker [facility] Start: 04-05-1982 End: 04-05-2002 History of tobacco use Cigarette Smoker [facility] Start: 04-05-2012 End: 07-06-2020 Cigarettes smoked current (pack per day) - Reported 1 [facility] Start: 04-05-2012 End: 01-08-2025 Tobacco use and exposure Smokeless tobacco non-user [facility] Start: 01-05-2021 End: 03-14-2025 Alcohol intake Current drinker of alcohol (finding) [facility] Start: 12-30-2020 History SDOH Alcohol Frequency 2 [facility] Start: 12-30-2020 History SDOH Alcohol Std Drinks 1 [facility] Start: 12-30-2020 History SDOH Social Connections Phone 5 [facility] Start: 12-30-2020 History SDOH Social Connections Roman Catholic 3 [facility] Start: 12-30-2020 History SDOH Social Connections Meetings 98 [facility] Start: 12-30-2020 History SDOH Financial 4 [facility] Start: 12-30-2020 Education 12 [facility] Start: 1955 Sex Assigned At Female [facility] Start: 01-19-2022 End: 06-28-2022 Exposure to SARS-CoV-2 (event) Not sure [facility] Start: 05-27-2022 Tobacco smoking status OHIS Smokes tobacco daily [facility] Start: 05-27-2022 Tobacco Comment 05/22 - 2-3 cigarettes per day [facility] Start: 04-05-1982 End: 12-25-2024 Tobacco smoking status NHIS Occasional tobacco smoker [facility] Work Phone: Start: 06-18-2022 Alcohol Comment 2-4/month [facility] Start: 07-06-2020 End: 12-30-2020 Social connection and isolation panel [facility] Do you belong to any clubs or organizations such as samaritan groups, unions, fraternal or athletic groups, or school groups? No [facility] Start: 07-02-2012 How often do you attend meetings of the clubs or organizations you belong to? Patient declined [facility] Are you now , , , , never or living with a partner? [facility] How often to you hav e a drink containing alcohol? Monthly or less [facility] How many standard dr inks containing alcohol do you have on a typical day? 1 or 2 [facility] How often do you hav e 6 or more drinks on 1 occasion? Never [facility] How hard is it for y ou to pay for the very basics like food, housing, medical care, and heating Not very hard [facility] Do you feel stress - tense, restless, nervous, or anxious, or unable to sleep at night because your mind is troubled all the time - these days [OSQ] Very much [facility] (I/We) worried elaine er (my/our) food would run out before (I/we) got money to buy more. Never true [facility] Start: 12-30-2020 Gender identity Identifies as female gender (finding) [facility] Start: 12-30-2020 Sexual orientation Heterosexual (finding) [facility] How often to you hav e a drink containing alcohol? 2-3 time sa week [facility] Medical Equipment Procedure Code Equipment Code Equipment Origin al Text Equipment Identifier Dates [place] Suturetape 5.5mm Full Thread 1.3mm Black Blue White - [id number] Start: 07-13-2022 Anchr Sut 4.75mm 2 Fibertak - [id number] Start: 07-13-2022 Anchr Sut 4.75mm 2 Fibertak - [id number] Start: 07-13-2022 [place] Suturetape 5.5mm Full Thread 1.3mm Black Blue White - [id number] Start: 07-13-2022 Functional Status Date Assessment Result Facility 03-14-2025 Total score [AUDIT-C] 3 03/14/20 25 2:18 PM Anneliese Coats MA [facility] 07-23-2014 Are you deaf, or do you have serious difficulty hearing No 07/23/2014 7:28 AM Evens Mariscal No [facility] 07-23-2014 Are you blind, or do you have serious difficulty seeing, even when wearing glasses No 07/23/2014 7:28 AM Evens Mariscal No [facility] 07-23-2014 Do you have serious difficulty walking or climbing stairs No 07/23/2014 7:28 AM Evens Mariscal No [facility] 07-23-2014 Do you have difficul ty dressing or bathing No 07/23/2014 7:28 AM Evens Mariscal No [facility] 07-23-2014 Because of a physica l, mental, or emotional condition, do you have difficulty doing errands alone such as visiting a physician's office or shopping No 07/23/2014 7:28 AM Evens Mariscal [facility] Mental Status Date Assessment Result Facility 07-23-2014 Because of a physica l, mental, or emotional condition, do you have serious difficulty concentrating, remembering, or making decisions No 07/23/2014 7:28 AM Evens Mariscal [facility] Clinical Notes 10-29-2021 to 03-14-2025 Aileen Ayala APRN.CNP - 03/14/2025 2:34 PM EDTCastAileen henderson APRN.CNP - 03/14/2025 2:17 PM EDTPatient InstructionsTelephone Encounter - Wacissa Alina Oquendo - 02/27/2025 4:48 PM EDT Note Date & Type Note Facility 03-14-2025 Note HNO ID: [id number] Author: AILEEN AYALA APRN.CNP Service: ? Author Type: Nurse Practitioner Type: Progress Notes Filed: 03/14/2025 14:58 Note Text: FALLS RISK PLAN: Overall, she is doing very well. Appropriate for community-based exercise programs. List of local resources and falls prevention materials provided. [facility] 03-14-2025 History of Present illness [...] General (Family Medicine) Lurdes Che APRN.TERRENCE as Technical Architect (Family Medicine) Aileen Ayala APRN.TERRENCE as Technical Architect (Family Medicine) Outside specialists seen: Dr. Marti-Eye [...] and is older than 65. Aileen Ayala APRN.DOWEL 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 documented in this encounter [facility] 03-14-2025 Instructions Aileen Ayala APRN.DOWEL 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 - 03/14/2025 2:34 PM EDT Get your labs drawn fasting 10-12 hours Schedule your colonoscopy when you have time Schedule your mammogram as well You would benefit from general conditioning exercise programs such as those offered by recreation centers or the [facility]. WHAT YOU CAN DO TO [...] review all the medicines you take, even pnwx-blq-lokwxty medicines. As you get older, the way [...] review all the medicines you take, even xdwp-hnr-gcoitxi medicines. As you get older, the way [...] certain medical conditions. documented in this encounter [facility] 03-14-2025 Note HNO ID: [id number] Author: AILEEN AYALA APRN.CNP Service: ? Author [...] General (Family Medicine) Lurdes Che APRN.CNP as Technical Architect (Family Medicine) Aileen Ayala APRN.CNP as Technical Architect (Family Medicine) Outside specialists seen: Dr. Marti-Eye [...] and is older than 65. Aileen Ayala APRN.DOWEL 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 [facility] 02-27-2025 Telephone encounter Note Patient is out of medication and requesting this is sent today. She is using [facility] [place]; attached to request. Scheduled Medicare Wellness 03/14/25. [facility] 02-27-2025 Miscellaneous Notes Patient is out of medication and requesting this is sent today. She is using [facility] [place]; attached to request. Scheduled Medicare [...] Amina Li LPN. documented in this encounter [facility] 02-27-2025 Telephone encounter Note 1st lvm [facility] 02-26-2025 Telephone encounter Note Patient needs a physical/medication appt Royce Islas DO [facility] 02-26-2025 Telephone encounter Note Patient has been [...] Please advise. Thank you. Amina Li LPN. [facility] 01-29-2025 Note HNO ID: [id number] Author: DEAN KIMBLE, DO Service: ? Author [...] right fibula, unspecified fracture morphology, initial encounter (S82.408R) - Fracture healing well with visible bridging [...] asymptomatic and fully functional. Recording using ambient [employer] software for draft documentation of the visit was discussed with the patient/authorized warehouse representative; all questions welcomed and answered. Patient/authorized warehouse representative agreed to proceed [facility] 01-29-2025 History of Present illness [...] right fibula, unspecified fracture morphology, initial encounter (S82.701H) - Fracture healing well with visible bridging [...] asymptomatic and fully functional. Recording using ambient [employer] software for draft documentation of the visit was discussed with the patient/authorized warehouse representative; all questions welcomed and answered. Patient/authorized warehouse representative agreed to proceed AMB ROOMING INTAKE FLOWSHEET DATA Patient here today 6 weeks post fracture right distal fibula fracture. She denies any pain. Arrives in boot today. New x-ray today. documented in this encounter [facility] 01-29-2025 Note HNO ID: [id number] Author: PERLA MILLER MA Service: ? Author Type: Inspector Clip On Sunglasses Type: Progress Notes Filed: 01/29/2025 08:21 Note Text: AMB ROOMING INTAKE FLOWSHEET DATA Patient here today 6 weeks post fracture right distal fibula fracture. She denies any pain. Arrives in boot today. New x-ray today. [facility] 01-29-2025 History of Present illness [...] PATIENT PRESENTS WITH AN IMPLANTABLE OR ATTACHED DIETARY AIDE: No RADIOLOGY DEPARTMENT: General X-ray: Exam(s) Completed: Lower Extremity X-Ray(s): Ankle, Right PERIPHERAL IV DATA: Not applicable SIGNED BY: RT Jaylin(R) January 29, 2025 8:05 PM documented in this encounter [facility] 01-29-2025 Note HNO ID: [id number] Author: RADHA GALLAGHER RT(R) Service: ? Author [...] PATIENT PRESENTS WITH AN IMPLANTABLE OR ATTACHED DIETARY AIDE: No RADIOLOGY DEPARTMENT: General X-ray: Exam(s) Completed: Lower Extremity X-Ray(s): Ankle, Right PERIPHERAL IV DATA: Not applicable SIGNED BY: RT Jaylin(R) January 29, 2025 8:05 PM [facility] 01-08-2025 Note HNO ID: [id number] Author: DEAN KIMBLE DO Service: ? Author [...] right fibula, unspecified fracture morphology, initial encounter (S82.768U) Fracture occurred on December 18. Current X-rays [...] an ankle brace or wrap. Recording using [employer] software for draft documentation of the visit was discussed with the patient/authorized warehouse representative; all questions welcomed and answered. Patient/authorized warehouse representative agreed to proceed [facility] 01-08-2025 History of Present illness [...] right fibula, unspecified fracture morphology, initial encounter (S82.051O) Fracture occurred on December 18. Current X-rays [...] an ankle brace or wrap. Recording using [employer] software for draft documentation of the visit was discussed with the patient/authorized warehouse representative; all questions welcomed and answered. Patient/authorized warehouse representative agreed to proceed AMB ROOMING INTAKE FLOWSHEET DATA Patient here 3 weeks 6 days post fracture right ankle distal fibula. Patient denies any pain. New x-ray today. documented in this encounter [facility] 01-08-2025 Note HNO ID: [id number] Author: PERLA MILLER MA Service: ? Author Type: Inspector Clip On Sunglasses Type: Progress Notes Filed: 01/08/2025 08:41 Note Text: AMB ROOMING INTAKE FLOWSHEET DATA Patient here 3 weeks 6 days post fracture right ankle distal fibula. Patient denies any pain. New x-ray today. [facility] 01-08-2025 History of Present illness [...] PATIENT PRESENTS WITH AN IMPLANTABLE OR ATTACHED DIETARY AIDE: No RADIOLOGY DEPARTMENT: General X-ray: Exam(s) Completed: Lower Extremity X-Ray(s): Ankle, Right PERIPHERAL IV DATA: Not applicable SIGNED BY: BRIAN Webb) January 08, 2025 8:12 AM documented in this encounter [facility] 01-08-2025 Note HNO ID: [id number] Author: ELEAZAR KATZ RT(R) Service: Radiology Author [...] PATIENT PRESENTS WITH AN IMPLANTABLE OR ATTACHED DIETARY AIDE: No RADIOLOGY DEPARTMENT: General X-ray: Exam(s) Completed: Lower Extremity X-Ray(s): Ankle, Right PERIPHERAL IV DATA: Not applicable SIGNED BY: RT Jon(R) January 08, 2025 8:12 AM [facility] 12-25-2024 Note HNO ID: [id number] Author: DEAN KIMBLE, DO Service: ? Author [...] right fibula, unspecified fracture morphology, initial encounter (X02.738D) Spiral fracture of the distal fibula with [...] weight-bearing X-ray to assess stability. Recording using [employer] software for draft documentation of the visit was discussed with the patient/authorized warehouse representative; all questions welcomed and answered. Patient/authorized warehouse representative agreed to proceed [facility] 12-25-2024 History of Present illness [...] right fibula, unspecified fracture morphology, initial encounter (S82.488J) Spiral fracture of the distal fibula with [...] weight-bearing X-ray to assess stability. Recording using [employer] software for draft documentation of the visit was discussed with the patient/authorized warehouse representative; all questions welcomed and answered. Patient/authorized warehouse representative agreed to proceed Patient presents with: Right ankle fracture: Referred by Jay Jay SPENCER ROOMING INTAKE FLOWSHEET DATA Pain Pain Level: 4 Pain Location: Ankle-Right Description: Dull, Aching Duration Units: Days Frequency: Intermittent Intervention/Comfort measure: (fracture boot) documented in this encounter [facility] 12-25-2024 Note HNO ID: [id number] Author: RENATE BURNETT MA Service: ? Author Type: Inspector Clip On Sunglasses Type: Progress Notes Filed: 12/25/2024 08:24 Note Text: Patient presents with: Right ankle fracture: Referred by Jay Jay Vyas [facility] ROOMING INTAKE FLOWSHEET DATA Pain Pain Level: 4 Pain Location: Ankle-Right Description: Dull, Aching Duration Units: Days Frequency: Intermittent Intervention/Comfort measure: (fracture boot) [facility] 12-18-2024 Note HNO ID: [id number] Author: JAY JAY VYAS PA Service: ? Author Type: Physician Applied Biology Professor Type: Progress Notes Filed: 12/18/2024 11:42 Note [...] 2 TABS ONE DAY OF THE WEEK Ruwqj-7-ROO-EPA-Fish Oil 1,000 mg (120 mg-180 mg) cap [...] 2. Injury of right foot, initial encounter (S99.681A) 3. Closed fracture of distal end of right fibula, unspecified fracture morphology, initial encounter (S82.357K) - Patient sustained an injury to the [...] further evaluation and management. and Recording using [employer] software for draft documentation of the visit was discussed with the patient/authorized warehouse representative; all questions welcomed and answered. Patient/authorized warehouse representative agreed to proceed History and Record [...] advised: Tylenol/Motrin Procedur (more content not included)... [facility] 12-18-2024 Note HNO ID: [id number] Author: TOOTIE GEORGE RT(R) Service: ? Author Type: It Operations Manager Type: Progress Notes Filed: 12/18/2024 11:12 Note [...] PATIENT PRESENTS WITH AN IMPLANTABLE OR ATTACHED DIETARY AIDE: No RADIOLOGY DEPARTMENT: General X-ray: Exam(s) Completed: Lower Extremity X-Ray(s): Ankle, Right and Foot, Right PERIPHERAL IV DATA: Not applicable SIGNED BY: RT Jimmy(R) December 18, 2024 11:11 AM [facility] 10-30-2024 Note Patient Outreach (FA MPWS) MARYWILLIAMS FLYNN ([id number]) 1955 F Date Time Provider Department 10/30/24 ROYCE ISLASPWS During your visit today, we recorded the following information about you: Allergies As of Date: 10/30/2024 (No Known Allergies) Date Reviewed: 11/16/2023 Reviewed by: Pratibha Doyle MA - Fully Assessed Visit Diagnosis:Encounter for screening mammogram for breast cancer [Z12.31] Order(s):AMANDA SCREENING W JJ [[id number]] Order #: [id number] FUTURE Prescriptions as of 11/30/2024 - levothyroxine (SYNTHROID) 75 mcg tablet TAKE 1 TABLET BY MOUTH 6 DAYS PER WEEK BEFORE BREAKFAST. TAKE 2 TABS ONE DAY OF THE WEEK - Rjjld-1-KRX-EPA-Fish Oil 1,000 mg (120 mg-180 mg) cap [...] Encounter Status:Closed by MAURA, PRODUSER on 11/30/24 [facility] 05-08-2024 Telephone encounter Note Please see pt message. Script pended. Pratibha Doyle MA [facility] 05-08-2024 Miscellaneous Notes Please see pt message. Script pended. Pratibha Doyle MA documented in this encounter [facility] 11-22-2023 Telephone encounter Note Patient has been [...] Please advise. Thank you. Ruddy Reyes LPN. [facility] 11-22-2023 Miscellaneous Notes Patient has been identified [...] Ruddy Reyes LPN. documented in this encounter [facility] 11-16-2023 Nurse Note Ambulatory Ear Lavage Pre-treatment: Warm water Treatment: Right ear Equipment and Irrigation solution and Volume used: Single use syringe with single use irrigation tip Water Return flow appearance: Brown Yellow Patient tolerated procedure: yes Tympanic membrane assessment: Tympanic membrane assessed by LIP pre and post procedure documented in this encounter [facility] 11-16-2023 History of Present illness Narrative Chief [...] Take 2 tablets one day per week. Vmtwb-2-AVF-EPA-Fish Oil 1,000 mg (120 mg-180 mg) cap [...] diet of 1000 mg/day for under 50, 5392-9174 mg/day for 50+ - Lung cancer screening [...] Lurdes Che APRN.CNP documented in this encounter [facility] 11-14-2023 Miscellaneous Notes Pt has not seen since 2021 needs appointment.t/c to pt to let her know of this was ok with booking appt. Booked with Lurdes on Tuesday. documented in this encounter [facility] 12-13-2022 Miscellaneous Notes Pt informed via [employer] message [employer] Rx changed to reflect the extra pill weekly/12 additional tablets per 90-day rx. The following approved medication requests have been transmitted electronically. Requested Prescriptions Signed Prescriptions Disp Refills levothyroxine (SYNTHROID) 75 mcg tablet 102 tablet 2 Sig: Take 1 tablet by mouth daily before breakfast, 6 days per week. Take 2 tablets one day per week. Lurdes Che APRN.CNP documented in this encounter [facility] 11-04-2022 History of Present illness Narrative Follow [...] of consciousness. Current Outpatient Medications Medication Sig Cours-3-AIS-EPA-Fish Oil (FISH OIL) 1,000 mg (120 mg-180 [...] medications for this visit. Physical Exam Vitals: [facility] 05/15/2010 Psych: Pleasant, good affect and mood [...] All questions answered. documented in this encounter [facility] 09-18-2022 Miscellaneous Notes Patient phones requesting refills as follows: Requested Prescriptions Pending Prescriptions Disp Refills levothyroxine (SYNTHROID) 75 mcg tablet 90 tablet 3 Sig: Take 1 tablet by mouth daily before breakfast. [facility] 02/03/22 NOV no upcoming appt noted Please review and advise. Angelita Willis LPN documented in this encounter [facility] 08-03-2022 Miscellaneous Notes Order was placed and faxed to number provided Addended by: ARIANNE YODER on: 08/03/2022 12:22 PM Modules accepted: Orders Fax to [phone], to: Gael documented in this encounter [facility] 08-03-2022 Miscellaneous Notes Message has been sent in another encounter Location where patient is getting PT done does not have an order. Provider please place order PSS please fax order to # [phone], to: Gael documented in this encounter [facility] 07-28-2022 History of Present illness Narrative Images [...] medications for this visit. Physical Exam Vitals: [facility] 05/15/2010 Psych: Pleasant, good affect and mood [...] All questions answered. documented in this encounter [facility] 07-13-2022 History of Past i llness Narrative Problem Noted Date Resolved Date Supraspinatus syndrome of right shoulder 022 07/13/2022 Bursitis of right shoulder 07/13/202207/13 Tendinitis of right shoulder 07/13/2022 documented as of this encounter (statuses as of 08/05/2022) [facility] History of Past illness Narrative* Problem Noted Date Resolved Date Supraspinatus syndrome of right shoulder 022 07/13/2022 Bursitis of right shoulder 07/13/202207/13 Tendinitis of right shoulder 07/13/2022 documented as of this encounter (statuses as of 08/05/2022) [facility] History of Past illness Narrative* Problem Noted Date Resolved Date Supraspinatus syndrome of right shoulder 022 07/13/2022 Bursitis of right shoulder 07/13/202207/13 Tendinitis of right shoulder 07/13/2022 documented as of this encounter (statuses as of 08/18/2022) [facility] History of Past illness Narrative* Problem Noted Date Resolved Date Supraspinatus syndrome of right shoulder 022 07/13/2022 Bursitis of right shoulder 07/13/202207/13 Tendinitis of right shoulder 07/13/2022 documented as of this encounter (statuses as of 09/20/2022) [facility] History of Past illness Narrative* Problem Noted Date Resolved Date Supraspinatus syndrome of right shoulder 022 07/13/2022 Bursitis of right shoulder 07/13/202207/13 Tendinitis of right shoulder 07/13/2022 documented as of this encounter (statuses as of 11/04/2022) [facility] History of Past illness Narrative* Problem Noted Date Resolved Date Supraspinatus syndrome of right shoulder 022 07/13/2022 Bursitis of right shoulder 07/13/202207/13 Tendinitis of right shoulder 07/13/2022 documented as of this encounter (statuses as of 12/13/2022) [facility] History of Past illness Narrative* Problem Noted Date Resolved Date Supraspinatus syndrome of right shoulder 022 07/13/2022 Bursitis of right shoulder 07/13/202207/13 Tendinitis of right shoulder 07/13/2022 documented as of this encounter (statuses as of 12/14/2022) [facility] History of Past illness Narrative* Problem Noted Date Diagnosed Date Resolved Date Supraspinatus syndrome of right shoulder 07/13/2022 07/13/2022 Bursitis of right shoulder 07/13/2022 1 09/13/2021 Tendinitis of right shoulder 07/13/2022 07/13/2022 documented as of this encounter (statuses as of 11/11/2023) [facility] History of Past illness Narrative* Problem Noted Date Diagnosed Date Resolved Date Supraspinatus syndrome of right shoulder 07/13/2022 07/13/2022 Bursitis of right shoulder 07/13/2022 1 09/13/2021 Tendinitis of right shoulder 07/13/2022 07/13/2022 documented as of this encounter (statuses as of 11/14/2023) [facility] History of Past illness Narrative* Problem Noted Date Diagnosed Date Resolved Date Supraspinatus syndrome of right shoulder 07/13/2022 07/13/2022 Bursitis of right shoulder 07/13/2022 1 09/13/2021 Tendinitis of right shoulder 07/13/2022 07/13/2022 documented as of this encounter (statuses as of 11/16/2023) [facility] NoteHNO ID: [id number] Author: Sapna Fernandez APRN.FIRST OFFICER Service: Anesthesiology Author Type: Nurse Technical Support Coordinator Type: Anesthesia Procedure Notes Filed: 07/13/2022 10:35 AM Note Text: ANESTHESIOLOGY PROCEDURE NOTE Airway General Information Procedure Start Time/Medication Administration: 07/13/2022 10:13 AM Patient location during procedure: OR Timeout Performed Pre-procedure: timeout performed Consent Obtained: Yes 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 [facility] History of Present illness Narrative* RT Irais(R) [...] 07, 2022 3:00 PM [facility] Miscellaneous Notes* Telephone Encounter - Lurdes Che APRN.CNP - 05/06/2022 1:10 PM EDT New order placed. Lurdes Che APRN.CNP * Telephone Encounter - Wyatt Valiente RN - 05/06/2022 12:31 PM EDT [facility], reports they received the message from pcp stating okay for order to beMRI without contrast (see previous encounter), but they need the actual order to be entered into epic. Asking provider to please enter the order for MRI without contrast. MRI is scheduled for tomorrow. [facility] Miscellaneous Notes* Telephone Encounter - Kyleigh Che - 04/30/2022 11:07 AM EDT Patient is scheduled at [facility] on 05/07/2022. * Telephone Encounter - Lurdes Che APRN.CNP - 04/30/2022 9:53 AM EDT MRI order placed, please assist her to schedule appointment. Lurdes Che APRN.CNP * Telephone Encounter - Aleja Duenas MA - 04/29/2022 2:06 PM EDT Received [facility] therapist recommendations via fax. Will place on provider's desk for review. Aleja Duenas MA * Telephone Encounter - Aleja Duenas MA - 04/28/2022 10:07 AM EDT Per message 04/26 Spoke to patient. OT at [facility] Therapy recommended an MRI to be completed on patient's RIGHT shoulderd/t possible torn rotator cuff. Patient states she completed therapy this AM & therapist would fax recommendation to PCP office. Will wait for fax. Aleja Duenas MA [facility] History of Present illness Narrative* Rosy Brynat, RT(R) - 02/03/2022 8:10 AM EDT Radiology [...] 03, 2022 8:11 AM [facility] Instructions* Patient Instructions* Lurdes Che APRN.CNP - 02/03/2022 8:02 AM EDT Schedule with PT. Have your xrays completed today. Start your steroid either today or tomorrow. Make sure you have a little bit of something in your stomach when you take it. Ice. Rest. [facility] History of Present illness Narrative* Lurdes Che [...] the future if necessary. - XR SHOULDER [id number] AP/TRUE AP RIGHT - XR CERV OTHER 4V AP/LAT/OBL - PREDNISONE 10 MG TABLET - CONSULT TO PHYSICAL THERAPY Lurdes Che APRN.TERRENCE [facility] Miscellaneous Notes* Telephone Encounter - Ruddy Reyes [...] office. Ruddy Reyes LPN [facility] Miscellaneous Notes* Telephone Encounter - Kristen Del Rio LPN - 10/29/2021 8:14 AM EDT Patient phones requesting refills as follows: Pending Prescriptions Disp Refills CYCLOBENZAPRINE 10 MG TABLET 30 tablet 3 Sig: Take 1 tablet by mouth at bedtime as needed for muscle spasm. CURLY: No [facility]-01/27/21 Labs-09/28/21 NOV-none med filled 03/19/20 Please review and advise. Kristen Del Rio LPN [facility] Miscellaneous Notes* Telephone Encounter - Kristen Del Rio LPN - 10/29/2021 8:14 AM EDT Patient phones requesting refills as follows: Pending Prescriptions Disp Refills LEVOTHYROXINE 75 MCG TABLET 90 tablet 3 Sig: Take 1 tablet by mouth daily before breakfast. CURLY: No CONTRERAS-01/27/21 Labs-09/28/21 NOV-none med filled 11/17/20 Please review and advise. Kristen Del Rio LPN [facility] Diagnosis Neck pain of over 3 months duration Paresthesias in right hand Disturbance of skin sensation Muscle spasm Spasm of muscle [facility] Diagnosis Encounter for screening mammogram for breast cancer [facility] Diagnosis Acute pain of right shoulder- Primary [facility]* Diagnosis Neck pain of over 3 [...] Spasm of muscle [facility] Diagnosis Neck pain of over 3 months duration Acute pain of right shoulder Paresthesias in right hand Disturbance of skin sensation Disorder of right rotator cuff Disorders of bursae and tendons in shoulder region, unspecified Supraspinatus syndrome of right shoulder Muscle spasm Spasm of muscle [facility] Diagnosis Bursitis of right shoulder- Primary [...] of skin sensation [facility] Diagnosis Disorder of right rotator cuff- [...] shoulder region, unspecified [facility] Diagnosis S/P rotator cuff surgery- Primary Other postprocedural status [facility] Diagnosis Disorder of right rotator cuff- Primary Disorders of bursae and tendons in shoulder region, unspecified S/P shoulder surgery Other postprocedural status [facility] Diagnosis S/P rotator cuff surgery- Primary Other postprocedural status S/P shoulder surgery Other postprocedural status Disorder of right rotator cuff Disorders of bursae and tendons in shoulder region, unspecified Bursitis of right shoulder Disorders of bursae and tendons in shoulder region, unspecified [facility]* Diagnosis Encounter for screening mammogram for breast cancer documented in this encounter [facility] note* Diagnosis Well adult exam- Primary Routine general medical examination at a health care facility Hypothyroidism, unspecified type Hypercholesterolemia Pure hypercholesterolemia IFG (impaired fasting glucose) Impaired fasting glucose documented in this encounter [facility] note* Diagnosis Encounter for screening mammogram for breast cancer documented in this encounter [facility] note* Diagnosis Acute pain of right shoulder Pre-op evaluation- Primary Preoperative examination, unspecified Hypercholesteremia Pure hypercholesterolemia Hypothyroidism, unspecified type Smoker Tobacco use disorder Obesity (BMI 30-39.9) Obesity, unspecified documented in this encounter [facility] note* Diagnosis Pre-op evaluation- Primary Preoperative examination, unspecified Hypercholesteremia Pure hypercholesterolemia Hypothyroidism, unspecified type Smoker Tobacco use disorder Obesity (BMI 30-39.9) Obesity, unspecified Encounter for screening mammogram for breast cancer documented in this encounter [facility] note* Diagnosis Pre-op evaluation- Primary Preoperative examination, unspecified Hypercholesteremia Pure hypercholesterolemia Hypothyroidism, unspecified type Smoker Tobacco use disorder Obesity (BMI 30-39.9) Obesity, unspecified Closed fracture of distal end of right fibula, unspecified fracture morphology, initial encounter documented in this encounter [facility] note* Diagnosis Pre-op evaluation- Primary Preoperative examination, unspecified Hypercholesteremia Pure hypercholesterolemia Hypothyroidism, unspecified type Smoker Tobacco use disorder Obesity (BMI 30-39.9) Obesity, unspecified Closed fracture of distal end of right fibula, unspecified fracture morphology, initial encounter- Primary documented in this encounter [facility] note* Diagnosis Pre-op evaluation- Primary Preoperative examination, unspecified Hypercholesteremia Pure hypercholesterolemia Hypothyroidism, unspecified type Smoker Tobacco use disorder Obesity (BMI 30-39.9) Obesity, unspecified Closed fracture of distal end of right fibula, unspecified fracture morphology- Primary documented in this encounter [facility] note* Diagnosis Pre-op evaluation- Primary Preoperative examination, unspecified Hypercholesteremia Pure hypercholesterolemia Hypothyroidism, unspecified type Smoker Tobacco use disorder Obesity (BMI 30-39.9) Obesity, unspecified Closed fracture of distal end of right fibula, unspecified fracture morphology, initial encounter documented in this encounter [facility] note* Diagnosis Pre-op evaluation- Primary Preoperative examination, unspecified Hypercholesteremia Pure hypercholesterolemia Hypothyroidism, unspecified type Smoker Tobacco use disorder Obesity (BMI 30-39.9) Obesity, unspecified Closed fracture of distal end of right fibula, unspecified fracture morphology- Primary documented in this encounter [facility] note* Diagnosis Pre-op evaluation- Primary Preoperative examination, unspecified Hypercholesteremia Pure hypercholesterolemia Hypothyroidism, unspecified type Smoker Tobacco use disorder Obesity (BMI 30-39.9) Obesity, unspecified Closed fracture of distal end of right fibula, unspecified fracture morphology, initial encounter documented in this encounter [facility] note* Diagnosis Pre-op evaluation- Primary Preoperative examination, unspecified Hypercholesteremia Pure hypercholesterolemia Hypothyroidism, unspecified type Smoker Tobacco use disorder Obesity (BMI 30-39.9) Obesity, unspecified Closed fracture of distal end of right fibula, unspecified fracture morphology, initial encounter- Primary documented in this encounter [facility] note* Diagnosis Pre-op evaluation- Primary Preoperative [...] of gastrointestinal tract documented in this encounter [facility] for referral (narrative)* Diagnostic Procedure Only (Routine) - Pending Review Specialty Diagnoses / Procedures Referred By Ximena t Referred To Contact [facility] Diagnoses Encounter for screening mammogram for breast cancer Procedures AMANDA SCREENING SCREENING MAMMOGRAPHY BI 2-VIEW BREAST INC CAD Royce Islas L, DO [address] [place] [address] [facility] [address] [place] [address] Referral ID Status Reason Start Date Expiration Date Visits Requested Visits Authorized [id number] Pending Review Auto-Generat ed Referral 01/06/2022 02/05/2023 1 1 [facility] for referral (narrative)* Diagnostic Procedure Only (Routine) - Pending Review Specialty Diagnoses / Procedures Referred By Liliac t Referred To Contact [facility] Diagnoses Encounter for screening mammogram for breast cancer Procedures AMANDA SCREENING SCREENING MAMMOGRAPHY BI 2-VIEW BREAST INC CAD Royce Islas, DO [address] [place] [address] [facility] [address] [place] [address] Referral ID Status Reason Start Date Expiration Date Visits Requested Visits Authorized [id number] Pending Review Auto-Generat ed Referral 12/08/2022 01/07/2024 1 1 [facility] for referral (narrative)* Diagnostic Procedure Only (Routine) - Pending Review Specialty Diagnoses / Procedures Referred By Ximena t Referred To Contact [facility] Diagnoses Encounter for screening mammogram for breast cancer Procedures AMANDA SCREENING SCREENING MAMMOGRAPHY BI 2-VIEW BREAST INC CAD Royce Islas, DO [address] [place] [address] [facility] [address] [place] [phone] Referral ID Status Reason Start Date Expiration Date Visits Requested Visits Authorized [id number] Pending Review Auto-Generat ed Referral 11/30/2023 12/29/2024 1 1 [facility] for referral (narrative)* Diagnostic Procedure Only (Routine) - Closed Specialty Diagnoses / Procedures Referred By Liliac t Referred To Contact [facility] Diagnoses Acute pain of right shoulder Procedures XR CERV OTHER 4V AP/LAT/OBL RADEX SPINE CERVICAL 4 OR 5 VIEWS Lurdes Che APRN.DOWEL 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 [address] [place] [address] [place] [address] Referral ID Status Reason Start Date Expiration Date V isits Requested Visits Authorized [id number] Closed Auto-Generate d Referral 02/03/2022 03/05/2023 1 1 * Diagnostic Procedure Only (Routine) - Closed Specialty Diagnoses / Procedures Referred By Contac t Referred To Contact [facility] Diagnoses Acute pain of right shoulder Procedures XR SHOULDER [id number] AP/TRUE AP RIGHT RADEX SHOULDER COMPLETE MINIMUM 2 VIEWS Lurdes Che APRN.DOWEL 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 [address] [place] [address] [place] [address] Referral ID Status Reason Start Date Expiration Date V isits Requested Visits Authorized [id number] Closed Auto-Generate d Referral 02/03/2022 03/05/2023 1 1 [facility] for visit Narrative* Diagnostic Procedure Only (Routine) - Closed Specialty Diagnoses / Procedures Referred By Contac t Referred To Contact [facility] IMAG[facility] Diagnoses Acute pain of right shoulder Procedures XR SHOULDER [id number] AP/TRUE AP RIGHT RADEX SHOULDER COMPLETE MINIMUM 2 VIEWS Lurdes Che APRN.DOWEL 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 [address] [place] [address] [place] [address] Referral ID Status Reason Start Date Expiration Date V isits Requested Visits Authorized [id number] Closed Auto-Generate d Referral 02/03/2022 03/05/2023 1 1 [facility] for visit Narrative* Diagnostic Procedure Only (Routine) - Closed Specialty Diagnoses / Procedures Referred By Contac t Referred To Contact [facility]AG[facility] Diagnoses Closed fracture of distal end of right fibula, unspecified fracture morphology, initial encounter Procedures XR ANKLE GENERAL 3V AP/LAT/OBL RIGHT RADEX ANKLE COMPLETE MINIMUM 3 VIEWS Dean Kimble V, DO [address] [place] [address] Phone: tel: fax: [place] [address] Referral ID Status Reason Start Date Expiration Date V isits Requested Visits Authorized [id number] Closed Auto-Generate d Referral 01/02/2025 02/01/2026 1 [...] 3 VIEWS Dean Kimble V, DO [address] [place] [address] Phone: tel: fax: [place] [address] Referral ID Status Reason Start Date Expiration Date V isits Requested Visits Authorized [id number] Closed Auto-Generate d Referral 01/28/2025 02/27/2026 1 1 [facility] Summary Purpose Family History No Family History Records FoundNo Family History Records FoundNo Family History Records FoundNo Family History Records Found Advance Directives No Advanced Directives Records FoundDocuments on File Type Date Recorded 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 Advance Directive(s) 07/10/2018 2:43 PM Advance Directive(s) 12/20/2016 6:54 PM Documents on File Type Date Recorded 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 Advance Directive(s) 07/10/2018 2:43 PM Advance Directive(s) 12/20/2016 6:54 PM Reason for Referral Specialty Diagnoses / Procedures Referred By Ximena romero Referred To Contact [facility] Diagnoses Acute pain of right shoulder Procedures CONSULT TO PHYSICAL THERAPY PHYSICAL THERAPY EVALUATION HIGH COMPLEX 45 MINS Lurdes Che, MIRYAM.DOWEL 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 [address] [place] [address] [facility] [address] [place] [address] Referral ID Status Reason Start Date Expiration Date Visits Requested Visits Authorized [id number] Pending Review Auto-Generat ed Referral 02/03/2022 02/03/2023 1 1 Specialty Diagnoses / Procedures Referred By Ximena t Referred To Contact X[facility] IMAG[facility] Diagnoses Acute pain of right shoulder Procedures XR CERV OTHER 4V AP/LAT/OBL RADEX SPINE CERVICAL 4 OR 5 VIEWS Lurdes Ceh, MIRYAM.DOWEL 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 [address] [place] [address] [facility] Referral ID Status Reason Start Date Expiration Date V isits Requested Visits Authorized [id number] Closed Auto-Generate d Referral 02/03/2022 03/05/2023 1 1 Specialty Diagnoses / Procedures Referred By Contac t Referred To Contact [facility] Diagnoses Acute pain of right shoulder Procedures XR SHOULDER [id number] AP/TRUE AP RIGHT RADEX SHOULDER COMPLETE MINIMUM 2 VIEWS YaneLurdes duarte, MIRYAM.DOWEL 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 [address] [place] [address] [facility] Referral ID Status Reason Start Date Expiration Date V isits Requested Visits Authorized [id number] Closed Auto-Generate d Referral 02/03/2022 03/05/2023 1 [...] EXTREMITY W/O & W/CONTR Royce Mckeon, DO [address] [place] [address] [facility] Referral ID Status Reason Start Date Expiration Date Visits Requested Visits Authorized [id number] Authorized Auto-Generat ed Referral 04/30/2022 05/30/2023 1 [...] EXTREMITY W/O CONTRAST Royce Mckeon L, DO [address] [place] [address] Mr Imaging Referral ID Status Reason Start Date Expiration Date Visits Requested Visits Authorized [id number] Pending Review Auto-Generat ed Referral 05/06/2022 06/05/2023 1 1 Referral ID Status Reason Start Date Expiration Date V isits Requested Visits Authorized [id number] Closed Auto-Generate d Referral 05/06/2022 06/05/2023 1 1 Specialty Diagnoses / Procedures Referred By Contac t Referred To Contact [facility] Diagnoses S/P rotator cuff surgery Procedures CONSULT TO PHYSICAL THERAPY PHYSICAL THERAPY EVALUATION HIGH COMPLEX 45 MINS Arianne Yoder PA-C [address] [place] [address] [facility] [address] [place] [address] Referral ID Status Reason Start Date Expiration Date Visits Requested Visits Authorized [id number] Pending Review Auto-Generat ed Referral 08/03/2022 08/03/2023 1 1 Additional Source Comments INFORMATION SOURCE (unrecogn ized section and content) DATE CREATED AUTHOR 09/19/2021 [facility] DATE CREATED AUTHOR AUTHOR'S ORGANIZ ATION 07/14/2022 [facility] DATE CREATED AUTHOR AUTHOR'S ORGANIZ ATION 12/02/2022 [facility] DATE CREATED AUTHOR AUTHOR'S ORGANIZ ATION 03/16/2025 [facility] Source Comments (unrecognize d section and content) In the event this informatio n is protected by the Federal Confidentiality of Alcohol and Drug Abuse Patient Records regulations: The Federal rules restrict any use of the information to criminally investigate or prosecute any alcohol or drug abuse patient.[facility] the event this information is protected by the Federal Confidentiality of Alcohol and Drug Abuse Patient Records regulations: The Federal rules restrict any use of the information to criminally investigate or prosecute any alcohol or drug abuse patient.[facility] the event this information is protected by the Federal Confidentiality of Alcohol and Drug Abuse Patient Records regulations: The Federal rules restrict any use of the information to criminally investigate or prosecute any alcohol or drug abuse patient.[facility] the event this information is protected by the Federal Confidentiality of Alcohol and Drug Abuse Patient Records regulations: The Federal rules restrict any use of the information to criminally investigate or prosecute any alcohol or drug abuse patient.[facility] the event this information is protected by the Federal Confidentiality of Alcohol and Drug Abuse Patient Records regulations: The Federal rules restrict any use of the information to criminally investigate or prosecute any alcohol or drug abuse patient.[facility] the event this information is protected by the Federal Confidentiality of Alcohol and Drug Abuse Patient Records regulations: The Federal rules restrict any use of the information to criminally investigate or prosecute any alcohol or drug abuse patient.[facility] the event this information is protected by the Federal Confidentiality of Alcohol and Drug Abuse Patient Records regulations: The Federal rules restrict any use of the information to criminally investigate or prosecute any alcohol or drug abuse patient.[facility] the event this information is protected by the Federal Confidentiality of Alcohol and Drug Abuse Patient Records regulations: The Federal rules restrict any use of the information to criminally investigate or prosecute any alcohol or drug abuse patient.[facility] the event this information is protected by the Federal Confidentiality of Alcohol and Drug Abuse Patient Records regulations: The Federal rules restrict any use of the information to criminally investigate or prosecute any alcohol or drug abuse patient.[facility] the event this information is protected by the Federal Confidentiality of Alcohol and Drug Abuse Patient Records regulations: The Federal rules restrict any use of the information to criminally investigate or prosecute any alcohol or drug abuse patient.[facility] the event this information is protected by the Federal Confidentiality of Alcohol and Drug Abuse Patient Records regulations: The Federal rules restrict any use of the information to criminally investigate or prosecute any alcohol or drug abuse patient.[facility] the event this information is protected by the Federal Confidentiality of Alcohol and Drug Abuse Patient Records regulations: The Federal rules restrict any use of the information to criminally investigate or prosecute any alcohol or drug abuse patient.[facility] the event this information is protected by the Federal Confidentiality of Alcohol and Drug Abuse Patient Records regulations: The Federal rules restrict any use of the information to criminally investigate or prosecute any alcohol or drug abuse patient.[facility] the event this information is protected by the Federal Confidentiality of Alcohol and Drug Abuse Patient Records regulations: The Federal rules restrict any use of the information to criminally investigate or prosecute any alcohol or drug abuse patient.[facility] the event this information is protected by the Federal Confidentiality of Alcohol and Drug Abuse Patient Records regulations: The Federal rules restrict any use of the information to criminally investigate or prosecute any alcohol or drug abuse patient.[facility] the event this information is protected by the Federal Confidentiality of Alcohol and Drug Abuse Patient Records regulations: The Federal rules restrict any use of the information to criminally investigate or prosecute any alcohol or drug abuse patient.[facility] the event this information is protected by the Federal Confidentiality of Alcohol and Drug Abuse Patient Records regulations: The Federal rules restrict any use of the information to criminally investigate or prosecute any alcohol or drug abuse patient.[facility] the event this information is protected by the Federal Confidentiality of Alcohol and Drug Abuse Patient Records regulations: The Federal rules restrict any use of the information to criminally investigate or prosecute any alcohol or drug abuse patient.[facility] the event this information is protected by the Federal Confidentiality of Alcohol and Drug Abuse Patient Records regulations: The Federal rules restrict any use of the information to criminally investigate or prosecute any alcohol or drug abuse patient.[facility] HospitalIn the event this information is protected by the Federal Confidentiality of Alcohol and Drug Abuse Patient Records regulations: The Federal rules restrict any use of the information to criminally investigate or prosecute any alcohol or drug abuse patient.[facility] HospitalIn the event this information is protected by the Federal Confidentiality of Alcohol and Drug Abuse Patient Records regulations: The Federal rules restrict any use of the information to criminally investigate or prosecute any alcohol or drug abuse patient.[facility] Hospital[facility] the event this information is protected by the Federal Confidentiality of Alcohol and Drug Abuse Patient Records regulations: The Federal rules restrict any use of the information to criminally investigate or prosecute any alcohol or drug abuse patient.[facility] HospitalIn the event this information is protected by the Federal Confidentiality of Alcohol and Drug Abuse Patient Records regulations: The Federal rules restrict any use of the information to criminally investigate or prosecute any alcohol or drug abuse patient.[facility] Hospital[facility] the event this information is protected by the Federal Confidentiality of Alcohol and Drug Abuse Patient Records regulations: The Federal rules restrict any use of the information to criminally investigate or prosecute any alcohol or drug abuse patient.[facility] the event this information is protected by the Federal Confidentiality of Alcohol and Drug Abuse Patient Records regulations: The Federal rules restrict any use of the information to criminally investigate or prosecute any alcohol or drug abuse patient.[facility] Hospital[facility] the event this information is protected by the Federal Confidentiality of Alcohol and Drug Abuse Patient Records regulations: The Federal rules restrict any use of the information to criminally investigate or prosecute any alcohol or drug abuse patient.[facility] the event this information is protected by the Federal Confidentiality of Alcohol and Drug Abuse Patient Records regulations: The Federal rules restrict any use of the information to criminally investigate or prosecute any alcohol or drug abuse patient.[facility]In the event this information is protected by the Federal Confidentiality of Alcohol and Drug Abuse Patient Records regulations: The Federal rules restrict any use of the information to criminally investigate or prosecute any alcohol or drug abuse patient.[facility] HospitalIn the event this information is protected by the Federal Confidentiality of Alcohol and Drug Abuse Patient Records regulations: The Federal rules restrict any use of the information to criminally investigate or prosecute any alcohol or drug abuse patient.[facility]In the event this information is protected by the Federal Confidentiality of Alcohol and Drug Abuse Patient Records regulations: The Federal rules restrict any use of the information to criminally investigate or prosecute any alcohol or drug abuse patient.[facility]In the event this information is protected by the Federal Confidentiality of Alcohol and Drug Abuse Patient Records regulations: The Federal rules restrict any use of the information to criminally investigate or prosecute any alcohol or drug abuse patient.[facility] HospitalIn the event this information is protected by the Federal Confidentiality of Alcohol and Drug Abuse Patient Records regulations: The Federal rules restrict any use of the information to criminally investigate or prosecute any alcohol or drug abuse patient.[facility] HospitalIn the event this information is protected by the Federal Confidentiality of Alcohol and Drug Abuse Patient Records regulations: The Federal rules restrict any use of the information to criminally investigate or prosecute any alcohol or drug abuse patient.[facility]In the event this information is protected by the Federal Confidentiality of Alcohol and Drug Abuse Patient Records regulations: The Federal rules restrict any use of the information to criminally investigate or prosecute any alcohol or drug abuse patient.[facility] HospitalIn the event this information is protected by the Federal Confidentiality of Alcohol and Drug Abuse Patient Records regulations: The Federal rules restrict any use of the information to criminally investigate or prosecute any alcohol or drug abuse patient.[facility] HospitalIn the event this information is protected by the Federal Confidentiality of Alcohol and Drug Abuse Patient Records regulations: The Federal rules restrict any use of the information to criminally investigate or prosecute any alcohol or drug abuse patient.[facility] Reason for Visit (unrecogniz ed section and [...] EXTREMITY W/O CONTRAST MATRL Royce Islas, DO [address] [place] [address] Mr Imaging Referral ID Status Reason Start Date Expiration Date V isits Requested Visits Authorized [id number] Closed Auto-Generate d Referral 05/06/2022 06/05/2023 1 1 Reason Comments New Pain Specialty Diagnoses / Procedures Referred By Contac t Referred To Contact Orthopedics Diagnoses Paresthesias in right hand Disorder of right 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 Procedures CONSULT TO ORTHOPAEDICS OFFICE/OUTPATIENT [facility] 60-74 MINUTES Lurdes Che APRN.DOWEL 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 [address] [place] [address] Referral ID Status Reason Start Date Expiration Date V isits Requested Visits Authorized [id number] Closed PCP Requested Referral 05/10/2022 05/10/2023 1 [...] encounter Procedures CONSULT PANEL TO ORTHOPAEDICS OFFICE/OUTPATIENT [facility]3] 60 MINUTES Jay Jay Vyas, PA [address] [place] [address] Phone: tel: fax: Referral ID Status Reason Start Date Expiration Date V isits Requested Visits Authorized [id number] Closed PCP Requested Referral 12/18/2024 12/18/2025 1 1 Reason Comments right ankle Reason Comments Right ankle fracture Reason Onset Date Comments Refill Request 02/23/2025 Reason Comments Medicare Wellness Exam Care Teams (unrecognized sec tion and content) Machinist Bench Relationship Specialty Start Date End Date Royce Islas, DO [address] [place], [place] [address] PCP - General Family Practice 08/15/12 Machinist Bench Relationship Specialty Start Date End Date Royce Islas, DO [address] [place] [address] PCP - General Family Practice 08/15/12 Machinist Bench Relationship Specialty Start Date End Date Royce Islas, DO [address] [place] [address] PCP - General Family Practice 08/15/12 Machinist Bench Relationship Specialty Start Date End Date Royce Islas, DO [address] [place] [address] PCP - General Family Practice 08/15/12 Machinist Bench Relationship Specialty Start Date End Date Royce Islas, DO [address] [place] [address] PCP - General Family Practice 08/15/12 Machinist Bench Relationship Specialty Start Date End Date Royce Islas, DO [address] [place] [address] PCP - General Family Medicine 08/15/12 Machinist Bench Relationship Specialty Start Date End Date Royce Islas, DO [address] [place] [address] PCP - General Family Medicine 08/15/12 Machinist Bench Relationship Specialty Start Date End Date Royce Islas, DO [address] [place] [address] PCP - General Family Medicine 08/15/12 Machinist Bench Relationship Specialty Start Date End Date Royce Islas, DO [address] [place] [address] PCP - General Family Medicine 08/15/12 Machinist Bench Relationship Specialty Start Date End Date Royce Islas, DO [address] [place] [address] PCP - General Family Medicine 08/15/12 Machinist Bench Relationship Specialty Start Date End Date Royce Islas DO [address] [place] [address] PCP - General Family Medicine 08/15/12 Machinist Bench Relationship Specialty Start Date End Date Royce Islas DO [address] [place] [address] PCP - General Family Medicine 08/15/12 Machinist Bench Relationship Specialty Start Date End Date Royce Islas DO [address] [place] [address] PCP - General Family Medicine 08/15/12 Machinist Bench Relationship Specialty Start Date End Date Royce Islas DO [address] [place] [address] PCP - General Family Medicine 08/15/12 Machinist Bench Relationship Specialty Start Date End Date Royce Islas DO [address] [place] [address] PCP - General Family Medicine 08/15/12 Machinist Bench Relationship Specialty Start Date End Date Royce Islas DO [address] [place] [address] PCP - General Family Medicine 08/15/12 Machinist Bench Relationship Specialty Start Date End Date Royce Islas DO [address] [place] [address] PCP - General Family Medicine 08/15/12 Machinist Bench Relationship Specialty Start Date End Date Royce Islas DO [address] [place] [address] PCP - General Family Medicine 08/15/12 Machinist Bench Relationship Specialty Start Date End Date Royce Islas DO [address] [place] [address] PCP - General Family Medicine 08/15/12 Machinist Bench Relationship Specialty Start Date End Date Royce Islas DO [address] [place] [address] PCP - General Family Medicine 08/15/12 Machinist Bench Relationship Specialty Start Date End Date Royce Islas DO [address] [place] [address] PCP - General Family Medicine 08/15/12 Machinist Bench Relationship Specialty Start Date End Date Royce Islas DO [address] [place] [address] PCP - General Family Medicine 08/15/12 Lurdes Che, CHIMNEY BUILDER BRICK.DOWEL 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 [address] [place] [address] Technical Architect [facility] 07/08/24 Machinist Bench Relationship Specialty Start Date End Date Royce Islas DO [address] [place] [address] PCP - General Family Medicine 08/15/12 YaneLurdes, CHIMNEY BUILDER BRICK.DOWEL 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 [address] [place] [address] Technical Architect Family [facility] 07/08/24 Machinist Bench Relationship Specialty Start Date End Date Royce Islas DO [address] [place] [address] PCP - General Family Medicine 08/15/12 [facility], CHIMNEY BUILDER BRICK.DOWEL 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 [address] [place] [address] Technical Architect Family Medicine 07/08/24 Machinist Bench Relationship Specialty Start Date End Date Royce Islas, [address] [place] [address] PCP - General Family Medicine 08/15/12 [facility] CHIMNEY BUILDER BRICK.DOWEL 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 [address] [place] [address] Technical Architect Family [facility] 07/08/24 Machinist Bench Relationship Specialty Start Date End Date Royce Islas, [address] [place] [address] PCP - General Family Medicine 08/15/12 [facility], CHIMNEY BUILDER BRICK.DOWEL 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 [address] [place] [address] Technical Architect Family Medicine 07/08/24 Machinist Bench Relationship Specialty Start Date End Date Royce Islas, [address] [place] [address] PCP - General Family Medicine 08/15/12 [facility] Lurdes, CHIMNEY BUILDER BRICK.DOWEL 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 [address] [place] [address] Technical Architect Family Medicine 07/08/24 Aileen Ayala, CHIMNEY BUILDER BRICK.DOWEL 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 [address] [place] [address] Technical Architect Family [facility] 01/14/25 Machinist Bench Relationship Specialty Start Date End Date Royce Islas DO [address] [place] [address] PCP - General Family Medicine 08/15/12 Lurdes Che, CHIMNEY BUILDER BRICK.DOWEL 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 [address] [place] [address] Technical Architect Family Medicine 07/08/24 Aileen Ayala, CHIMNEY BUILDER BRICK.DOWEL 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 [address] [place] [address] Technical Architect Family Medicine 01/14/25 Machinist Bench Relationship Specialty Start Date End Date Royce Islas DO [address] [place] [address] PCP - General Family Medicine 08/15/12 YaneLurdes, CHIMNEY BUILDER BRICK.DOWEL 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 [address] [place] [address] Technical Architect Family Medicine 07/08/24 Aileen Ayala, CHIMNEY BUILDER BRICK.DOWEL 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 [address] [place] [address] Technical Architect Family Medicine 01/14/25 Machinist Bench Relationship Specialty Start Date End Date Royce Islas DO [address] [place] [address] PCP - General Family Medicine 08/15/12 Lurdes Che, CHIMNEY BUILDER BRICK.DOWEL 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 [address] [place] [address] Technical Architect Family Medicine 07/08/24 Aileen Ayala, CHIMNEY BUILDER BRICK.DOWEL 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 [address] [place] [address] [facility] 01/14/25 Machinist Bench Relationship Specialty Start Date End Date Royce Islas DO [address] [place] [address] PCP - General Family Medicine 08/15/12 YaneLurdes, CHIMNEY BUILDER BRICK.DOWEL 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 [address] [place] [address] [facility] 07/08/24 Aileen Ayala APRN.DOWEL 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 [address] [place] [address] [facility] 01/14/25 Machinist Bench Relationship Specialty Start Date End Date Royce Islas DO [address] [place] [address] PCP - General [facility] Medicine 08/15/12 Lurdes Che, CHIMNEY BUILDER BRICK.DOWEL 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 [address] [place] [address] [facility] 07/08/24 Aileen Ayala APRN.DOWEL 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 [address] [place] [address] [facility] 01/14/25 FOR RECORDS PERTAINING TO PATIENTS [...] BE BASED ON THE PRIMARY CLINICAL RECORDS. [facility] [employer] [facility]. provides no warranty or guarantee of the accuracy or completeness of information in this document.
[2025-04-12] MEDS: 0.9% Normal Saline (1000mL) 1,000 ML 125 ML IV ×2 (09:24→16:31)
[2025-04-12 09:41] LABS: AST(SGOT) 20 U/L (<=31); Alanine Aminotransfer ALT/SGPT 12 U/L (<=34); Albumin, Serum 4.4 g/dL (3.4-4.8); Alkaline Phosphatase 75 U/L (35-104); Bilirubin, Direct 0.18 mg/dL (0.00-0.30); Globulin 3.3 g/dL (2.2-4.2)
--- NOTE | 2025-04-12 10:10 | CON.PCM.HO_ITS ---
Assessment & Plan Assessment/Plan (1) Uncontrolled hypertension: (2) Morbid obesity: PLAN: Plan Uncontrolled hypertension - Patient's blood pressure was markedly elevated on presentation - Start scheduled labetalol 20 mg every 6 hours scheduled - Start as needed hydralazine for systolic blood pressure greater than 150 and diastolic blood pressure greater 100 - TSH is within normal limits - UA does show some mild proteinuria and glucosuria - Highly suspect patient may have untreated sleep apnea which could contribute to uncontrolled hypertension and would recommend polysomnography after discharge - Once patient is cleared for oral diet and tolerating well will likely need transitioned to oral antihypertensives with scripts at discharge - Close follow-up with outpatient primary care physician and may need to consider echocardiogram as an outpatient no need for acute inpatient echo Hyperglycemia - Blood sugar on presentation was 137 - Check A1c - Patient does not appear to have a history of diabetes - If is diabetic or has insulin resistance will benefit from MIKI inhibitor to treat blood pressure Hypothyroidism - TSH is within normal limits - Continue home levothyroxine Morbid obesity - BMI is 40.3 - Patient desatted with sleep so do suspect she has a component of obstructive sleep apnea - Recommend weight loss - Complicates treatment, prognosis, outcomes Acute cholecystitis - Postop day [address] Sanchez - Management per primary service DVT prophylaxis - Per primary service HPI Consult Data Date of Consult: 04/12/25 HPI Narrative Reason for Consultation: Hypertension HPI Narrative: WILLIAMS ANDERSON, is a 69 F who presented to the emergency department [facility] on 04/12/2025 with acute onset abdominal pain that started about 5:00 in the evening yesterday. Patient reported that she was driving when the pain occurred and then reported epigastric pain that migrated to her right upper quadrant. She had some associated nausea and chills but no fever. She never had anything like this previously. Vital signs on presentation were unremarkable other than blood pressure of 179/104 that was persistently elevated in the emergency department. CBC and CMP were unremarkable. Initial CT images showed mild thickening of the gallbladder wall and evidence of some gastritis with a fat-containing umbilical hernia. Ultrasound was performed and ultimately confirmed gallbladder thickening and acute cholecystitis. General surgery was consulted and admitted the patient for acute cholecystitis with a plan to take her to the OR later today. Given her elevated blood pressure preoperatively were consulted. Patient does not have a history of hypertension of which she is aware. I evaluated her postoperatively as she was taken to surgery shortly after the time of consultation. She was quite somnolent due to postoperative pain management and anesthesia and was not able to appropriately interact at the time of my evaluation. Per discussion with nursing she did become hypoxic at 85 while sleeping with suspected JOAQUIN being the etiology. Patient does appear to be a mouth breather. [facility] Medical History (Updated 04/12/25 @ 16:[address] Anneliese Gonzalez, DO) Hypothyroid Home Medications ?Medication ?Instructions ?Recorded ?Last Taken ?Type levothyroxine 75 mcg tablet 75 mcg PO DAILY 05/19/19 U nknown History aspirin 81 mg tablet 81 mg PO DAILY 04/11/25 Unkn own History cholecalciferol (vitamin D3) 25 25 mcg PO DAILY Unknown History mcg (1,000 unit) capsule (Vitamin D3) Allergy/AdvReac Type Severity Reaction Status Date / Time No Known Allergies Allergy Verified 04/01/21 02:09 Surgical History (Updated 04/12/25 @ 16:[address] Anneliese Gonzalez, DO) S/P cholecystectomy Hx of elbow surgery Social History (Updated 04/12/25 @ 16:[address] Anneliese Gonzalez, DO) Smoking Status: Former smoker substance use type: does not use Physical Exam Const Constitutional Narrative: Somnolent, upper middle-aged, white female, lying in bed sleeping and difficult to arouse due to sedation from anesthesia and pain management, appears comfortable, does not look toxic HEENT normocephalic, head/scalp atraumatic and moist oral mucous membranes Resp normal respiratory effort, no retractions, no use of accessory muscles and clear to auscultation bilaterally Auscultation: Negative for rales, rhonchi or wheezes Cardio regular rate, regular rhythm, S1 normal heart sound, S2 normal heart sound, no murmurs, no rub, no gallops and no clicks GI GI Narrative: Bowel sounds are hypoactive Extremity no clubbing, cyanosis or edema Extremity Narrative: Pedal pulses are 2+ Neuro Neuro Narrative: Unable to assess as patient is quite sleepy Psych Psych Narrative: Unable to assess Lab / Micro Data 04/12/25 08:43 04/11/25 22:22 Labs: Laboratory Results - last 24 hr 04/11/25 22:22: WBC 8.6, RBC 5.15, Hgb 14.8, Hct 43.4, MCV 84.3, MCH 28.7, MCHC 34.1, RDW Std Deviation 39.7, RDW Coeff of Taye 12.9, Plt Count 302, MPV 9.0, Immature Gran % (Auto) 0.200, Neut % (Auto) 80.8 H, Lymph % (Auto) 13.0 L, [place] % (Auto) 4.9, Eos % (Auto) 0.6, Baso % (Auto) 0.5, Absolute Neuts (auto) 7.0, Absolute Lymphs (auto) 1.12, Nucleated RBC % 0, Sodium 141, Potassium 3.6, Chloride 104, Carbon Dioxide 23.8, Anion Gap 14, BUN 16, Creatinine 0.79, Estim Creat Clear Calc 76.49, Est GFR (MDRD) Non-Af 81, BUN/Creatinine Ratio 19.7, G lucose 137 H, Calcium 9.6, Total Bilirubin 0.47, Direct Bilirubin 0.16, AST 20, ALT 12, Alkaline Phosphatase 76, Troponin T High Sens 9, Total Protein 7.6, Albumin 4.4, Globulin 3.2, Lipase 40 04/11/25 22:32: Lactic Acid 1.7 04/11/25 23:17: Urine Color Straw, Urine Clarity Clear, Urine pH 7.0, Ur Specific Morning Sun 1.010, Urine Protein 15 H, Urine Glucose (UA) 100 H, Urine Ketones 5 H, Urine Occult Blood Negative, Urine Nitrite Negative, Urine Bilirubin Negative, Urine Urobilinogen Normal, Ur Leukocyte Esterase Negative, Urine RBC 0-5 SEEN, Urine WBC 0-5 SEEN, Ur Squamous Epith Cells 0-5 SEEN, Urine Bacteria 0 SEEN, Urine Mucus 0 SEEN 04/12/25 08:43: WBC 11.5 H, RBC 4.92, Hgb 14.0, Hct 42.0, MCV 85.4, MCH 28.5, MCHC 33.3, RDW Std Deviation 40.4, RDW Coeff of Taye 13.0, Plt Count 288, MPV 8.8, Immature Gran % (Auto) 0.300, Neut % (Auto) 85.2 H, Lymph % (Auto) 8.2 L, [place] % (Auto) 5.9, Eos % (Auto) 0.1, Baso % (Auto) 0.3, Absolute Neuts (auto) 9.8 H, Absolute Lymphs (auto) 0.94, Nucleated RBC % 0, Total Bilirubin 0.56, Direct Bilirubin 0.18, AST 20, ALT 12, Alkaline Phosphatase 75, Total Protein 7.7, Albumin 4.4, Globulin 3.3 Imaging Radiology Impression Abdomen/Pelvis CT 04/11/25 22:20 IMPRESSION: Unchanged mildly prominent biliary tree. Multiple gallstones are noted. Minimal diffuse thickening of the wall of the gallbladder. Unchanged scattered calcified splenic granulomas. Mild diffuse spondylosis. Diffuse thickening of the stomach suggestive of gastritis. Uncomplicated colonic diverticulosis. Fat containing umbilical hernia without incarceration. Reading Location: [place] [address] Chest X-Ray 04/11/25 22:46 IMPRESSION: Elevated right hemidiaphragm with mild right basilar atelectasis. No focal airspace consolidation or sizable pleural effusion. Reading Location: [facility] Abdomen Ultrasound 04/12/25 00:56 IMPRESSION: 1. Positive sonographic Salguero's sign in the presence of cholelithiasis, thickened gallbladder wall, and trace pericholecystic fluid, concerning for the presence of cholecystitis. 2. Borderline enlarged common duct diameter. [facility] Charges/Coding Visit Charges Inpatient E&M: 13842 Subs Hosp L2
--- NOTE | 2025-04-12 10:16 | NURSING ---
Consent obtained and pt being wheeled down to surgery via bed at this time.
--- NOTE | 2025-04-12 10:19 | NURSING ---
Addendum entered by Ariana Kapadia 04/12/25 10:24: Ramandeep Gutierrez RN in [facility] aware that Labetolol IV ordered and on EMAR and needs to be given. Original Note: Pt left the floor before this RN could give pt her BP med for her HTN. Will Call [facility] and let them know.
--- NOTE | 2025-04-12 10:50 | PCM.PRE.AN2 ---
ASA Classification* ASA Classification ASA Classification: 3 and E Assessment & Plan Anesthesia* Anesthesia Assessment Anesthesia Assessment: Discussed sedation and/or anesthesia options, risks, benefits, and alternatives with patient/parents/legal guardian/POA. Questions invited. The patient/parents/legal guardian/POA seems to understand and agrees to proceed with anesthesia plan. Reviewed the physical assessment, medical history, allergy history and patient home medications list prior to surgery/procedure/anesthetic and documented any changes. Performed airway and anesthesia risk assessments. Anesthesia Type Anesthesia Type: General Anesthesia Focused Assessment* Temperature: 97.6 F Pulse Rate: 78 Blood Pressure: 184/113 Respiratory Rate: 17 Pulse Ox: 98 Oxygen Flow Rate (L/min): 2 Airway Assessment Mouth opens: >3 cm Mallampati Score: II Labs Anesthesia Preop lab: CBC WBC 11.5 K/mm3 (4.4-11.0) H 04/12/25 08:43 04/12/25 RBC 4.92 M/mm3 (4.2-5.4) 04/12/25 08:43 04/12/25 Hgb 14.0 g/dL (12.0-15.0) 04/12/25 08:43 04/12/25 Hct 42.0 % (37-47) 04/12/25 08:43 04/12/25 Plt Count 288 K/mm3 (150-450) 04/12/25 08:43 04/12/25 CHEMISTRY Potassium 3.6 mmol/L (3.3-5.1) 04/11/25 22:22 04/11/25 Sodium 141 mmol/L (133-145) 04/11/25 22:22 04/11/25 BUN 16 mg/dL (4-19) 04/11/25 22:22 04/11/25 Creatinine 0.79 mg/dL (0.70-1.20) 04/11/25 22:22 04/11/25 Glucose 137 mg/dL (70-99) H 04/11/25 22:22 04/11/25 TSH Pending 04/12/25 08:09 04/12/25 COAG Pre-Assessment Diagnosis/Proposed Procedure Planned Operative Procedure(s): lap delilah Anesthesia History 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 When Was Last Pacemaker Check QUESTION #4 FULL TEXT: You/Your Family Experience fever (hyperthermia) with Anesthesia Last Oral Intake Last Oral intake: Last Oral Intake NPO since 00:00 04/12/25 09:32 Meds taken in AM with sips of No 04/12/25 09:32 water? 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 - vocational training teacher: PONV - vocational training teacher Female HX of Motion Sickness HX of N/V After Surgery Non-Smoker Duration of Surgery greater than 60 minutes Number of Risk Factors PONV Score Height & Weight Height & Weight: Anesthesia: Height & Weight Height 5 ft 2 in 04/12/25 09:32 Weight: 100.017 kg 04/12/25 09:32 Body Mass Index (BMI) 40.3 04/12/25 09:32 Respiratory Assessment Respiratory Assessment - vocational training teacher: Respiratory Tract Infection Hx - vocational training teacher Hx Respiratory Tract Infection STOP Sleep Apnea STOP Sleep Apnea - vocational training teacher: STOP Sleep Apnea - vocational training teacher Hx Hypertension No 04/12/25 09:14 Hx Sleep Apnea No 04/12/25 09:14 CPAP BIPAP Do you snore loudly (louder No 04/12/25 09:14 than talking or can be heard Do you often feel tired/ No 04/12/25 09:14 fatigued/ sleepy during daytime? Has anyone observed you stop No 04/12/25 09:14 breathing during sleep? STOP Results Negative 04/12/25 09:14 QUESTION #5 FULL TEXT : Do you snore loudly (louder than talking or can be heard through closed doors)? 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 - vocational training teacher: Tobacco Use History - vocational training teacher Tobacco Use Smoking Status Former smoker 04/12/25 09:14 Hx Tobacco Use No 04/12/25 09:14 Years Smoking Packs Smoked per Day Smoking Cessation Date was No - quit smoking greater 04/12/25 09:14 within the last 15 years than 15 years ago Hx Smoking Cessation Date 04/01/01 04/12/25 09:14 Hx Smoking Cessation Counseling Hematologic Medial History Hematologic Hx - vocational training teacher: Hematologic Medical Hx - home care consultant Hx of Blood Transfusion No 04/12/25 09:14 Hx of Transfusion in last 3 No 04/12/25 09:14 Months Date of Last Transfusion (if within last 3 months) Ever experience any problems No 04/12/25 09:14 with transfusion(s)? Specify any problems Hx of Preganancy in last 3 No 04/12/25 09:14 Months Nurse Filling Out Transfusion TCLEVIDEN 04/12/25 09:14 & Questions: Date: 04/12/25 04/12/25 09:14 Time: 09:40 04/12/25 09:14 Patient unable to answer at this time (ie. confused, unrespo /Reproduction History /Reproductive History - vocational training teacher: /Reproductive Hx- vocational training teacher Hx Now Gestational Age (in weeks): EDC: Hx Hx Para Hx Section SAB Active Medications Active Medications: Current Medications Generic Name Dose Route Start Last Admin Trade Name Freq PRN Reason Stop Dose Admin Acetaminophen 500 mg 04/12/25 08:42 Acetaminophen 500 Mg Tablet PO Q6H PRN PRN Pain Score 1-10 Hydralazine HCl 10 mg 04/12/25 10:10 Hydralazine 20 Mg/Ml Vial IV Q6H PRN PRN SBP>150 or DBP>100 Protocol Hydromorphone HCl 0.5 mg 04/12/25 08:42 Hydromorphone 0.5 Mg/0.5 Ml Syringe IV Q4H PRN PRN Pain Score 6-10 Sodium Chloride 1,000 mls @ 125 mls/hr 04/12/25 08:45 04/12/25 09:24 IV 125 mls/hr .Q8H JIM Administration Piperacillin Sod/Tazobactam 50 mls @ 12.5 mls/hr 04/12/25 14:00 Sod 3.375 gm/ Sodium Chloride IV Q8 JIM Sodium Chloride 250 mls @ 15 mls/hr 04/12/25 09:29 IV .[id number] PRN Saline Flush Sodium Chloride 250 mls @ 15 mls/hr 04/12/25 09:29 IV .[id number] PRN Additional IVPB Infusion Labetalol HCl 20 mg 04/12/25 10:11 04/12/25 10:40 Labetalol 20 Mg/4 Ml Vial IV 20 mg Q6 JIM Administration Ondansetron HCl 4 mg 04/12/25 08:42 Ondansetron 4 Mg/2 Ml Vial IV Q6H PRN PRN NAUSEA/VOMITING Sodium Chloride 10 - 40 ml 04/12/25 09:29 0.9% Saline Lock 10 Ml Syringe IV UD PRN SALINE FLUSH PFSH Medical History Hypothyroid Home Medications ?Medication ?Instructions ?Recorded ?Last Taken ?Type levothyroxine 75 mcg tablet 75 mcg PO DAILY 05/19/19 Unknown History aspirin 81 mg tablet 81 mg PO DAILY 04/11/25 Unknown History cholecalciferol (vitamin D3) 25 25 mcg PO DAILY 04/11/25 Unknown History mcg (1,000 unit) capsule (Vitamin D3) Allergy/AdvReac Type Severity Reaction Status Date / Time No Known Allergies Allergy Verified 04/01/21 02:09 Surgical History Hx of elbow surgery Social History Smoking Status: Former smoker Review of Systems (Anesthesia) ROS Narrative System reviewed and no additional complaints, except as documented.
[2025-04-12] MEDS: Midazolam 2 MG/2 ML Syringe IV (11:33)
[2025-04-12] MEDS: Lidocaine 1% (5 ml sdv) 5 ML Vial IV (11:38)
[2025-04-12] MEDS: Bupiv/Epi 0.25% 30 ML Vial (12:00)
[2025-04-12] MEDS: fentaNYL 100 MCG/2 ML Ampul IV (12:16)
--- NOTE | 2025-04-12 12:30 | RAD_ITS ---
PROCEDURE: CHOLANGIOGRAM/ O R,INITIAL 04/12/2025 REASON FOR EXAM: LAP NIXON WITH IOC Intraoperative cholangiogram was performed. TECHNIQUE: Procedure Code: RADCHO Modality: DX Procedure: CHOLANGIOGRAM/ O R,INITIAL. Fluoroscopic services provided. Fluoroscopy: 2.2 seconds. Radiation dose: 21.46 mGy. 3 senior runs were obtained. COMPARISON: None FINDINGS: A filling defect is seen in the proximal common bile duct suggestive of possible choledocholithiasis. There is free flow of contrast into the duodenum. RAD/Cholangiogram/ O R,Initial IMPRESSION: Filling defects seen in the proximal portion of the common bile duct suggestive of choledocholithiasis. There is free flow of contrast into the duodenum. Reading Location: [id number]
--- NOTE | 2025-04-12 13:46 | PCM.OPRPT ---
Operative Report (Standard) Operative Information Date of Procedure: 04/12/25 Pre-Operative Diagnosis: Acute calculous cholecystitis Post-Operative Diagnosis: 1. Acute calculous cholecystitis 2. Multiple subcentimeter capsular liver lesions Surgery/Procedure Performed: 1. Laparoscopic cholecystectomy intraoperative cholangiography 2. Liver biopsy (segment 4) adult care manager: Yes Customer Agent: Asif Han Tasks completed by first aid officer: Opening & closing, Retracting and Other (Laparoscopic camera operation) Type of Anesthesia: General/Supplemental RN Documented Start/Stop Times: Operation Date: 04/12/25 11:30 Case Time Into Pre-Op 04/12/25 10:27 Out of Pre-Op 04/12/25 11:30 Anesthesia Start 04/12/25 11:31 Into Room 04/12/25 11:31 Procedure Start 04/12/25 12:00 Procedure End 04/12/25 14:00 Anesthesia End 04/12/25 14:06 Out of Room 04/12/25 14:06 Into Recovery 04/12/25 14:08 Out of Recovery 04/12/25 15:13 Procedure Start Time: 12:00 Procedure Stop Time: 14:00 Select all DRAINS/GRAFTS/IMPLANTS that apply: None Estimated Blood Loss: 15 Specimen collected: Yes Description of specimen(s) removed: 1. Gallbladder 2. Liver biopsy Description of surgery: After proper identification in the preoperative holding area the patient was brought to the operating room where she was positioned supine on the operating room table. Preoperatively SCDs were connected and antibiotics were administered. General anesthesia was then induced. Patient's abdomen was prepped and draped in usual sterile fashion. A formal timeout was conducted to confirm both patient and the procedure. Procedure was begun with a supraumbilical incision which was extended deeply down to the level of the fascia. The fascia was elevated and incised, as well as the peritoneum. A finger sweep was performed to ensure there were no underlying adhesions and a 12 mm balloon trocar was inserted. Pneumoperitoneum was established at 15 mmHg. Three additional trocars (all 5 mm) were placed in the epigastrium and in the right upper quadrant (later in the case it became apparent we would require 10 mm clips and so the epigastric port site was upsized accordingly for a 10 mm trocar). Inspection of the peritoneum revealed no inadvertent injury to the viscera below. The gallbladder was visualized with moderate inflammation. The gallbladder fundus was then grasped and elevated cephalad. Then, using careful dissection the peritoneum was opened and the structures of the hepatocystic triangle were delineated. Once the critical view of safety was obtained, the cystic duct was singly clipped and partially divided with a ductotomy. The proximal duct was milked of several gallstone fragments. Using an [place] clamp, a cholangiocatheter was fed into the proximal segment of the cystic duct and clamped into place. Under fluoroscopy a cholangiogram was then obtained showing a standard length cystic duct flowing into a common bile duct with unobstructed antegrade flow of contrast into the duodenum. There was also retrograde flow through the common hepatic duct into the right and left hepatic ducts. Additionally, I noted that the overall caliber of both the cystic and the common hepatic/common bile ducts was mildly dilated. Satisfied with this result, the cholangiocatheter was withdrawn and the proximal cystic duct was sealed with clips and the cystic duct was completely transected. The same process was used for the cystic artery. The gallbladder was then removed from the gallbladder fossa with the use of electrocautery. Selective electrocautery was used to obtain hemostasis in the gallbladder fossa. The gallbladder was placed in an Endo Catch bag and removed from the peritoneum. Morison's pouch was irrigated and the effluent was suctioned free of the peritoneum. Hemostasis was again confirmed. Several millimeter sized whitish nodules were evident on the liver capsule. I chose to perform a incisional biopsy of 1 of these lesions using a electrified endoscopic scissor and segment 4. Specimen was passed off the field for pathologic evaluation. The 12 mm port sites were closed under laparoscopic visualization with a Roly Bryant suture passer in a [id number] fashion with #1 PDS suture. Pneumoperitoneum was evacuated and the fascial closure sutures were tied. A total of 3mL of anesthetic was injected at the port sites for postoperative pain control. The skin of each port site was then closed in subcuticular fashion using 4-0 Monocryl. Steri-Strips and bandages were applied as dressings. Patient tolerated the procedure well without any apparent complications. On emergence from their anesthetic the patient was taken to PACU for ongoing recovery. Surgical Findings: ? Acutely inflamed gallbladder ? Cholangiogram showing normal gallbladder anatomy without filling defect?mildly prominent cystic and common bile ducts with gallstone debris found in the proximal distal duct prior to intubation for cholangiography ? Capsular millimeter size whitish nodules of the liver primarily over segments 4 5 and 6 Complications Complications: No Admit VTE Documentation VTE Mechan Device Prophylaxis: SCD's
--- NOTE | 2025-04-12 14:15 | PCM.POST.ANE ---
Anesthesia: Postop Eval I Current Vital Signs Temperature: 97 F Pulse Rate: 76 Blood Pressure: 142/85 Respiratory Rate: 14 Pulse Ox: 97 Oxygen Delivery Method: Room Air Assessment Airway patent: Yes Spontaneous unlabored respirations: Yes Mental status: Awake and Calm nausea: No Vomiting: No Anesthesia Complication: No Fluid Hydration Crystalloid volume administer (ml): 1,200 Total IV fluid infused: 1,200 Progress Note Anesthesia document: Postop Eval 1 completed: Yes
--- NOTE | 2025-04-12 14:23 | POSTOPAN2_ITS ---
Anesthesia Postop Eval I Sum Postop Eval Completion status Anesthesia document: Postop Eval 1 completed: Yes Anesthesia Postop Eval I Summary Anesthesia Postop Eval I Summary: Anesthesia Postop Eval I: Assessment Summary Airway patent Yes 04/12/25 14:16 VOCATIONAL REHABILITATION SUPERVISOR.[email or web address] Spontaneous unlabored Yes 04/12/25 14:16 VOCATIONAL REHABILITATION SUPERVISOR.[email or web address] respirations Mental status Awake,Calm 04/12/25 14:16 VOCATIONAL REHABILITATION SUPERVISOR.[email or web address] nausea No 04/12/25 14:16 VOCATIONAL REHABILITATION SUPERVISOR.[email or web address] Vomiting No 04/12/25 14:16 VOCATIONAL REHABILITATION SUPERVISOR.[email or web address] Anesthesia Postop Eval I: Fluid Summary Crystalloid volume administer 1,200 04/12/25 14:16 VOCATIONAL REHABILITATION SUPERVISOR.[email or web address] (ml) Colloids volume administered ( ml) Blood Product volume administered (ml) Total IV fluid infused 1,200 04/12/25 14:16 VOCATIONAL REHABILITATION SUPERVISOR.[email or web address] Anesthesia Postop Eval I: Summary Notes Anesthesia Complication No 04/12/25 14:16 VOCATIONAL REHABILITATION SUPERVISOR.[email or web address] Anesthesia Complication Comment: Post-operative progress note Anesthesia: Postop Eval II Evaluation Mental status: Awake Pain Level: 0 nausea: No Vomiting: No
--- NOTE | 2025-04-12 14:23 | PCM.POSTANE2 ---
Anesthesia Postop Eval I Sum Postop Eval Completion status Anesthesia document: Postop Eval 1 completed: Yes Anesthesia Postop Eval I Summary Anesthesia Postop Eval I Summary: Anesthesia Postop Eval I: Assessment Summary Airway patent Yes 04/12/25 14:16 ASSISTANT MANAGER OF OPERATIONS.[email or web address] Spontaneous unlabored Yes 04/12/25 14:16 ASSISTANT MANAGER OF OPERATIONS.[email or web address] respirations Mental status Awake,Calm 04/12/25 14:16 ASSISTANT MANAGER OF OPERATIONS.[email or web address] nausea No 04/12/25 14:16 ASSISTANT MANAGER OF OPERATIONS.[email or web address] Vomiting No 04/12/25 14:16 ASSISTANT MANAGER OF OPERATIONS.[email or web address] Anesthesia Postop Eval I: Fluid Summary Crystalloid volume administer 1,200 04/12/25 14:16 ASSISTANT MANAGER OF OPERATIONS.[email or web address] (ml) Colloids volume administered ( ml) Blood Product volume administered (ml) Total IV fluid infused 1,200 04/12/25 14:16 ASSISTANT MANAGER OF OPERATIONS.[email or web address] Anesthesia Postop Eval I: Summary Notes Anesthesia Complication No 04/12/25 14:16 ASSISTANT MANAGER OF OPERATIONS.[email or web address] Anesthesia Complication Comment: Post-operative progress note Anesthesia: Postop Eval II Evaluation Mental status: Awake Pain Level: 0 nausea: No Vomiting: No
[2025-04-13 03:00] VITALS: RESP 16
[2025-04-13 04:07] LABS: Hematocrit 36.7 % (37-47); Hemoglobin 12.2 g/dL (12.0-15.0); Immature Granulocytes Count 0.030 X10^3/uL (0.0-0.0); Mean Corp Hgb Conc 33.2 g/dL (32-36); Mean Corpuscular Volume 86.2 fL (81-99); Mean Platelet Vol. 9.3 fl (6.2-12.0); NRBC Flagged by Analyzer 0 % (0-5); Platelet Count 254 K/mm3 (150-450); RBC Distribution Width CV 13.3 % (11.6-14.6); RBC Distribution Width SD 41.6 fl (35.1-43.9); Red Blood Count 4.26 M/mm3 (4.2-5.4); White Blood Count 10.7 K/mm3 (4.4-11.0)
[2025-04-13 04:25] LABS: AST(SGOT) 39 U/L (<=31); Alanine Aminotransfer ALT/SGPT 25 U/L (<=34); Albumin, Serum 3.6 g/dL (3.4-4.8); Alkaline Phosphatase 59 U/L (35-104); Anion Gap 11 (5-15); BUN 9 mg/dL (4-19); BUN/Creat Ratio 12.6 RATIO (10-20); Calcium,Total 8.1 mg/dL (7.6-11.0); Carbon Dioxide 23.9 mmol/L (21.0-32.0); Chloride 106 mmol/L (98-108); Estimated Creatinine Clearance 73.41 ml/min (50-250); Globulin 2.7 g/dL (2.2-4.2); Glucose 114 mg/dL (70-99); Potassium 3.7 mmol/L (3.3-5.1)
[2025-04-13 05:14] VITALS: BP 125/84; PULSE 84; RESP 16; TEMP 36.8; O2SAT 96
--- NOTE | 2025-04-13 07:07 | PCM.PN.SRG ---
Subjective Subjective Patient reports she is doing well. She tolerated clears yesterday. She is not having any abdominal pain besides her incisions. Objective Data Objective Data Vital Signs: Vital Signs Temp Pulse Resp BP Pulse Ox O2 Del Method O2 Flow Rate 98.2 F 84 16 125/84 H 96 Nasal Cannula 2 04/13/25 05:14 04/13/25 05:14 04/13/25 05:14 04/13/25 05:14 04/13/25 05:14 04/13/25 05:14 04/13/25 05:14 Oxygen Flow Rate (L/min) 2 Oxygen Delivery Method Nasal Cannula Weight: 220 lb 8.01 oz Body Mass Index (BMI) 40.3 Intake & Output: Intake and Output for Last 24 Hours 04/11/25 04/12/25 04/13/25 23:59 23:59 23:59 Intake Total 4742.08 / 4742.08 600 / 600 Balance 4742.08 / 4742.08 600 / 600 Lab / Micro Data 04/13/25 03:20 04/13/25 03:20 Labs: Laboratory Results - last 24 hr 04/12/25 08:09: TSH 3.430 04/12/25 08:43: WBC 11.5 H, RBC 4.92, Hgb 14.0, Hct 42.0, MCV 85.4, MCH 28.5, MCHC 33.3, RDW Std Deviation 40.4, RDW Coeff of Taye 13.0, Plt Count 288, MPV 8.8, Immature Gran % (Auto) 0.300, Neut % (Auto) 85.2 H, Lymph % (Auto) 8.2 L, Crosby % (Auto) 5.9, Eos % (Auto) 0.1, Baso % (Auto) 0.3, Absolute Neuts (auto) 9.8 H, Absolute Lymphs (auto) 0.94, Nucleated RBC % 0, Total Bilirubin 0.56, Direct Bilirubin 0.18, AST 20, ALT 12, Alkaline Phosphatase 75, Total Protein 7.7, Albumin 4.4, Globulin 3.3 04/13/25 03:20: WBC 10.7, RBC 4.26, Hgb 12.2, Hct 36.7 L, MCV 86.2, MCH 28.6, MCHC 33.2, RDW Std Deviation 41.6, RDW Coeff of Taye 13.3, Plt Count 254, MPV 9.3, Immature Gran % (Auto) 0.300, Neut % (Auto) 78.4 H, Lymph % (Auto) 10.3 L, Crosby % (Auto) 10.8 H, Eos % (Auto) 0.0, Baso % (Auto) 0.2, Absolute Neuts (auto) 8.4 H, Absolute Lymphs (auto) 1.10, Nucleated RBC % 0, Sodium 140, Potassium 3.7, Chloride 106, Carbon Dioxide 23.9, Anion Gap 11, BUN 9, Creatinine 0.71, Estim Creat Clear Calc 73.41, Est GFR (MDRD) Non-Af 92, BUN/Creatinine Ratio 12.6, Glucose 114 H, Calcium 8.1, Total Bilirubin 0.60, AST 39 H, ALT 25, Alkaline Phosphatase 59, Total Protein 6.3, Albumin 3.6, Globulin 2.7, Albumin/Globulin Ratio 1.3 Radiography Diagnostic Testing: Radiology Impression Abdomen Ultrasound 04/12/25 00:56 IMPRESSION: 1. Positive sonographic Salguero's sign in the presence of cholelithiasis, thickened gallbladder wall, and trace pericholecystic fluid, concerning for the presence of cholecystitis. 2. Borderline enlarged common duct diameter. Reading Location: [facility] [id number] Cholangiogram 04/12/25 12:30 IMPRESSION: Filling defects seen in the proximal portion of the common bile duct suggestive of choledocholithiasis. There is free flow of contrast into the duodenum. Reading Location: [id number] Physical Exam Const oriented x3 and no apparent distress Resp normal respiratory effort GI soft to palpation Inspection: Negative for abdominal distention Assessment & Plan Assessment/Plan (1) Status post laparoscopic cholecystectomy: PLAN: Patient had laparoscopic cholecystectomy and she is doing well. There was question of a stone in the duct. There is contrast freely flowing around the stone. She may need an outpatient MRCP. I will discharge her home when she tolerates a regular diet.
--- NOTE | 2025-04-13 07:09 | DS.PCM_ITS ---
Providers Date of Admission: 04/12/25 Primary Care Physician: Dr. Royce Islas DO Reason For Visit: CHOLECYSTITIS Diagnosis Discharge Diagnosis (1) Status post laparoscopic cholecystectomy: Status: Acute Code(s): Z90.49 - Acquired absence of other specified parts of digestive tract Plan: Patient had laparoscopic cholecystectomy and she is doing well. There was question of a stone in the duct. There is contrast freely flowing around the stone. She may need an outpatient MRCP. I will discharge her home when she tolerates a regular diet. Medications at Discharge Home Medications levothyroxine 75 mcg tablet 75 mcg PO DAILY 05/19/19 aspirin 81 mg tablet 81 mg PO DAILY 04/11/25 cholecalciferol (vitamin D3) 25 mcg (1,000 unit) capsule (Vitamin D3) 25 mcg PO DAILY 04/11/25 oxycodone 5 mg tablet 5 mg PO Q6H PRN PRN Pain Score 6-10 3 days #10 tabs 04/12/25 Hospital Course Operations cholecystecomy Procedures None Summary of Care Provided Hospital Course: The patient came in with acute cholecystitis. She underwent laparoscopic cholecystectomy. The following day she was started on a regular diet and once tolerating she was discharged home. Weight / BMI Weight Weight: 220 lb 8.01 oz Body Mass Index (BMI) 40.3 ABG / Lab / Microbiology Data 04/13/25 03:20 04/13/25 03:20 Laboratory: Laboratory Results - last 24 hr 04/12/25 08:09: TSH 3.430 04/12/25 08:43: WBC 11.5 H, RBC 4.92, Hgb 14.0, Hct 42.0, MCV 85.4, MCH 28.5, MCHC 33.3, RDW Std Deviation 40.4, RDW Coeff of Taye 13.0, Plt Count 288, MPV 8.8, Immature Gran % (Auto) 0.300, Neut % (Auto) 85.2 H, Lymph % (Auto) 8.2 L, Beltrami % (Auto) 5.9, Eos % (Auto) 0.1, Baso % (Auto) 0.3, Absolute Neuts (auto) 9.8 H, Absolute Lymphs (auto) 0.94, Nucleated RBC % 0, Total Bilirubin 0.56, Direct Bilirubin 0.18, AST 20, ALT 12, Alkaline Phosphatase 75, Total Protein 7.7, Albumin 4.4, Globulin 3.3 04/13/25 03:20: WBC 10.7, RBC 4.26, Hgb 12.2, Hct 36.7 L, MCV 86.2, MCH 28.6, MCHC 33.2, RDW Std Deviation 41.6, RDW Coeff of Taye 13.3, Plt Count 254, MPV 9.3, Immature Gran % (Auto) 0.300, Neut % (Auto) 78.4 H, Lymph % (Auto) 10.3 L, [place] % (Auto) 10.8 H, Eos % (Auto) 0.0, Baso % (Auto) 0.2, Absolute Neuts (auto) 8.4 H, Absolute Lymphs (auto) 1.10, Nucleated RBC % 0, Sodium 140, Potassium 3.7, Chloride 106, Carbon Dioxide 23.9, Anion Gap 11, BUN 9, Creatinine 0.71, Estim Creat Clear Calc 73.41, Est GFR (MDRD) Non-Af 92, BUN/Creatinine Ratio 12.6, Glucose 114 H, Calcium 8.1, Total Bilirubin 0.60, AST 39 H, ALT 25, Alkaline Phosphatase 59, Total Protein 6.3, Albumin 3.6, Globulin 2.7, Albumin/Globulin Ratio 1.3 Radiography Diagnostic Testing: Radiology Impression Abdomen Ultrasound 04/12/25 00:56 IMPRESSION: 1. Positive sonographic Salguero's sign in the presence of cholelithiasis, thickened gallbladder wall, and trace pericholecystic fluid, concerning for the presence of cholecystitis. 2. Borderline enlarged common duct diameter. Reading Location: [facility] Cholangiogram 04/12/25 12:30 IMPRESSION: Filling defects seen in the proximal portion of the common bile duct suggestive of choledocholithiasis. There is free flow of contrast into the duodenum. Reading Location: [id number] D/C Instructions Discharge Activity: May Not Drive (for 2-3 days or while taking narcotic pain medications.) and - (Do not drive, work heavy equipment or sign legal documents for 24 hours.) May shower in (days): 1 Lifting Restrictions: 20 lbs for 2 weeks Additional Activity Instructions: Pain medication may cause nausea. You should typically eat light foods as you take your pain medications. Pain medication may also cause constipation. If this is a problem for you, please discuss with your doctor. Alternate ibuprofen and Tylenol for pain control, oxycodone for breakthrough pain Call your doctor if your incision/area has: Continuous Slow Oozing, Sudden Increased Bleeding, Increased Pain/ Swelling, Increased Redness and Foul Smelling Discharge Call your doctor if you observe: Fever of 101 or Higher Suture Line Care: Avoid Pulling/Pushing and Avoid Pinching/Bending Remove Dressing in: 2 days Cleanse incision/area with: Soap & Water Additional Dressing/Incision Instructions: Leave operative bandaids on for 2 days. When you remove dressing, leave Steri-Strips on until your follow-up appointment, or until the Steri-Strips fall off on their own. DC O2, CPAP, BIPAP Needs Home O2 Discharge instructions: No Please Follow Up With: Abdullahi Sanchez MD When: Please call to schedule 2 week follow up appointment. [phone] Meaningful Use Info Meaningful Use Meaningful Use Diagnoses (Choose all that apply): None applicable Discharge Plan Admission Admit Date/Time: 04/12/25 08:42 Attending Provider: Abdullahi Sanchez Primary Care Provider: Royce Islas Discharge Orders/Prescriptions Prescriptions: New oxycodone 5 mg Tablet 5 mg PO Q6H PRN PRN (Reason: Pain Score 6-10) 3 Days Qty: 10 0RF Continued levothyroxine 75 MCG tablet 75 mcg PO DAILY aspirin 81 mg tablet 81 mg PO DAILY cholecalciferol (vitamin D3) [Vitamin D3] 25 mcg (1,000 unit) capsule 25 mcg PO DAILY Referrals / Follow Up: Royce Islas DO [Primary Care Provider] - Abdullahi Sanchez MD [Med Staff - Active Staff] - (Cholelithiasis and ventral hernia) Disposition Disposition (needs filled in before D/C Order can be placed): Home, Self Care
[2025-04-13 07:24] VITALS: BP 133/83; PULSE 80; RESP 16; TEMP 36.3; O2SAT 97
--- NOTE | 2025-04-13 07:42 | PCM.HOSP.N ---
Hospitalist Note Patient doing well postoperatively and per discussion with general surgery plan is for discharge. Blood pressures have not been elevated since going to the OR and she has not received any of the scheduled labetalol or as needed hydralazine. Given this I will defer any scheduled antihypertensives at this time and encouraged her to follow-up as an outpatient with her primary care physician to trend her blood pressures a little more closely. She does not have a diagnosis of hypertension at baseline. Her blood sugars also were noted to be mildly elevated fasting which could be indicative of insulin resistance however profound diabetes is not suspected at this time. Would recommend outpatient hemoglobin A1c. Okay for discharge from medical standpoint with outpatient primary care follow-up for ongoing monitoring of blood pressure. A.m. blood pressure today is 125/84 with nothing given.
[2025-04-13 08:54] VITALS: RESP 16
[2025-04-13] MEDS: Cholecalciferol (VIT D3) 25 MCG TABLET (1,000 UNITS) PO (10:08)
[2025-04-13 11:06] VITALS: BP 148/92; PULSE 75; RESP 16; TEMP 36.8; O2SAT 97
[2025-04-15 09:42] LABS: Pathology Sent to OSU SEE PATHOLOGY REPORT
== END 2025-04-13 11:13 | disposition home or self-care (01) ==
LOC: ED 04-12 08:21 → MS3 04-12 08:43
PROVIDERS: Emergency Medicine; Admitting Provider Surgery; Emergency Provider Surgery; PCP Student in an Organized Health Care Education/Training Program; Visit Provider Surgery
PROC: (CPT 47610; principal; 2025-04-12 11:10)
DX: K80.00 Calculus of gallbladder with acute cholecystitis without obstruction (principal); E66.01 Morbid (severe) obesity due to excess calories; Z68.41 Body mass index [BMI] 40.0-44.9, adult; Z79.82 Long term (current) use of aspirin; Z87.891 Personal history of nicotine dependence; I10 Essential (primary) hypertension; K76.9 Liver disease, unspecified; E03.9 Hypothyroidism, unspecified; Z79.890 Hormone replacement therapy; K42.9 Umbilical hernia without obstruction or gangrene; R73.9 Hyperglycemia, unspecified
CPT/HCPCS: 47563; 00790; 49321; 36415; 71045; 74177; 74300; 76000; 76705; 80048; 80053; 80076; 81001; 83605; 83690; 84443; 84484; 85025; 93005; 96361; 96365; 96375; 96376; 99221; 99282; Q9967; A4216; G0378; J2405

== ENCOUNTER 2025-04-28 13:17 | Inpatient (IN) | payer MEDICARE, SELFPAY ==
--- OUTSIDE RECORDS SUMMARY | 2025-04-23 07:38 | XMS RPT_ITS ---
Author Name Auto Generated Organization [facility] Care Team Providers Care Production Illustrator Name Role Phone RICARDO STATON Referring Unavailable ROYCE MANE Primary Care Unavailable DEAN KIMBLE Attending Unavailable ROYCE MANE Primary Care Unavailable DEAN KIMBLE Referring Unavailable DEAN KIMBLE Attending Unavailable ROYCE MANE Primary Care Unavailable DEAN KIMBLE Attending Unavailable ROYCE MANE Primary Care Unavailable ROYCE MANE Primary Care Unavailable DEAN KIMBLE Referring Unavailable ROYCE MANE Primary Care Unavailable AILEEN ALVAREZ Attending Unavailable ROYCE MANE Primary Care Unavailable LURDES CHE Attending Unavailable ROYCE MANE Primary Care Unavailable AILEEN ALVAREZ Referring Unavailable RICARDO STATON Attending Unavailable ROYCE MANE Primary Care Unavailable RICARDO STATON Referring Unavailable ROYCE MANE Primary Care Unavailable PROBLEMS DATE TYPE CONDITION / CODE ATTENDING STATUS [facility] 04/23/2025 Active Hospital F/U / UNK(Unknown) LURDES CHE Active [facility] 03/14/2025 Active Morbid obesity w ith BMI of 40.0-44.9, adult (HCC) / E66.01(ICD-10) AILEEN ALVAREZ Active [facility] 03/14/2025 Active Morbid obesity w ith BMI of 40.0-44.9, adult (HCC) / Z68.41(ICD-10) AILEEN ALVAREZ Active [facility] 06/13/2019 Active IFG (impaired fa sting glucose) / R73.01(ICD-10) IALEEN ALVAREZ Active [facility] 08/25/2016 Active Well adult exam / Z00.00(ICD-10) AILEEN ALVAREZ Active [facility] 08/21/2012 Active Hypercholesterol emia / E78.00(ICD-10) AILEEN ALVAREZ Active [facility] 04/05/2012 Active Hypothyroidism, unspecified type / E03.9(ICD-10) AILEEN ALVAREZ Active [facility] 03/14/2025 Active Screening for de pression / Z13.31(ICD-10) AILEEN ALVAREZ Active [facility] 03/14/2025 Active Encounter for sc reening examination for other mental health and behavioral disorders / Z13.39(ICD-10) AILEEN ALVAREZ Active [facility] 03/14/2025 Active Abnormality of g ait / R26.9(ICD-10) LUCYAILEEN Active [facility] 03/14/2025 Active Falling episodes / R29.6(ICD-10) LUCYAILEEN Active [facility] 03/14/2025 Active Encounter for im munization / Z23(ICD-10) LUCYAILEEN Active [facility] 03/14/2025 Active Screening for co komal cancer / Z12.11(ICD-10) LUCYAILEEN Active [facility] 03/14/2025 Active Family history o f colon cancer / Z80.0(ICD-10) LUCYAILEEN Active [facility] 12/25/2024 Active Closed fracture of distal end of right fibula, unspecified fracture morphology, initial encounter / S82.831A(ICD-10) DEAN KIMBLE Active [facility] 12/18/2024 Active Acute right ankl e pain / M25.571(ICD-10) RICARDO STATON [facility] 12/18/2024 Active Injury of right foot, initial encounter / S99.921A(ICD-10) RICARDO STATON Active [facility] PROCEDURES No Procedure Records Found RESULTS PROGRESS Observed: 04/23/2025 4:34 PM Status: COMPLETED Source: [facility] HNO ID: [id number] Author: LURDES CHE APRN.HOLE FILLER Service: ? Author Type: Nurse Practitioner Type: Progress Notes Filed: 04/23/2025 16:37 Note Text: 04/23/2025 Recording using ambient Boosket software for draft documentation of the visit was discussed with the patient/authorized passenger relations representative; all questions welcomed and answered. Patient/authorized passenger relations representative agreed to proceed HPI: The patient is a 69-year-old female presenting for post-operative follow-up after laparoscopic cholecystectomy. Accompanied by her daughter. Cholecystectomy Follow-Up: - Manjula Orourke underwent cholecystectomy performed by Dr. Sanchez. - Experienced severe pain prior to surgery, which gradually worsened. - Post-operative bloating, now resolved. - Noted a small lump under one of the incisions, which is decreasing in size. - Initially took oxycodone for pain management, but switched to alternating Tylenol and ibuprofen due to concerns about constipation. - No current pain requiring medication. - Follow-up appointment with Dr. Sanchez not yet scheduled. PAST MEDICAL HISTORY Diagnosis Date ASCUS of cervix with negative high risk HPV 05/2018 repeat pap in 2-3 years Hypercholesteremia Hypertriglyceridemia IFG (impaired fasting glucose) 2018 IPMN (intraductal papillary mucinous neoplasm) repeat MRI 11/2021 needed Osteopenia of multiple sites 11/2020 Snoring Subclinical hypothyroidism Current Outpatient Medications on File Prior to Visit Medication Sig levothyroxine (SYNTHROID) 75 mcg tablet TAKE 1 TABLET BY MOUTH 6 DAYS PER WEEK BEFORE BREAKFAST. TAKE 2 TABS ONE DAY OF THE WEEK Calcium Chloride powd Daily in smoothie aspirin, enteric coated (ASPIRIN, ENTERIC COATED) 81 mg EC tablet Take 81 mg by mouth once daily. cinnamon bark (CINNAMON ORAL) Take by mouth. TURMERIC ORAL Take by mouth. cholecalciferol (VITAMIN D3) 5,000 unit tab Take 5,000 Units by mouth once daily. peg 3350-Electrolytes (GOLYTELY) 236-22.74-6.74 -5.86 gram suspension Refer to printed prep instructions from your provider. (Patient not taking: Reported on 04/23/2025) ibuprofen (MOTRIN) 200 mg tablet Take 200 mg by mouth every 6 hours as needed. No current facility-administered medications on file prior to visit. Review of Systems: Cardiovascular: (-) peripheral edema Gastrointestinal: (-) abdominal bloating Neurological: (-) dizziness Physical Exam: BP 104/72 Pulse 87 Wt 98.1 kg (216 lb 3.2 oz) LMP 05/15/2010 SpO2 96% BMI 39.28 kg/m? GENERAL: NAD, alert and oriented. SKIN: Unremarkable, no rash or skin lesions. 4 incisions to abdomen slightly pink around edges but well aproximated. HEAD: Normocephalic. ABDOMEN: Soft, non-tender. Laparoscopic incisions healing well, minimal erythema noted around umbilical incision. EXTREMITIES: Normal, no deformities, no skin discoloration, no edema. PSYCHIATRIC: pleasant, cooperative Assessment/Plan: 1. Status post cholecystectomy (Z90.49) - Incisions healing well with minimal erythema; no signs of infection. - Advised to monitor incisions for signs of infection, particularly the umbilical site. - Discussed expected post-operative symptoms, including bloating and shoulder pain due to residual gas from laparoscopic procedure. - Advised to gradually reintroduce foods, avoid high-fat and greasy foods, and monitor for GI symptoms. - Continue alternating Tylenol and ibuprofen for pain as needed; may use oxycodone if necessary. - Fasting labs ordered; results to be communicated by Aileen if non-urgent. - Follow-up with Dr. Sanchez for surgical review. The patient indicates understanding of these issues and agrees with the plan. Red flag symptoms reviewed as needed. Follow up: Lurdes Che APRN.HOLE FILLER COMP METAB 2000 PNL SERPL Collected: 7:42 AM Status: F Source: [facility] Order Comment: Specimen Type : BLOOD SPECIMEN Ordering Facility: [facility] Address: [address] [place] [address] TYPE CODE TESTS RESULT OUT OF RANGE REFERENCE UNITS LAB 2885-2(LOINC) Prot SerPl-mCnc 7.1 6.3-8.0 g/dL LAB 1751-7(LOINC) Albumin SerPl-mCnc 4.0 3.9-4.9 g/dL LAB 30018-8(LOINC) Calcium SerPl-mCnc 9.1 8.5-10.2 mg/dL LAB 1975-2(LOINC) Bilirub SerPl-mCnc 0.5 0.2-1.3 mg/dL LAB 6768-6(LOINC) ALP SerPl-cCnc 272 High 34-123 U/L LAB 1920-8(LOINC) AST SerPl-cCnc 33 13-35 U/L LAB 1742-6(LOINC) ALT SerPl-cCnc 94 High 7-38 U/L LAB 2345-7(LOINC) Glucose SerPl-mCnc 85 74-99 mg/dL Result Comment: The [place] Diabetes Association (ADA) provides guidance for cutoff values for fasting glucose and random glucose. The ADA defines fasting as no caloric intake for at least 8 hours. Fasting plasma glucose results between 100 to 125 mg/dL indicate increased risk for diabetes (prediabetes). Fasting plasma glucose results greater than or equal to 126 mg/dL meet the criteria for diagnosis of diabetes. In the absence of unequivocal hyperglycemia, results should be confirmed by repeat testing. In a patient with classic symptoms of hyperglycemia or hyperglycemic crisis, random plasma glucose results greater than or equal to 200 mg/dL meet the criteria for diagnosis of diabetes. Reference: Standards of Medical Care in Diabetes 2016, [place] Diabetes Association. Diabetes Care. 2016.39(Suppl 1). LAB 3094-0(LOINC) BUN SerPl-mCnc 15 7-21 mg/dL LAB 2160-0(LOINC) Creat SerPl-mCnc 0.77 0.58-0.96 mg/dL LAB 2951-2(LOINC) Sodium SerPl-sCnc 140 136-144 mmol/L LAB 2823-3(LOINC) Potassium SerPl-sCnc 4.1 3.7-5.1 mmol/L LAB 2075-0(LOINC) Chloride SerPl-sCnc 103 98-107 mmol/L LAB 2028-9(LOINC) CO2 SerPl-sCnc 25 22-30 mmol/L LAB 83762-1(LOINC) Anion Gap SerPl-sCnc 12 8-15 mmol/L LAB 91303-2(LOINC) eGFRcr SerPlBld CKD-EPI 2020 84 >=60 mL/min/1. 73m??? Result Comment: Estimated Gl omerular Filtration Rate (eGFR) is calculated using the 2020 CKD-EPI creatinine equation. This equation utilizes serum creatinine, sex, and age as parameters. The creatinine assay has traceable calibration to isotope dilution-mass spectrometry. Refer to KDIGO guidelines for clinical interpretation. In patients with unstable renal function, e.g. those with acute kidney injury, the eGFR may not accurately reflect actual GFR. Performed By: #### 10738-8, 71195-4, 3024-7, 3016-3 #### [facility] CLIA [id number] [address] [place] [address] [place] [address] [place] LIPID 1996 PNL SERPL Collected: 025 7:42 AM Status: F Source: [facility] Order Comment: Specimen Type : BLOOD SPECIMEN Ordering Facility: [facility] Address: [address] [place] [address] TYPE CODE TESTS RESULT OUT OF RANGE REFERENCE UNITS LAB 2092-3(LOINC) Cholest SerPl-mCnc 231 High <200 mg/dL Result Comment: <200 mg/dL, Desirable 200-239 mg/dL, Borderline high >239 mg/dL, High LAB 2571-8(LOINC) Trigl SerPl-mCnc 246 High <150 mg/dL Result Comment: <150 mg/dL, Normal 150-199 mg/dL, Borderline high 200-499 mg/dL, High >499 mg/dL, Very high LAB 2084-9(LOINC) HDLc SerPl-mCnc 37 Low >39 mg/dL Result Comment: 40-59 mg/dL, Acceptable >59 mg/dL, High: Negative risk factor for coronary heart disease <40 mg/dL, Low: Positive risk factor for coronary heart disease LAB 2088-1(LOINC) LDLc SerPl-mCnc 149 High <100 mg/dL Result Comment: <100 mg/dL, Optimal 100-129 mg/dL, Near optimal/above optimal 130-159 mg/dL, Borderline high 160-189 mg/dL, High >189 mg/dL, Very high Secondary prevention optimal LDL Cholesterol levels are recommended to be <70 mg/dL LDL cholesterol is calculated using the Álvarez-NIH equation. LAB 68320-3(LOINC) NonHDLc SerPl-mCnc 194 High <130 mg/dL Result Comment: <130 mg/dL, Optimal 130-159 mg/dL, Near optimal/above optimal 160-189 mg/dL, Borderline high 190-219 mg/dL, High >219 mg/dL, Very high Secondary prevention optimal non HDL Cholesterol levels are recommended to be <100 mg/dL LAB 44985-9(LOINC) VLDLc SerPl Calc-mCnc 46 High <30 mg/dL LAB 9830-1(LOINC) Cholest/HDLc SerPl 6.24 High <5.10 LAB 85031-4(LOINC) LDLc/HDLc SerPl 4.03 High <2.54 Result Comment: Reference: 1. National Cholesterol Education Program ATP III Guideline At-A-Glance Quick Desk Reference: National Heart, Lung, and Blood [place]. National Institutes of Health. 2001: NIH Publication No. 01-3305. 2. An International Atherosclerosis Society position paper: global recommendations for the management of dyslipidemia: executive summary, Atherosclerosis. 2014: 232(2):410-413. LAB FT FASTING TIME 13 hrs Performed By: #### 74362-2, 54546-4, 3024-7, 3016-3 #### [facility] CLIA [id number] [address] [place] [address] [place] T4 FREE SERPL-MCNC Collected: 04/23/2025 7:42 AM Sta tus: F Source: [facility] Order Comment: Specimen Type : BLOOD SPECIMEN Ordering Facility: [facility] Address: [address] [place] [address] TYPE CODE TESTS RESULT OUT OF RANGE REFERENCE UNITS LAB 3024-7([facility]) T4 Free SerPl-mCnc 1.0 0.9-1.7 ng/dL Performed By: #### 43620-5, 43497-8, 3024-7, 3016-3 #### [facility] CLIA [id number] [address] [place] [address] [place] TSH SERPL-ACNC Collected: 7:42 AM Status: F Source: [facility] Order Comment: Specimen Type : BLOOD SPECIMEN Ordering Facility: [facility] Address: [address] [place] [address] TYPE CODE TESTS RESULT OUT OF RANGE REFERENCE UNITS LAB 3016-3(LOINC) TSH SerPl-aCnc 3.110 0.270-4.200 mIU/L Performed By: #### 33933-4, 91027-1, 3024-7, 3016-3 #### [facility] CLIA [id number] [address] [place], [place] [id number] [place] CBC PNL BLD AUTO Collected: 7:42 AM Status: F Source: [facility] Order Comment: Specimen Type : BLOOD SPECIMEN Ordering Facility: [facility] Address: [address] [place] [address] TYPE CODE TESTS RESULT OUT OF RANGE REFERENCE UNITS LAB 6690-2(INC) WBC # Bld Auto 6.89 3.70-11.00 k/uL LAB 789-8(LOINC) RBC # Bld Auto 4.82 3.90-5.20 m/uL LAB 718-7(INC) Hgb Bld-mCnc 13.7 11.5-15.5 g/dL LAB 4544-3(INC) Hct VFr Bld Auto 42.8 36.0-46.0 % LAB 787-2(LOINC) MCV RBC Auto 88.8 80.0-100.0 fL LAB 785-6(INC) MCH RBC Qn Auto 28.4 26.0-34.0 pg LAB 786-4(LOINC) MCHC RBC Auto-mCnc 32.0 30.5-36.0 g/dL LAB 00165-6([facility]) RDW RBC-Rto 13.5 11.5-15.0 % LAB 777-3(LOINC) Platelet # Bld Auto 377 150-400 k/uL LAB 15551-2([facility]) PMV Bld Auto 9.3 9.0-12.7 fL LAB 771-6([facility]) nRBC # Bld Auto <0.01 <0.01 k/uL Performed By: #### 35334-6 # ### [facility] CLIA [id number] [address] [place] [address] [place] DEPRECATED HGB A1C BLD Collected: 04/23 7:42 AM Status: F Source: [facility] Order Comment: Specimen Type : BLOOD SPECIMEN Ordering Facility: [facility] Address: [address] [place] [address] TYPE CODE TESTS RESULT OUT OF RANGE REFERENCE UNITS LAB 4548-4(LOINC) HbA1c MFr Bld 5.5 4.3-5.6 % Result Comment: [place] Elizabeth betes Association guidelines indicate that patients with HgbA1c in the range 5.7-6.4% are at increased risk for development of diabetes, and intervention by lifestyle modification may be beneficial. HgbA1c greater or equal to 6.5% is considered diagnostic of diabetes. LAB 13276-8(LOINC) Est. average glucose Bld gHb Est-mCnc 111 mg/dL Result Comment: eAG: (Estima debby average glucose) is a calculated value from HgbA1c and is passenger relations representative of the average blood glucose level in the last 2-3 month period. Performed By: #### 99649-4 # ### [facility] CLIA [id number] [address] [place] [address] OF [facility] CNOV Observed: 04/23/2025 7:00 AM Status: COMPLETED Source: [facility] Office Visit ([facility]) MANJULA OROURKE ([id number]) 1955 F Date Time Provider Department 04/23/25 7:00 AM LURDES CHE [facility] During your visit today, we recorded the following information about you: Pulse Blood pressure Weight 87/minute 104/72 98.1 kg Lurdes Che APRN.CNP 04/23/2025 4:37 PM Signed 04/23/2025 Recording using [employer] software for draft documentation of the visit was discussed with the patient/authorized passenger relations representative; all questions welcomed and answered. Patient/authorized passenger relations representative agreed to proceed HPI: The patient is a 69-year-old female presenting for post-operative follow-up after laparoscopic cholecystectomy. Accompanied by her daughter. Cholecystectomy Follow-Up: - Manjula Orourke underwent cholecystectomy performed by Dr. Sanchez. - Experienced severe pain prior to surgery, which gradually worsened. - Post-operative bloating, now resolved. - Noted a small lump under one of the incisions, which is decreasing in size. - Initially took oxycodone for pain management, but switched to alternating Tylenol and ibuprofen due to concerns about constipation. - No current pain requiring medication. - Follow-up appointment with Dr. Sanchez not yet scheduled. PAST MEDICAL HISTORY Diagnosis Date ASCUS of cervix with negative high risk HPV 05/2018 repeat pap in 2-3 years Hypercholesteremia Hypertriglyceridemia IFG (impaired fasting glucose) 2017 IPMN (intraductal papillary mucinous neoplasm) repeat MRI 11/2021 needed Osteopenia of multiple sites 11/2020 Snoring Subclinical hypothyroidism Current Outpatient Medications on File Prior to Visit Medication Sig levothyroxine (SYNTHROID) 75 mcg tablet TAKE 1 TABLET BY MOUTH 6 DAYS PER WEEK BEFORE BREAKFAST. TAKE 2 TABS ONE DAY OF THE WEEK Calcium Chloride powd Daily in smoothie aspirin, enteric coated (ASPIRIN, ENTERIC COATED) 81 mg EC tablet Take 81 mg by mouth once daily. cinnamon bark (CINNAMON ORAL) Take by mouth. TURMERIC ORAL Take by mouth. cholecalciferol (VITAMIN D3) 5,000 unit tab Take 5,000 Units by mouth once daily. peg 3350-Electrolytes (GOLYTELY) 236-22.74-6.74 -5.86 gram suspension Refer to printed prep instructions from your provider. (Patient not taking: Reported on 04/23/2025) ibuprofen (MOTRIN) 200 mg tablet Take 200 mg by mouth every 6 hours as needed. No current facility-administered medications on file prior to visit. Review of Systems: Cardiovascular: (-) peripheral edema Gastrointestinal: (-) abdominal bloating Neurological: (-) dizziness Physical Exam: BP 104/72 Pulse 87 Wt 98.1 kg (216 lb 3.2 oz) LMP 05/15/2010 SpO2 96% BMI 39.28 kg/m? GENERAL: NAD, alert and oriented. SKIN: Unremarkable, no rash or skin lesions. 4 incisions to abdomen slightly pink around edges but well aproximated. HEAD: Normocephalic. ABDOMEN: Soft, non-tender. Laparoscopic incisions healing well, minimal erythema noted around umbilical incision. EXTREMITIES: Normal, no deformities, no skin discoloration, no edema. PSYCHIATRIC: pleasant, cooperative Assessment/Plan: 1. Status post cholecystectomy (Z90.49) - Incisions healing well with minimal erythema; no signs of infection. - Advised to monitor incisions for signs of infection, particularly the umbilical site. - Discussed expected post-operative symptoms, including bloating and shoulder pain due to residual gas from laparoscopic procedure. - Advised to gradually reintroduce foods, avoid high-fat and greasy foods, and monitor for GI symptoms. - Continue alternating Tylenol and ibuprofen for pain as needed; may use oxycodone if necessary. - Fasting labs ordered; results to be communicated by Aileen if non-urgent. - Follow-up with Dr. Sanchez for surgical review. The patient indicates understanding of these issues and agrees with the plan. Red flag symptoms reviewed as needed. Follow up: Lurdes Che APRN.TERRENCE Allergies As of Date: 04/23/2025 (No Known Allergies) Date Reviewed: 04/23/2025 Reviewed by: Lurdes Che APRN.HOLE FILLER - Fully Assessed Reason for Visit: Hospital F/U [57] Cmt: [facility] 04/12 cholecystectomy Primary Visit Diagnosis:Status post cholecystectomy [Z90.49] Prescriptions as of 04/23/2025 - peg 3350-Electrolytes (GOLYTELY) 236-22.74-6.74 -5.86 gram suspension Refer to printed prep instructions from your provider. - levothyroxine (SYNTHROID) 75 mcg tablet TAKE [...] once daily. 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 Author Type: Nurse Practitioner Type: Progress Notes Filed: 03/14/2025 14:58 Note Text: FALLS RISK PLAN: Overall, she is doing very well. Appropriate for community-based exercise programs. List of local resources and falls prevention materials provided. CNOV Observed: 03/14/2025 2:20 PM Status: COMPLETED Source: [facility] Office Visit ([facility]) MANJULA OROURKE ([id number]) 1955 F Date Time Provider Department 03/14/25 2:20 PM AILEEN ALVAREZ During your visit today, we recorded the following information about you: Pulse Respiration Blood pressure Weight 74/minute 16/minute 130/82 101.4 kg Height 1.58 m Aileen Alvarez APRN.CNP 03/14/2025 2:58 PM Signed Manjula Orourke is a 69 year old female here [...] Current care team: Patient Care Team: Royce Mane DO as PCP - General (Family Medicine) Lurdes Che APRN.TERRENCE as Long Distance Billing Operator (Family Medicine) Aileen Alvarez APRN.CNP as Long Distance Billing Operator (Family Medicine) Outside specialists seen: Dr. Marti-Eye [...] abnormals and is older than 65. Aileen Alvarez APRN.Aileen Conte APRN.TERRENCE 03/14/2025 2:47 PM Addendum Get your labs drawn fasting 10-12 hours Schedule your colonoscopy when you have time Schedule your mammogram as well You would benefit from general conditioning exercise programs such as those offered by recreation centers or the [facility]. WHAT YOU CAN DO TO PREVENT [...] review all the medicines you take, even prba-eau-gwswjqx medicines. As you get older, the way [...] review all the medicines you take, even dljr-lnu-prexkis medicines. As you get older, the way [...] apply if you have certain medical conditions. Aileen Alvarez APRN.HOLE FILLER 03/14/2025 2:58 PM Signed FALLS RISK PLAN: Overall, she is doing very well. Appropriate for community-based exercise programs. List of local resources and falls prevention materials provided. Allergies As of Date: 03/14/2025 (No Known Allergies) Date Reviewed: 03/14/2025 Reviewed by: Anneliese Cummings MA - Fully Assessed Reason for Visit: Medicare Wellness Exam [4060] Primary Visit Diagnosis:Morbid obesity with BMI of 40.0-44.9, adult (HCC) [E66.01, Z68.41] Other Visit Diagnoses:Screening for depression [Z13.31] Encounter for screening examination for other mental health and behavioral disorders [Z13.39] Abnormality of gait [R26.9] Falling episodes [R29.6] Hypothyroidism, unspecified type [E03.9] Well adult exam [Z00.00] Hypercholesterolemia [E78.00] IFG (impaired fasting glucose) [R73.01] Encounter for immunization [Z23] Screening for colon cancer [Z12.11] Family history of colon cancer [Z80.0] Order(s):DEPRESSION SCREENING [] Order #: [id number]: 1 ANXIETY SCREENING [] Order #: [id number]: 1 FALLS RISK EDUCATION [0019219] Order #: [id number]: 1 THYROID STIMULATING HORMONE [SQTSH] Order #: [id number] FUTURE T4 FREE/FREE THYROXINE [SQFT4] Order #: [id number] FUTURE LIPID PANEL, FASTING [SQLIPB] Order #: [id number] FUTURE COMPREHENSIVE METABOLIC PANEL [SQCMP] Order #: [id number] FUTURE HEMOGLOBIN A1C [KLZSN7Z] Order #: [id number] FUTURE COMPLETE BLOOD COUNT [SQCBC] Order #: [id number] FUTURE TDAP PRINTED PHARMACY INSTRUCTIONS [21310412] Order #: [id number]: 1 COLONOSCOPY SCREENING [GI51] Order #: [id number] FUTURE peg 3350-Electrolytes (GOLYTELY) 236-22.74-6.74 -5.86 gram suspensionRefer to printed prep instructions from your provider.Disp: 4000 mLRfl: 0 Prescriptions as of 03/14/2025 - peg 3350-Electrolytes (GOLYTELY) 236-22.74-6.74 -5.86 gram suspension Refer to printed prep instructions from your provider. - levothyroxine (SYNTHROID) 75 mcg tablet TAKE [...] once daily. 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] 04/05/2012 Otalgia [H92.09] 04/05/2012 Hypothyroidism [E03.9] 04/05/2012 Subclinical hypothyroidism [E03.8] 08/21/2012 Hypercholesterolemia [E78.00] 08/21/2012 Well adult exam [Z00.00] 08/25/2016 ASCUS of cervix with negative high risk HPV [R8*05/16/2018 IFG (impaired fasting glucose) [R73.01] 2017 Hypercholesteremia [E78.00] Hypertriglyceridemia [E78.1] Osteopenia of multiple sites [M85.89] 11/2020 IPMN (intraductal papillary mucinous neoplasm) *01/05/2021 Calculus of gallbladder without cholecystitis w*01/05/2021 Smoker [F17.200] 06/18/2022 Obesity (BMI 30-39.9) [E66.9] 06/18/2022 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 WHAT YOU CAN DO TO PREVENT [...] review all the medicines you take, even xqqh-iem-wrkuccs medicines. As you get older, the way [...] review all the medicines you take, even ryzk-elk-nkxotiy medicines. As you get older, the way [...] apply if you have certain medical conditions. Prescriptions ordered this encounter Disp Refills Start End PEG 3350-ELECTROLYTES 236 GRAM-22.74* 4000* 0 03/14/2025 Cmt: Do not send yet, patient will notify you when scheduled to fill Sig: Refer to printed prep instructions from your provider. Level of Service: [facility], INITIAL VISIT [G0438] Additional E/M codes: VISIT CPLX INHERENT EANDM ASSOC WITH MED * Disposition: Return in about 1 year (around 03/14/2026) for Wellness exam . LOS History for Encounter [facility]39[facility] Date AND Time: 03-14-2025 2:47 PM Recorded by User: AILEEN ALVAREZ Follow-up and Disposition History for Encounter Date Provider Department Center 03/14/2025 [id number]-SGVKCAILEEN ALVAREZ*[facility] [place] [facility] Encounter Status:Closed by AILEEN ALVAREZ on 03/14/25 PROGRESS Observed: 03/14/2025 2:17 PM Status: COMPLETED Source: [facility] HNO ID: [id number] Author: AILEEN ALVAREZ APRN.CNP Service: ? Author Type: Nurse Practitioner Type: Progress Notes Filed: 03/14/2025 14:58 Note Text: Manjula Orourke is a 69 year old female here [...] Current care team: Patient Care Team: Royce Mane DO as PCP - General (Family Medicine) Lurdes Che APRN.TERRENCE as Long Distance Billing Operator (Family Medicine) Aileen Alvarez APRN.CNP as Long Distance Billing Operator (Family Medicine) Outside specialists seen: Dr. Marti-Eye [...] abnormals and is older than 65. Aileen Alvarez APRN.HOLE FILLER PROGRESS Observed: 01/29/2025 8:21 AM Status: COMPLETED Source: [facility] HNO ID: [id number] Author: DEAN KIMBLE, DO Service: ? Author [...] right fibula, unspecified fracture morphology, initial encounter (S81.853I) - Fracture healing well with visible bridging [...] if asymptomatic and fully functional. Recording using Beyond O[employer] software for draft documentation of the visit was discussed with the patient/authorized passenger relations representative; all questions welcomed and answered. Patient/authorized passenger relations representative agreed to proceed PROGRESS Observed: 01/29/2025 8:09 AM Status: COMPLETED Source: [facility] HNO ID: [id number] Author: PERLA MILLER MA Service: ? Author Type: Rail Signal Mechanic Type: Progress Notes Filed: 01/29/2025 08:21 Note Text: AMB ROOMING INTAKE FLOWSHEET DATA Patient here today 6 weeks post fracture right distal fibula fracture. She denies any pain. Arrives in boot today. New x-ray today. XR ANKLE 3V AP/LAT/OBL RT Observed: 08/2024 8:07 AM Status: F Source: [facility] * * *Final Report* * * DATE [...] Healing distal fibula fracture with unchanged alignment. Director Process Engineering: KAYA Transcribe Date/Time: Feb 06 2025 7:35P Dictated by : ALISSA CORONEL MD This examination was interpreted and the report reviewed and electronically signed by: ALISSA CORONEL MD on Feb 06 2025 7:35PM EST [id number] CNOV Observed: 01/29/2025 8:00 AM Status: COMPLETED Source: [facility] MANJULA OROURKE ([id number]) 1955 F Date Time Provider Department 01/29/25 8:00 AM DEAN KIMBLE V [facility] During your visit today, we recorded the following information about you: Perla Miller MA 01/29/2025 8:21 AM Signed AMB ROOMING [...] right fibula, unspecified fracture morphology, initial encounter (S82.831A) - Fracture healing well with visible bridging [...] if asymptomatic and fully functional. Recording using Beyond Obl[employer]ion software for draft documentation of the visit was discussed with the patient/authorized passenger relations representative; all questions welcomed and answered. Patient/authorized passenger relations representative agreed to proceed Allergies As of [...] HPV [R8*05/16/2018 IFG (impaired fasting glucose) [R73.01] 2017 Hypercholesteremia [E78.00] Hypertriglyceridemia [E78.1] Osteopenia of multiple sites [M85.89] 11/2020 IPMN (intraductal papillary mucinous neoplasm) *01/05/2021 Calculus of gallbladder without cholecystitis w*01/05/2021 Smoker [F17.200] 06/18/2022 Obesity (BMI 30-39.9) [E66.9] 06/18/2022 Supraspinatus syndrome of right shoulder [M75.1*07/13/2022 07/13/2022 Bursitis of right shoulder [M75.51] 07/13/2022 07/13/2022 Tendinitis of right shoulder [M77.8] 07/13/2022 07/13/2022 Encounter Status:Closed by DEAN KIMBLE V on 01/29/25 PROGRESS Observed: 01/29/2025 8:00 AM Status: COMPLETED Source: [facility] HNO ID: [id number] Author: JACE GALLAGHER RT(R) Service: ? Author Type: Technologist Type: Progress Notes Filed: 01/29/2025 20:06 Note Text: Radiology Service Progress Note PATIENT NAME: aMnjula Orourke DATE OF SERVICE: January 29, 2025 TIME: [...] PATIENT PRESENTS WITH AN IMPLANTABLE OR ATTACHED LATENT PRINT EXAMINER: No RADIOLOGY DEPARTMENT: General X-ray: Exam(s) Completed: Lower Extremity X-Ray(s): Ankle, Right PERIPHERAL IV DATA: Not applicable SIGNED BY: Jace Gallagher, RT(R) January 29, 2025 8:05 PM PROGRESS Observed: 01/08/2025 8:40 AM Status: COMPLETED Source: [facility] HNO ID: [id number] Author: DEAN KIMBLE, DO Service: ? Author Type: Physician Type: Progress Notes Filed: 01/08/2025 08:41 Note Text: Subjective Manjula Orourke is a 69-year-old female presenting for follow-up of a right ankle fracture sustained on 12/18. Manjula reports minimal pain and is tolerating her [...] right fibula, unspecified fracture morphology, initial encounter (S82.100I) Fracture occurred on December 18. Current X-rays [...] an ankle brace or wrap. Recording using Beyond Oblivion software for draft documentation of the visit was discussed with the patient/authorized passenger relations representative; all questions welcomed and answered. Patient/authorized passenger relations representative agreed to proceed CNOV Observed: 01/08/2025 8:30 AM Status: COMPLETED Source: [facility] MANJULA OROURKE ([id number]) 1955 F Date Time Provider Department 01/08/25 8:30 AM DEAN KIMBLE V [facility] During your visit today, we recorded the following information about you: Perla Miller MA 01/08/2025 8:41 AM Signed AMB ROOMING INTAKE FLOWSHEET DATA Patient here 3 weeks 6 days post fracture right ankle distal fibula. Patient denies any pain. New x-ray today. Dean Kimble V, DO 01/08/2025 8:41 AM Signed Subjective Manjulameggan Orourke is a 69-year-old female presenting for follow-up of a right ankle fracture sustained on 12/18. Manjula reports minimal pain and is tolerating her [...] right fibula, unspecified fracture morphology, initial encounter (S82.831A) Fracture occurred on December 18. Current X-rays [...] an ankle brace or wrap. Recording using Beyond Oblivion software for draft documentation of the visit was discussed with the patient/authorized passenger relations representative; all questions welcomed and answered. Patient/authorized passenger relations representative agreed to proceed Allergies As of [...] Status:Closed by DEAN KIMBLE V on 01/08/25 PROGRESS Observed: 01/08/2025 8:22 AM Status: COMPLETED Source: [facility] HNO ID: [id number] Author: PERLA MILLER MA Service: ? Author Type: Rail Signal Mechanic Type: Progress Notes Filed: 01/08/2025 08:41 Note Text: AMB ROOMING INTAKE FLOWSHEET DATA Patient here 3 weeks 6 days post fracture right ankle distal fibula. Patient denies any pain. New x-ray today. XR ANKLE 3V AP/LAT/OBL RT Observed: 12/30 8:20 AM Status: F Source: [facility] * * *Final Report* * * DATE [...] Healing distal fibula fracture with unchanged alignment. Director Process Engineering: PSCB Transcribe Date/Time: Jan 13 2025 6:52P Dictated by : ALISSA CORONEL MD This examination was interpreted and the report reviewed and electronically signed by: ALISSA CORONEL MD on Jan 13 2025 6:52PM EST [id number] PROGRESS Observed: 01/08/2025 8:10 AM Status: COMPLETED Source: [facility] HNO ID: [id number] Author: ELEAZAR KATZ RT(R) Service: Radiology Author Type: Technologist Type: Progress Notes Filed: 01/08/2025 08:20 Note Text: Radiology Service Progress Note PATIENT NAME: Manjula Orourke DATE OF SERVICE: January 08, 2025 TIME: [...] PATIENT PRESENTS WITH AN IMPLANTABLE OR ATTACHED LATENT PRINT EXAMINER: No RADIOLOGY DEPARTMENT: General X-ray: Exam(s) Completed: Lower Extremity X-Ray(s): Ankle, Right PERIPHERAL IV DATA: Not applicable SIGNED BY: RT Jon(R) January 08, 2025 8:12 AM PROGRESS Observed: 12/25/2024 8:23 AM Status: COMPLETED Source: [facility] HNO ID: [id number] Author: DEAN KIMBLE, DO Service: ? Author Type: Physician Type: Progress Notes Filed: 12/25/2024 08:24 Note Text: Mireya Fair is a 69-year-old female presenting for follow-up of a right fibular fracture. Manjula sustained a right fibular fracture on the [...] right fibula, unspecified fracture morphology, initial encounter (S82.279Z) Spiral fracture of the distal fibula with [...] weight-bearing X-ray to assess stability. Recording using Beyond Oblivion software for draft documentation of the visit was discussed with the patient/authorized passenger relations representative; all questions welcomed and answered. Patient/authorized passenger relations representative agreed to proceed PROGRESS Observed: 12/25/2024 8:01 AM Status: COMPLETED Source: [facility] HNO ID: [id number] Author: RENATE BURNETT MA Service: ? Author Type: Rail Signal Mechanic Type: Progress Notes Filed: 12/25/2024 08:24 Note Text: Patient presents with: Right ankle fracture: Referred by Ricardo SPENCER ROOMING INTAKE FLOWSHEET DATA Pain Pain Level: 4 Pain Location: Ankle-Right Description: Dull, Aching Duration Units: Days Frequency: Intermittent Intervention/Comfort measure: (fracture boot) CNOV Observed: 12/25/2024 8:00 AM Status: COMPLETED Source: [facility] Office Visit ([facility]) MANJULA OROURKE ([id number]) 1955 F Date Time Provider Department 12/25/24 8:00 AM DEAN KIMBLE V [facility] During your visit today, we recorded the following information about you: Renate Burnett MA 12/25/2024 8:24 AM Signed Patient presents with: Right ankle fracture: Referred by Ricardo SPENCER ROOMING INTAKE FLOWSHEET DATA Pain Pain Level: 4 Pain Location: Ankle-Right Description: Dull, Aching Duration Units: Days Frequency: Intermittent Intervention/Comfort measure: (fracture boot) Dean Kimble V, DO 12/25/2024 8:24 AM Signed Subjective Manjula is a 69-year-old female presenting for follow-up of a right fibular fracture. Manjula sustained a right fibular fracture on the 14 while stepping out of a van. She [...] right fibula, unspecified fracture morphology, initial encounter (S82.609M) Spiral fracture of the distal fibula with [...] weight-bearing X-ray to assess stability. Recording using Beyond Oblivion software for draft documentation of the visit was discussed with the patient/authorized passenger relations representative; all questions welcomed and answered. Patient/authorized passenger relations representative agreed to proceed Referring Provider: RICARDO STATON [[id number]] Allergies As of Date: 12/25/2024 (No Known Allergies) Date Reviewed: 12/25/2024 Reviewed by: Renate Burnett MA - Fully Assessed Reason for Visit: Right ankle fracture [Other] Cmt: Referred by Ricardo Staton Visit Diagnosis:Closed fracture of distal end of right fibula, unspecified fracture morphology, initial encounter [S82.833L] Order(s):CONSULT PANEL TO ORTHOPAEDICS [[id number]] Order #: [id number]: 1 Prescriptions as of 12/25/2024 - levothyroxine [...] Tendinitis of right shoulder [M77.8] 07/13/2022 07/13/2022 Medications Discontinued During This Encounter Prescriptions - Jilrj-7-MSU-EPA-Fish Oil 1,000 mg (120 mg-180 mg) cap (Discontinued) Reported on 12/25/2024 Encounter Status:Closed by DEAN KIMBLE V on 12/25/24 PROGRESS Observed: 12/18/2024 11:39 AM Status: COMPLETED Source: [facility] HNO ID: [id number] Author: RICARDO STATON PA Service: ? Author Type: Physician Protective Services Case Worker Type: Progress Notes Filed: 12/18/2024 11:42 Note Text: [facility] Subjective Manjula Orourke is a 69 year old female. Patient [...] 2 TABS ONE DAY OF THE WEEK Krwyg-0-URB-EPA-Fish Oil 1,000 mg (120 mg-180 mg) cap [...] 2. Injury of right foot, initial encounter (O66.340J) 3. Closed fracture of distal end of right fibula, unspecified fracture morphology, initial encounter (G48.199P) - Patient sustained an injury to the [...] further evaluation and management. and Recording using Beyond Oblivion software for draft documentation of the visit was discussed with the patient/authorized passenger relations representative; all questions welcomed and answered. Patient/authorized passenger relations representative agreed to proceed History and Record [...] was discharged. OTC Medications were advised: Tylenol/Motrin Procedures XR FOOT 3V AP/LAT/OBL RT Observed: 12/18 11:13 AM Status: F Source: [facility] * * *Final Report* * * DATE [...] first MTP joint with small calcaneal spurs. Director Process Engineering: KAYA Transcribe Date/Time: Dec 18 2024 11:24A Dictated by : LUCILLE BRAVO MD This examination was interpreted and the report reviewed and electronically signed by: LUCILLE BRAVO MD on Dec 18 2024 11:27AM EST [id number] XR ANKLE 3V AP/LAT/OBL RT Observed: 11/30 11:13 AM Status: F Source: [facility] * * *Final Report* * * DATE [...] first MTP joint with small calcaneal spurs. Director Process Engineering[facility] Transcribe Date/Time: Dec 18 2024 11:24A Dictated by : LUCILLE BRAVO MD This examination was interpreted and the report reviewed and electronically signed by: LUCILLE BRAVO MD on Dec 18 2024 11:27AM EST [id number] CNOV Observed: 12/18/2024 10:30 AM Status: COMPLETED Source: [facility] Office Visit ([facility]) MANJULA OROURKE ([id number]) 1955 F Date Time Provider Department 12/18/24 10:30 AM RICARDO STATON [facility] During your visit today, we recorded the following information about you: Temperature Pulse Respiration Blood pressure 98.1 degrees 90/minute 18/minute 144/80 Weight 104.3 kg Ricardo Staton PA 12/18/2024 11:42 AM Signed [facility] Subjective Manjula Orourke is a 69 year old female. Patient [...] 2 TABS ONE DAY OF THE WEEK Ckvub-7-ADV-EPA-Fish Oil 1,000 mg (120 mg-180 mg) cap [...] 2. Injury of right foot, initial encounter (S99.571A) 3. Closed fracture of distal end of right fibula, unspecified fracture morphology, initial encounter (S82.921A) - Patient sustained an injury to the [...] further evaluation and management. and Recording using Beyond Oblivion software for draft documentation of the visit was discussed with the patient/authorized passenger relations representative; all questions welcomed and answered. Patient/authorized passenger relations representative agreed to proceed History and Record [...] was discharged. OTC Medications were advised: Tylenol/Motrin Procedures Allergies As of Date: 12/18/2024 (No Known Allergies) Date Reviewed: 12/18/2024 Reviewed by: Jace Tapia MA - Fully Assessed Reason for Visit: Ankle Injury [1957] Cmt: right x 1 week, twisted Primary Visit Diagnosis:Acute right ankle pain [M25.571] Other Visit Diagnoses:Injury of right foot, initial encounter [S99.531A] Closed fracture of distal end of right fibula, unspecified fracture morphology, initial encounter [S82.941A] Order(s):XR ANKLE GENERAL 3V AP/LAT/OBL RIGHT [[id number]] Order #: [id number] FUTURE XR FOOT GENERAL 3V AP/LAT/OBL RIGHT [[id number]] Order #: [id number] FUTURE CONSULT PANEL TO ORTHOPAEDICS [[id number]] Order #: [id number]: 1 FUTURE Prescriptions as of 12/18/2024 - levothyroxine (SYNTHROID) 75 mcg tablet TAKE 1 TABLET BY MOUTH 6 DAYS PER WEEK BEFORE BREAKFAST. TAKE 2 TABS ONE DAY OF THE WEEK - Awbgt-5-RKZ-EPA-Fish Oil 1,000 mg (120 mg-180 mg) cap [...] once daily. 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 Author Type: Chemotherapist Type: Progress Notes Filed: 12/18/2024 11:12 Note Text: Radiology Service Progress Note PATIENT NAME: Manjula Orourke DATE OF SERVICE: December 18, 2024 TIME: [...] PATIENT PRESENTS WITH AN IMPLANTABLE OR ATTACHED LATENT PRINT EXAMINER: No RADIOLOGY DEPARTMENT: General X-ray: Exam(s) Completed: Lower Extremity X-Ray(s): Ankle, Right and Foot, Right PERIPHERAL IV DATA: Not applicable SIGNED BY: RT Jimmy(R) December 18, 2024 11:11 AM CNPTOUTREACH Observed: 10/30/2024 12:00 AM Status: COMPLETED Source: [facility] Patient Outreach ([facility]WS) MANJULA OROURKE ([id number]) 1955 F Date Time Provider Department 10/30/24 ROYCE MANE FAMPWS During your visit today, we recorded the following information about you: Allergies As of Date: 10/30/2024 (No Known Allergies) Date Reviewed: 11/16/2023 Reviewed by: Pratibha Doyle MA - Fully Assessed Visit Diagnosis:Encounter for screening mammogram for breast cancer [Z12.31] Order(s):[facility] SCREENING W JJ [[id number]] Order #: [id number] FUTURE Prescriptions as of 11/30/2024 - levothyroxine (SYNTHROID) 75 mcg tablet TAKE 1 TABLET BY MOUTH 6 DAYS PER WEEK BEFORE BREAKFAST. TAKE 2 TABS ONE DAY OF THE WEEK - Kbrpl-0-DYL-EPA-Fish Oil 1,000 mg (120 mg-180 mg) cap [...] shoulder [M77.8] 07/13/2022 07/13/2022 Encounter Status:Closed by MAURA PRODUSER on 11/30/24 ALLERGIES DATE TYPE / CODE NAME / CODE REACTION SEVERITY SOURCE Drug Class/624877323(SNO MED CT) NO KNOWN ALLERGIES [facility] ENCOUNTERS ADMIT/DISCHARGE ACCOUNT NUMBER ADMITTING ENCOUNTER CLASS LOC ATION SOURCE 04/23/2025/ 5 [id number] [facility] HospitalBuild ing:[facility] 04/23/2025/ 5 [id number] [facility] ing:[facility] 03/14/2025/ 5 [id number] [facility] Hospital[facility] ing:[facility] 01/29/2025/ 5 [id number] [facility] HospitalBuild ing:[facility] 01/29/2025 [id number] Ambulatory [facility] HospitalBuild ing:[address] 01/08/2025 [id number] [facility] HospitalBuild ing:[address] 01/08/2025/ 5 [id number] [facility] HospitalBuild ing:[facility] 12/25/2024/ 5 [id number] Ambulatory [facility] HospitalBuild ing:FRFW [facility] 12/18/2024 [id number] [facility] HospitalBuild ing:ABELARDOG [facility] 12/18/2024/ 5 [id number] Ambulatory [facility] HospitalBuild ing:WOUC [facility] PAYERS ENCOUNTER GUARANTOR PAYER SUBSCRIBER SOURCE 04/23/2025 Primary Insurance:MEDICARE A AND BPolicy Number: [id number] Date:3660-84-34Hvnd Name:Essie FRYE: [id number] [address] 04/23/2025 Primary Insurance:MEDICARE A AND BPolicy Number: [id number] Date:8374-46-44Jrmi Name:Essie DIEHLB: [id number] [place] [id number] [place] [address] 03/14/2025 Primary Insurance:MEDICARE A AND BPolicy Number: [id number] Date:2116-96-69Dxde Name:Essie DIEHLB: [id number] [place] [address] 01/29/2025 Primary Insurance:MEDICARE A AND BPolicy Number: [id number] Date:9553-82-65Skzt Name:Essie DIEHLB: [id number] [place] [address] 01/29/2025 Primary Insurance:MEDICARE A AND BPolicy Number: [id number] Date:9931-99-74Qjck Name:Essie DIEHLB: [id number] [place] [address] 01/08/2025 Primary Insurance:MEDICARE A AND BPolicy Number: [id number] Date:0225-09-96Anyp Name:Essie FRYE: [id number] 01/08/2025 Primary Insurance:MEDICARE A AND BPolicy Number: [id number] Date:8792-35-42Jynq Name:Essie FRYE: [id number] 12/25/2024 Primary Insurance:MEDICARE A AND BPolicy Number: [id number] Date:1733-53-97Slkt Name:Essie FRYE: [id number] 12/18/2024 Primary Insurance:MEDICARE A AND BPolicy Number: [id number] Date:7222-66-25Wgkz Name:Essie FRYE: [id number] 12/18/2024 Primary Insurance:MEDICARE A AND BPolicy Number: [id number] Date:6986-87-54Nwfi Name:Essie FRYE: [id number]
--- OUTSIDE RECORDS SUMMARY | 2025-04-23 07:38 | XMS RPT_ITS ---
Author Name Auto Generated Organization OHIP Care Team Providers Care Superintendent Laundry Name Role Phone RICARDO STATON Referring Unavailable [...] DATE TYPE CONDITION / CODE ATTENDING STATUS [facility] 04/23/2025 Active Hospital F/U / UNK(Unknown) LURDES CHE Active [facility] 03/14/2025 Active Morbid obesity w ith BMI of 40.0-44.9, adult (HCC) / E66.01(ICD-10) AILEEN ALVAREZ Active [facility] 03/14/2025 Active Morbid obesity w ith BMI of 40.0-44.9, adult (HCC) / Z68.41(ICD-10) AILEEN ALVAREZ Active [facility] 06/13/2019 Active IFG (impaired fa sting glucose) / R73.01(ICD-10) AILEEN ALVAREZ Active [facility] 08/25/2016 Active Well adult exam / Z00.00(ICD-10) AILEEN ALVAREZ Active [facility] 08/21/2012 Active Hypercholesterol emia / E78.00(ICD-10) AILEEN ALVAREZ Active [facility] 04/05/2012 Active Hypothyroidism, unspecified type / E03.9(ICD-10) AILEEN ALVAREZ Active [facility] 03/14/2025 Active Screening for de pression / Z13.31(ICD-10) AILEEN ALVAREZ Active [facility] 03/14/2025 Active Encounter for sc reening examination for other mental health and behavioral disorders / Z13.39(ICD-10) AILEEN ALVAREZ Active [facility] 03/14/2025 Active Abnormality of g ait / R26.9(ICD-10) LUCYAILEEN Active [facility] 03/14/2025 Active Falling episodes / R29.6(ICD-10) LUCYAILEEN Active [facility] 03/14/2025 Active Encounter for im munization / Z23(ICD-10) LUCYAILEEN Active [facility] 03/14/2025 Active Screening for co komal cancer / Z12.11(ICD-10) LUCYAILEEN Active [facility] 03/14/2025 Active Family history o f colon cancer / Z80.0(ICD-10) LUCYAILEEN Active [facility] 12/25/2024 Active Closed fracture of distal end of right fibula, unspecified fracture morphology, initial encounter / S82.831A(ICD-10) DEAN KIMBLE Active [facility] 12/18/2024 Active Acute right ankl e pain / M25.571(ICD-10) RICARDO STATON [facility] 12/18/2024 Active Injury of right foot, initial encounter / S99.921A(ICD-10) RICARDO STATON Active [facility] PROCEDURES No Procedure Records Found RESULTS PROGRESS Observed: 04/23/2025 4:34 PM Status: COMPLETED Source: [facility] HNO ID: [id number] Author: LURDES CHE APRN.RADIOLOGIST Service: ? Author Type: Nurse Practitioner Type: Progress Notes Filed: 04/23/2025 16:37 Note Text: 04/23/2025 Recording using ambient Kwan Mobile software for draft documentation of the visit was discussed with the patient/authorized arborist representative; all questions welcomed and answered. Patient/authorized arborist representative agreed to proceed HPI: The patient [...] reviewed as needed. Follow up: Lurdes Che APRN.RADIOLOGIST COMP METAB 2000 PNL SERPL Collected: 7:42 AM Status: F Source: [facility] Order Comment: Specimen Type : BLOOD SPECIMEN Ordering Facility: [facility] Address: [address] [place] [address] TYPE CODE TESTS RESULT OUT OF RANGE REFERENCE UNITS LAB 2885-2(LOINC) Prot SerPl-mCnc 7.1 6.3-8.0 g/dL LAB 1751-7(LOINC) Albumin SerPl-mCnc 4.0 3.9-4.9 g/dL LAB 94156-8(LOINC) Calcium SerPl-mCnc 9.1 8.5-10.2 mg/dL LAB 1975-2(LOINC) Bilirub SerPl-mCnc 0.5 0.2-1.3 mg/dL LAB 6768-6(LOINC) ALP SerPl-cCnc 272 High 34-123 U/L LAB 1920-8(LOINC) AST SerPl-cCnc 33 13-35 U/L LAB 1742-6(LOINC) ALT SerPl-cCnc 94 High 7-38 U/L LAB 2345-7(LOINC) Glucose SerPl-mCnc 85 74-99 mg/dL Result Comment: The [place] Diabetes Association (ADA) provides guidance for cutoff [...] Standards of Medical Care in Diabetes 2016, [place] Diabetes Association. Diabetes Care. 2016.39(Suppl 1). LAB 3094-0(LOINC) BUN SerPl-mCnc 15 7-21 mg/dL LAB 2160-0(LOINC) Creat SerPl-mCnc 0.77 0.58-0.96 mg/dL LAB 2951-2(LOINC) Sodium SerPl-sCnc 140 136-144 mmol/L LAB 2823-3(LOINC) Potassium SerPl-sCnc 4.1 3.7-5.1 mmol/L LAB 2075-0(LOINC) Chloride SerPl-sCnc 103 98-107 mmol/L LAB 2028-9(LOINC) CO2 SerPl-sCnc 25 22-30 mmol/L LAB 62678-2(LOINC) Anion Gap SerPl-sCnc 12 8-15 mmol/L LAB 90540-1(LOINC) eGFRcr SerPlBld CKD-EPI 2020 84 >=60 mL/min/1. [...] accurately reflect actual GFR. Performed By: #### 03915-5, 67389-9, 3024-7, 3016-3 #### [facility] CLIA [id number] [address] [place] [address] [place] [address] [place] LIPID 1996 PNL SERPL Collected: 025 7:42 AM Status: F Source: [facility] Order Comment: Specimen Type : BLOOD SPECIMEN Ordering Facility: [facility] Address: [address] [place] [address] TYPE CODE TESTS RESULT OUT OF RANGE [...] is calculated using the Álvarez-NIH equation. LAB 05470-6(LOINC) NonHDLc SerPl-mCnc 194 High <130 mg/dL Result Comment: <130 mg/dL, Optimal 130-159 mg/dL, Near optimal/above optimal 160-189 mg/dL, Borderline high 190-219 mg/dL, High >219 mg/dL, Very high Secondary prevention optimal non HDL Cholesterol levels are recommended to be <100 mg/dL LAB 61279-8(LOINC) VLDLc SerPl Calc-mCnc 46 High <30 mg/dL LAB 9830-1(LOINC) Cholest/HDLc SerPl 6.24 High <5.10 LAB 54923-6(LOINC) LDLc/HDLc SerPl 4.03 High <2.54 Result Comment: Reference: 1. National Cholesterol Education Program ATP III Guideline At-A-Glance Quick Desk Reference: National Heart, Lung, and Blood Arch [place]. National Institutes of Health. 2001: NIH Publication No. 01-3305. 2. An International Atherosclerosis Society position paper: global recommendations for the management of dyslipidemia: executive summary, Atherosclerosis. 2014: 232(2):410-413. LAB FT FASTING TIME 13 hrs Performed By: #### 69966-5, 24149-6, 3024-7, 3016-3 #### [facility] CLIA [id number] [address] [place] [address] [place] T4 FREE SERPL-MCNC Collected: 04/23/2025 7:42 AM Sta tus: F Source: [facility] Order Comment: Specimen Type : BLOOD SPECIMEN [facility]ing Facility[facility] Address: [address] [place] [address] TYPE CODE TESTS RESULT OUT OF RANGE REFERENCE UNITS LAB 3024-7([facility]) T4 Free SerPl-mCnc 1.0 0.9-1.7 ng/dL Performed By: #### 06363-0, 41292-7, 3024-7, 3016-3 #### [facility] CLIA [id number] [address] [place] [address] [place] TSH SERPL-ACNC Collected: 7:42 AM Status: F Source: [facility] Order Comment: Specimen Type : BLOOD SPECIMEN Ordering Facility: [facility] Address: [address] [place] [address] TYPE CODE TESTS RESULT OUT OF RANGE REFERENCE UNITS LAB 3016-3(LOINC) TSH SerPl-aCnc 3.110 0.270-4.200 mIU/L Performed By: #### 73792-8, 59464-5, 3024-7, 3016-3 #### [facility] CLIA [id number] [address] [place], [place] [id number] [place] CBC PNL BLD AUTO Collected: 7:42 AM Status: F Source: [facility] Order Comment: Specimen Type : BLOOD SPECIMEN Ordering Facility: [facility] Address: [address] [place] [address] TYPE CODE TESTS RESULT OUT OF RANGE [...] MCHC RBC Auto-mCnc 32.0 30.5-36.0 g/dL LAB 52037-8([facility]) RDW RBC-Rto 13.5 11.5-15.0 % LAB 777-3(LOINC) Platelet # Bld Auto 377 150-400 k/uL LAB 96193-6([facility]) PMV Bld Auto 9.3 9.0-12.7 fL LAB 771-6([facility]) nRBC # Bld Auto <0.01 <0.01 k/uL Performed By: #### 67409-1 # ### [facility] CLIA [id number] [address] [place] [address] [place] DEPRECATED HGB A1C BLD Collected: 04/23 7:42 AM Status: F Source: [facility] Order Comment: Specimen Type : BLOOD SPECIMEN Ordering Facility: [facility] Address: [address] [place] [address] TYPE CODE TESTS RESULT OUT OF RANGE REFERENCE UNITS LAB 4548-4(LOINC) HbA1c MFr Bld 5.5 4.3-5.6 % Result Comment: [place] Elizabeth betes Association guidelines indicate that patients with HgbA1c in the range 5.7-6.4% are at increased risk for development of diabetes, and intervention by lifestyle modification may be beneficial. HgbA1c greater or equal to 6.5% is considered diagnostic of diabetes. LAB 11807-8(LOINC) Est. average glucose Bld gHb Est-mCnc 111 mg/dL Result Comment: eAG: (Estima debby average glucose) is a calculated value from HgbA1c and is arborist representative of the average blood glucose level in the last 2-3 month period. Performed By: #### 09462-3 # ### [facility] CLIA [id number] [address] [place] [address] OF [facility] CNOV Observed: 04/23/2025 7:00 AM Status: COMPLETED Source: [facility] Office Visit ([facility]) MANJULA OROURKE ([id number]) 1955 F Date Time Provider Department 04/23/25 7:00 AM LURDES CHE [facility] During your visit today, we recorded the following information about you: Pulse Blood pressure Weight 87/minute 104/72 98.1 kg Lurdes Che APRN.CNP 04/23/2025 4:37 PM Signed 04/23/2025 Recording using Skoodat software for draft documentation of the visit was discussed with the patient/authorized arborist representative; all questions welcomed and answered. Patient/authorized arborist representative agreed to proceed HPI: The patient is a 69-year-old female presenting for post-operative follow-up after laparoscopic cholecystectomy. Accompanied by her daughter. Cholecystectomy Follow-Up: - Manjula Orourke underwent cholecystectomy performed by Dr. Snachez. - Experienced severe pain prior to surgery, [...] Date Reviewed: 04/23/2025 Reviewed by: Lurdes Che APRN.RADIOLOGIST - Fully Assessed Reason for Visit: Hospital F/U [57] Cmt: [facility] 04/12 cholecystectomy Primary Visit Diagnosis:Status post [...] (HC*03/14/2025 Level of Service: OFFICE/OUTPATIENT ESTABLISHED LOW [facility] 20 MIN [86961] Additional E/M codes: VISIT CPLX INHERENT EANDM ASSOC WITH MED * Encounter Status:Closed by LURDES CHE on 04/23/25 PROGRESS Observed: 03/14/2025 2:34 PM Status: COMPLETED Source: [facility] HNO ID: [id number] Author: AILEEN ALVAREZ APRN.RADIOLOGIST Service: ? Author Type: Nurse Practitioner Type: Progress Notes Filed: 03/14/2025 14:58 Note Text: FALLS RISK PLAN: Overall, she is doing very well. Appropriate for community-based exercise programs. List of local resources and falls prevention materials provided. CNOV Observed: 03/14/2025 2:20 PM Status: COMPLETED Source: [facility] MANJULA OROURKE ([id number]) 1955 F Date Time Provider Department 03/14/25 [...] General (Family Medicine) Lurdes Che APRN.TERRENCE [facility] (Family Medicine) Aileen Alvarez APRN.CNP as [facility] (Family Medicine) Outside specialists seen: Dr. Marti-Eye [...] those offered by recreation centers or the [facility]. WHAT YOU CAN DO TO [...] review all the medicines you take, even ldxl-tjb-fbjwdfm medicines. As you get older, the way [...] review all the medicines you take, even vjzp-acg-ggldrhw medicines. As you get older, the way [...] you have certain medical conditions. Aileen Alvarez APRN.RADIOLOGIST 03/14/2025 2:58 PM Signed FALLS RISK PLAN: [...] cancer [Z80.0] Order(s):DEPRESSION SCREENING [] Order #: [id number]: 1 ANXIETY SCREENING [] Order #: [id number]: 1 FALLS RISK EDUCATION [5493188] Order #: [id number]: 1 THYROID STIMULATING HORMONE [SQTSH] Order #: [id number] FUTURE T4 FREE/FREE THYROXINE [SQFT4] Order #: [id number] FUTURE LIPID PANEL, FASTING [SQLIPB] Order #: [id number] FUTURE COMPREHENSIVE METABOLIC PANEL [SQCMP] Order #: [id number] FUTURE HEMOGLOBIN A1C [YLLCP2R] Order #: [id number] FUTURE COMPLETE BLOOD COUNT [SQCBC] Order #: [id number] FUTURE TDAP PRINTED PHARMACY INSTRUCTIONS [21310412] Order #: [id number]: 1 COLONOSCOPY SCREENING [GI51] Order #: [id number] FUTURE peg 3350-Electrolytes (GOLYTELY) 236-22.74-6.74 -5.86 gram [...] those offered by recreation centers or the [facility]. WHAT YOU CAN DO TO [...] review all the medicines you take, even ratg-qvr-uyzxyya medicines. As you get older, the way [...] review all the medicines you take, even frvk-rdf-bvkbvrg medicines. As you get older, the way [...] instructions from your provider. Level of Service: [facility], INITIAL VISIT [G0438] Additional E/M codes: VISIT CPLX INHERENT EANDM ASSOC WITH MED * Disposition: Return in about 1 year (around 03/14/2026) for Wellness exam . LOS History for Encounter Level of Service[facility]G0439] Date AND Time: 03-14-2025 2:47 PM Recorded by User: AILEEN ALVAREZ Follow-up and Disposition History for Encounter Date Provider Department Center 03/14/2025 [id number]-PDSZWAILEEN ALVAREZ*[facility] Encounter Status:Closed by AILEEN ALVAREZ on 03/14/25 PROGRESS Observed: 03/14/2025 2:17 PM Status: COMPLETED Source: [facility] HNO ID: [id number] Author: AILEEN ALVAREZ APRN.CNP Service: ? Author [...] General (Family Medicine) Lurdes Che APRN.TERRENCE as [facility] (Family Medicine) Aileen Alvarez APRN.CNP as [facility] (Family Medicine) Outside specialists seen: Dr. Marti-Eye [...] and is older than 65. Aileen Alvarez APRN.RADIOLOGIST PROGRESS Observed: 01/29/2025 8:21 AM Status: COMPLETED Source: [facility] HNO ID: [id number] Author: DEAN KIMBLE, DO Service: ? Author [...] right fibula, unspecified fracture morphology, initial encounter (S82.957W) - Fracture healing well with visible bridging [...] if asymptomatic and fully functional. Recording using Skoodat software for draft documentation of the visit was discussed with the patient/authorized arborist representative; all questions welcomed and answered. Patient/authorized arborist representative agreed to proceed PROGRESS Observed: 01/29/2025 8:09 AM Status: COMPLETED Source: [facility] HNO ID: [id number] Author: PERLA MILLER MA Service: ? Author Type: Windows Server Engineer Type: Progress Notes Filed: 01/29/2025 08:21 Note Text: AMB ROOMING INTAKE FLOWSHEET DATA Patient here today 6 weeks post fracture right distal fibula fracture. She denies any pain. Arrives in boot today. New x-ray today. XR ANKLE 3V AP/LAT/OBL RT Observed: 08/2024 8:07 AM Status: F Source: [facility] * * *Final Report* * * DATE [...] Healing distal fibula fracture with unchanged alignment. Studio Grip: KAYA Transcribe Date/Time: Feb 06 2025 7:35P Dictated by : ALISSA CORONEL MD This examination was interpreted and the report reviewed and electronically signed by: ALISSA CORONEL MD on Feb 06 2025 7:35PM EST [id number] CNOV Observed: 01/29/2025 8:00 AM Status: COMPLETED Source: [facility] MANJULA OROURKE ([id number]) 1955 F Date Time Provider Department 01/29/25 8:00 AM DEAN KIMBLE [facility] During your visit today, we [...] if asymptomatic and fully functional. Recording using Skoodat software for draft documentation of the visit was discussed with the patient/authorized arborist representative; all questions welcomed and answered. Patient/authorized arborist representative agreed to proceed Allergies As of [...] Observed: 01/29/2025 8:00 AM Status: COMPLETED Source: [facility] HNO ID: [id number] Author: JACE GALLAGHER RT(R) Service: ? Author Type: Technologist Type: Progress Notes Filed: 01/29/2025 20:06 Note Text: Radiology Service Progress Note PATIENT NAME: Manjula Orourke DATE OF SERVICE: January 29, 2025 [...] PATIENT PRESENTS WITH AN IMPLANTABLE OR ATTACHED STATISTICAL FINANCIAL ANALYST: No RADIOLOGY DEPARTMENT: General X-ray: Exam(s) Completed: Lower Extremity X-Ray(s): Ankle, Right PERIPHERAL IV DATA: Not applicable SIGNED BY: Jace Gallagher, RT(R) January 29, 2025 8:05 PM PROGRESS Observed: 01/08/2025 8:40 AM Status: COMPLETED Source: [facility] HNO ID: [id number] Author: DEAN KIMBLE, DO Service: ? Author [...] right fibula, unspecified fracture morphology, initial encounter (S82.750X) Fracture occurred on December 18. Current X-rays [...] an ankle brace or wrap. Recording using Skoodat software for draft documentation of the visit was discussed with the patient/authorized arborist representative; all questions welcomed and answered. Patient/authorized arborist representative agreed to proceed CNOV Observed: 01/08/2025 8:30 AM Status: COMPLETED Source: [facility] MANJULA OROURKE ([id number]) 1955 F Date Time Provider Department 01/08/25 8:30 AM DEAN KIMBLE [facility] During your visit today, we [...] an ankle brace or wrap. Recording using Skoodat software for draft documentation of the visit was discussed with the patient/authorized arborist representative; all questions welcomed and answered. Patient/authorized arborist representative agreed to proceed Allergies As of [...] Observed: 01/08/2025 8:22 AM Status: COMPLETED Source: [facility] HNO ID: [id number] Author: PERLA MILLER MA Service: ? Author Type: Windows Server Engineer Type: Progress Notes Filed: 01/08/2025 08:41 Note Text: AMB ROOMING INTAKE FLOWSHEET DATA Patient here 3 weeks 6 days post fracture right ankle distal fibula. Patient denies any pain. New x-ray today. XR ANKLE 3V AP/LAT/OBL RT Observed: 12/30 8:20 AM Status: F Source: [facility] * * *Final Report* * * DATE [...] Healing distal fibula fracture with unchanged alignment. Studio Grip: PSCB Transcribe Date/Time: Jan 13 2025 6:52P Dictated by : ALISSA CORONEL MD This examination was interpreted and the report reviewed and electronically signed by: ALISSA CORONEL MD on Jan 13 2025 6:52PM EST [id number] PROGRESS Observed: 01/08/2025 8:10 AM Status: COMPLETED Source: [facility] HNO ID: [id number] Author: ELEAZAR KATZ RT(R) Service: Radiology Author [...] PATIENT PRESENTS WITH AN IMPLANTABLE OR ATTACHED STATISTICAL FINANCIAL ANALYST: No RADIOLOGY DEPARTMENT: General X-ray: Exam(s) Completed: Lower Extremity X-Ray(s): Ankle, Right PERIPHERAL IV DATA: Not applicable SIGNED BY: RT Jon(R) January 08, 2025 8:12 AM PROGRESS Observed: 12/25/2024 8:23 AM Status: COMPLETED Source: [facility] HNO ID: [id number] Author: DEAN KIMBLE, DO Service: ? Author [...] right fibula, unspecified fracture morphology, initial encounter (S82.976N) Spiral fracture of the distal fibula with [...] weight-bearing X-ray to assess stability. Recording using Skoodat software for draft documentation of the visit was discussed with the patient/authorized arborist representative; all questions welcomed and answered. Patient/authorized arborist representative agreed to proceed PROGRESS Observed: 12/25/2024 8:01 AM Status: COMPLETED Source: [facility] HNO ID: [id number] Author: RENATE BURNETT MA Service: ? Author Type: Windows Server Engineer Type: Progress Notes Filed: 12/25/2024 08:24 Note Text: Patient presents with: Right ankle fracture: Referred by Ricardo SPENCER ROOMING INTAKE FLOWSHEET DATA Pain Pain Level: 4 Pain Location: Ankle-Right Description: Dull, Aching Duration Units: Days Frequency: Intermittent Intervention/Comfort measure: (fracture boot) CNOV Observed: 12/25/2024 8:00 AM Status: COMPLETED Source: [facility] Office Visit ([facility]) MANJULA OROURKE ([id number]) 1955 F Date Time Provider Department 12/25/24 [...] right fibula, unspecified fracture morphology, initial encounter (S82.492W) Spiral fracture of the distal fibula with [...] weight-bearing X-ray to assess stability. Recording using Skoodat software for draft documentation of the visit was discussed with the patient/authorized arborist representative; all questions welcomed and answered. Patient/authorized arborist representative agreed to proceed Referring Provider: RICARDO STATON [[id number]] Allergies As of Date: 12/25/2024 (No Known Allergies) Date Reviewed: 12/25/2024 Reviewed by: Renate Burnett MA - Fully Assessed Reason for Visit: Right ankle fracture [Other] Cmt: Referred by Ricardo Staton Visit Diagnosis:Closed fracture of distal end of right fibula, unspecified fracture morphology, initial encounter [S82.837I] Order(s):CONSULT PANEL TO ORTHOPAEDICS [[id number]] Order #: [id number]: 1 Prescriptions as of 12/25/2024 - levothyroxine [...] Medications Discontinued During This Encounter Prescriptions - Xhcgt-2-AJD-EPA-Fish Oil 1,000 mg (120 mg-180 mg) cap (Discontinued) Reported on 12/25/2024 Encounter Status:Closed by DEAN KIMBLE V on 12/25/24 PROGRESS Observed: 12/18/2024 11:39 AM Status: COMPLETED Source: [facility] HNO ID: [id number] Author: RICARDO STATON PA Service: ? Author Type: Physician Community Liaison Officer Type: Progress Notes Filed: 12/18/2024 11:42 Note [...] 2 TABS ONE DAY OF THE WEEK Xujfk-2-IYF-EPA-Fish Oil 1,000 mg (120 mg-180 mg) cap [...] 2. Injury of right foot, initial encounter (H81.424B) 3. Closed fracture of distal end of right fibula, unspecified fracture morphology, initial encounter (L75.245A) - Patient sustained an injury to the [...] further evaluation and management. and Recording using Skoodat software for draft documentation of the visit was discussed with the patient/authorized arborist representative; all questions welcomed and answered. Patient/authorized arborist representative agreed to proceed History and Record [...] Observed: 12/18 11:13 AM Status: F Source: [facility] * * *Final Report* * * DATE [...] first MTP joint with small calcaneal spurs. Studio Grip: KAYA Transcribe Date/Time: Dec 18 2024 11:24A Dictated by : LUCILLE BRAVO MD This examination was interpreted and the report reviewed and electronically signed by: LUCILLE BRAVO MD on Dec 18 2024 11:27AM EST [id number] XR ANKLE 3V AP/LAT/OBL RT Observed: 11/30 11:13 AM Status: F Source: [facility] * * *Final Report* * * DATE [...] first MTP joint with small calcaneal spurs. [facility] Transcribe Date/Time: Dec 18 2024 11:24A Dictated by : LUCILLE BRAVO MD This examination was interpreted and the report reviewed and electronically signed by: LUCILLE BRAVO MD on Dec 18 2024 11:27AM EST [id number] CNOV Observed: 12/18/2024 10:30 AM Status: COMPLETED Source: [facility] Office Visit ([facility]) MANJULA OROURKE ([id number]) 1955 F Date Time Provider Department 12/18/24 10:30 AM RICARDO STATON [facility] During your visit today, we recorded [...] 2 TABS ONE DAY OF THE WEEK Mkzcg-6-QYA-EPA-Fish Oil 1,000 mg (120 mg-180 mg) cap [...] 2. Injury of right foot, initial encounter (S99.601A) 3. Closed fracture of distal end of right fibula, unspecified fracture morphology, initial encounter (S82.631A) - Patient sustained an injury to the [...] further evaluation and management. and Recording using Skoodat software for draft documentation of the visit was discussed with the patient/authorized arborist representative; all questions welcomed and answered. Patient/authorized arborist representative agreed to proceed History and Record [...] Visit Diagnoses:Injury of right foot, initial encounter [S99.021A] Closed fracture of distal end of right fibula, unspecified fracture morphology, initial encounter [S82.371A] Order(s):XR ANKLE GENERAL 3V AP/LAT/OBL RIGHT [[id number]] Order #: [id number] FUTURE XR FOOT GENERAL 3V AP/LAT/OBL RIGHT [[id number]] Order #: [id number] FUTURE CONSULT PANEL TO ORTHOPAEDICS [[id number]] Order #: [id number]: 1 FUTURE Prescriptions as of 12/18/2024 - levothyroxine (SYNTHROID) 75 mcg tablet TAKE 1 TABLET BY MOUTH 6 DAYS PER WEEK BEFORE BREAKFAST. TAKE 2 TABS ONE DAY OF THE WEEK - Kfllp-3-ANJ-EPA-Fish Oil 1,000 mg (120 mg-180 mg) cap [...] Observed: 12/18/2024 10:10 AM Status: COMPLETED [facility] [id number] Author: TOOTIE GEORGE RT(R) Service: ? Author Type: Online Publisher Type: Progress Notes Filed: 12/18/2024 11:12 Note [...] PATIENT PRESENTS WITH AN IMPLANTABLE OR ATTACHED STATISTICAL FINANCIAL ANALYST: No RADIOLOGY DEPARTMENT: General X-ray: Exam(s) Completed: Lower Extremity X-Ray(s): Ankle, Right and Foot, Right PERIPHERAL IV DATA: Not applicable SIGNED BY: RT Jimmy(R) December 18, 2024 11:11 AM CNPTOUTREACH Observed: 10/30/2024 12:00 AM Status: COMPLETED Source: [facility] Patient Outreach (FAMPWS) MANJULA OROURKE ([id number]) 1955 F Date Time Provider Department 10/30/24 ROYCE MANE FAMPWS During your visit today, we recorded the following information about you: Allergies As of Date: 10/30/2024 (No Known Allergies) Date Reviewed: 11/16/2023 Reviewed by: Pratibha Doyle MA - Fully Assessed Visit Diagnosis:Encounter for screening mammogram for breast cancer [Z12.31] Order(s):[facility] SCREENING W JJ [[id number]] Order #: [id number] FUTURE Prescriptions as of 11/30/2024 - levothyroxine (SYNTHROID) 75 mcg tablet TAKE 1 TABLET BY MOUTH 6 DAYS PER WEEK BEFORE BREAKFAST. TAKE 2 TABS ONE DAY OF THE WEEK - Thuds-1-POW-EPA-Fish Oil 1,000 mg (120 mg-180 mg) cap [...] NAME / CODE REACTION SEVERITY SOURCE Drug Class/829005399(SNO MED CT) NO KNOWN ALLERGIES [facility] ENCOUNTERS ADMIT/DISCHARGE ACCOUNT NUMBER ADMITTING ENCOUNTER CLASS LOC ATION SOURCE 04/23/2025/ 5 [id number] [facility] HospitalBuild ing:[place] 04/23/2025/ 5 [id number] [facility] Hospital[facility] ing:[facility] 03/14/2025/ 5 [id number] [facility] Hospital[facility] ing:[facility] 01/29/2025/ 5 [id number] [facility] 01/29/2025 [id number] [facility] HospitalBuild ing:[address] 01/08/2025 [id number] [facility] HospitalBuild ing:[address] 01/08/2025/ 5 [id number] [facility] HospitalBuild ing:[facility] 12/25/2024/ 5 [id number] Ambulatory [facility] HospitalBuild ing:[facility] 12/18/2024 [id number] [facility] HospitalBuild ing:ABELARDOG [facility] 12/18/2024/ 5 [id number] [facility] HospitalBuild ing:[facility] PAYERS ENCOUNTER GUARANTOR PAYER SUBSCRIBER SOURCE 04/23/2025 Primary Insurance:MEDICARE A AND BPolicy Number: [id number] Date:0080-50-90Pbzl Name:Essie FRYE: [id number] [address] 04/23/2025 Primary Insurance:MEDICARE A AND BPolicy Number: [id number] Date:5192-20-61Msyp Name:Essie DIEHLB: [id number] [place] [id number] [place] [address] 03/14/2025 Primary Insurance:MEDICARE A AND BPolicy Number: [id number] Date:4711-41-83Ttkp Name:sEsie DIEHLB: [id number] [place] [address] 01/29/2025 Primary Insurance:MEDICARE A AND BPolicy Number: [id number] Date:1996-59-30Skpu Name:Essie DIEHLB: [id number] [id number] [place] [address] 01/29/2025 Primary Insurance:MEDICARE A AND BPolicy Number: [id number] Date:8792-09-02Iayl Name:Essie DIEHLB: [id number] [place] [address] 01/08/2025 Primary Insurance:MEDICARE A AND BPolicy Number: [id number] Date:5045-25-25Wkjz Name:Essie FRYE: [id number] 01/08/2025 Primary Insurance:MEDICARE A AND BPolicy Number: [id number] Date:1221-50-68Azul Name:Essie FRYE: [id number] 12/25/2024 Primary Insurance:MEDICARE A AND BPolicy Number: [id number] Date:3467-00-03Amjv Name:Essie FRYE: [id number] 12/18/2024 Primary Insurance:MEDICARE A AND BPolicy Number: [id number] Date:9020-75-32Xkqb Name:Essie FRYE: [id number] 12/18/2024 Primary Insurance:MEDICARE A AND BPolicy Number: [id number] Date:5560-95-15Gbgu Name:Essie FRYE: [id number]
[2025-04-28 13:17] VITALS: BP 177/119; PULSE 84; RESP 16; TEMP 36.4; O2SAT 99
--- NOTE | 2025-04-28 14:09 | CT_ITS ---
PROCEDURE: ABDOMEN/PELVIS WITHOUT CONT 04/28/2025 REASON FOR EXAM: PAIN TECHNIQUE: Procedure Code: CTABDPEL Modality: CT Procedure: ABDOMEN/PELVIS WITHOUT CONT Noncontrast technique limits evaluation of the abdominal and pelvic viscera. Coronal and Sagittal reconstruction series were provided. One or more dose reduction techniques were used (e.g., Automated exposure control, adjustment of the mA and/or kV according to patient size, use of iterative reconstruction technique). RADIATION DOSE SUMMARY: DLP: 1038 mGycm COMPARISON: CT abdomen/pelvis 04/11/2025 FINDINGS: Lung bases: The lung bases are clear. No pleural effusions. Liver: Normal in size. Scattered punctate calcifications compatible with calcified granulomas. Gallbladder: Status post cholecystectomy. The common bile duct measures up to 1.4 cm. Spleen: The spleen is normal in size. There are multiple calcified granulomas. Pancreas: Unremarkable. Adrenals: Unremarkable. Kidneys: Normal in size. Normal morphology. No nephroureterolithiasis or hydronephrosis. Bladder: Nondistended, limiting evaluation. Bowel: The small and large bowel are normal in caliber. No evidence of small bowel obstruction. Extensive diverticulosis without evidence of diverticulitis. Appendix: Unremarkable. Lymph nodes: No lymphadenopathy. Vasculature: No abdominal aortic aneurysm. Atherosclerotic calcification of the abdominal aorta and common iliac arteries. Peritoneum / Retroperitoneum: No ascites. Fat containing umbilical hernia. New paraumbilical ventral defect with fat herniation and associated small amount of fluid. There is mild surrounding fat stranding. Reproductive Organs: Limited evaluation on CT. The uterus is present. No adnexal mass. Bones and soft tissues: No aggressive osseous lesions. Degenerative changes of the visualized spine. CT/Abdomen/Pelvis without Cont IMPRESSION: 1. Status post cholecystectomy. Dilated common bile duct measuring up to 1.4 c m. 2. New paraumbilical small ventral defect with associated small amount fluid li eliana related to postsurgical changes. Mild surrounding inflammatory changes. Underlying infection is not entirely exclude d. 3. Diverticulosis without evidence of diverticulitis. 4. Additional details as discussed above. Reading Location: [id number]
--- NOTE | 2025-04-28 14:10 | ED.VIS.GI ---
HPI HPI - GI History of Present Illness Chief Complaint: Flank Pain Informant: patient Abdominal Pain/Flank Pain Onset: Today and Hours Context: Sudden Onset Timing: Continuous Quality: Sharp and Stabbing Location: Right Flank Current Severity: Moderate Maximum Severity: Moderate Nausea/Vomiting/Emesis GI Symptom: Positive for Nausea and Vomiting Onset: Today Severity: Moderate Diarrhea/Melena/Hematochezia GI Symptom: Negative for Diarrhea, Melena or Hematochezia Associated Symptoms Associated Symptoms: Negative for Dysuria, Frequency, Hematuria or Urgency Narrative Narrative: 69-year-old female 2 weeks ago she had a cholecystectomy. 2 AM this morning she awoke with right flank pain and developed nausea vomiting. History of kidney stones but never actually had a kidney synergist in her kidneys. Denies any hematuria or dysuria. No fever or chills. Associated nausea and vomiting. No diarrhea. Prior similar symptoms: No Recent Illness/Hospital[facility]: [facility] Medical History Hypothyroid Home Medications ?Medication ?Instructions ?Recorded ?Last Taken ?Type levothyroxine 75 mcg tablet 75 mcg PO SUMOTUWEFRSA 05/19/19 04/27/25 History aspirin 81 mg tablet 81 mg PO DAILY 04/11/25 04/27/25 History cholecalciferol (vitamin D3) 25 25 mcg PO DAILY 04/11/25 04/27/25 History mcg (1,000 unit) capsule (Vitamin D3) cinnamon bark 500 mg capsule 500 mg PO DAILY 04/28/25 04/27/25 History (Cinnamon) levothyroxine 75 mcg tablet 150 mcg PO TH 04/28/25 04/25/25 History (Euthyrox) turmeric 400 mg capsule 400 mg PO DAILY 04/28/25 04/27/25 History Allergy/AdvReac Type Severity Reaction Status Date / Time No Known Allergies Allergy Verified 04/28/25 13:18 Surgical History Status post laparoscopic cholecystectomy S/P cholecystectomy Hx of elbow surgery Social History Smoking Status: Former smoker substance use type: does not use ROS ROS ED ROS Narrative Right flank pain. Nausea vomiting. Constitutional Constitutional ED: Denies chills or fever(s) ENT ENT ED: Denies ear pain Cardiovascular Cardiovascular: Denies chest pain Respiratory/Chest Respiratory/Chest: Denies cough or dyspnea Gastrointestinal Gastrointestinal: Reports abdominal pain, nausea and vomiting; Denies constipation, diarrhea or melena Genitourinary Genitourinary ED: Denies dysuria or hematuria Musculoskeletal Musculoskeletal: Denies arthralgias Integumentary Denies abscess or Abrasions Neurologic Neurologic: Denies headache(s) Psychiatric Psychiatric: Denies anxiety or depression Endocrine Endocrinology: Denies polydipsia or polyphagia Hematologic/Lymphatic Hematologic/Lymphatic: Denies easy bleeding, easy bruising or lymphadenopathy Allergic/Immunologic Allergic/Immunologic ED: Denies mouth swelling, tongue swelling or urticaria EXAM Physical Exam Narrative Exam Narrative: 69-year-old female standing up at bedside. Vital signs are stable blood pressure initially elevated 117/119. She is actively vomiting and no emesis bag. present. H EENT exam pupils round react light. Moist pink memories. Neck nontender no JVD. No lymphadenopathy. Back nontender. No CVA tenderness. Lungs clear to auscultation bilaterally. Heart regular rhythm rate about 80 no murmur. Chest wall ribs nontender. Abdomen soft nontender. No peritoneal signs. Moving all 4 extremities. Nontender no edema. Normal strength. Awake and alert. Answering questions following commands. Const Vital Signs: 04/28/25 13:17 04/28/25 14:19 04/28/25 16:21 Temperature 97.5 F L 97.9 F 97.9 F Temperature Source Oral Oral Oral Pulse Rate 84 91 61 Respiratory Rate 16 18 18 Blood Pressure 177/119 H 124/105 H 121/78 H Blood Pressure Mean 138 111 92 Pulse Ox 99 95 99 Oxygen Delivery Method Room Air Room Air Room Air Positive well nourished and well developed; Negative for cachectic, contractures or unkempt General Appearance ED: well developed; Negative for unkempt, cachectic, contractures, NAD or pallor Nutritional Appearance: Negative for cachectic HEENT Reports moist mucous membranes normocephalic and atraumatic Eyes PERRL and EOMs intact bilaterally Neck no lymphadenopathy, supple and no JVD Resp normal respiratory effort and clear to auscultation bilaterally Cardio regular rate, regular rhythm, S1 normal heart sound, S2 normal heart sound and no murmurs GI non-tender, non-distended and no masses Auscultation: normoactive bowel sounds Palpation: soft; Negative for tender, guarding or rebound tenderness present Back/Spine no CVA tenderness General Back: Negative for CVA tenderness Cervical Spine: Negative for cervical spine tenderness Thoracic Spine / Upper Back: Negative for thoracic spinal tenderness Lumbar Spine / Lower Back: Negative for lumbar spinal tenderness Extremity full ROM General Extremety ED: Negative for edema, tenderness or other findings General Extremity: Negative for edema or other findings Neuro CN's II-XII intact bilaterally and moves all extremities Sensorium / Orientation: alert, oriented to person, oriented to place and oriented to time Motor Exam: strength 5/5 throughout Psych mental status grossly normal and thought process normal Appearance: Negative for unkempt Skin no wounds General Skin Exam: Negative for jaundice or pallor Lesions: no lesions Rashes: no rashes MDM MDM MDM Narrative Medical decision making narrative: 69-year-old female right flank pain with nausea vomiting suspect kidney stone versus other etiologies such as musculoskeletal, UTI versus other. Should be treated with IV morphine for pain Zofran for nausea. IV fluids. CAT scan and labs. Repeat exam around 1650 p.m. patient is completely pain-free after dose of morphine. Repeat exam her abdomen is completely benign. There is no reproducible back pain. We discussed her test results. I am waiting on a hepatic panel. The CAT scan did not show any acute pathology. There is no known kidney stone. Hepatic panel revealed elevated liver enzymes. Patient has no abdominal pain currently. I suspect she has a retained common bile duct stone. I spoke to GI, Dr. Hoffman, also general surgery to notify her surgeon of her admission and the hospitalist for the admission. Patient is comfortable with the plan. History & Record Review Discussion w/independent historian: Patient and Family Additional record(s) reviewed:: Prior outpatient record, Prior ED visit and Prior labs Lab Data Attestation: I reviewed the patient's lab results. Lab results narrative: CBC shows a white count of 7. H&H of 15 and 45. Platelets 420. Electrolytes show gap of 12. BUN and creatinine of 16 and 0.6. Glucose 115. Urinalysis shows 5-10 white cells. 1+ bacteria. No nitrates. No red cells. Liver enzymes are elevated with a total bilirubin 1.69. Direct 1.2. AST 569. ALT 317. Alk phos 269. Labs: Laboratory Results - last 24 hr 04/28/25 04/28/25 13:53 14:45 WBC 7.8 RBC 5.28 Hgb 15.1 H Hct 45.8 MCV 86.7 MCH 28.6 MCHC 33.0 RDW Std Deviation 40.1 RDW Coeff of Taye 12.8 Plt Count 420 MPV 9.6 Immature Gran % (Auto) 0.400 Neut % (Auto) 82.4 H Lymph % (Auto) 10.8 L Greenlee % (Auto) 5.5 Eos % (Auto) 0.3 Baso % (Auto) 0.6 Absolute Neuts (auto) 6.4 Absolute Lymphs (auto) 0.84 Nucleated RBC % 0 Sodium 140 Potassium 3.9 Chloride 103 Carbon Dioxide 24.8 Anion Gap 12 BUN 16 Creatinine 0.68 L Estim Creat Clear Calc 73.15 Est GFR (MDRD) Non-Af 94 BUN/Creatinine Ratio 24.0 H Glucose 115 H Calcium 9.3 Total Bilirubin 1.69 H Direct Bilirubin 1.20 H AST 569 H ALT 317 H Alkaline Phosphatase 269 H Total Protein 7.9 Albumin 4.4 Globulin 3.4 Urine Color Yellow Urine Clarity Sl. Cloudy Urine pH 8.0 Ur Specific Phelps 1.010 Urine Protein 15 H Urine Glucose (UA) Normal Urine Ketones Negative Urine Occult Blood Negative Urine Nitrite Negative Urine Bilirubin Negative Urine Urobilinogen Normal Ur Leukocyte Esterase 25 H Urine RBC 0-5 SEEN Urine WBC 5-10 SEEN Ur Squamous Epith Cells 0-5 SEEN Amorphous Sediment 1+ PHOS Urine Bacteria 1+ Urine Mucus 0 SEEN Radiography Diagnostic Testing: Clinical Impression(s) from Imaging Studies Abdomen/Pelvis CT 04/28/25 14:09 IMPRESSION: 1. Status post cholecystectomy. Dilated common bile duct measuring up to 1.4 cm. 2. New paraumbilical small ventral defect with associated small amount fluid likely related to postsurgical changes. Mild surrounding inflammatory changes. Underlying infection is not entirely excluded. 3. Diverticulosis without evidence of diverticulitis. 4. Additional details as discussed above. Reading Location: [facility] Discharge Plan Triage Chief Complaint: Flank Pain ED Provider: Kelton Quick Dx/Rx/DC Orders Prescriptions: No Action levothyroxine 75 MCG tablet 75 mcg PO SUMOTUWEFRSA aspirin 81 mg tablet 81 mg PO DAILY cholecalciferol (vitamin D3) [Vitamin D3] 25 mcg (1,000 unit) capsule 25 mcg PO DAILY levothyroxine [Euthyrox] 75 mcg tablet 150 mcg PO TH cinnamon bark [Cinnamon] 500 mg capsule 500 mg PO DAILY turmeric 400 mg capsule 400 mg PO DAILY Primary Care Provider: Royce Islas Referrals: Royce Islas DO [Primary Care Provider, Medical] Print Language: Mosotho
[2025-04-28] MEDS: 0.9% Normal Saline (1000mL) 1,000 ML 999 ML IV (14:15)
[2025-04-28 14:19] VITALS: BP 124/105; PULSE 91; RESP 18; TEMP 36.6; O2SAT 95; BMI 40.1
[2025-04-28 14:23] LABS: Hematocrit 45.8 % (37-47); Hemoglobin 15.1 g/dL (12.0-15.0); Immature Granulocytes Count 0.030 X10^3/uL (0.0-0.0); Mean Corp Hgb Conc 33.0 g/dL (32-36); Mean Corpuscular Volume 86.7 fL (81-99); Mean Platelet Vol. 9.6 fl (6.2-12.0); NRBC Flagged by Analyzer 0 % (0-5); Platelet Count 420 K/mm3 (150-450); RBC Distribution Width CV 12.8 % (11.6-14.6); RBC Distribution Width SD 40.1 fl (35.1-43.9); Red Blood Count 5.28 M/mm3 (4.2-5.4); White Blood Count 7.8 K/mm3 (4.4-11.0)
[2025-04-28 14:44] LABS: Anion Gap 12 (5-15); BUN 16 mg/dL (4-19); BUN/Creat Ratio 24.0 RATIO (10-20); Calcium,Total 9.3 mg/dL (7.6-11.0); Carbon Dioxide 24.8 mmol/L (21.0-32.0); Chloride 103 mmol/L (98-108); Estimated Creatinine Clearance 73.15 ml/min (50-250); Glucose 115 mg/dL (70-99); Potassium 3.9 mmol/L (3.3-5.1)
[2025-04-28 14:55] LABS: Mucous, Urine 0 SEEN /hpf (<or=2+)
[2025-04-28 14:57] LABS: Color, Urine Yellow (Yellow); Glucose, Dipstick Normal (Normal); Ketone-Dipstick Negative (Negative); Leukocyte Esterase-Dipstick 25 /ul (Negative); Nitrite-Dipstick Negative (Negative); Occult Blood-Urine Negative /ul (Negative); Protein-Dipstick 15 mg/dl (Negative); Specific Gravity, Urine 1.010 (1.002-1.030); Urine Bilirubin Dipstick Negative (Negative)
[2025-04-28 15:13] LABS: Red Blood Cells-Urine 0-5 SEEN /hpf (0-5); Squamous Epithelial Cells - UA 0-5 SEEN /hpf (5-10)
[2025-04-28 16:21] VITALS: BP 121/78; PULSE 61; RESP 18; TEMP 36.6; O2SAT 99
[2025-04-28 17:02] LABS: AST(SGOT) 569 U/L (<=31); Alanine Aminotransfer ALT/SGPT 317 U/L (<=34); Albumin, Serum 4.4 g/dL (3.4-4.8); Alkaline Phosphatase 269 U/L (35-104); Bilirubin, Direct 1.20 mg/dL (0.00-0.30); Globulin 3.4 g/dL (2.2-4.2)
[2025-04-28 17:45] VITALS: BP 132/83; PULSE 85; RESP 18; TEMP 37; O2SAT 96
--- NOTE | 2025-04-28 17:57 | PCM.HP.STD ---
HPI - General General Date of Admission: 05/08/25 Date of Service: 04/28/25 Chief Complaint: Right-sided abdominal pain and nausea HPI Narrative WILLIAMS ANDERSON, is a 69-year-old female history of hypothyroidism and cholecystectomy 2 weeks ago presented [facility] ED 04/28/2025 due to right flank pain with nausea and vomiting that woke her up at 2 AM. In the ED temp 97.5, heart rate 84, blood pressure 177/119, respirate 16 pulse ox 99% on room air. CBC with white count of 7.8 and hemoglobin 15.1, BMP with BUN 16 creatinine 0.68, glucose 115, UA with 25 leuk esterase, 5-10 white cells with 1+ bacteria. Liver profile with total bili 1.69, direct bili 1.2, AST 569, ALT 317, alk phos 269. CT abdomen pelvis with common bile duct measuring up to 1.4 cm and periumbilical ventral defect with fat herniation and associated small amount of fluid with mild surrounding fat stranding likely postsurgical changes. Patient given Zofran and morphine with resolution of symptoms however given her liver function tests and common bile duct dilation GI was contacted who recommended admission and they will see in consultation for likely ERCP tomorrow. Surgeon on-call notified that patient is being admitted for the above. Hospitalist contacted for admission. Patient evaluated at bedside and reports that 2 AM she woke up secondary to her bloated stomach and pain going to her back, when asked about abdominal pain she said she had pain on the right side similar to when she had have her gallbladder taken out, has had vomiting off and on since she woke up at 2 AM was felt generally unwell. No fevers or chills, presently patient completely asymptomatic after receiving medication. No other new or acute complaints [facility] Medical History Hypothyroid Home Medications ?Medication ?Instructions ?Recorded ?Last Taken ?Type levothyroxine 75 mcg tablet 75 mcg PO SUMOTUWEFRSA 05/19/19 04/27/25 History aspirin 81 mg tablet 81 mg PO DAILY 04/11/25 04/27/25 History cholecalciferol (vitamin D3) 25 25 mcg PO DAILY 04/11/25 04/27/25 History mcg (1,000 unit) capsule (Vitamin D3) cinnamon bark 500 mg capsule 500 mg PO DAILY 04/28/25 04/27/25 History (Cinnamon) levothyroxine 75 mcg tablet 150 mcg PO TH 04/28/25 04/25/25 History (Euthyrox) turmeric 400 mg capsule 400 mg PO DAILY 04/28/25 04/27/25 History Allergy/AdvReac Type Severity Reaction Status Date / Time No Known Allergies Allergy Verified 04/28/25 13:18 Surgical History Status post laparoscopic cholecystectomy S/P cholecystectomy Hx of elbow surgery Social History Smoking Status: Former smoker substance use type: does not use ROS ROS Narrative General: Denies fever/chills HENT: Denies headache, little bit of a runny nose, denies sore throat EYES: Denies changes in vision Resp: Denies cough, denies shortness of breath Cardiac: Denies chest pain GI: Had some right sided abdominal pain that is resolved, denies changes in bowel, has had intermittent nausea and vomiting since 2 AM : Denies changes in urination Extremity: Denies swelling MSK: Denies weakness Neuro: Denies any numbness/tingling Heme: Denies any bleeding or bruising Skin: Denies rashes Psychiatric: No complaints voiced Vital Signs Vital Signs Vital Signs: 04/28/25 13:17 04/28/25 14:19 04/28/25 16:21 Temperature 97.5 F L 97.9 F 97.9 F Temperature Source Oral Oral Oral Pulse Rate 84 91 61 Respiratory Rate 16 18 18 Blood Pressure 177/119 H 124/105 H 121/78 H Blood Pressure Mean 138 111 92 Pulse Ox 99 95 99 Oxygen Delivery Method Room Air Room Air Room Air 04/28/25 17:45 Temperature 98.6 F Temperature Source Pulse Rate 85 Respiratory Rate 18 Blood Pressure 132/83 H Blood Pressure Mean 99 Pulse Ox 96 Oxygen Delivery Method Weight Weight: 99.4 kg Body Mass Index (BMI) 40.1 Physical Exam Narrative General: Alert, oriented, no apparent distress HEENT: Atraumatic, normocephalic Eyes: Anicteric, normal conjunctiva, extraocular movements grossly intact Neck: Supple Respiratory: Clear to auscultation bilaterally, normal respiratory effort Cardiovascular: Regular rate and rhythm GI: Soft, nontender, nondistended Extremities: No edema Musculoskeletal: Moving all extremities Neuro: No overt focal neurological deficits Skin: No rashes appreciated Psych: Cooperative Results Lab / Micro Data 04/28/25 13:53 04/28/25 13:53 Labs: Laboratory Results - last 24 hr 04/28/25 13:53: WBC 7.8, RBC 5.28, Hgb 15.1 H, Hct 45.8, MCV 86.7, MCH 28.6, MCHC 33.0, RDW Std Deviation 40.1, RDW Coeff of Taye 12.8, Plt Count 420, MPV 9.6, Immature Gran % (Auto) 0.400, Neut % (Auto) 82.4 H, Lymph % (Auto) 10.8 L, Martin % (Auto) 5.5, Eos % (Auto) 0.3, Baso % (Auto) 0.6, Absolute Neuts (auto) 6.4, Absolute Lymphs (auto) 0.84, Nucleated RBC % 0, Sodium 140, Potassium 3.9, Chloride 103, Carbon Dioxide 24.8, Anion Gap 12, BUN 16, Creatinine 0.68 L, Estim Creat Clear Calc 73.15, Est GFR (MDRD) Non-Af 94, BUN/Creatinine Ratio 24.0 H, Glucose 115 H, Calcium 9.3, Total Bilirubin 1.69 H, Direct Bilirubin 1.20 H, AST 569 H, ALT 317 H, Alkaline Phosphatase 269 H, Total Protein 7.9, Albumin 4.4, Globulin 3.4 04/28/25 14:45: Urine Color Yellow, Urine Clarity Sl. Cloudy, Urine pH 8.0, Ur Specific Carmi 1.010, Urine Protein 15 H, Urine Glucose (UA) Normal, Urine Ketones Negative, Urine Occult Blood Negative, Urine Nitrite Negative, Urine Bilirubin Negative, Urine Urobilinogen Normal, Ur Leukocyte Esterase 25 H, Urine RBC 0-5 SEEN, Urine WBC 5-10 SEEN, Ur Squamous Epith Cells 0-5 SEEN, Amorphous Sediment 1+ PHOS, Urine Bacteria 1+, Urine Mucus 0 SEEN Imaging Radiology Impression Abdomen/Pelvis CT 04/28/25 14:09 IMPRESSION: 1. Status post cholecystectomy. Dilated common bile duct measuring up to 1.4 cm. 2. New paraumbilical small ventral defect with associated small amount fluid likely related to postsurgical changes. Mild surrounding inflammatory changes. Underlying infection is not entirely excluded. 3. Diverticulosis without evidence of diverticulitis. 4. Additional details as discussed above. Reading Location: [facility] Assessment & Plan Assessment/Plan (1) Elevated liver enzymes: PLAN: Plan # Right-sided abdominal pain, elevated liver enzymes, common bile duct dilation - Concerning for choledocholithiasis postcholecystectomy - GI consulted for likely ERCP tomorrow - N.p.o. at midnight - IV fluids - Supportive care - Patient afebrile, no elevated white count, no infectious signs or symptoms #Hypothyroidism -Continue Synthroid #DVT ppx: SCDs Sammie Bonilla MD Charges/Coding Visit Charges Inpatient E&M: 56087 Init Hosp L1
[2025-04-28 18:22] VITALS: BP 126/91; PULSE 81; RESP 17; TEMP 36.7; O2SAT 97; BMI 39.2
[2025-04-28] MEDS: 0.9% Saline Lock 10 ML Syringe IV ×2 (18:42→22:35)
[2025-04-28] MEDS: 0.9% Normal Saline (1000mL) 1,000 ML 75 ML IV (18:42)
[2025-04-28 22:35] VITALS: BP 117/77; PULSE 76; RESP 16; TEMP 36.7; O2SAT 94
[2025-04-29] VITALS (12 sets, daily range): BP systolic 116–154; BP diastolic 75–104; PULSE 78–90; RESP 14–18; TEMP 2.2–36.8; O2SAT 92–100; BMI 39.2
[2025-04-29 05:43] LABS: Hematocrit 38.0 % (37-47); Hemoglobin 12.6 g/dL (12.0-15.0); Immature Granulocytes Count 0.020 X10^3/uL (0.0-0.0); Mean Corp Hgb Conc 33.2 g/dL (32-36); Mean Corpuscular Volume 87.0 fL (81-99); Mean Platelet Vol. 9.3 fl (6.2-12.0); NRBC Flagged by Analyzer 0 % (0-5); Platelet Count 360 K/mm3 (150-450); RBC Distribution Width CV 13.1 % (11.6-14.6); RBC Distribution Width SD 41.1 fl (35.1-43.9); Red Blood Count 4.37 M/mm3 (4.2-5.4); White Blood Count 6.2 K/mm3 (4.4-11.0)
--- NOTE | 2025-04-29 06:00 | EKG12_ITS ---
Test Reason : PRE OP Blood Pressure : */* mmHG Vent. Rate : 84 BPM Atrial Rate : 84 BPM P-R Int : 168 ms QRS Dur : 102 ms QT Int : 402 ms P-R-T Axes : 35 -38 -3 degrees QTcB Int : 475 ms Normal sinus rhythm Left axis deviation Moderate voltage criteria for LVH, may be normal variant ( R in aVL , Rodrick product ) Possible Anterior infarct , age undetermined Abnormal ECG When compared with ECG of 11-Apr-2025 22:26, Borderline criteria for Anterior infarct are now Present Confirmed by BENJIE HERRON, YARED ([id number]), web editor UNIQUE MOONEY ([id number]) on 05/06/2025 6:33:04 AM Referred By: Confirmed By: YARED WALDROP MD
[2025-04-29 06:03] LABS: AST(SGOT) 267 U/L (<=31); Alanine Aminotransfer ALT/SGPT 282 U/L (<=34); Albumin, Serum 3.7 g/dL (3.4-4.8); Alkaline Phosphatase 225 U/L (35-104); Anion Gap 9 (5-15); BUN 12 mg/dL (4-19); BUN/Creat Ratio 21.9 RATIO (10-20); Calcium,Total 8.4 mg/dL (7.6-11.0); Carbon Dioxide 24.7 mmol/L (21.0-32.0); Chloride 106 mmol/L (98-108); Estimated Creatinine Clearance 72.33 ml/min (50-250); Globulin 2.7 g/dL (2.2-4.2); Glucose 111 mg/dL (70-99); Potassium 3.9 mmol/L (3.3-5.1)
[2025-04-29] MEDS: 0.9% Normal Saline (1000mL) 1,000 ML 75 ML IV (11:03)
--- NOTE | 2025-04-29 11:42 | PN_ITS ---
Subjective Subjective Patient seen and examined with her nurse by her bedside. SHe had her and best friend with her. She still complained of some abdominal pain, though it is much improved today. Review of systems is otherwise negative. She is for ERCP today. She has remained hemodynamically stable. Objective Data Objective Data Vital Signs: Vital Signs Temp Pulse Resp BP Pulse Ox O2 Del Method 97.7 F L 81 16 141/79 H 99 Room Air 04/29/25 11:24 04/29/25 11:24 04/29/25 11:24 04/29/25 11:04/29/25 11:04/29/25 11:24 Oxygen Delivery Method Room Air Weight: 214 lb 12.8 oz Body Mass Index (BMI) 39.2 Intake & Output: Intake and Output for Last 24 Hours 04/27/25 04/28/25 04/29/25 23:59 23:59 23:59 Intake Total 1000 / 1200 1200 / 1200 Balance 1000 / 1200 1200 / 1200 Lab / Micro Data 04/29/25 05:25 04/29/25 05:25 Labs: Laboratory Results - last 24 hr 04/28/25 13:53: WBC 7.8, RBC 5.28, Hgb 15.1 H, Hct 45.8, MCV 86.7, MCH 28.6, MCHC 33.0, RDW Std Deviation 40.1, RDW Coeff of Taye 12.8, Plt Count 420, MPV 9.6, Immature Gran % (Auto) 0.400, Neut % (Auto) 82.4 H, Lymph % (Auto) 10.8 L, Iron % (Auto) 5.5, Eos % (Auto) 0.3, Baso % (Auto) 0.6, Absolute Neuts (auto) 6.4, Absolute Lymphs (auto) 0.84, Nucleated RBC % 0, Sodium 140, Potassium 3.9, Chloride 103, Carbon Dioxide 24.8, Anion Gap 12, BUN 16, Creatinine 0.68 L, Estim Creat Clear Calc 73.15, Est GFR (MDRD) Non-Af 94, BUN/Creatinine Ratio 24.0 H, Glucose 115 H, Calcium 9.3, Total Bilirubin 1.69 H, Direct Bilirubin 1.20 H, AST 569 H, ALT 317 H, Alkaline Phosphatase 269 H, Total Protein 7.9, Albumin 4.4, Globulin 3.4 04/28/25 14:45: Urine Color Yellow, Urine Clarity Sl. Cloudy, Urine pH 8.0, Ur Specific [place] 1.010, Urine Protein 15 H, Urine Glucose (UA) Normal, Urine Ketones Negative, Urine Occult Blood Negative, Urine Nitrite Negative, Urine Bilirubin Negative, Urine Urobilinogen Normal, Ur Leukocyte Esterase 25 H, Urine RBC 0-5 SEEN, Urine WBC 5-10 SEEN, Ur Squamous Epith Cells 0-5 SEEN, Amorphous Sediment 1+ PHOS, Urine Bacteria 1+, Urine Mucus 0 SEEN 04/29/25 05:25: WBC 6.2, RBC 4.37, Hgb 12.6, Hct 38.0, MCV 87.0, MCH 28.8, MCHC 33.2, RDW Std Deviation 41.1, RDW Coeff of Taye 13.1, Plt Count 360, MPV 9.3, Immature Gran % (Auto) 0.300, Neut % (Auto) 73.0 H, Lymph % (Auto) 16.5 L, Iron % (Auto) 8.8, Eos % (Auto) 0.8, Baso % (Auto) 0.6, Absolute Neuts (auto) 4.6, Absolute Lymphs (auto) 1.03, Nucleated RBC % 0, Sodium 140, Potassium 3.9, Chloride 106, Carbon Dioxide 24.7, Anion Gap 9, BUN 12, Creatinine 0.55 L, Estim Creat Clear Calc 72.33, Est GFR (MDRD) Non-Af 99, BUN/Creatinine Ratio 21.9 H, G lucose 111 H, Calcium 8.4, Total Bilirubin 0.69, AST 267 H, ALT 282 H, Alkaline Phosphatase 225 H, Total Protein 6.4, Albumin 3.7, Globulin 2.7, Albumin/Globulin Ratio 1.4, TSH 2.010 Radiography Diagnostic Testing: Radiology Impression Abdomen/Pelvis CT 04/28/25 14:09 IMPRESSION: 1. Status post cholecystectomy. Dilated common bile duct measuring up to 1.4 cm. 2. New paraumbilical small ventral defect with associated small amount fluid likely related to postsurgical changes. Mild surrounding inflammatory changes. Underlying infection is not entirely excluded. 3. Diverticulosis without evidence of diverticulitis. 4. Additional details as discussed above. Reading Location: [facility] Physical Exam Const alert, oriented x3 and no apparent distress General Appearance: cooperative and well developed HEENT normocephalic, head/scalp atraumatic, moist oral mucous membranes and oropharynx normal Eyes EOMs intact bilaterally Neck no lymphadenopathy and supple Lymph Lymphatic: no lymphedema noted Resp normal respiratory effort, normal air movement and clear to auscultation bilaterally Cardio regular rate, regular rhythm, S1 normal heart sound, S2 normal heart sound and no murmurs GI normal to inspection, nondistended, normoactive bowel sounds, soft to palpation and non-tender Extremity normal capillary refill, no clubbing, cyanosis or edema and no calf tenderness General Extremity: no tenderness to palpation of joints or extremities Skin General Skin Exam: no breakdown Neuro no focal motor deficits and no sensory deficits noted Motor Exam: strength 5/5 throughout and general weakness Psych thought process normal and cooperative Appearance: appropriate Assessment & Plan Assessment/Plan (1) Elevated liver enzymes: (2) Status post laparoscopic cholecystectomy: PLAN: Plan #Elevated liver enzymes in the setting of common bile duct dilatation due to choledocholithiasis * abdominal pain improving. Is s/p cholecystectomy recently * for ERCP today per GI. GI on board. * CT abdomen/pelvis showed s/p cholecystectomy and dilated common bile duct measuring up to 1.4cm and new paraumbilical small ventral defect with associated small amount fluid likely related to postsurgical changes and mild surrounding inflammatory changes, with underlying infection is not entirely excluded and diverticulosis without evidence of diverticulitis. * on PO tylenol, IV morphine and PO oxycodone prn for pain * continue gentle hydration with IVF NS ~ 75cc/hr * Liver enzymes are trending downwards with total bilirubin trending down to 0.69 from 1.69. * #Hypothyroidism: on synthroid. DVT prophylaxis: SCDs Charges/Coding Visit Charges Inpatient E&M: 78243 Subs Hosp L2
--- NOTE | 2025-04-29 12:44 | CASEMGMT ---
Dx:R sided pain, elevated LFTs LACE:1 6-Clicks:24 Medical record reviewed and patient evaluated for identification of discharge planning needs. Based on this review, at this time criteria are not present to indicate a need for discharge planning. Will remain available to assist with discharge planning needs as identified or requested.
[2025-04-29] MEDS: Lactated Ringers 1,000 ML 15 ML IV (16:10)
--- NOTE | 2025-04-29 16:10 | RAD_ITS ---
PROCEDURE: ERCP BILIARY/PANCREAS 04/29/2025 REASON FOR EXAM: ERCP TECHNIQUE: Procedure Code: RADERCP Modality: DX Procedure: ERCP BILIARY/PANCREAS COMPARISON: 04/12/2025. FINDINGS: Intraoperative fluoroscopy was performed. Common bile duct filling defect is present. See procedure report for full details. 135.8 seconds of fluoroscopic time. 32.84 mGy. RAD/ERCP Biliary/Pancreas IMPRESSION: As above. Reading Location: [id number]
--- NOTE | 2025-04-29 16:13 | PCM.PRE.AN2 ---
ASA Classification* ASA Classification ASA Classification: 3 Assessment & Plan Anesthesia* Anesthesia Assessment Anesthesia Assessment: Discussed sedation and/or anesthesia options, risks, benefits, and alternatives with patient/parents/legal guardian/POA. Questions invited. The patient/parents/legal guardian/POA seems to understand and agrees to proceed with anesthesia plan. Reviewed the physical assessment, medical history, allergy history and patient home medications list prior to surgery/procedure/anesthetic and documented any changes. Performed airway and anesthesia risk assessments. Anesthesia Type Anesthesia Type: General History Source History Obtained from:: Patient and Chart Anesthesia Focused Assessment* Temperature: 97.7 F Pulse Rate: 81 Blood Pressure: 141/79 Respiratory Rate: 16 Pulse Ox: 99 Oxygen Delivery Method: Room Air Airway Assessment Mouth opens: >3 cm Mallampati Score: III Labs Anesthesia Preop lab: CBC WBC, (4.4-11.0) 6.2 K/mm3 Today, 05:25 RBC, (4.2-5.4) 4.37 M/mm3 Today, 05:25 Hgb, (12.0-15.0) 12.6 g/dL Today, 05:25 Hct, (37-47) 38.0 % Today, 05:25 Plt Count, (150-450) 360 K/mm3 Today, 05:25 CHEMISTRY Potassium, (3.3-5.1) 3.9 mmol/L Today, 05:25 Sodium, (133-145) 140 mmol/L Today, 05:25 BUN, (4-19) 12 mg/dL Today, 05:25 Creatinine, (0.70-1.20) 0.55 mg/dL L Today, 05:25 Glucose, (70-99) 111 mg/dL H Today, 05:25 TSH, (0.300-4.200) 2.010 uIU/mL Today, 05:25 COAG Pre-Assessment Diagnosis/Proposed Procedure Planned Operative Procedure(s): ERCP Anesthesia History 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 When Was Last Pacemaker Check QUESTION #4 FULL TEXT: You/Your Family Experience fever (hyperthermia) with Anesthesia Last Oral Intake Last Oral intake: Last Oral Intake NPO since 23:00 04/29/25 16:06 Meds taken in AM with sips of No 04/29/25 16:06 water? 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: PONV - marriage and family teacher Female HX of Motion Sickness HX of N/V After Surgery Non-Smoker Duration of Surgery greater than 60 minutes Number of Risk Factors PONV Score Height & Weight Height & Weight: Anesthesia: Height & Weight Height 5 ft 2 in 04/28/25 18:22 Weight: 97.432 kg 04/28/25 18:22 Body Mass Index (BMI) 39.2 04/29/25 16:06 Respiratory Assessment Respiratory Assessment - marriage and family teacher: Respiratory Tract Infection Hx - marriage and family teacher Hx Respiratory Tract Infection No 04/28/25 18:30 STOP Sleep Apnea STOP Sleep Apnea - marriage and family teacher: STOP Sleep Apnea - marriage and family teacher Hx Hypertension No 04/28/25 18:22 Hx Sleep Apnea No 04/28/25 18:22 CPAP BIPAP Do you snore loudly (louder No 04/28/25 18:22 than talking or can be heard Do you often feel tired/ No 04/28/25 18:22 fatigued/ sleepy during daytime? Has anyone observed you stop No 04/28/25 18:22 breathing during sleep? STOP Results Negative 04/28/25 18:22 QUESTION #5 FULL TEXT : Do you snore loudly (louder than talking or can be heard through closed doors)? 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 Use History - marriage and family teacher Tobacco Use Smoking Status Former smoker 04/28/25 18:22 Hx Tobacco Use No 04/28/25 18:22 Years Smoking Packs Smoked per Day Smoking Cessation Date was No - quit smoking greater 04/28/25 18:22 within the last 15 years than 15 years ago Hx Smoking Cessation Date 04/01/01 04/28/25 18:22 Hx Smoking Cessation Counseling Hematologic Medial History Hematologic Hx - marriage and family teacher: Hematologic Medical Hx - rn documentation Hx of Blood Transfusion No 04/28/25 18:22 Hx of Transfusion in last 3 No 04/28/25 18:22 Months Date of Last Transfusion (if within last 3 months) Ever experience any problems No 04/28/25 18:22 with transfusion(s)? Specify any problems Hx of Preganancy in last 3 N/A 04/28/25 18:22 Months Nurse Filling Out Transfusion TPRUITT 04/28/25 18:22 & Questions: Date: 04/28/25 04/28/25 18:22 Time: 18:32 04/28/25 18:22 Patient unable to answer at this time (ie. confused, unrespo /Reproduction History /Reproductive History - marriage and family teacher: /Reproductive Hx- marriage and family teacher Hx Now No 04/28/25 18:30 Gestational Age (in weeks): EDC: Hx Hx Para Hx Section SAB No 04/28/25 18:30 Active Medications Active Medications: Current Medications Generic Name Dose Route Start Last Admin Trade Name Freq PRN Reason Stop Dose Admin Albuterol Sulfate 2.5 mg 04/28/25 18:22 Albuterol 2.5 Mg/3 Ml Vial.Neb. INHALATION Q2H PRN PRN SOB &/OR WHEEZING Aspirin 81 mg 04/29/25 08:00 04/29/25 08:42 Aspirin 81 Mg Tab.Chew PO Not Given BREAKFAST JIM Sodium Chloride 250 mls @ 15 mls/hr 04/28/25 18:25 IV .[id number] PRN Additional IVPB Infusion Sodium Chloride 250 mls @ 15 mls/hr 04/28/25 18:25 IV .[id number] PRN Saline Flush Sodium Chloride 1,000 mls @ 75 mls/hr 04/29/25 10:50 04/29/25 14:16 IV 0 mls/hr .[id number] JIM Infusion Lactated Ringer's 1,000 mls @ 15 mls/hr 04/29/25 16:00 04/29/25 16:10 IV 15 mls/hr .Q48H JIM Administration Levothyroxine Sodium 75 mcg 04/29/25 06:00 04/29/25 07:10 Levothyroxine 75 Mcg Tablet PO Not Given [email or web address] [facility] Levothyroxine Sodium 150 mcg 05/02/25 06:00 Levothyroxine 150 Mcg Tablet PO Th@0600 JIM Melatonin 10 mg 04/28/25 18:22 Melatonin 10 Mg Tablet PO QHS PRN PRN INSOMNIA Morphine Sulfate 2 - 4 mg 04/28/25 18:22 Morphine 2 Mg/Ml Syringe IV Q3H PRN PRN Pain Score 6-10 Ondansetron HCl 4 mg 04/28/25 18:22 04/29/25 08:44 Ondansetron 4 Mg/2 Ml Vial IV 4 mg Q8H PRN PRN Administration NAUSEA/VOMITING Oxycodone HCl 5 mg 04/28/25 18:22 04/28/25 19:57 Oxycodone 5 Mg Tablet PO 5 mg Q4H PRN PRN Administration Pain Score 4-10 Senna/Docusate Sodium 2 tablet 04/28/25 18:22 Senna/Docusate Sodium 1 Tablet PO BID PRN PRN Constipation Sodium Chloride 10 - 40 ml 04/28/25 18:25 04/28/25 22:35 0.9% Saline Lock 10 Ml Syringe IV 10 ml UD PRN Administration SALINE FLUSH PFSH Medical History Hypothyroid Home Medications ?Medication ?Instructions ?Recorded ?Last Taken ?Type levothyroxine 75 mcg tablet 75 mcg PO SUMOTUWEFRSA 05/19/19 04/27/25 History aspirin 81 mg tablet 81 mg PO DAILY 04/11/25 04/27/25 History cholecalciferol (vitamin D3) 25 25 mcg PO DAILY 04/11/25 04/27/25 History mcg (1,000 unit) capsule (Vitamin D3) cinnamon bark 500 mg capsule 500 mg PO DAILY 04/28/25 04/27/25 History (Cinnamon) levothyroxine 75 mcg tablet 150 mcg PO TH 04/28/25 04/25/25 History (Euthyrox) turmeric 400 mg capsule 400 mg PO DAILY 04/28/25 04/27/25 History Allergy/AdvReac Type Severity Reaction Status Date / Time No Known Allergies Allergy Verified 04/29/25 16:04 Surgical History Status post laparoscopic cholecystectomy S/P cholecystectomy Hx of elbow surgery Social History Smoking Status: Former smoker substance use type: does not use Addt'l Information Additional Findings: NS Review of Systems (Anesthesia) ROS Narrative System reviewed and no additional complaints, except as documented. Physical Exam Const alert and oriented x3 Nutritional Appearance: morbidly obese Resp normal respiratory effort and normal air movement Auscultation: clear to auscultation bilaterally Cardio regular rate and regular rhythm Back/Spine normal ROM Neuro oriented x3 and moves all extremities
--- NOTE | 2025-04-29 16:22 | EX.PCM.CON.G ---
HPI Consult Data Date of Consult: 04/29/25 HPI Narrative Reason for Consultation: Choledocholithiasis HPI Narrative: WILLIAMS ANDERSON, is a 69-year-old female history of hypothyroidism and cholecystectomy 2 weeks ago presented [facility] ED 04/28/2025 due to right flank pain with nausea and vomiting that woke her up at 2 AM. In the ED temp 97.5, heart rate 84, blood pressure 177/119, respirate 16 pulse ox 99% on room air. CBC with white count of 7.8 and hemoglobin 15.1, BMP with BUN 16 creatinine 0.68, glucose 115, UA with 25 leuk esterase, 5-10 white cells with 1+ bacteria. Liver profile with total bili 1.69, direct bili 1.2, AST 569, ALT 317, alk phos 269. CT abdomen pelvis with common bile duct measuring up to 1.4 cm and periumbilical ventral defect with fat herniation and associated small amount of fluid with mild surrounding fat stranding likely postsurgical changes. Patient given Zofran and morphine in the ED. I was consulted for therapeutic ERCP. [facility] Medical History Hypothyroid Home Medications ?Medication ?Instructions ?Recorded ?Last Taken ?Type levothyroxine 75 mcg tablet 75 mcg PO SUMOTUWEFRSA 05/19/19 04/27/25 History aspirin 81 mg tablet 81 mg PO DAILY 04/11/25 04/27/25 History cholecalciferol (vitamin D3) 25 25 mcg PO DAILY 04/11/25 04/27/25 History mcg (1,000 unit) capsule (Vitamin D3) cinnamon bark 500 mg capsule 500 mg PO DAILY 04/28/25 04/27/25 History (Cinnamon) levothyroxine 75 mcg tablet 150 mcg PO TH 04/28/25 04/25/25 History (Euthyrox) turmeric 400 mg capsule 400 mg PO DAILY 04/28/25 04/27/25 History Allergy/AdvReac Type Severity Reaction Status Date / Time No Known Allergies Allergy Verified 04/29/25 16:04 Surgical History Status post laparoscopic cholecystectomy S/P cholecystectomy Hx of elbow surgery Social History Smoking Status: Former smoker substance use type: does not use ROS Constitutional Constitutional: Denies fatigue, fever(s), poor appetite, weight gain or weight loss Gastrointestinal Gastrointestinal: Denies belching, bloating, change in bowel habits, change in stool character, chewing difficulty, coffee ground emesis, constipation, cramping, diarrhea, dyspepsia, dysphagia, early satiety, excessive flatus, fecal incontinence, heartburn, hematemesis, hematochezia, hemorrhoids, loose stools, melena, nausea, odynophagia, rectal bleeding, tenesmus, vomiting or weight changes Physical Exam Const alert, oriented x3, no apparent distress and healthy appearing General Appearance: cooperative GI normal to inspection, nondistended, normoactive bowel sounds, soft to palpation, non-tender and non-distended Percussion: normal to percussion Rectal Exam: deferred Lab / Micro Data 04/29/25 05:25 04/29/25 05:25 Labs: Laboratory Results - last 24 hr 04/28/25 13:53: Total Bilirubin 1.69 H, Direct Bilirubin 1.20 H, AST 569 H, ALT 317 H, Alkaline Phosphatase 269 H, Total Protein 7.9, Albumin 4.4, Globulin 3.4 04/29/25 05:25: WBC 6.2, RBC 4.37, Hgb 12.6, Hct 38.0, MCV 87.0, MCH 28.8, MCHC 33.2, RDW Std Deviation 41.1, RDW Coeff of Taye 13.1, Plt Count 360, MPV 9.3, Immature Gran % (Auto) 0.300, Neut % (Auto) 73.0 H, Lymph % (Auto) 16.5 L, [place] % (Auto) 8.8, Eos % (Auto) 0.8, Baso % (Auto) 0.6, Absolute Neuts (auto) 4.6, Absolute Lymphs (auto) 1.03, Nucleated RBC % 0, Sodium 140, Potassium 3.9, Chloride 106, Carbon Dioxide 24.7, Anion Gap 9, BUN 12, Creatinine 0.55 L, Estim Creat Clear Calc 72.33, Est GFR (MDRD) Non-Af 99, BUN/Creatinine Ratio 21.9 H, Glucose 111 H, Calcium 8.4, Total Bilirubin 0.69, AST 267 H, ALT 282 H, Alkaline Phosphatase 225 H, Total Protein 6.4, Albumin 3.7, Globulin 2.7, Albumin/Globulin Ratio 1.4, TSH 2.010 Assessment & Plan Assessment/Plan (1) Elevated liver enzymes: (2) Status post laparoscopic cholecystectomy: PLAN: 69-year-old with retained stones from recent intraoperative cholangiogram with cholecystectomy presents with abdominal pain ,elevated liver enzymes and a dilated common bile duct. She will need to undergo therapeutic ERCP. She was explained alternatives, risk and benefits include not withstanding bleeding, infection, sepsis, perforation, need for surgery . She will have an ASA of 3. Charges/Coding Visit Charges Inpatient E&M: 63645 Init Hosp L3
--- NOTE | 2025-04-29 17:43 | OP.ERCP_ITS ---
Patient Name: Manjula Orourke Procedure Date: 04/29/2025 4:33 PM Date of : 1955 Age: 69 Procedure: ERCP Indications: Bile duct stone(s), Abdominal pain of suspected biliary origin Providers: Umair Hoffman DO Medicines: Monitored Anesthesia Care Patient Profile: This is a 69 year old female. Refer to note in patient chart for documentation of history and physical. Patient has symptoms of acute right upper quadrant abdominal pain and acute jaundice. She is status post laparoscopic cholecystectomy recently. This patient has no history of previous ERCP. Complications: No immediate complications. Procedure: Pre-Anesthesia Assessment: - Prior to the procedure, a History and Physical was performed, and patient medications and allergies were reviewed. The patient is competent. The risks and benefits of the procedure and the sedation options and risks were discussed with the patient. All questions were answered and informed consent was obtained. Patient identification and proposed procedure were verified by the physician in the pre-procedure area. Mental Status Examination: normal. Prophylactic Antibiotics: The patient does not require prophylactic antibiotics. Prior Anticoagulants: The patient has taken no anticoagulant or antiplatelet agents except for NSAID medication. ASA Grade Assessment: II - A patient with mild systemic disease. After reviewing the risks and benefits, the patient was deemed in satisfactory condition to undergo the procedure. The anesthesia plan was to use monitored anesthesia care (MAC). Immediately prior to administration of medications, the patient was re-assessed for adequacy to receive sedatives. The heart rate, respiratory rate, oxygen saturations, blood pressure, adequacy of pulmonary ventilation, and response to care were monitored throughout the procedure. The physical status of the patient was re-assessed after the procedure. After obtaining informed consent, the scope was passed under direct vision. Throughout the procedure, the patient's blood pressure, pulse, and oxygen saturations were monitored continuously. The Duodenoscope was introduced through the mouth, and advanced to the duodenum and used to inject contrast into the bile duct and ventral pancreatic duct. The ERCP was accomplished without difficulty. The patient tolerated the procedure well. Scope In: 5:03:08 PM Scope Out: 5:34:30 PM Total Procedure Duration Time 0 hours 31 minutes 22 seconds Findings: The broomcorn thresher film was normal. The esophagus was successfully intubated under direct vision. The scope was advanced to a normal major papilla in the descending duodenum without detailed examination of the pharynx, larynx and associated structures, and upper GI tract. The upper GI tract was grossly normal. The ventral pancreatic duct was deeply cannulated with the short-nosed traction sphincterotome. Contrast was injected. I personally interpreted the bile duct and pancreatic duct images. There was brisk flow of contrast through the ducts. Image quality was adequate. Contrast extended to the entire biliary tree. Contrast extended to the pancreatic duct. Opacification of the entire pancreatic ductal system was successful. The maximum diameter of the ducts was 2 mm. The entire opacified area was normal. A long 0.025 inch Jagwire was passed into the ventral pancreatic duct. A 5 mm ventral pancreatic sphincterotomy was made with a traction (standard) sphincterotome using ERBE electrocautery. There was no post-sphincterotomy bleeding. One 5 Fr by 7 cm temporary stent was placed 5 cm into the ventral pancreatic duct. Bile flowed through the stent. The stent was in good position. A wire was passed into the biliary tree. The short-nosed traction sphincterotome was passed over the guidewire and the bile duct was then deeply cannulated. Contrast was injected. Opacification of the entire opacified area, main bile duct and entire biliary tree was successful. The maximum diameter of the ducts was 12 mm. The upper third of the main bile duct contained multiple stones, the largest of which was 6 mm in diameter. A 5 mm biliary sphincterotomy was made with a traction (standard) sphincterotome using ERBE electrocautery. The sphincterotomy oozed blood. The biliary tree was swept with a 12 mm balloon starting at the biliary pancreatic junction, lower third of the main duct, left intrahepatic duct(s), left main hepatic duct, right intrahepatic duct(s) and right main hepatic duct. Sludge was swept from the duct. All stones were removed. One 10 Fr by 5 cm temporary stent was placed 5 cm into the common bile duct. Bile flowed through the stent. The stent was in good position. Impression: - Choledocholithiasis was found. Complete removal was accomplished by biliary sphincterotomy and balloon extraction. - A pancreatic sphincterotomy was performed. - One temporary stent was placed into the ventral pancreatic duct. - A biliary sphincterotomy was performed. - The biliary tree was swept. Procedure Code(s): --- Professional --- 28518, Endoscopic retrograde cholangiopancreatography (ERCP); with placement of endoscopic stent into biliary or pancreatic duct, including pre- and post-dilation and guide wire passage, when performed, including sphincterotomy, when performed, each stent [id number], 59, Endoscopic retrograde cholangiopancreatography (ERCP); with placement of endoscopic stent into biliary or pancreatic duct, including pre- and post-dilation and guide wire passage, when performed, including sphincterotomy, when performed, each stent [id number], Endoscopic retrograde cholangiopancreatography (ERCP); with removal of calculi/debris from biliary/pancreatic duct(s) 47413, 26, Combined endoscopic catheterization of the biliary and pancreatic ductal systems, radiological supervision and interpretation CPT copyright 2021 [employer]. All rights reserved. The codes documented in this report are preliminary and upon frameman review may be revised to meet current compliance requirements. Umair Hoffman DO 04/29/2025 5:43:24 PM This report has been signed electronically. Number of Addenda: 0 Note Initiated On: 04/29/2025 4:33 PM
--- NOTE | 2025-04-29 17:44 | OP.PROVAT_ITS ---
04/29/2025 Royce Islas [address] [place] [address] Re : ERCP procedure for Manjula Jeanjoann Dear Dr. Islas This procedure was performed on Tuesday, April 29, 2025. My impressions and recommendations are as follows: Impressions : - Choledocholithiasis was found. Complete removal was accomplished by biliary sphincterotomy and balloon extraction. - A pancreatic sphincterotomy was performed. - One temporary stent was placed into the ventral pancreatic duct. - A biliary sphincterotomy was performed. - The biliary tree was swept. Recommendations : My findings are described in the full procedure note, which is enclosed. If I can be of further assistance, please feel free to contact me at . Sincerely, Umair Hoffman, 04/29/2025 5:43:24 PM This report has been signed electronically.
--- NOTE | 2025-04-29 18:09 | PCM.POST.ANE ---
Anesthesia: Postop Eval I Current Vital Signs Temperature: 36 F Pulse Rate: 84 Blood Pressure: 144/84 Respiratory Rate: 14 Pulse Ox: 94 Oxygen Delivery Method: Nasal Cannula Oxygen Flow Rate (L/min): 2 Assessment Airway patent: Yes Spontaneous unlabored respirations: Yes Mental status: Awake and Calm nausea: No Vomiting: No Anesthesia Complication: No Fluid Hydration Crystalloid volume administer (ml): 750 Total IV fluid infused: 750 Progress Note Post-operative progress note: Patients case was charted on paper because the vent was not synching to the electronic chart. Anesthesia document: Postop Eval 1 completed: Yes
--- NOTE | 2025-04-29 18:15 | PCM.POSTANE2 ---
Anesthesia Postop Eval I Sum Postop Eval Completion status Anesthesia document: Postop Eval 1 completed: Yes Anesthesia Postop Eval I Summary Anesthesia Postop Eval I Summary: Anesthesia Postop Eval I: Assessment Summary Airway patent Yes 04/29/25 18:11 Spontaneous unlabored Yes 04/29/25 18:11 respirations Mental status Awake,Calm 04/29/25 18:11 nausea No 04/29/25 18:11 Vomiting No 04/29/25 18:11 Anesthesia Postop Eval I: Fluid Summary Crystalloid volume administer 750 04/29/25 18:11 (ml) Colloids volume administered ( ml) Blood Product volume administered (ml) Total IV fluid infused 750 04/29/25 18:11 Anesthesia Postop Eval I: Summary Notes Anesthesia Complication No 04/29/25 18:11 Anesthesia Complication Comment: Post-operative progress note Patients case was 04/29/25 18:11 charted on paper because the vent was not synching to the electronic chart. Anesthesia: Postop Eval II Evaluation Mental status: Awake and Calm Pain Level: 0 nausea: No Vomiting: No Complications Anesthesia Complication: No
[2025-04-30] MEDS: 0.9% Normal Saline (1000mL) 1,000 ML 75 ML IV (02:10)
[2025-04-30 02:22] VITALS: BP 136/85; PULSE 88; RESP 16; TEMP 36.6; O2SAT 94
[2025-04-30 06:45] LABS: Hematocrit 37.5 % (37-47); Hemoglobin 12.8 g/dL (12.0-15.0); Immature Granulocytes Count 0.020 X10^3/uL (0.0-0.0); Mean Corp Hgb Conc 34.1 g/dL (32-36); Mean Corpuscular Volume 85.2 fL (81-99); Mean Platelet Vol. 9.4 fl (6.2-12.0); NRBC Flagged by Analyzer 0 % (0-5); Platelet Count 365 K/mm3 (150-450); RBC Distribution Width CV 13.1 % (11.6-14.6); RBC Distribution Width SD 41.1 fl (35.1-43.9); Red Blood Count 4.40 M/mm3 (4.2-5.4); White Blood Count 8.5 K/mm3 (4.4-11.0)
[2025-04-30 07:02] LABS: Anion Gap 11 (5-15); BUN 8 mg/dL (4-19); BUN/Creat Ratio 12.0 RATIO (10-20); Calcium,Total 8.5 mg/dL (7.6-11.0); Carbon Dioxide 23.8 mmol/L (21.0-32.0); Chloride 105 mmol/L (98-108); Estimated Creatinine Clearance 72.33 ml/min (50-250); Glucose 87 mg/dL (70-99); Potassium 3.5 mmol/L (3.3-5.1)
[2025-04-30 08:37] LABS: AST(SGOT) 102 U/L (<=31); Alanine Aminotransfer ALT/SGPT 184 U/L (<=34); Albumin, Serum 3.7 g/dL (3.4-4.8); Alkaline Phosphatase 201 U/L (35-104); Bilirubin, Direct 0.24 mg/dL (0.00-0.30); Globulin 2.7 g/dL (2.2-4.2)
[2025-04-30 08:52] VITALS: BP 128/85; PULSE 76; RESP 16; TEMP 36.6; O2SAT 100
[2025-04-30 14:36] VITALS: BP 132/79; PULSE 80; RESP 16; TEMP 36.8; O2SAT 96
--- NOTE | 2025-04-30 17:17 | PN_ITS ---
Subjective Subjective Patient seen and examined. She had no active complaints today. She had an uneventful night. She had ERCP yesterday with insertion of stent in the ventral pancreatic duct and also had choledocholithiasis with removal of stone. She has remained hemodynamically stable. She was seen with her nurse by bedside. Review of systems otherwise negative. Objective Data Objective Data Vital Signs: Vital Signs Temp Pulse Resp BP Pulse Ox O2 Del Method O2 Flow Rate 98.2 F 80 16 132/79 H 96 Room Air 1 04/30/25 14:36 04/30/25 14:36 04/30/25 14:36 04/30/25 14:36 04/30/25 14:36 04/30/25 14:36 04/29/25 22:22 Oxygen Flow Rate (L/min) 1 Oxygen Delivery Method Room Air Weight: 214 lb 12.8 oz Body Mass Index (BMI) 39.2 Intake & Output: Intake and Output for Last 24 Hours 04/28/25 04/29/25 04/30/25 23:59 23:59 23:59 Intake Total 1000 / 1200 1476.25 / 1476.25 2722.50 / 2722.50 Output Total 1600 / 1600 Balance 1000 / 1200 1476.25 / 1476.25 1122.50 / 1122.50 Lab / Micro Data 04/30/25 05:42 04/30/25 05:42 Labs: Laboratory Results - last 24 hr 04/30/25 05:42: WBC 8.5, RBC 4.40, Hgb 12.8, Hct 37.5, MCV 85.2, MCH 29.1, MCHC 34.1, RDW Std Deviation 41.1, RDW Coeff of Taye 13.1, Plt Count 365, MPV 9.4, Immature Gran % (Auto) 0.200, Neut % (Auto) 69.2, Lymph % (Auto) 17.9 L, Day % (Auto) 11.2 H, Eos % (Auto) 0.7, Baso % (Auto) 0.8, Absolute Neuts (auto) 5.9, Absolute Lymphs (auto) 1.52, Nucleated RBC % 0, Sodium 140, Potassium 3.5, Chloride 105, Carbon Dioxide 23.8, Anion Gap 11, BUN 8, Creatinine 0.68 L, Estim Creat Clear Calc 72.33, Est GFR (MDRD) Non-Af 94, BUN/Creatinine Ratio 12.0, Glucose 87, Calcium 8.5, Total Bilirubin 0.58, Direct Bilirubin 0.24, AST 102 H, ALT 184 H, Alkaline Phosphatase 201 H, Total Protein 6.5, Albumin 3.7, Globulin 2.7 Radiography Diagnostic Testing: Radiology Impression Endo Retro Cholangiopancreatogram 04/29/25 16:10 IMPRESSION: As above. Reading Location: [facility] Physical Exam Const alert, oriented x3 and no apparent distress General Appearance: cooperative and well developed HEENT normocephalic, head/scalp atraumatic, moist oral mucous membranes and oropharynx normal Eyes EOMs intact bilaterally Neck no lymphadenopathy and supple Lymph Lymphatic: no lymphedema noted Resp normal respiratory effort, normal air movement and clear to auscultation bilaterally Cardio regular rate, regular rhythm, S1 normal heart sound, S2 normal heart sound and no murmurs GI normal to inspection, nondistended, normoactive bowel sounds, soft to palpation and non-tender Extremity normal capillary refill, no clubbing, cyanosis or edema and no calf tenderness General Extremity: no tenderness to palpation of joints or extremities Skin General Skin Exam: no breakdown Neuro CN's II-XII intact bilaterally, no focal motor deficits and no sensory deficits noted Motor Exam: strength 5/5 throughout and general weakness Psych thought process normal and cooperative Appearance: appropriate Assessment & Plan Assessment/Plan (1) Elevated liver enzymes: (2) Status post laparoscopic cholecystectomy: PLAN: Plan #Elevated liver enzymes in the setting of common bile duct dilatation due to choledocholithiasis * abdominal pain improving. Is s/p cholecystectomy recently * Had ERCP yesterday with choledocholithiasis being found and complete removal accomplished by biliary sphincterectomy and balloon extraction. Pancreatic sphincterotomy was performed and 1 temporary stent was placed into the ventral pancreatic duct. * Liver enzymes have trended down slightly. * CT abdomen/pelvis showed s/p cholecystectomy and dilated common bile duct measuring up to 1.4cm and new paraumbilical small ventral defect with associated small amount fluid likely related to postsurgical changes and mild surrounding inflammatory changes, with underlying infection is not entirely excluded and diverticulosis without evidence of diverticulitis. * on PO tylenol, IV morphine and PO oxycodone prn for pain * continue gentle hydration with IVF NS ~ 75cc/hr * Advance to regular diet as tolerated. * #Hypothyroidism: on synthroid. DVT prophylaxis: SCDs Disposition: For likely discharge tomorrow when she tolerates regular diet. Charges/Coding Visit Charges Inpatient E&M: 33133 Subs Hosp L2
[2025-04-30 19:55] VITALS: BP 137/88; PULSE 80; RESP 18; TEMP 36.7; O2SAT 97
[2025-05-01 03:33] VITALS: BP 123/56; PULSE 79; RESP 18; TEMP 36.4; O2SAT 96
[2025-05-01 06:14] LABS: Hematocrit 41.0 % (37-47); Hemoglobin 13.5 g/dL (12.0-15.0); Immature Granulocytes Count 0.010 X10^3/uL (0.0-0.0); Mean Corp Hgb Conc 32.9 g/dL (32-36); Mean Corpuscular Volume 86.0 fL (81-99); Mean Platelet Vol. 9.5 fl (6.2-12.0); NRBC Flagged by Analyzer 0 % (0-5); Platelet Count 347 K/mm3 (150-450); RBC Distribution Width CV 12.8 % (11.6-14.6); RBC Distribution Width SD 40.1 fl (35.1-43.9); Red Blood Count 4.77 M/mm3 (4.2-5.4); White Blood Count 6.0 K/mm3 (4.4-11.0)
[2025-05-01 07:00] LABS: Anion Gap 9 (5-15); BUN 7 mg/dL (4-19); BUN/Creat Ratio 11.8 RATIO (10-20); Calcium,Total 8.7 mg/dL (7.6-11.0); Carbon Dioxide 26.7 mmol/L (21.0-32.0); Chloride 104 mmol/L (98-108); Estimated Creatinine Clearance 72.33 ml/min (50-250); Glucose 95 mg/dL (70-99); Potassium 3.2 mmol/L (3.3-5.1)
[2025-05-01] MEDS: Potassium Chloride Oral Tablet 20 MEQ 40 MEQ PO (08:30)
[2025-05-01 08:39] VITALS: BP 147/88; PULSE 72; RESP 16; TEMP 36.6; O2SAT 97
[2025-05-01 10:10] LABS: AST(SGOT) 51 U/L (<=31); Alanine Aminotransfer ALT/SGPT 127 U/L (<=34); Albumin, Serum 3.7 g/dL (3.4-4.8); Alkaline Phosphatase 179 U/L (35-104); Bilirubin, Direct 0.24 mg/dL (0.00-0.30); Globulin 2.6 g/dL (2.2-4.2)
--- NOTE | 2025-05-01 12:56 | DCINST_ITS ---
Discharge Instructions DC O2, CPAP, BIPAP needs Home O2 Discharge instructions: No Dressing / Incision Discharge Activity: Return to Normal Activity Weight Bearing Status: Weight bearing as tolerated Dressing / Incision Call your doctor if you observe: Fever of 101 or Higher, Shortness of breath, Dizziness, Swelling in the ankles, Chest pain, Increased palpitations (irregular heartbeat) and Calf discomfort Follow Up Care Test Results: Test results from this visit will be discussed in further detail at your follow- up appointment, if applicable. Discharge Plan Admission Admit Date/Time: 04/28/25 17:58 Primary Reason for Your Visit: acute choledocholithiasis Attending Provider: Miranda Delgado Primary Care Provider: Royce Islas Consulting Providers: Kevin Medina; Umair Hoffman; Susy Chapman; Malka Degroot; Leah De La Torre; Sammie Bonilla Instructions Patient Instructions: ED Gallstones with Biliary Colic Discharge Orders/Prescriptions Prescriptions: Continued levothyroxine 75 MCG tablet 75 mcg PO SUMOTUWEFRSA aspirin 81 mg tablet 81 mg PO DAILY cholecalciferol (vitamin D3) [Vitamin D3] 25 mcg (1,000 unit) capsule 25 mcg PO DAILY levothyroxine [Euthyrox] 75 mcg tablet 150 mcg PO TH cinnamon bark [Cinnamon] 500 mg capsule 500 mg PO DAILY turmeric 400 mg capsule 400 mg PO DAILY Referrals / Follow Up: Royce Islas DO [Primary Care Provider, Medical] - Within 1 Week Umair Hoffman DO [Med Staff - Active Staff, Gastroenterology] - Within 2 Weeks Disposition Disposition (needs filled in before D/C Order can be placed): Home, Self Care
--- NOTE | 2025-05-01 12:57 | PCM.DC.SUM ---
Providers Date of Admission: 04/28/25 Date of Discharge: 05/01/25 Primary Care Physician: Dr. Royce Islas, DO Consultations 04/28/25 18:22 Consult: Gastroenterology Routine Consulting Provider: [facility] Reason for Consult: ercp EMERGENT Consult: No MD Notified: Yes Date Notified: 04/28/25 Time Notified: 18:02 Method of Notification: ED Physician Initiated Reason For Visit: RIGHT SIDED PAIN, ELEVATED LFTS, RECENT NIXON Diagnosis Discharge Diagnosis (1) Elevated liver enzymes: Status: Acute Code(s): R74.8 - Abnormal levels of other serum enzymes (2) Status post laparoscopic cholecystectomy: Status: Inactive Code(s): Z90.49 - Acquired absence of other specified parts of digestive tract Plan #Elevated liver enzymes in the setting of common bile duct dilatation due to choledocholithiasis abdominal pain improving. Is s/p cholecystectomy recently Had ERCP yesterday with choledocholithiasis being found and complete removal accomplished by biliary sphincterectomy and balloon extraction. Pancreatic sphincterotomy was performed and 1 temporary stent was placed into the ventral pancreatic duct. Liver enzymes have trended down slightly. CT abdomen/pelvis showed s/p cholecystectomy and dilated common bile duct measuring up to 1.4cm and new paraumbilical small ventral defect with associated small amount fluid likely related to postsurgical changes and mild surrounding inflammatory changes, with underlying infection is not entirely excluded and diverticulosis without evidence of diverticulitis. on PO tylenol, IV morphine and PO oxycodone prn for pain continue gentle hydration with IVF NS ~ 75cc/hr Advance to regular diet as tolerated. #Hypothyroidism: on synthroid. DVT prophylaxis: SCDs Disposition: For likely discharge tomorrow when she tolerates regular diet. Medications at Discharge Home Medications levothyroxine 75 mcg tablet 75 mcg PO SUMOTUWEFRSA 05/19/19 aspirin 81 mg tablet 81 mg PO DAILY 04/11/25 cholecalciferol (vitamin D3) 25 mcg (1,000 unit) capsule (Vitamin D3) 25 mcg PO DAILY 04/11/25 cinnamon bark 500 mg capsule (Cinnamon) 500 mg PO DAILY 04/28/25 levothyroxine 75 mcg tablet (Euthyrox) 150 mcg PO TH 04/28/25 turmeric 400 mg capsule 400 mg PO DAILY 04/28/25 Hospital Course Operations None Procedures - (ERCP) Summary of Care Provided Minutes Spent on Discharge: 42 Hospital Course: Patient is a 69-year-old female with past medical history as outlined was admitted to the ED on 04/08/2025 with a complaint of right-sided abdominal pain and nausea. She said the right flank pain, nausea and vomiting woke her up at around 2 AM on the day of admission. She denied any fever or chills. CT of the abdomen and pelvis with contrast showed dilatation of the common bile duct up to 1.4 cm in the periumbilical ventral defect with fat herniation and associated small amount of fluid with mild surrounding fat stranding likely postsurgical changes. Gastroenterology was consulted. Of note patient had had a recent cholecystectomy so she was admitted to be managed for probable choledocholithiasis status. She had ERCP on 04/29/2025 which showed choledocholithiasis and complete removal was accomplished by biliary sphincterotomy and balloon extraction as well as a pancreatic sphincterotomy being performed with 1 temporary stent placed into the ventral pancreatic duct. Biliary tree was also swept and there was a biliary sphincterotomy. Liver enzymes subsequently trended downwards and she felt much better. She was discharged home on 05/01/2025 as he tolerated a regular diet. She is follow-up with her primary care doctor within 1 to 2 weeks and also to follow-up with gastroenterology within 1 to 2 weeks. Patient was seen and examined prior to discharge. She felt much better and IS already dressed and ready to go. She had no active complaints. Review of systems otherwise negative. Labs and vitals reviewed. Home medication reviewed and reconciled. Physical Exam Const alert, oriented x3 and no apparent distress General Appearance: cooperative, comfortable, well kempt and well developed HEENT normocephalic, head/scalp atraumatic, hearing grossly normal bilaterally, moist oral mucous membranes and oropharynx normal Mouth: oral and palatal mucosa normal Eyes EOMs intact bilaterally Neck no lymphadenopathy and supple Lymph Lymphatic: no lymphedema noted Resp normal respiratory effort, normal air movement and clear to auscultation bilaterally Cardio regular rate, regular rhythm, S1 normal heart sound, S2 normal heart sound and no murmurs GI normal to inspection, nondistended, normoactive bowel sounds, soft to palpation and non-tender Extremity normal to inspection, full ROM, normal capillary refill, no clubbing, cyanosis or edema and no calf tenderness General Extremity: no tenderness to palpation of joints or extremities Skin no rashes or lesions noted General Skin Exam: no breakdown Neuro oriented x3, CN's II-XII intact bilaterally, moves all extremities, no focal motor deficits and no sensory deficits noted Sensorium / Orientation: awake and alert Motor Exam: strength 5/5 throughout and general weakness Psych thought process normal and cooperative Appearance: appropriate Weight / BMI Weight Weight: 214 lb 12.8 oz Body Mass Index (BMI) 39.2 ABG / Lab / Microbiology Data 05/01/25 05:25 05/01/25 05:25 Laboratory: Laboratory Results - last 24 hr 05/01/25 05:23: Total Bilirubin 0.61, Direct Bilirubin 0.24, AST 51 H, ALT 127 H, Alkaline Phosphatase 179 H, Total Protein 6.3, Albumin 3.7, Globulin 2.6 05/01/25 05:25: WBC 6.0, RBC 4.77, Hgb 13.5, Hct 41.0, MCV 86.0, MCH 28.3, MCHC 32.9, RDW Std Deviation 40.1, RDW Coeff of Taye 12.8, Plt Count 347, MPV 9.5, Immature Gran % (Auto) 0.200, Neut % (Auto) 58.1, Lymph % (Auto) 22.5, [place] % (Auto) 15.6 H, Eos % (Auto) 2.8, Baso % (Auto) 0.8, Absolute Neuts (auto) 3.5, Absolute Lymphs (auto) 1.35, Nucleated RBC % 0, Sodium 140, Potassium 3.2 L, Chloride 104, Carbon Dioxide 26.7, Anion Gap 9, BUN 7, Creatinine 0.63 L, Estim Creat Clear Calc 72.33, Est GFR (MDRD) Non-Af 96, BUN/Creatinine Ratio 11.8, Glucose 95, Calcium 8.7 D/C Instructions Discharge Activity: Return to Normal Activity Weight Bearing Status: Weight bearing as tolerated Call your doctor if you observe: Fever of 101 or Higher, Shortness of breath, Dizziness, Swelling in the ankles, Chest pain, Increased palpitations (irregular heartbeat) and Calf discomfort DC O2, CPAP, BIPAP Needs Home O2 Discharge instructions: No DC home with Oxygen: No Meaningful Use Info Meaningful Use Meaningful Use Diagnoses (Choose all that apply): None applicable Discharge Plan Admission Admit Date/Time: 04/28/25 17:58 Primary Reason for Your Visit: acute choledocholithiasis Attending Provider: Miranda Delgado Primary Care Provider: Royce Islas Consulting Providers: Kevin Medina; Umair Hoffman; Susy Chapman; Malka Degroot; Leah De La Torre; Sammie Bonilla Instructions Patient Instructions: ED Gallstones with Biliary Colic Discharge Orders/Prescriptions Prescriptions: Continued levothyroxine 75 MCG tablet 75 mcg PO SUMOTUWEFRSA aspirin 81 mg tablet 81 mg PO DAILY cholecalciferol (vitamin D3) [Vitamin D3] 25 mcg (1,000 unit) capsule 25 mcg PO DAILY levothyroxine [Euthyrox] 75 mcg tablet 150 mcg PO TH cinnamon bark [Cinnamon] 500 mg capsule 500 mg PO DAILY turmeric 400 mg capsule 400 mg PO DAILY Referrals / Follow Up: Royce Islas DO [Primary Care Provider, Medical] - Within 1 Week Umair Hoffman DO [Med Staff - Active Staff, Gastroenterology] - Within 2 Weeks Disposition Disposition (needs filled in before D/C Order can be placed): Home, Self Care Charges/Coding Visit Charges Inpatient E&M: 44583 Disch Hosp >30min
--- NOTE | 2025-05-01 13:05 | PN_ITS ---
Progress Note Patient's abdominal pain is a lot better. She denies any nausea, vomiting or diarrhea. She denies any weakness. She is tolerating a diet. Physical Exam Const alert, oriented x3 and no apparent distress General Appearance: cooperative and well developed HEENT normocephalic, head/scalp atraumatic, moist oral mucous membranes and oropharynx normal Eyes EOMs intact bilaterally Neck no lymphadenopathy and supple Lymph Lymphatic: no lymphedema noted Resp normal respiratory effort, normal air movement and clear to auscultation bilaterally Cardio regular rate, regular rhythm, S1 normal heart sound, S2 normal heart sound and no murmurs GI normal to inspection, nondistended, normoactive bowel sounds, soft to palpation and non-tender Extremity normal capillary refill, no clubbing, cyanosis or edema and no calf tenderness General Extremity: no tenderness to palpation of joints or extremities Skin General Skin Exam: no breakdown Neuro CN's II-XII intact bilaterally, no focal motor deficits and no sensory deficits noted Motor Exam: strength 5/5 throughout and general weakness Psych thought process normal and cooperative Appearance: appropriate Assessment & Plan Assessment/Plan (1) Elevated liver enzymes: (2) Status post laparoscopic cholecystectomy: PLAN: Plan 69-year-old presents with worsening abdominal pain and discovered to have elevated liver enzymes in the setting of common bile duct dilatation due to choledocholithiasis * abdominal pain improving. She underwent ERCP yesterday with choledocholithiasis being found and complete removal accomplished by biliary sphincterectomy and balloon extraction. Pancreatic sphincterotomy was performed and 1 temporary stent was placed into the ventral pancreatic duct. * Liver enzymes have trended down slightly. * CT abdomen/pelvis showed s/p cholecystectomy and dilated common bile duct measuring up to 1.4cm and new paraumbilical small ventral defect with associated small amount fluid likely related to postsurgical changes and mild surrounding inflammatory changes, with underlying infection is not entirely excluded and diverticulosis without evidence of diverticulitis. * Advance to regular diet as tolerated. * Patient can be discharged home. Visit Charges Inpatient E&M: [id number] [facility] H[facility] L3
== END 2025-05-01 13:13 | disposition home or self-care (01) | DRG 446 ==
LOC: ED 17:25 → MS3 18:03
PROVIDERS: Internal Medicine Gastroenterology; Admitting Provider Internal Medicine; Emergency Provider Emergency Medicine; PCP Student in an Organized Health Care Education/Training Program; Visit Provider Student in an Organized Health Care Education/Training Program
PROC: 0FC98ZZ Extirpation of Matter from Common Bile Duct, Via Natural or Artificial Opening Endoscopic (ICD-10-PCS; CPT 43260; principal; 2025-04-29 15:50)
DX: K80.50 Calculus of bile duct without cholangitis or cholecystitis without obstruction (principal); E03.9 Hypothyroidism, unspecified; K42.9 Umbilical hernia without obstruction or gangrene; R74.8 Abnormal levels of other serum enzymes; Z90.49 Acquired absence of other specified parts of digestive tract; Z79.82 Long term (current) use of aspirin; Z79.890 Hormone replacement therapy; Z87.891 Personal history of nicotine dependence
CPT/HCPCS: 36415; 74176; 74330; 76000; 80048; 80053; 80076; 81001; 84443; 85025; 93005; 99284; C2625; A4216; J2405

== ENCOUNTER → 2025-06-19 | Outpatient (CLI) | payer MEDICARE, SELFPAY ==
--- NOTE | 2025-06-19 07:48 | RAD_ITS ---
PROCEDURE: ABDOMEN SINGLE VIEW 06/19/2025 REASON FOR EXAM: PANCREATIC DUCT STENT TECHNIQUE: Procedure Code: RADABD Modality: DX Procedure: ABDOMEN SINGLE VIEW COMPARISON: ERCP, 04/12/2025. FINDINGS: There is a nonobstructive bowel gas pattern. There is a biliary stent in the pancreatic stent both in good position. There is mild multilevel degenerative disc disease of the lumbar spine. RAD/Abdomen Single View IMPRESSION: Biliary and pancreatic stents in good position. Other findings as noted. Reading Location: [place] [id number]
== END | disposition home or self-care (01) ==
LOC: RAD 07:47
PROVIDERS: PCP Student in an Organized Health Care Education/Training Program; Referring Provider Student in an Organized Health Care Education/Training Program; Visit Provider Student in an Organized Health Care Education/Training Program
DX: Z96.89 Presence of other specified functional implants (principal)
CPT/HCPCS: 74018

== ENCOUNTER 2025-07-23 12:58 | Day surgery (SDC) | payer MEDICARE, SELFPAY ==
--- NOTE | 2025-07-19 16:39 | PAT.ANE_ITS ---
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 When Was Last Pacemaker Check QUESTION #4 FULL TEXT: You/Your Family Experience fever (hyperthermia) with Anesthesia Last Oral Intake Last Oral intake: Last Oral Intake NPO since Meds taken in AM with sips of water? 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 Female Yes 07/19/25 15:08 HX of Motion Sickness No 07/19/25 15:08 HX of N/V After Surgery No 07/19/25 15:08 Non-Smoker Yes 07/19/25 15:08 Duration of Surgery greater Yes 07/19/25 15:08 than 60 minutes Number of Risk Factors 3 07/19/25 15:08 PONV Score Moderate Risk 07/19/25 15:08 Height & Weight Height & Weight: Anesthesia: Height & Weight Height 5 ft 2 in 04/28/25 18:22 Respiratory Assessment Respiratory Assessment - metalizing machine operator: Respiratory Tract Infection Hx - metalizing machine operator Hx Respiratory Tract Infection No 07/19/25 15:08 STOP Sleep Apnea STOP Sleep Apnea - metalizing machine operator: STOP Sleep Apnea - metalizing machine operator Hx Hypertension No 07/19/25 15:08 Hx Sleep Apnea No 07/19/25 15:08 CPAP BIPAP Do you snore loudly (louder No 07/19/25 15:08 than talking or can be heard Do you often feel tired/ No 07/19/25 15:08 fatigued/ sleepy during daytime? Has anyone observed you stop No 07/19/25 15:08 breathing during sleep? STOP Results Negative 07/19/25 15:08 QUESTION #5 FULL TEXT : Do you snore loudly (louder than talking or can be heard through closed doors)? 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 Specify any problems Hx of Preganancy in last 3 No 07/19/25 15:08 Months Nurse Filling Out Transfusion ANTHONY 07/19/25 15:08 & Questions: Date: 07/19/25 07/19/25 15:08 Time: 15:11 07/19/25 15:08 Patient unable to answer at this time (ie. 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: /Reproductive Hx- metalizing machine operator Hx Now Gestational Age (in weeks): EDC: Hx Hx Para Hx Section SAB No 07/19/25 15:08 Does the father of the baby or his family experience fever w Father of the baby Malignant Hypertension history comment [facility] Medical History (Updated 07/19/25 @ 15:17 by Malu Pelayo) Wears glasses Post-menopausal Alcohol use Marijuana use Fatty liver Migraine headache Former smoker Thyroid disease High triglycerides High cholesterol Generalized headaches Gallstones UTI (urinary tract infection) Bone fracture Elevated liver enzymes Hypothyroid Home Medications ?Medication ?Instructions ?Recorded ?Last Taken ?Type levothyroxine 75 mcg tablet 75 mcg PO SUMOTUWEFRSA 04/27/25 History aspirin 81 mg tablet 81 mg PO DAILY 04/11/2504/02 History cholecalciferol (vitamin D3) 25 25 mcg PO DAILY 04/27/25 History mcg (1,000 unit) capsule (Vitamin D3) cinnamon bark 500 mg capsule 500 mg PO DAILY 04/28/25 04/27/25 History (Cinnamon) levothyroxine 75 mcg tablet 150 mcg PO TH 04/28/25 History (Euthyrox) turmeric 400 mg capsule 400 mg PO DAILY 04/28/25 History Allergy/AdvReac Type Severity Reaction Status Date / Time No Known Allergies Allergy Verified 07/19/25 15:05 Family History Other Colon cancer Hypertension Osteoporosis Surgical History (Updated 07/19/25 @ 15:08 by Malu Pelayo) History of colonoscopy History of ERCP Status post laparoscopic cholecystectomy S/P cholecystectomy Hx of elbow surgery Social History Smoking Status: Former smoker substance use type: does not use Audit: Pertinent Findings Pertinent Findings EKG Perinent findings: 04/29/2025. Normal sinus rhythm. LAD. Moderate voltage criteria for LVH. Possible anterior infarct, age undetermined. Recommendation Anesthesia Recommendation Anesthesia recommendation: OPTIMIZED for anesthesia
[2025-07-23] VITALS (9 sets, daily range): BP systolic 100–125; BP diastolic 72–88; PULSE 70–88; RESP 16–18; TEMP 36.1–36.9; O2SAT 94–96; BMI 40.1
--- NOTE | 2025-07-23 13:15 | RAD_ITS ---
PROCEDURE: ERCP BILIARY/PANCREAS 07/23/2025 REASON FOR EXAM: ERCP TECHNIQUE: Procedure Code: RADERCP Modality: DX Procedure: ERCP BILIARY/PANCREAS. ERCP performed by Dr. Hoffman. COMPARISON: ERCP dated 04/29/2025. FINDINGS: Image 1 shows the endoscope projecting over the distal thoracolumbar spine and right hemiabdomen. Image 2 shows catheter coursing through the common bile duct. Contrast material has been injected with partial opacification of the hepatic duct and common bile duct. A small lucent defect is seen adjacent to the catheter in the mid to distal common bile duct. Images 3 shows the balloon tip catheter pulled distally in the common bile duct with the previously noted filling defect absent. Image 3 and 4 shows contrast material in the duodenum. A small residual contrast persists in the distal common bile duct. RAD/ERCP Biliary/Pancreas IMPRESSION: Successful ERCP by Dr. Hoffman. Please see Dr. Matos postoperative report for further documentation of the procedure. Reading Location: [place] [address]
[2025-07-23] MEDS: Lactated Ringers 1,000 ML 15 ML IV (13:27)
--- NOTE | 2025-07-23 14:15 | FLU_PTH ---
PATIENT: WILLIAMS ANDERSON LOC: EN U#:[id number] AGE/SX: 69/F ROOM: RE07/23/[address]: Dr. Umair Hoffman DO : 1955 BED: DIS: 07/23/2025 SPEC #: [id number] RECD: 07/23/25 15:39 STATUS: DANIKA REQ #: [id number] SINAN: 07/23/25 14:[address]: Umair Hoffman DEPT: CYTOLOGY RECD BY: Ramila Wright ENTERED: 07/24/25 08:34 SP TYPE: Fluid OTHR DR: Dr. Royce Islas DO Tissues: A - Bile duct, NOS B - Pancreatic duct, NOS Procedures: Special Stain Group II Surgery Specimen Level IV Cytospin Fluid HEADER OPERATION: ERCP, stent removal, balloon cholangiogram PRE-OP DIAGNOSIS: Presence of pancreatic duct stent TISSUE SUBMITTED: A. Biliary stent, B. Pancreatic stent DIAGNOSIS CYTOLOGY A. Biliary stent, ERCP (cytospin, cellblock): - No malignant cells identified. B. Pancreatic stent, ERCP (cytspin, cellblock): - No malignant cells identified. CYTOLOGY STUDY Slides are reviewed. CYTOLOGY GROSS A. Received is 10cm blackish/blue stent with 0.3ml thick yellowish-brown material labeled with the patient's name and and designated per the requisition as Biliary stent. Submitted for cytology and cell block preparation. B. Received is 12cm blackish/blue stent with 0.1ml scanty white material labeled with the patient's name and and designated per the requisition as Pancreatic stent. Submitted for cytology and cell block preparation. MR:rl 07/24/2025 CPT: [id number]
--- NOTE | 2025-07-23 14:36 | PRE.ANES_ITS ---
ASA Classification* ASA Classification ASA Classification: 3 Assessment & Plan Anesthesia* Anesthesia Assessment Anesthesia Assessment: Discussed sedation and/or anesthesia options, risks, benefits, and alternatives with patient/parents/legal guardian/POA. Questions invited. The patient/parents/legal guardian/POA seems to understand and agrees to proceed with anesthesia plan. Reviewed the physical assessment, medical history, allergy history and patient home medications list prior to surgery/procedure/anesthetic and documented any changes. Performed airway and anesthesia risk assessments. Anesthesia Type Anesthesia Type: MAC History Source History Obtained from:: Patient and Chart Anesthesia Focused Assessment* Temperature: 98.4 F Pulse Rate: 88 Blood Pressure: 109/72 Respiratory Rate: 18 Pulse Ox: 95 Oxygen Delivery Method: Room Air Airway Assessment Mouth opens: >3 cm Mallampati Score: III Teeth Condition: Caps/Crowns (Patient has a crown. It is tight.) and Missing (Right upper molar is missing. Rest are tight.) Neck Range of motion (ROM): Limited ROM (Severe Restriction) Labs Anesthesia Preop lab: CBC WBC, (4.4-11.0) 6.0 K/mm3 05/01/25, 05:25 RBC, (4.2-5.4) 4.77 M/mm3 05/01/25, 05:25 Hgb, (12.0-15.0) 13.5 g/dL 05/01/25, 05:25 Hct, (37-47) 41.0 % 05/01/25, 05:25 Plt Count, (150-450) 347 K/mm3 05/01/25, 05:25 CHEMISTRY Potassium, (3.3-5.1) 3.2 mmol/L L 05/01/25, 05:25 Sodium, (133-145) 140 mmol/L 05/01/25, 05:25 BUN, (4-19) 7 mg/dL 05/01/25, 05:25 Creatinine, (0.70-1.20) 0.63 mg/dL L 05/01/25, 05:25 Glucose, (70-99) 95 mg/dL 05/01/25, 05:25 TSH, (0.300-4.200) 2.010 uIU/mL 04/29/25, 05:25 COAG Pre-Assessment Diagnosis/Proposed Procedure Planned Operative Procedure(s): ERCP Anesthesia History 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 When Was Last Pacemaker Check QUESTION #4 FULL TEXT: You/Your Family Experience fever (hyperthermia) with Anesthesia Last Oral Intake Last Oral intake: Last Oral Intake NPO since 06:00 07/23/25 13:23 Meds taken in AM with sips of Yes 07/23/25 13:23 water? 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 Female Yes 07/19/25 15:08 HX of Motion Sickness No 07/19/25 15:08 HX of N/V After Surgery No 07/19/25 15:08 Non-Smoker Yes 07/19/25 15:08 Duration of Surgery greater Yes 07/19/25 15:08 than 60 minutes Number of Risk Factors 3 07/19/25 15:08 PONV Score Moderate Risk 07/19/25 15:08 Height & Weight Height & Weight: Anesthesia: Height & Weight Height 5 ft 2 in 07/23/25 13:23 Weight: 99.7 kg 07/23/25 13:23 Body Mass Index (BMI) 40.1 07/23/25 13:23 Respiratory Assessment Respiratory Assessment - platform attendant: Respiratory Tract Infection Hx - platform attendant Hx Respiratory Tract Infection No 07/19/25 15:08 STOP Sleep Apnea STOP Sleep Apnea - platform attendant: STOP Sleep Apnea - platform attendant Hx Hypertension No 07/19/25 15:08 Hx Sleep Apnea No 07/19/25 15:08 CPAP BIPAP Do you snore loudly (louder No 07/19/25 15:08 than talking or can be heard Do you often feel tired/ No 07/19/25 15:08 fatigued/ sleepy during daytime? Has anyone observed you stop No 07/19/25 15:08 breathing during sleep? STOP Results Negative 07/19/25 15:08 QUESTION #5 FULL TEXT : Do you snore loudly (louder than talking or can be heard through closed doors)? 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 Specify any problems Hx of Preganancy in last 3 No 07/19/25 15:08 Months Nurse Filling Out Transfusion MGRIFFITH 07/19/25 15:08 & Questions: Date: 07/19/25 07/19/25 15:08 Time: 15:11 07/19/25 15:08 Patient unable to answer at this time (ie. confused, unrespo /Reproduction History /Reproductive History - platform attendant: /Reproductive Hx- platform attendant Hx Now Gestational Age (in weeks): EDC: Hx Hx Para Hx Section SAB No 07/19/25 15:08 Does the father of the baby or his family experience fever w Father of the baby Malignant Hypertension history comment Active Medications Active Medications: Current Medications Generic Name Dose Route Start Last Admin Trade Name Freq PRN Reason Stop Dose Admin Lactated Ringer's 1,000 mls @ 15 mls/hr 07/23/25 13:15 07/23/25 13:27 IV 15 mls/hr .Q48H JIM Administration PFSH Medical History (Updated 07/19/25 @ 15:17 by Malu Pelayo) Wears glasses Post-menopausal Alcohol use Marijuana use Fatty liver Migraine headache Former smoker Thyroid disease High triglycerides High cholesterol Generalized headaches Gallstones UTI (urinary tract infection) Bone fracture Elevated liver enzymes Hypothyroid Home Medications ?Medication ?Instructions ?Recorded ?Last Taken ?Type levothyroxine 75 mcg tablet 75 mcg PO SUMOTUWEFRSA 07/23/25 06:00 History aspirin 81 mg tablet 81 mg PO DAILY 04/11/25 12/ 0 History cholecalciferol (vitamin D3) 25 25 mcg PO DAILY 04/27/25 History mcg (1,000 unit) capsule (Vitamin D3) cinnamon bark 500 mg capsule 500 mg PO DAILY 04/28/25 04/27/25 History (Cinnamon) levothyroxine 75 mcg tablet 150 mcg PO TH 04/28/25 History (Euthyrox) turmeric 400 mg capsule 400 mg PO DAILY 04/28/25 History Allergy/AdvReac Type Severity Reaction Status Date / Time No Known Allergies Allergy Verified 07/23/25 13:22 Family History Other Colon cancer Hypertension Osteoporosis Surgical History (Updated 07/19/25 @ 15:08 by Malu Pelayo) History of colonoscopy History of ERCP Status post laparoscopic cholecystectomy S/P cholecystectomy Hx of elbow surgery Social History Smoking Status: Former smoker substance use type: does not use Review of Systems (Anesthesia) ROS Narrative System reviewed and no additional complaints, except as documented.
--- NOTE | 2025-07-23 14:36 | PCM.HP.STD ---
HPI - General General Date of Admission: 07/23/25 Date of Service: 07/23/25 Chief Complaint: Stent removal HPI Narrative WILLIAMS ANDERSON, is a 69 F who presents [ Chief Complaint: Status post ERCP [facility] admission 04/12/2025 - 04/13/2025 after presentation to the ED with abdominal pain. CT showing mildly thickened gallbladder ultrasound confirming wall thickening and Myron cholecystic fluid as well as mildly dilated common bile duct. Underwent cholecystectomy. There was question of a stone in the duct however discharged. Surgery visit 04/26/2025 patient doing well [facility] admission 04/28/2025 - 04/30/2025 after presentation to the ED with right flank pain nausea and vomiting. Workup revealing elevated liver enzymes. Underwent ERCP which demonstrated choledocholithiasis. ERCP 04/29/2025 - Choledocholithiasis was found. Complete removal was accomplished by biliary sphincterotomy and balloon extraction. - A pancreatic sphincterotomy was performed. - One temporary stent was placed into the ventral pancreatic duct. - A biliary sphincterotomy was performed. - The biliary tree was swept. OV 06/19/25 patient feeling well, denies any further abdominal pain, nausea or vomiting PFSH Medical History Wears glasses Post-menopausal Alcohol use Marijuana use Fatty liver Migraine headache Former smoker Thyroid disease High triglycerides High cholesterol Generalized headaches Gallstones UTI (urinary tract infection) Bone fracture Elevated liver enzymes Hypothyroid Home Medications ?Medication ?Instructions ?Recorded ?Last Taken ?Type levothyroxine 75 mcg tablet 75 mcg PO SUMOTUWEFRSA 05/19/19 07/23/25 06:00 History aspirin 81 mg tablet 81 mg PO DAILY 04/11/25 07/20/25 History cholecalciferol (vitamin D3) 25 25 mcg PO DAILY 04/11/25 04/27/25 History mcg (1,000 unit) capsule (Vitamin D3) cinnamon bark 500 mg capsule 500 mg PO DAILY 04/28/25 04/27/25 History (Cinnamon) levothyroxine 75 mcg tablet 150 mcg PO TH 04/28/25 04/25/25 History (Euthyrox) turmeric 400 mg capsule 400 mg PO DAILY 04/28/25 04/27/25 History Allergy/AdvReac Type Severity Reaction Status Date / Time No Known Allergies Allergy Verified 07/23/25 13:22 Family History Other Colon cancer Hypertension Osteoporosis Surgical History History of colonoscopy History of ERCP Status post laparoscopic cholecystectomy S/P cholecystectomy Hx of elbow surgery Social History Smoking Status: Former smoker substance use type: does not use ROS Constitutional Constitutional: Denies fatigue, fever(s), poor appetite, weight gain or weight loss Gastrointestinal Gastrointestinal: Denies belching, bloating, change in bowel habits, change in stool character, chewing difficulty, coffee ground emesis, constipation, cramping, diarrhea, dyspepsia, dysphagia, early satiety, excessive flatus, fecal incontinence, heartburn, hematemesis, hematochezia, hemorrhoids, loose stools, melena, nausea, odynophagia, rectal bleeding, tenesmus, vomiting or weight changes Patient's Goals Of Care . What would you like to achieve or improve as a result of your hospital stay?: none Vital Signs Vital Signs Vital Signs: 07/23/25 13:23 07/23/25 13:23 07/23/25 13:23 Temperature 98.4 F Temperature Source Temporal Pulse Rate 88 Respiratory Rate 18 Respiratory Pattern Normal Blood Pressure 109/72 Blood Pressure Mean 84 Blood Pressure Source Monitor Blood Pressure Position Sitting Blood Pressure Location Right Arm Baseline BP 109/72 Pulse Ox 95 Oxygen Delivery Method Room Air Weight Weight: 219 lb 12.814 oz Body Mass Index (BMI) 40.1 Physical Exam Const alert, oriented x3, no apparent distress and healthy appearing General Appearance: cooperative GI normal to inspection, nondistended, normoactive bowel sounds, soft to palpation, non-tender and non-distended Percussion: normal to percussion Rectal Exam: deferred Assessment & Plan Assessment/Plan (1) Status post endoscopic retrograde cholangiopancreatography: PLAN: Assessment and Plan Assessment and Plan (1) Presence of pancreatic duct stent: (2) Status post endoscopic retrograde cholangiopancreatography: Status: Acute Plan: Williams is a 69-year-old female patient with past medical history of hypertension and hypothyroidism here today for hospital follow-up. Patient was hospitalized in April 2025 due to cholecystitis. She underwent inpatient cholecystectomy and was discharged. At discharge there was question of possible stone in the common bile duct. She once again presented to the ED about 2 weeks later with right sided abdominal pain nausea and vomiting. Patient underwent ERCP which revealed choledocholithiasis and complete removal was accomplished by biliary sphincterotomy and balloon extraction, pancreatic sphincterotomy was performed 1 temporary stent was placed in the ventral pancreatic duct and biliary sphincterotomy was performed. No common bile duct stent was placed. Patient doing well today with no further abdominal pain, nausea or vomiting. She does not require repeat ERCP since she did not have a CBD stent placed. Will order x-ray to ensure pancreatic stent has passed. We may consider repeat ERCP if it remains in her pancreatic duct. - X-ray for pancreatic stent - Follow-up as needed ]
--- NOTE | 2025-07-23 15:38 | OP.ERCP_ITS ---
Patient Name: Manjula Orourke Procedure Date: 07/23/2025 2:48 PM Date of : 1955 Age: 69 Procedure: ERCP Indications: Bile duct stone(s), Biliary stent removal, Pancreatic stent removal Providers: Umair Hoffman DO Referring MD: Royce Islas Medicines: Monitored Anesthesia Care Patient Profile: This is a 69 year old female. Refer to note in patient chart for documentation of history and physical. Patient has symptoms. Complications: No immediate complications. Procedure: Pre-Anesthesia Assessment: - Prior to the procedure, a History and Physical was performed, and patient medications and allergies were reviewed. The patient is competent. The risks and benefits of the procedure and the sedation options and risks were discussed with the patient. All questions were answered and informed consent was obtained. Patient identification and proposed procedure were verified by the physician in the pre-procedure area. Mental Status Examination: alert and oriented. Airway Examination: normal oropharyngeal airway and neck mobility. Respiratory Examination: clear to auscultation. CV Examination: normal. Prophylactic Antibiotics: The patient does not require prophylactic antibiotics. Prior Anticoagulants: The patient has taken no anticoagulant or antiplatelet agents except for NSAID medication. ASA Grade Assessment: II - A patient with mild systemic disease. After reviewing the risks and benefits, the patient was deemed in satisfactory condition to undergo the procedure. The anesthesia plan was to use monitored anesthesia care (MAC). Immediately prior to administration of medications, the patient was re-assessed for adequacy to receive sedatives. The heart rate, respiratory rate, oxygen saturations, blood pressure, adequacy of pulmonary ventilation, and response to care were monitored throughout the procedure. The physical status of the patient was re-assessed after the procedure. After obtaining informed consent, the scope was passed under direct vision. Throughout the procedure, the patient's blood pressure, pulse, and oxygen saturations were monitored continuously. The Duodenoscope was introduced through the mouth, and advanced to the duodenum and used to inject contrast into the bile duct and ventral pancreatic duct. The ERCP was accomplished without difficulty. The patient tolerated the procedure well. Scope In: 3:04:20 PM Scope Out: 3:26:20 PM Total Procedure Duration Time 0 hours 22 minutes 0 seconds Findings: A biliary stent was visible on the getter operator film. A biliary stent was visible on the getter operator film. The esophagus was successfully intubated under direct vision. The scope was advanced to a normal major papilla in the descending duodenum without detailed examination of the pharynx, larynx and associated structures, and upper GI tract. The upper GI tract was grossly normal. Two stents were removed from the biliary tree and the pancreatic duct using a snare and sent for cytology. The stents were found to be occluded via the water column test. A long 0.025 inch Jagwire was passed into the biliary tree. The short-nosed traction sphincterotome was passed over the guidewire and the bile duct was then deeply cannulated. Contrast was injected. I personally interpreted the bile duct images. Ductal flow of contrast was adequate. Image quality was adequate. Contrast extended to the entire biliary tree. Opacification of the main bile duct and entire biliary tree was successful. The maximum diameter of the ducts was 12 mm. The lower third of the main bile duct contained three stones, the largest of which was 6 mm in diameter. The main bile duct and entire biliary tree were diffusely dilated, with a stone causing an obstruction. The largest diameter was 12 mm. A cholecystectomy had been performed. A 5 mm biliary sphincterotomy was made with a traction (standard) sphincterotome using ERBE electrocautery. There was no post-sphincterotomy bleeding. The biliary tree was swept with a 12 mm balloon starting at the bifurcation, right intrahepatic duct(s) and right main hepatic duct. Sludge was swept from the duct. All stones were removed. Impression: - The entire main bile duct and entire biliary tree were dilated, with a stone causing an obstruction. - The patient has had a cholecystectomy. - Choledocholithiasis was found. Complete removal was accomplished by biliary sphincterotomy and balloon extraction. - Two stents were removed from the biliary tree and the pancreatic duct. - A biliary sphincterotomy was performed. - The biliary tree was swept. Procedure Code(s): --- Professional --- 03101, Endoscopic retrograde cholangiopancreatography (ERCP); with removal of foreign body(s) or stent(s) from biliary/pancreatic duct(s) 83089, Endoscopic retrograde cholangiopancreatography (ERCP); with removal of calculi/debris from biliary/pancreatic duct(s) 08156, Endoscopic retrograde cholangiopancreatography (ERCP); with sphincterotomy/papillotomy 09849, 26, Endoscopic catheterization of the biliary ductal system, radiological supervision and interpretation CPT copyright 2021 [employer]. All rights reserved. The codes documented in this report are preliminary and upon intervention analyst review may be revised to meet current compliance requirements. Umair Hoffman DO 07/23/2025 3:38:01 PM This report has been signed electronically. Number of Addenda: 0 Note Initiated On: 07/23/2025 2:48 PM
--- NOTE | 2025-07-23 15:38 | OP.PROVAT_ITS ---
07/23/2025 Royce Islas [address] [place] [address] Re : ERCP procedure for Manjula Orourke Dear Dr. Islas This procedure was performed on Wednesday, July 23, 2025. My impressions and recommendations are as follows: Impressions : - The entire main bile duct and entire biliary tree were dilated, with a stone causing an obstruction. - The patient has had a cholecystectomy. - Choledocholithiasis was found. Complete removal was accomplished by biliary sphincterotomy and balloon extraction. - Two stents were removed from the biliary tree and the pancreatic duct. - A biliary sphincterotomy was performed. - The biliary tree was swept. Recommendations : My findings are described in the full procedure note, which is enclosed. If I can be of further assistance, please feel free to contact me at . Sincerely, Umair Hoffman, 07/23/2025 3:38:01 PM This report has been signed electronically.
--- NOTE | 2025-07-23 15:50 | PCM.POST.ANE ---
Anesthesia: Postop Eval I Current Vital Signs Temperature: 97 F Pulse Rate: 81 Blood Pressure: 110/75 Respiratory Rate: 16 Pulse Ox: 95 Oxygen Delivery Method: Room Air Assessment Airway patent: Yes Spontaneous unlabored respirations: Yes Mental status: Awake and Calm nausea: No Vomiting: No Anesthesia Complication: No Fluid Hydration Crystalloid volume administer (ml): 600 Total IV fluid infused: 600 Progress Note Anesthesia document: Postop Eval 1 completed: Yes
--- NOTE | 2025-07-23 18:19 | PCM.POSTANE2 ---
Anesthesia Postop Eval I Sum Postop Eval Completion status Anesthesia document: Postop Eval 1 completed: Yes Anesthesia Postop Eval I Summary Anesthesia Postop Eval I Summary: Anesthesia Postop Eval I: Assessment Summary Airway patent Yes 07/23/25 15:51 [email or web address] Spontaneous unlabored Yes 07/23/25 15:51 [email or web address] respirations Mental status Awake,Calm 07/23/25 15:51 [email or web address] nausea No 07/23/25 15:51 [email or web address] Vomiting No 07/23/25 15:51 [email or web address] Anesthesia Postop Eval I: Fluid Summary Crystalloid volume administer 600 07/23/25 15:51 [email or web address] (ml) Colloids volume administered ( ml) Blood Product volume administered (ml) Total IV fluid infused 600 07/23/25 15:51 [email or web address] Anesthesia Postop Eval I: Summary Notes Anesthesia Complication No 07/23/25 15:51 [email or web address] Anesthesia Complication Comment: Post-operative progress note Anesthesia: Postop Eval II Evaluation Mental status: Awake and Calm Pain Level: 0 nausea: No Vomiting: No Complications Anesthesia Complication: No
== END 2025-07-23 17:25 | disposition home or self-care (01) ==
LOC: EN 13:01 → AC 13:47
PROVIDERS: PCP Student in an Organized Health Care Education/Training Program; Referring Provider Student in an Organized Health Care Education/Training Program; Visit Provider Internal Medicine Gastroenterology
PROC: (CPT 43260; principal; 2025-07-23 13:55)
DX: Z46.59 Encounter for fitting and adjustment of other gastrointestinal appliance and device (principal); K80.51 Calculus of bile duct without cholangitis or cholecystitis with obstruction; Z79.82 Long term (current) use of aspirin; Z87.891 Personal history of nicotine dependence; E78.00 Pure hypercholesterolemia, unspecified; Z90.49 Acquired absence of other specified parts of digestive tract; Z79.890 Hormone replacement therapy; E03.9 Hypothyroidism, unspecified; I10 Essential (primary) hypertension
CPT/HCPCS: 43262; 43264; 43275; 74330; 76000; 88108; 88305; 88313; J2405